=== PATIENT | female | born 1940 | race Caucasian/White ===

== ENCOUNTER 2019-11-23 14:09 | Inpatient (IN) | payer MEDICARE, OTHER ==
[2019-11-30 02:28] VITALS: RESP 18
[2019-11-30 07:58] VITALS: PULSE 108
[2019-11-30 08:27] VITALS: BP 125/82; TEMP 98
[2019-11-30 11:21] VITALS: BMI 33.4
== END 2019-11-30 16:35 | disposition home health service (06) | DRG 175 ==
LOC: EC 14:09 → 4SSUR 17:01
PROVIDERS: ADMIT Family Medicine; ATTEND Family Medicine
DX: I26.99 Other pulmonary embolism without acute cor pulmonale (principal); J18.9 Pneumonia, unspecified organism; J98.11 Atelectasis; S92.341A Displaced fracture of fourth metatarsal bone, right foot, initial encounter for closed fracture; E03.9 Hypothyroidism, unspecified; E78.5 Hyperlipidemia, unspecified; G89.29 Other chronic pain; I10 Essential (primary) hypertension; M19.90 Unspecified osteoarthritis, unspecified site; R29.6 Repeated falls; R62.7 Adult failure to thrive; W19.XXXA Unspecified fall, initial encounter; Z96.653 Presence of artificial knee joint, bilateral; Z96.611 Presence of right artificial shoulder joint; J98.01 Acute bronchospasm; Z79.01 Long term (current) use of anticoagulants; Z79.1 Long term (current) use of non-steroidal anti-inflammatories (NSAID); Z79.890 Hormone replacement therapy; Z79.82 Long term (current) use of aspirin; Z79.899 Other long term (current) drug therapy; Z90.710 Acquired absence of both cervix and uterus; Z98.1 Arthrodesis status; Z85.820 Personal history of malignant melanoma of skin
CPT/HCPCS: 29515; 36415; 70450; 71045; 71046; 71260; 72125; 80053; 81001; 82550; 83735; 85025; 85027; 85610; 85730; 87040; 93005; 93970; 94640; 94760; 99285

== ENCOUNTER 2019-12-03 00:40 | Emergency (ER) | payer MEDICARE, OTHER ==
[2019-12-03 00:50] VITALS: RESP 18; TEMP 99.2
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
[2019-12-03 01:05] LABS: Basophils % (A) 0 %; Eosinophils # (A) 0.2 k/uL (0-0.7); Eosinophils % (A) 2 %; HCT 36.5 % (34.0-46.0); HGB 12.4 gm/dL (11.4-16.0); Lymphocytes # (A) 1.5 k/uL (1.0-4.8); Lymphocytes % (A) 14 %; MCH 30.1 pg (25.0-35.0); MCHC 33.9 g/dL (31.0-37.0); Mean Platelet Volume 7.6; Monocytes # (A) 0.6 k/uL (0-1.0); Monocytes % (A) 5 %; Neutrophils # (A) 8.5 k/uL (1.3-7.7); Neutrophils % (A) 78 %; Platelet Count 326 k/uL (150-450); WBC 10.9 k/uL (3.8-10.6)
[2019-12-03 01:14] LABS: African American GFR (CKD) >90 (>60 ml/min/1.73 sqM); Anion Gap 7 mmol/L; Blood Urea Nitrogen 9 mg/dL (7-17); Calcium 9.3 mg/dL (8.4-10.2); Carbon Dioxide 29 mmol/L (22-30); Chloride 97 mmol/L (98-107); Glucose 114 mg/dL (74-99); INR 2.1 (<1.2); Non-African American GFR(CKD) >90 (>60 ml/min/1.73 sqM); Potassium 3.3 mmol/L (3.5-5.1); Prothrombin Time 20.4 sec (9.0-12.0); Sodium 133 mmol/L (137-145)
--- NOTE | 2019-12-03 01:30 | CT ---
EXAMINATION TYPE: CT brain wo con DATE OF EXAM: 12/03/2019 COMPARISON: 11/23/2019 HISTORY: Patient presents with head pain after fall. CT DLP: 1121.4 mGycm Automated exposure control for dose reduction was used. There is cerebral cortical atrophy. There is patchy hypodensity in the periventricular white matter. There is frontal scalp hematoma. There is no evidence of intracranial hemorrhage. There is no mass ef fect. The calvarium is intact. IMPRESSION: Cerebral atrophy and chronic small vessel ischemia. No acute intracranial abnormality. No significant change. Frontal scalp acute hematoma.
[2019-12-03] MEDS ORDERED: HYDROcodone/APAP 5-325MG 1 EACH TAB PO STA (01:32)
[2019-12-03] MEDS ORDERED: ONDANSETRON 4 MG/2 ML VIAL IVP STA (01:32)
[2019-12-03] MEDS ORDERED: POTASSIUM CHLORIDE ER 20 MEQ TAB.ER PO STA (01:51)
[2019-12-03 02:02] VITALS: BP 118/78; PULSE 86
== END 2019-12-03 02:43 | disposition home or self-care (01) ==
LOC: EC 00:40
DX: S00.03XA Contusion of scalp, initial encounter (principal); E78.5 Hyperlipidemia, unspecified; I10 Essential (primary) hypertension; E07.9 Disorder of thyroid, unspecified; G89.29 Other chronic pain; G62.9 Polyneuropathy, unspecified; Z88.8 Allergy status to other drugs, medicaments and biological substances; Z91.048 Other nonmedicinal substance allergy status; Z79.01 Long term (current) use of anticoagulants; Z79.52 Long term (current) use of systemic steroids; Z79.82 Long term (current) use of aspirin; Z79.890 Hormone replacement therapy; Z79.891 Long term (current) use of opiate analgesic; Z79.899 Other long term (current) drug therapy; Z96.653 Presence of artificial knee joint, bilateral; Z96.611 Presence of right artificial shoulder joint; Z96.612 Presence of left artificial shoulder joint; V27.0XXA Motorcycle driver injured in collision with fixed or stationary object in nontraffic accident, initial encounter; V00.141A Fall from scooter (nonmotorized), initial encounter; W22.03XA Walked into furniture, initial encounter; Y93.89 Activity, other specified; Y92.009 Unspecified place in unspecified non-institutional (private) residence as the place of occurrence of the external cause
CPT/HCPCS: 36415; 80048; 85025; 85610; 85730; 70450; 99284; 96374; J2405

== ENCOUNTER 2022-05-15 12:27 | Observation (INO) | payer MEDICARE, OTHER ==
[2022-05-15 16:10] LABS: Appearance,Urine Turbid (Clear); Bacteria,Urine Many /hpf; Bilirubin,Urine Negative (Negative); Blood,Urine Small (Negative); Color,Urine Yellow; Glucose,Urine (UA) Negative (Negative); Ketones,Urine Negative (Negative); Leukocyte Esterase,Urine Large (Negative); Mucus,Urine Few /hpf; Nitrite,Urine Positive (Negative); PH, Urine 5.5 (5.0-8.0); Protein,Urine 1+ (Negative); RBC,Urine 27 /hpf (0-5); Specific Gravity,Urine 1.018 (1.001-1.035); Squamous Epithelial Cell,Urine 1 /hpf (0-4); Urobilinogen,Urine <2.0 mg/dL (<2.0); WBC,Urine >182 /hpf (0-5)
[2022-05-15 17:29] LABS: Basophils # (A) 0.1 k/uL (0-0.2); Basophils % (A) 1 %; Eosinophils # (A) 0.4 k/uL (0-0.7); Eosinophils % (A) 6 %; HCT 42.1 % (34.0-46.0); HGB 13.8 gm/dL (11.4-16.0); Lymphocytes # (A) 2.5 k/uL (1.0-4.8); Lymphocytes % (A) 31 %; MCH 29.9 pg (25.0-35.0); MCHC 32.8 g/dL (31.0-37.0); MCV 91.2 fL (80.0-100.0); Mean Platelet Volume 8.1; Monocytes # (A) 0.5 k/uL (0-1.0); Monocytes % (A) 6 %; Neutrophils # (A) 4.4 k/uL (1.3-7.7); Neutrophils % (A) 55 %; Platelet Count 272 k/uL (150-450); RBC 4.61 m/uL (3.80-5.40); RDW 13.5 % (11.5-15.5)
[2022-05-15 17:42] LABS: Calcium 9.4 mg/dL (8.4-10.2); Potassium 4.1 mmol/L (3.5-5.1)
[2022-05-15] MEDS ORDERED: NALOXONE 0.4 MG/ML 1 ML VIAL IV PRN (17:56)
[2022-05-15] MEDS ORDERED: ACETAMINOPHEN TAB 325 MG TAB PO PRN (17:56)
--- NOTE | 2022-05-15 17:56 | ED ---
General Adult HPI - General Chief complaint: Recheck/Abnormal Lab/Rx Stated complaint: UTI Time Seen by Provider: 05/15/22 17:00 Source: patient, RN notes reviewed, old records reviewed Mode of arrival: wheelchair Limitations: no limitations - History of Present Illness Initial comments: Patient is a 81-year-old female with past medical history remarkable for hypertension, thyroid disorder, hyperlipidemia, chronic back pain, chronic UTIs who presents emergency department after being sent by her PCP over concern for UTI for the last 7 months. Patient has been having dysuria, burning sensation in her urine for the last 7 months. Has tried multiple oral antibiotics without any improvement. She is also endorsing mild suprapubic abdominal pain. No change from prior episodes of UTIs. Was sent here by her PCP for admission for evaluation by infectious disease and initiation of IV antibiotics. His no other acute complaints at this time. Denies nausea, vomiting, chest pain or shortness breath, fevers. Denies any tinge in bowel habits. Denies any blood in urine. Presents for further evaluation at this time. - Related Data Home Medications Medication Instructions Recorded Confirmed Aspirin EC [Ecotrin Low Dose] 81 mg PO DAILY 11/23/19 11/23/19 Atorvastatin [Lipitor] 20 mg PO DAILY 11/23/19 11/23/19 Ergocalciferol [Vitamin D2 50,000 unit PO MO 11/23/19 11/23/19 (DRISDOL)] Escitalopram [Lexapro] 10 mg PO DAILY 11/23/19 11/23/19 Ferrous Sulfate [Iron (65 MG 325 mg PO DAILY 11/23/19 11/23/19 Elemental)] Gabapentin 600 mg PO TID 11/23/19 11/23/19 HYDROcodone/APAP 10-325MG [[place] 1 tab PO TID PRN 11/23/19 11/23/19 10-325] Levothyroxine Sodium 200 mcg PO DAILY 11/23/19 11/23/19 Lubiprostone [Amitiza] 8 mcg PO DAILY 11/23/19 11/23/19 Meclizine HCl 12.5 mg PO TID 11/23/19 11/23/19 Montelukast [Singulair] 10 mg PO HS 11/23/19 11/23/19 Solifenacin Succinate [Vesicare] 10 mg PO DAILY 11/23/19 11/23/19 amLODIPine [Norvasc] 5 mg PO DAILY 11/23/19 11/23/19 atenoloL [Tenormin] 25 mg PO DAILY 11/23/19 11/23/19 oxyCODONE HCL [OxyCONTIN] 60 mg PO TID 11/23/19 11/23/19 predniSONE 5 mg PO DAILY 11/23/19 11/23/19 raNITIdine HCL [Zantac] 150 mg PO BID 11/23/19 11/23/19 Previous Rx's Medication Instructions Recorded cefUROXime axetiL [Ceftin] 500 mg PO BID 3 Days #6 tab 11/26/19 Warfarin [Coumadin] 2.5 mg PO DAILY@1800 tab 11/29/19 Allergies Allergy/AdvReac Type Severity Reaction Status Date / Time cat dander Allergy Rash/Hives Verified 05/15/22 13:07 nortriptyline [From Pamelor] AdvReac Unknown Verified 05/15/22 13:07 Review of Systems ROS Statement: Those systems with pertinent positive or pertinent negative responses have been documented in the HPI. Review of Systems: CONST: Denies fever EYES: Denies blurry vision ENT: Denies nasal congestion C/V: Denies Chest pain RESP: Denies shortness of breath GI: Endorses suprapubic abdominal pain, somewhat chronic. : Denies dysuria SKIN: Denies rash. MSK: Denies joint pain. NEURO: Denies headache ROS Other: All systems not noted in ROS Statement are negative. Past Medical History Past Medical History: Hyperlipidemia, Hypertension, Thyroid Disorder Additional Past Medical History / Comment(s): chronic back pain, neuropathy, vertigo, History of Any Multi-Drug Resistant Organisms: None Reported Past Surgical History: Back Surgery, Section, Cholecystectomy, Hysterectomy, Joint Replacement, Orthopedic Surgery Additional Past Surgical History / Comment(s): 5 back surgeries, bilat knees, shoulder replacement, Past Psychological History: No Psychological Hx Reported Past Alcohol Use History: None Reported Past Drug Use History: None Reported - Past Family History Father Family Medical History: Diabetes Mellitus Mother Family Medical History: Hypertension General Exam - General Exam Comments Initial Comments: General: Appears in no acute distress. HEAD: Normal with no signs of head trauma. EYES: PERRLA, EOMI, conjunctiva normal, no discharge. ENT: Hearing grossly intact, normal oropharynx. RESPIRATORY: Clear breath sounds bilaterally. No wheezes, rales, or rhonchi. C/V: Regular rate and rhythm. S1 and S2 auscultated. Peripheral pulses 2+ and intact throughout. ABD: Abdomen soft, nondistended. Mild tenderness to palpation suprapubic region. No other findings. No rebound tenderness. No guarding. No CVA tenderness to percussion. EXT: Normal range of motion, no obvious deformity SKIN: No rashes or lesions observed on exposed skin. NEURO: Alert and oriented 4. Limitations: no limitations Course Vital Signs 05/15/22 05/15/22 05/15/22 13:07 16:36 17:23 Temperature 98.2 F Pulse Rate 102 H 68 68 Respiratory 18 16 16 Rate Blood Pressure 122/75 140/67 140/68 O2 Sat by Pulse 96 98 98 Oximetry Medical Decision Making - Medical Decision Making Based on the patient's presentation and physical exam, I'm concerned for chronic UTI. She has having chronic symptoms. Was sent for admission which I believe is reasonable. We will obtain basic laboratory studies. Urinalysis was already obtained, and revealed small amount of blood, positive nitrite and large amount of leukocyte esterase, 27 RBCs, as well as greater than 182 WBCs. Many bacteria present. Basic labs are within normal limits. Vital signs are within normal limits. I did speak with the patient's PCP and admitting physician, Dr. Degroot who requested infectious disease consult. Urine culture was sent and is pending. I did discuss with him starting IV antibiotics, and as this has been a chronic issue for 7 months with no new changes in the patient's status, as well as normal vital signs, we both agreed that waiting for the culture results and infectious disease consult was reasonable prior to starting antibiotics and I did discuss this with the patient who was in agreement this plan. Patient was therefore admitted to observation in stable condition. Infectious disease consult was placed. - Lab Data Result diagrams: 05/15/22 17:22 05/15/22 17: Lab Results 05/15/22 05/15/22 05/15/22 Range/Units 15:00 17:22 17:22 WBC 8.0 (3.8-10.6) k/uL RBC 4.61 (3.80-5.40) m/uL Hgb 13.8 (11.4-16.0) gm/dL Hct 42.1 (34.0-46.0) % MCV 91.2 (80.0-100.0) fL MCH 29.9 (25.0-35.0) pg MCHC 32.8 (31.0-37.0) g/dL RDW 13.5 (11.5-15.5) % Plt Count 272 (150-450) k/uL MPV 8.1 Neutrophils % 55 % Lymphocytes % 31 % Monocytes % 6 % Eosinophils % 6 % Basophils % 1 % Neutrophils # 4.4 (1.3-7.7) k/uL Lymphocytes # 2.5 (1.0-4.8) k/uL Monocytes # 0.5 (0-1.0) k/uL Eosinophils # 0.4 (0-0.7) k/uL Basophils # 0.1 (0-0.2) k/uL Sodium 138 (137-145) mmol/L Potassium 4.1 (3.5-5.1) mmol/L Chloride 105 (98-107) mmol/L Carbon Dioxide 22 (22-30) mmol/L Anion Gap 11 mmol/L BUN 13 (7-17) mg/dL Creatinine 0.81 (0.52-1.04) mg/dL Est GFR (CKD-EPI)AfAm 80 (>60 ml/min/1.73 sqM) Est GFR (CKD-EPI)NonAf 70 (>60 ml/min/1.73 sqM) Glucose 96 (74-99) mg/dL Calcium 9.4 (8.4-10.2) mg/dL Urine Color Yellow Urine Appearance Turbid H (Clear) Urine pH 5.5 (5.0-8.0) Ur Specific [place] 1.018 (1.001-1.035) Urine Protein 1+ H (Negative) Urine Glucose (UA) Negative (Negative) Urine Ketones Negative (Negative) Urine Blood Small H (Negative) Urine Nitrite Positive H (Negative) Urine Bilirubin Negative (Negative) Urine Urobilinogen <2.0 (<2.0) mg/dL Ur Leukocyte Esterase Large H (Negative) Urine RBC 27 H (0-5) /hpf Urine WBC >182 H (0-5) /hpf Urine WBC Clumps Many H (None) /hpf Ur Squamous Epith Cells 1 (0-4) /hpf Urine Bacteria Many H (None) /hpf Urine Mucus Few H (None) /hpf Disposition Clinical Impression: Chronic UTI Disposition: ADMITTED IP TO THIS HOSP Condition: Stable Referrals: Juan Jose Degroot MD [Primary Care Provider] - 1-2 days Time of Disposition: 17:30
[2022-05-15] MEDS ORDERED: HYDROcodone/APAP 10-325MG 1 EACH TAB PO PRN (17:57)
[2022-05-15] MEDS ORDERED: WARFARIN 2.5 MG TAB PO SCH (18:00)
[2022-05-15] MEDS: SODIUM CHLORIDE 0.9% 1,000 ML IV SCH (18:40)
[2022-05-15] MEDS ORDERED: NON FORMULARY DRUG (Naloxone Hcl [Narcan] 4 MG Each) NASAL PRN (18:58)
[2022-05-15] MEDS ORDERED: HEPARIN SODIUM,PORCINE/PF 5,000 UNIT/0.5 ML SYRINGE SQ SCH (21:00)
[2022-05-15] MEDS ORDERED: MECLIZINE 12.5 MG TAB PO SCH (22:00)
[2022-05-15] MEDS ORDERED: GABAPENTIN 300 MG CAP PO SCH (22:00)
[2022-05-15] MEDS: oxyCODONE-APAP 10-325MG 1 EACH TAB PO SCH (22:06)
[2022-05-15] MEDS: HEPARIN SODIUM,PORCINE/PF 5,000 UNIT/0.5 ML SYRINGE SQ SCH (22:07)
[2022-05-15] MEDS: QUEtiapine 25 MG TAB PO SCH (22:07)
[2022-05-16] MEDS: LEVOTHYROXINE 125 MCG TAB PO SCH (06:07)
[2022-05-16] MEDS ORDERED: LEVOTHYROXINE 100 MCG TAB PO SCH (06:30)
[2022-05-16] MEDS: TROSPIUM CHLORIDE 20 MG TABLET PO SCH ×2 (08:44→20:14)
[2022-05-16] MEDS: oxyCODONE-APAP 10-325MG 1 EACH TAB PO SCH ×4 (08:44→21:10)
[2022-05-16] MEDS: METOPROLOL SUCCINATE (ER) 100 MG TAB.ER.24H PO SCH (08:45)
[2022-05-16] MEDS: HEPARIN SODIUM,PORCINE/PF 5,000 UNIT/0.5 ML SYRINGE SQ SCH ×2 (08:45→20:14)
[2022-05-16] MEDS: LACTOBACILLUS ACIDOPH & BULGAR 1 EACH PACKET PO SCH (08:45)
[2022-05-16] MEDS: SODIUM CHLORIDE 0.9% 1,000 ML IV SCH ×2 (08:46→20:14)
[2022-05-16] MEDS ORDERED: atenoloL 25 MG TAB PO SCH (09:00)
[2022-05-16] MEDS ORDERED: Lubiprostone [Amitiza] PO SCH (09:00)
[2022-05-16] MEDS ORDERED: ATORVASTATIN 20 MG TAB PO SCH (09:00)
[2022-05-16] MEDS ORDERED: amLODIPine 5 MG TAB PO SCH (09:00)
[2022-05-16] MEDS ORDERED: ESCITALOPRAM 10 MG TAB PO SCH (09:00)
[2022-05-16] MEDS ORDERED: ASPIRIN 81 MG PO SCH (09:00)
[2022-05-16 09:18] LABS: Basophils # (A) 0.07 X 10*3/uL (0.00-0.10); Basophils % (A) 1.1 %; Eosinophils # (A) 0.49 X 10*3/uL (0.04-0.35); Eosinophils % (A) 7.4 %; HCT 36.8 % (37.2-46.3); HGB 11.8 g/dL (12.0-15.0); Immature Grans, Automated 0.3 %; Lymphocytes # (A) 2.39 X 10*3/uL (0.90-5.00); MCH 29.5 pg (27.0-32.0); MCHC 32.1 g/dL (32.0-37.0); Mean Platelet Volume 10.8 fL (9.5-12.2); Monocytes # (A) 0.64 X 10*3/uL (0.20-1.00); Monocytes % (A) 9.7 %; NRBC Per 100 WBC 0 /100 WBCS (0.0-0.0); Neutrophils # (A) 3.02 X 10*3/uL (1.80-7.70); Neutrophils % (A) 45.5 %; Platelet Count 238 X 10*3/uL (140-440); RDW 13.7 % (11.5-14.5); WBC 6.63 X 10*3/uL (4.50-10.00)
[2022-05-16 09:33] LABS: African American GFR (CKD) 81.3 (60.0-200.0); Anion Gap 9.6 mmol/L (10.00-18.00); Blood Urea Nitrogen 12.8 mg/dL (9.0-27.0); Calcium 8.7 mg/dL (8.7-10.3); Carbon Dioxide 24.4 mmol/L (20.0-27.5); Non-African American GFR(CKD) 70.1 (60.0-200.0); Potassium 3.9 mmol/L (3.5-5.5)
[2022-05-16] MEDS: QUEtiapine 25 MG TAB PO SCH (20:14)
--- NOTE | 2022-05-16 22:25 | P.CONS ---
History of Present Illness - Reason for Consult Consult date: 05/16/22 Recurrent urinary tract infection Requesting physician: Juan Jose Degroot - Chief Complaint Urinary burning and frequency x days - History of Present Illness Patient is a 81-year-old female with a past medical history significant for recurrent UTI patient mention she has been dealing with it for the last 7 months and has been treated with multiple courses of antibiotic patient also have a history of hypertension hyperlipidemia and chronic back pain, patient described her symptoms to be morning of urine frequency urgency and some suprapubic discomfort patient denies having hematuria or flank pain and denies having any fever or chills patient was sent to the ER by the PCP for admission and IV antibiotic therapy on presentation to the hospital the patient was afebrile the patient did have a normal white count kidney function has been normal the patient did have a positive UA with large leukocyte esterase more than 1-2 WBC cultures are currently pending patient started on Rocephin infectious disease was consulted for further management of antibiotic therapy Review of Systems Positive point has been mentioned in the HPI rest of the systems are negative Past Medical History Past Medical History: Hyperlipidemia, Hypertension, Thyroid Disorder Additional Past Medical History / Comment(s): chronic back pain, neuropathy, vertigo, History of Any Multi-Drug Resistant Organisms: None Reported Past Surgical History: Back Surgery, Section, Cholecystectomy, Hysterectomy, Joint Replacement, Orthopedic Surgery Additional Past Surgical History / Comment(s): 5 back surgeries, total bilat knees, total shoulder replacement, c secx3 Past Anesthesia/Blood Transfusion Reactions: No Reported Reaction Past Psychological History: No Psychological Hx Reported Smoking Status: Never smoker Past Alcohol Use History: None Reported Past Drug Use History: None Reported - Past Family History Father Family Medical History: Diabetes Mellitus Mother Family Medical History: Hypertension Medications and Allergies Home Medications Medication Instructions Recorded Confirmed Type Aspirin EC [Ecotrin Low Dose] 81 mg PO DAILY 11/23/19 05/15/22 History Atorvastatin [Lipitor] 20 mg PO DAILY 11/23/19 05/15/22 History Solifenacin Succinate [Vesicare] 10 mg PO DAILY 11/23/19 05/15/22 History L.acidoph,Paracasei, B.lactis 1 cap PO DAILY 05/15/22 05/15/22 History [Probiotic] Levothyroxine Sodium [Synthroid] 125 mcg PO DAILY 05/15/22 05/15/22 History Metoprolol Succinate (ER) [Toprol 100 mg PO DAILY 05/15/22 05/15/22 History XL] Naloxone HCl [Narcan] 4 mg NASAL ONCE PRN 05/15/22 05/15/22 History QUEtiapine [SEROquel] 25 mg PO HS 05/15/22 05/15/22 History fentaNYL 75MCG/HR PATCH [Duragesic 1 patch TRANSDERM Q72H 05/15/22 05/15/22 History 75MCG/HR] oxyCODONE-APAP 10-325MG [Percocet 1 tab PO QID 05/15/22 05/15/22 History 10-325 mg] tiZANidine [Zanaflex] 4 mg PO HS 05/15/22 05/15/22 History Nitrofurantoin Monohyd/M-Cryst 100 mg PO BID 7 Days #14 cap 05/18/22 Rx [Macrobid] Allergies Allergy/AdvReac Type Severity Reaction Status Date / Time cat dander Allergy Rash/Hives Verified 05/15/22 18:15 nortriptyline [From Pamelor] AdvReac Unknown Verified 05/15/22 18:15 Physical Exam Vitals: Vital Signs Temp Pulse Pulse Resp BP BP Pulse Ox 05/16/22 07:00 98 F 68 18 132/72 97 05/16/22 03:22 97.7 F 67 16 99/62 96 05/15/22 20:23 98.3 F 64 16 169/81 97 05/15/22 19:38 95 20 123/77 98 05/15/22 17:23 68 16 140/68 98 05/15/22 16:36 68 16 140/67 98 05/15/22 13:07 98.2 F 102 H 18 122/75 96 Intake and Output 05/15/22 05/16/22 05/16/22 22:59 06:59 14:59 Other: # Voids 1 1 1 Weight 88.451 kg GENERAL DESCRIPTION: Elderly female lying in bed, no distress. No tachypnea or accessory muscle of respiration use. HEENT: Shows Pallor , no scleral icterus. Oral mucous membrane is dry. No pharyngeal erythema or thrush NECK: Trachea central, no thyromegaly. LUNGS: Unlabored breathing. Clear to auscultation anteriorly. No wheeze or crackle. HEART: S1, S2, regular rate and rhythm. No loud murmur ABDOMEN: Soft, no tenderness , guarding or rigidity, no organomegaly EXTREMITIES: No edema of feet. SKIN: No rash, no masses palpable. NEUROLOGICAL: The patient is awake, alert, oriented x3, mood and affect normal. Results CBC & Chem 7: 05/16/22 04:08 05/16/22 04:08 Labs: Abnormal Lab Results - Last 24 Hours (Table) 05/15/22 05/16/22 05/16/22 Range/Units 15:00 04:08 04:08 RBC 4.00 L (4.10-5.20) X 10*6/uL Hgb 11.8 L (12.0-15.0) g/dL Hct 36.8 L (37.2-46.3) % Eosinophils # 0.49 H (0.04-0.35) X 10*3/uL Anion Gap 9.60 L (10.00-18.00) mmol/L Urine Appearance Turbid H (Clear) Urine Protein 1+ H (Negative) Urine Blood Small H (Negative) Urine Nitrite Positive H (Negative) Ur Leukocyte Esterase Large H (Negative) Urine RBC 27 H (0-5) /hpf Urine WBC >182 H (0-5) /hpf Urine WBC Clumps Many H (None) /hpf Urine Bacteria Many H (None) /hpf Urine Mucus Few H (None) /hpf Microbiology - Last 24 Hours (Table) 05/15/22 15:00 Urine Culture - Preliminary Urine,Voided Assessment and Plan (1) Chronic UTI Current Visit: Yes Status: Acute Code(s): N39.0 - URINARY TRACT INFECTION, SITE NOT SPECIFIED SNOMED Code(s): 830428129 Plan: 1patient with a history of recurrent urine tract infection admitted to hospital with number episode of UTI patient however is not running fever or elevated white count more likely cystitis and not behaving as a deep infection likely from enteric gram-negative pathogen. 2we will obtain ultrasound of the kidney bladder area to make sure no evidence of any structural abnormality responsible for these recurrent UTIs. 3continue with Rocephin 1 g daily while waiting for the culture to be finalized. We will follow on clinical condition and cultures to further adjust medication if needed Thank you for this consultation will follow this patient along with you Time with Patient: Greater than 30
--- NOTE | 2022-05-17 03:54 | HP ---
HISTORY AND PHYSICAL A 81-year-old white female admitted with UTI with urosepsis, waiting for urine cultures to come back. Started on Rocephin, rehydrated with fluids. She has hypertension, hypothyroidism, dyslipidemia, chronic back pain, chronic UTI, cervical lumbar radiculopathy, osteoarthritis, and shoulder disintegration failing outpatient treatment with drug-resistant UTIs with oral antibiotics multiple, not have any improvement. She is cleared for discharge. has the suprapubic pain, failed outpatient treatment. Some mild fevers. No chills. Admitted with IV antibiotics. Home medicines, please see list. ALLERGIES: CAT dander and Pamelor. HOME MEDICATIONS: [place] 10/325 every q.8 hours. Duragesic patch 25 mcg every 72 hours. Amitiza 8 mcg daily. Levothyroxine 20 mcg daily. Singulair 10 mg daily, VESIcare 10 mg daily, Norvasc 5 mg daily, Tenormin 25 mg daily, OxyContin 60 mg t.i.d., which has been discontinued, prednisone 5 mg daily, and Zantac 150 b.i.d. PAST MEDICAL HISTORY: Dyslipidemia, hypertension, hypothyroidism, chronic back pain, neuropathy, vertigo. PAST SURGICAL HISTORY: Back surgery, , cholecystectomy, hysterectomy, joint replacement, orthopedic surgery. FAMILY HISTORY: Father, diabetes mellitus. Mother, hypertension. PHYSICAL EXAMINATION: VITAL SIGNS: Stable. Temperature 98.2, pulse 102, respiratory rate 16-18, blood pressure 120 to 140s over 60s to 70s, O2 saturation is 96%. CARDIOVASCULAR: S1, S2. LUNGS: Clear. GI: Soft. MUSCULOSKELETAL: Tenderness to palpation of cervical lumbar spine. The shoulder range of motion is 45 degrees. HEMATOLOGY: Negative Homans. PSYCHIATRIC: Fair mood and affect. LABORATORY DATA: Urine culture pending showed over 182 white blood cells, 27 red blood cells, white count is 8, hemoglobin 13.8, BUN is 13, creatinine is 0.81. ASSESSMENT: Urinary tract infection, systemic inflammatory response system, failed outpatient therapy, hypothyroidism, hypertension, chronic disk disease. Prognosis guarded. Started on Rocephin. Urine cultures. Infectious Disease consult. . MMODL / IJN: [id number] /
[2022-05-17] MEDS: LEVOTHYROXINE 125 MCG TAB PO SCH (05:34)
--- NOTE | 2022-05-17 07:51 | US ---
EXAMINATION TYPE: US kidneys/renal and bladder DATE OF EXAM: 05/17/2022 COMPARISON: NONE CLINICAL HISTORY: 81-year-old female UTI and bacteremia. Chronic UTI for 7 months TECHNIQUE: Multiple sonographic images of the kidneys and bladder are obtained. FINDINGS: EXAM MEASUREMENTS: Right Kidney: 10.7 x 4.0 x 4.4 cm Left Kidney: 11.3 x 4.3 x 3.6 cm Right Kidney: No hydronephrosis or masses seen Left Kidney: No hydronephrosis or masses seen Bladder: wnl Bilateral Jets seen: Yes IMPRESSION: No hydronephrosis.
[2022-05-17] MEDS: HEPARIN SODIUM,PORCINE/PF 5,000 UNIT/0.5 ML SYRINGE SQ SCH ×2 (10:13→21:13)
[2022-05-17] MEDS: LACTOBACILLUS ACIDOPH & BULGAR 1 EACH PACKET PO SCH (10:14)
[2022-05-17] MEDS: oxyCODONE-APAP 10-325MG 1 EACH TAB PO SCH ×4 (10:14→21:14)
[2022-05-17] MEDS: SODIUM CHLORIDE 0.9% 1,000 ML IV SCH ×2 (10:16→22:41)
[2022-05-17] MEDS: METOPROLOL SUCCINATE (ER) 100 MG TAB.ER.24H PO SCH (10:16)
[2022-05-17] MEDS: TROSPIUM CHLORIDE 20 MG TABLET PO SCH ×2 (10:17→21:15)
[2022-05-17] MEDS: QUEtiapine 25 MG TAB PO SCH (21:13)
[2022-05-18] MEDS: LEVOTHYROXINE 125 MCG TAB PO SCH (06:20)
--- NOTE | 2022-05-18 07:33 | P.PN ---
Subjective Progress Note Date: 05/17/22 Principal diagnosis: Recurrent urinary tract infection Patient is a 81-year-old female with a past medical history significant for recurrent UTI and admitted to the hospital with an episode of UTI On today's evaluation that is 05/17/2022, the patient denies having any fever or chills, patient still complaining of not feeling well, patient denies having any chest pain or shortness of breath or cough no abdominal pain or diarrhea Objective - Vital Signs Vital signs: Vital Signs Temp 98.3 F 05/17/22 13:12 Pulse 96 05/17/22 13:12 Resp 16 05/17/22 13:12 BP 149/84 05/17/22 13:12 Pulse Ox 96 05/17/22 13:12 FiO2 Intake & Output 05/16/22 05/17/22 05/17/22 18:59 06:59 18:59 Intake Total 480 360 Balance 480 360 Intake: Oral 480 360 Other: Voiding Method Toilet # Voids 1 1 - Exam GENERAL DESCRIPTION: An elderly female lying in bed in no distress RESPIRATORY SYSTEM: Unlabored breathing , decreased breath sounds at bases HEART: S1 S2 regular rate and rhythm , ABDOMEN: Soft , no tenderness EXTREMITIES: No edema feet - Labs CBC & Chem 7: 05/16/22 04:08 05/16/22 04:08 Labs: Microbiology - Last 24 Hours (Table) 05/15/22 15:00 Urine Culture - Preliminary Urine,Voided Gram Neg Bacilli Assessment and Plan (1) Chronic UTI Current Visit: Yes Status: Acute Code(s): N39.0 - URINARY TRACT INFECTION, SITE NOT SPECIFIED SNOMED Code(s): 041124922 Plan: 1patient with a history of recurrent urine tract infection admitted to hospital with number episode of UTI patient however is not running fever or elevated white count more likely cystitis and not behaving as a deep infection likely from enteric gram-negative pathogen. 2ultrasound of the kidney bladder area with no evidence of any structural abnormality responsible for these recurrent UTIs. 3patient to continue with Rocephin 1 g daily while waiting for the culture to be finalized to determine discharge antibiotics. Time with Patient: Less than 30
[2022-05-18 08:12] VITALS: BP 158/91; PULSE 101; RESP 16; TEMP 97.4
[2022-05-18] MEDS: HEPARIN SODIUM,PORCINE/PF 5,000 UNIT/0.5 ML SYRINGE SQ SCH (08:34)
[2022-05-18] MEDS: LACTOBACILLUS ACIDOPH & BULGAR 1 EACH PACKET PO SCH (08:34)
[2022-05-18] MEDS: TROSPIUM CHLORIDE 20 MG TABLET PO SCH (08:35)
[2022-05-18] MEDS: METOPROLOL SUCCINATE (ER) 100 MG TAB.ER.24H PO SCH (08:35)
[2022-05-18] MEDS: oxyCODONE-APAP 10-325MG 1 EACH TAB PO SCH ×2 (08:42→13:41)
[2022-05-18] MEDS: NITROFURANTOIN MONOHYD/M-CRYST 100 MG CAP PO SCH ×2 (13:42→13:47)
[2022-05-18] MEDS ORDERED: LEVOFLOXACIN 250 MG TAB PO SCH (15:15)
--- NOTE | 2022-05-18 16:03 | P.PN ---
Subjective Progress Note Date: 05/18/22 Principal diagnosis: Recurrent urinary tract infection Patient is a 81-year-old female with a past medical history significant for recurrent UTI and admitted to the hospital with an episode of UTI On today's evaluation that is 05/18/2022, the patient remains to be afebrile, patient mentioned on feeling that good, patient denies having any chest pain or shortness of breath or cough no abdominal pain or diarrhea Objective - Vital Signs Vital signs: Vital Signs Temp 97.4 F L 05/18/22 07:00 Pulse 101 H 05/18/22 08:00 Resp 16 05/18/22 08:00 BP 158/91 05/18/22 07:00 Pulse Ox 97 05/18/22 07:00 FiO2 Intake & Output 05/17/22 05/18/22 05/18/22 18:59 06:59 18:59 Intake Total 840 Balance 840 Intake: Oral 840 Other: Voiding Method Toilet Toilet Toilet # Voids 7 1 - Exam GENERAL DESCRIPTION: An elderly female lying in bed in no distress RESPIRATORY SYSTEM: Unlabored breathing , decreased breath sounds at bases HEART: S1 S2 regular rate and rhythm , ABDOMEN: Soft , no tenderness EXTREMITIES: No edema feet - Labs CBC & Chem 7: 05/16/22 04:08 05/16/22 04:08 Labs: Microbiology - Last 24 Hours (Table) 05/15/22 15:00 Urine Culture - Final Urine,Voided Escherichia coli Assessment and Plan (1) Chronic UTI Current Visit: Yes Status: Acute Code(s): N39.0 - URINARY TRACT INFECTION, SITE NOT SPECIFIED SNOMED Code(s): 428633416 Plan: 1patient with a history of recurrent urine tract infection admitted to hospital with number episode of UTI patient however is not running fever or elevated white count more likely cystitis and not behaving as a deep infection likely from enteric gram-negative pathogen. 2ultrasound of the kidney bladder area with no evidence of any structural abnormality responsible for these recurrent UTIs. 3patient has shown clinical improvement on Rocephin urine has been finalized with an E. coli which is a sensitive pathogen considered a short course of oral Ceftin on discharge Time with Patient: Less than 30
--- NOTE | 2022-05-19 02:04 | PN ---
PROGRESS NOTE A 81-year-old white female who is in the hospital with drug-resistant UTI sepsis. Waiting for urine culture sensitivity to finalize. It does not feel much better on Rocephin. Waiting for Dr. El's recommendations. Home medications have been reviewed. PHYSICAL EXAMINATION: CARDIOVASCULAR: S1 and S2. LUNGS: Clear. GI: Soft. HEMATOLOGY: Negative Homans. ASSESSMENT: Status post urinary tract infection, rule out pyelonephritis. Renal ultrasound showed no obstruction. Continue with antibiotics. Await for final cultures and she will be discharged. She has been drug-resistant, unresponsive to oral antibiotics as an outpatient, that is why she is admitted. Waiting for final cultures prior to discharge. MMODL / IJN: [id number] /
--- NOTE | 2022-05-19 03:19 | DS ---
DISCHARGE SUMMARY DISCHARGE MEDICATIONS: 1. Macrobid 100 b.i.d. for 7 days. 2. VESIcare 10 mg daily. 3. Aspirin 81 mg daily. 4. Lipitor 20 mg daily. 5. Zanaflex 4 mg at night. 6. Percocet 10/325 q.i.d. 7. patch every 72 hours. 8. Narcan 4 mg nasal p.r.n. 9. Toprol-XL 100 mg daily. 10.Seroquel XL 25 mg at night. 11.Synthroid 125 mcg daily. 12.Lactobacillus 1 daily. CONDITION: Stable. PROGNOSIS: Guarded. Ambulate as tolerated. Follow up in office in a week and should also go home on Lipitor 20 mg daily, aspirin 81 mg daily, VESIcare 10 mg daily, metoprolol, Toprol-XL 100 mg daily. She came in with UTI, abdominal pain. IV Rocephin was given 2 to [address] El on consult for Infectious Disease. She came back positive for E coli, sensitive to oral antibiotics, was discharged home. She will follow up as an outpatient in a week to my office. Condition stable. Prognosis guarded. Ambulate as tolerated. We will start the medication to prevent fecal urethral transmission for UTI. MMODL / IJN: [id number] /
== END 2022-05-18 16:35 | disposition home or self-care (01) ==
LOC: EC 12:27 → 6NMEDSUR 17:57
PROVIDERS: ADMIT Family Medicine; ATTEND Family Medicine
DX: N39.0 Urinary tract infection, site not specified (principal); I10 Essential (primary) hypertension; E78.5 Hyperlipidemia, unspecified; E03.9 Hypothyroidism, unspecified; B96.20 Unspecified Escherichia coli [E. coli] as the cause of diseases classified elsewhere; M54.16 Radiculopathy, lumbar region; G62.9 Polyneuropathy, unspecified; Z79.82 Long term (current) use of aspirin; Z79.899 Other long term (current) drug therapy; Z79.890 Hormone replacement therapy; Z90.49 Acquired absence of other specified parts of digestive tract; Z90.710 Acquired absence of both cervix and uterus; Z96.619 Presence of unspecified artificial shoulder joint; Z83.3 Family history of diabetes mellitus; Z82.49 Family history of ischemic heart disease and other diseases of the circulatory system
CPT/HCPCS: 96361; 96372 ×4; 99284; 36415; 80048 ×2; 85025 ×2; 81001; 87086; 87077; 87186; 76770; G0378 ×4; J0696 ×4; J1644 ×4; 96360

== ENCOUNTER → 2022-06-25 | Outpatient (CLI) | payer MEDICARE, OTHER ==
--- NOTE | 2022-06-25 17:32 | CT ---
EXAMINATION TYPE: CT abdomen pelvis w con DATE OF EXAM: 06/25/2022 COMPARISON: None INDICATION: PELVIC PAIN; frequent UTI's DLP: 1463 mGycm, Automated exposure control for dose reduction was used. CONTRAST: 100ml mL of Isovue 300. Study performed with Oral Contrast TECHNIQUE: Axial images were obtained from above the diaphragm to the pubic rami in the axial plane a t 5 mm thick sections. Reconstructed images are reviewed on the computer in the coronal plane. FINDINGS: Limited CT sections are obtained the lung bases. The lung bases are clear. CT ABDOMEN: Liver: Normal Spleen: Normal Pancreas: Atrophic Adrenal glands: The adrenal glands are normal. Gallbladder: Surgically absent Kidneys: There is a 0.8 cm calcification without obstruction at the inferior pole right kidney. Dewayne tional punctate calcification without obstruction is in the mid upper pole right kidney measuring 0.4 cm.. No hydronephrosis is present. No cysts are present. Delayed images were obtained through the kidneys, which remain unremarkable. Aorta: Vascular calcification is within the aorta. Inferior vena cava: Normal. CT PELVIS: Loops of bowel within the abdomen and pelvis are normal. Fecal debris is within the colon. Loops o f bowel lacking oral contrast are incompletely distended limiting their evaluation. Appendix: Not identified. No dilated tubular structure or inflammatory changes are evident. Urinary bladder: Some thickening of the urinary bladder wall along the right lateral aspect may be pr esent. Additional evaluation with ultrasound is recommended. Was not appreciated on the recent 1122 u ltrasound. Bladder. Genitourinary structures: Uterus is not identified. There are 2 rounded densities within the posterio r pelvis measuring 2.0 and 0.2 cm in size could be ovarian cyst. This could be further evaluated with pelvic ultrasound. Osseous structures: No suspicious lytic or sclerotic lesions are evident. Pedicle screws cause some l imitation during a portion of the study IMPRESSIONS: 1. Suspected ovarian cysts. Additional workup with pelvic ultrasound is recommended. 2. Pelvic ultrasound could also evaluate right lateral urinary bladder wall thickening. 3. Nonobstructing right renal stones
== END | disposition home or self-care (01) ==
LOC: RADCTMAIN 13:21
PROVIDERS: ATTEND Family Medicine
DX: R10.2 Pelvic and perineal pain (principal)
CPT/HCPCS: 82565; 84520; 74177; 36415; Q9967

== ENCOUNTER 2022-10-03 09:51 | Day surgery (SDC) | payer MEDICARE, OTHER ==
[~2022-10-03 09:51] MED LIST: LACTATED RINGERS 1,000 ML IV SCH
[2022-10-03 11:00] VITALS: TEMP 97.8
[2022-10-03] MEDS ORDERED: LACTATED RINGERS 1,000 ML IV ONE (11:00)
[2022-10-03] MEDS ORDERED: PROPOFOL 10 MG/ML 20 ML VIAL IV ONE (11:41)
--- NOTE | 2022-10-03 12:07 | P.PCN ---
Date of Procedure: 10/03/22 Procedure(s) Performed: BRIEF HISTORY: Patient is a 82-year-old pleasant white female scheduled for an elective colonoscopy as a part of evaluation of possible colovesical fistula that was diagnosed recently given a cystoscopy done by . Apparently patient was having recurrent urinary tract infections for the last 9 months duration. Hence as a part of workup she did have a cystoscopy performed recently. She also has prior history of colon polyps last coloscopy was 10 years ago. PROCEDURE PERFORMED: Colonoscopy with snare polypectomy. PREOPERATIVE DIAGNOSIS: History of colon polyps and possible colovesical fistula diagnosed recently. IV sedation per Anesthesia. PROCEDURE: After informed consent was obtained, the patient, was brought into the endoscopy unit. IV sedation was administered by Anesthesia under continuous monitoring. Digital rectal examination was normal. Initially the Olympus CF-160 flexible video colonoscope was then inserted in the rectum, gradually advanced into the cecum without any difficulty. Careful examination was performed as the scope was gradually being withdrawn. Ileocecal valve and the appendiceal orifice were visualized and appeared normal. Prep was excellent. Mucosa of the cecum, appeared normal. Ascending colon there was a 5 mm and 1 cm polyp removed by snare polypectomy. In the transverse colon there was a 1 cm polyp removed by snare polypectomy. In the descending colon there were 3 polyps measuring between 5 mm and 1 cm in size removed by snare polypectomy. The sigmoid colon appeared normal. No obvious diverticulosis seen. In the rectosigmoid colon at 20 cm of the anal was there was a 1 cm polyp removed by systolic. The rectum appeared normal. Retroflexion was performed in the rectum and no lesions were seen. The patient tolerated the procedure well. IMPRESSION: 5 mm and 1 cm ascending colon polyp status post polypectomy 1 cm transverse colon polyp status post polypectomy 3 polyps in the descending colon measuring between 5 mm to 1 cm in size removed by snare polypectomy 1 cm rectosigmoid polyp status post polypectomy No obvious sigmoid diverticulosis or colovesical fistula noted. RECOMMENDATIONS: Findings of this examination were discussed with the patient as well as her family. She was advised to follow with the biopsy results. If the biopsies reveal adenoma she can have a repeat colonoscopy in 3 years. In regards to the colovesical fistula she was advised to follow with Dr. Jaffe for further management and possible surgery.
[2022-10-03 12:11] VITALS: RESP 16
[2022-10-03 12:25] VITALS: BP 150/69; PULSE 65
== END 2022-10-03 12:33 | disposition home or self-care (01) ==
LOC: ORWHC2ENDO 09:51
PROVIDERS: ATTEND Internal Medicine Gastroenterology
DX: Z12.11 Encounter for screening for malignant neoplasm of colon (principal); D12.3 Benign neoplasm of transverse colon; D12.4 Benign neoplasm of descending colon; D12.7 Benign neoplasm of rectosigmoid junction; K63.2 Fistula of intestine; I10 Essential (primary) hypertension; E78.5 Hyperlipidemia, unspecified; E03.9 Hypothyroidism, unspecified; F11.20 Opioid dependence, uncomplicated; G62.9 Polyneuropathy, unspecified; Z79.1 Long term (current) use of non-steroidal anti-inflammatories (NSAID); Z79.890 Hormone replacement therapy; Z79.899 Other long term (current) drug therapy; Z79.82 Long term (current) use of aspirin; Z88.5 Allergy status to narcotic agent; Z91.040 Latex allergy status; Z88.8 Allergy status to other drugs, medicaments and biological substances
CPT/HCPCS: 88305; 45385; J2704

== ENCOUNTER 2022-12-26 06:23 | Inpatient (IN) | payer MEDICARE, OTHER ==
[~2022-12-26 06:23] MED LIST changes: +ACETAMINOPHEN TAB 500 MG TAB PO PRN; +DEXAMETHASONE SOD PHOSPHATE 4 MG/ML 1 ML VIAL IV ONE; +HEPARIN SODIUM,PORCINE/PF 5,000 UNIT/0.5 ML SYRINGE SQ PRN; -LACTATED RINGERS 1,000 ML IV SCH; +LIDOCAINE 1% (10MG/ML) FOR IV START INTRADERMA PRN; +ONDANSETRON 4 MG/2 ML VIAL IVP ONE; +metroNIDAZOLE-NS PMX 500 MG in SALINE 1 100ML.BAG IVPB PRN
[2022-12-26] MEDS: LACTATED RINGERS 1,000 ML IV SCH (06:41)
[2022-12-26] MEDS ORDERED: MIDAZOLAM 2 MG/2 ML VIAL IVP ONE (07:18)
[2022-12-26] MEDS ORDERED: NEOSTIGMINE 1 MG/ML 10 ML VIAL ONE (07:40)
[2022-12-26] MEDS ORDERED: SUCCINYLCHOLINE CHLORIDE 200 MG/10 ML VIAL IV ONE (07:40)
[2022-12-26] MEDS ORDERED: PROPOFOL 10 MG/ML 20 ML VIAL IV ONE (07:40)
[2022-12-26] MEDS ORDERED: ROCURONIUM 10 MG/ML (5 ML VIAL) IV ONE (07:40)
[2022-12-26] MEDS ORDERED: CALCIUM GLUCONATE IN NACL 2 GM/100 ML IVPB ONE (07:40)
[2022-12-26] MEDS ORDERED: HYDROmorphone (PF) 1 MG/ML ONE (07:40)
[2022-12-26] MEDS ORDERED: fentaNYL (PF) 50 MCG/ML 2 ML AMP ONE (07:40)
[2022-12-26] MEDS ORDERED: GLYCOPYRROLATE 0.2 MG/ML 2 ML VIAL ONE (07:40)
[2022-12-26] MEDS ORDERED: NALOXONE 0.4 MG/ML 1 ML VIAL IV PRN (07:46)
--- NOTE | 2022-12-26 07:46 | P.ANPRN ---
Procedure Note - Anesthesia - Epidural/Spinal Epidural Continuous Date of Procedure: 12/26/22 Procedure Start Time: 07:17 Procedure Stop Time: 07:29 Location of Patient: PreOp Indication: Acute Post-Operative Pain, Requested by Surgeon Sedation Type: Sedate with meaningful contact maintained Preparation: Sterile Dressing Position: Sitting Catheter: Indwelling Needle Guage: 18 Injectate: Lidocaine 1.5% with epinephrine Blood Aspirated: No Pain Paresthesia on Injection Noted: No Events: Uneventful and Well Tolerated
[2022-12-26] MEDS ORDERED: ROPIVACAINE 250 MG, HYDROMORPHONE (PF) 5 MG in SODIUM CHLORIDE 0.9% 200 ML EPIDURAL PRN (08:00)
[2022-12-26] MEDS ORDERED: LACTATED RINGERS 1,000 ML IV ONE (09:09)
[2022-12-26] MEDS ORDERED: METOCLOPRAMIDE 5 MG/ML 2 ML VIAL IVP PRN (09:26)
--- NOTE | 2022-12-26 09:26 | P.OP ---
Date of Procedure: 12/26/22 Preoperative Diagnosis: Diverticulitis Colovesical fistula Postoperative Diagnosis: Diverticulitis no apparent colovesical fistula Bilateral enlarged ovarian cysts Procedure(s) Performed: Sigmoid resection with low anterior resection Bilateral ovarian cystectomy Anesthesia: KRUPA Surgeon: Mino Aparicio Pathology: other (Sigmoid colon) Condition: stable Disposition: PACU Description of Procedure: DESCRIPTION OF PROCEDURE: The patient was placed on the operating table in the supine position. Patient received a general anesthesia. Patient was then placed in the dorsal lithotomy position. The patients abdomen was prepped and draped in the usual sterile fashion. Through a low midline incision, the abdomen was entered. The Maryan retractor was placed in the wound. The stomach appeared normal. The small bowel appeared normal. The liver appeared normal. The right colon and transverse colon appeared normal. On the left colon, there was an extensive diverticulosis noted. The sigmoid colon was then mobilized by dividing the white line of Toldt with electrocautery. At this point, the proximal sigmoid colon was transected with a GI stapler after a window had been made in the mesentery. The distal sigmoid colon was then dissected. Mesentery was taken down between Fabiana clamps and ligated with #0 silk ties. At a point beyond the lesion, the bowel was then transected with a Proximate stapler. This was then removed. The splenic flexure was then ta gonzalo down in order to provide adequate lengthening of the sigmoid colon. At this point, the auto purse-string suture device was placed across the proximal colon and fired. The colon was then opened. The 29 mm EEA anvil was then placed into the colon and then the purse-string was secured. The EEA stapler device was then placed in the patients anus and passed into the rectum. The nail for the EEA was then brought out through the distal rectum and then attached to the anvil. The EEA stapler device was then fired. The anastomosis was inspected. There were 2 good donuts of tissue removed from the EEA stapler. The anastomosis was then tested under water and there was no air leak seen. At this point the abdomen was then irrigated. There was no bleeding seen. The patient had enlarged ovarian cysts bilaterally. The cyst measured prostate 5 cm diameter. Cystectomy performed using left cautery. The cyst was drained. The fascia was then closed with double stranded #1 PDS. The skin was closed with dale. The patient tolerated the procedure well.
[2022-12-26] MEDS: HYDROmorphone 0.5 MG/0.5 ML SYRINGE IVP PRN ×2 (09:55→10:22)
[2022-12-26] MEDS: HYDROmorphone 1 MG/ML 1 ML SYRINGE IVP PRN ×2 (14:27→22:58)
[2022-12-26] MEDS: D5-0.45% NACL WITH KCL 20MEQ/L 1,000 ML IV SCH ×2 (14:55→21:23)
[2022-12-26] MEDS ORDERED: tiZANidine 4 MG TAB PO SCH (21:00)
[2022-12-26] MEDS: QUEtiapine 25 MG TAB PO SCH (21:19)
[2022-12-26] MEDS: FAMOTIDINE 20 MG/2 ML VIAL IV SCH (21:19)
--- NOTE | 2022-12-27 00:33 | CONS ---
CONSULTATION HISTORY OF PRESENT ILLNESS: White female. Diverticulitis, colovesicular fistula, status post colectomy. She is on a pain pump. She is having no chest pain or shortness of breath. MEDICATIONS: Reviewed. REVIEW OF SYSTEMS: Fourteen-point review of systems is otherwise negative. PHYSICAL EXAMINATION: VITAL SIGNS: Stable. Afebrile. CARDIOVASCULAR: S1 and S2. LUNGS: Clear. GI: Soft. Abdomen has gotten a bandage. HEMATOLOGY: Negative Homans. ASSESSMENT: Status post colovesicular fistula bowel repair. Continue with current treatments. Surgical repair. Pain control. Home medications restarted. Prognosis guarded. MMODL / IJN: [id number] /
[2022-12-27] MEDS ORDERED: SODIUM CHLORIDE 0.9% 500 ML 500 ML IV ONE (01:20)
[2022-12-27] MEDS: oxyCODONE-APAP 10-325MG 1 EACH TAB PO PRN (03:51)
[2022-12-27] MEDS: D5-0.45% NACL WITH KCL 20MEQ/L 1,000 ML IV SCH ×3 (05:17→20:42)
[2022-12-27] MEDS: LACTATED RINGERS 1,000 ML IV SCH (05:43)
[2022-12-27] MEDS: LEVOTHYROXINE 125 MCG TAB PO SCH (05:46)
[2022-12-27 06:56] LABS: Basophils % (A) 0 %; Eosinophils % (A) 0 %; HCT 27.6 % (34.0-46.0); HGB 9.3 gm/dL (11.4-16.0); Lymphocytes # (A) 2.5 k/uL (1.0-4.8); Lymphocytes % (A) 25 %; MCH 30.6 pg (25.0-35.0); MCHC 33.7 g/dL (31.0-37.0); MCV 90.9 fL (80.0-100.0); Mean Platelet Volume 8.3; Monocytes # (A) 0.6 k/uL (0-1.0); Monocytes % (A) 6 %; Neutrophils # (A) 6.6 k/uL (1.3-7.7); Neutrophils % (A) 67 %; Platelet Count 252 k/uL (150-450); RBC 3.03 m/uL (3.80-5.40); RDW 12.8 % (11.5-15.5)
[2022-12-27] MEDS ORDERED: SODIUM CHLORIDE 0.9% 1,000 ML IV ONE (07:43)
--- NOTE | 2022-12-27 07:43 | P.PN ---
Progress Note - Text Progress Note Date: 12/27/22 Epidural has been off during the night. The pump was alarming with high pressure during the evening. Trouble shooting did not reveal any issues, so filter was removed and the pump switched. The new pump was alarming as well, so tubing was exchanged. The catheter was flushed and appears patent. Currently the patient is hypotensive w/ BRB per rectum. Will not bolus and restart epidural at this time. If resuscitation improves BP today, may restart epidural, otherwise remove epidural and use multimodal analgesia Back - epidural site c/d A/P POD#1 s/p LAR - hold epidural until BP improves - d/c epidural if no improvement today
[2022-12-27 08:52] LABS: African American GFR (CKD) 49.4 (60.0-200.0); Albumin 2.5 g/dL (3.8-4.9); Albumin/Globulin Ratio 1.67 (1.60-3.17); Anion Gap 7.9 mmol/L (10.00-18.00); BUN/Creat Ratio 10.5 Ratio (12.00-20.00); Blood Urea Nitrogen 12.6 mg/dL (9.0-27.0); Calcium 7.8 mg/dL (8.7-10.3); Carbon Dioxide 24.1 mmol/L (20.0-27.5); Globulin 1.5 g/dL (1.6-3.3); Non-African American GFR(CKD) 42.6 (60.0-200.0); Potassium 4.1 mmol/L (3.5-5.5); Total Bilirubin 0.8 mg/dL (0.30-1.20)
[2022-12-27] MEDS ORDERED: ASPIRIN 81 MG PO SCH (09:00)
[2022-12-27] MEDS ORDERED: METOPROLOL SUCCINATE (ER) 100 MG TAB.ER.24H PO SCH (09:00)
[2022-12-27 09:09] LABS: Glucose,Whole Blood 126 mg/dL (70-110)
[2022-12-27] MEDS: HYDROmorphone 1 MG/ML 1 ML SYRINGE IVP PRN ×5 (09:43→22:09)
[2022-12-27] MEDS: ONDANSETRON 4 MG/2 ML VIAL IVP PRN (09:44)
[2022-12-27 11:15] LABS: Basophils % (A) 1 %; Eosinophils % (A) 0 %; HCT 27.5 % (34.0-46.0); HGB 9.1 gm/dL (11.4-16.0); Lymphocytes # (A) 2.5 k/uL (1.0-4.8); Lymphocytes % (A) 26 %; MCH 30.1 pg (25.0-35.0); MCHC 32.9 g/dL (31.0-37.0); MCV 91.5 fL (80.0-100.0); Mean Platelet Volume 8.4; Monocytes # (A) 0.6 k/uL (0-1.0); Monocytes % (A) 6 %; Neutrophils # (A) 6.5 k/uL (1.3-7.7); Neutrophils % (A) 66 %; Platelet Count 215 k/uL (150-450); RBC 3.01 m/uL (3.80-5.40); RDW 12.9 % (11.5-15.5); WBC 9.8 k/uL (3.8-10.6)
[2022-12-27] MEDS: FAMOTIDINE 20 MG/2 ML VIAL IV SCH (11:16)
[2022-12-27] MEDS: HYDROmorphone 0.5 MG/0.5 ML SYRINGE IVP PRN ×3 (11:25→19:49)
[2022-12-27] MEDS: ATORVASTATIN 20 MG TAB PO SCH (11:25)
[2022-12-27] MEDS: PANTOPRAZOLE 40 MG/10 ML VIAL IVP SCH ×2 (11:25→20:25)
[2022-12-27] MEDS: ALVIMOPAN 12 MG CAPSULE PO SCH ×2 (12:04→20:25)
--- NOTE | 2022-12-27 12:47 | P.CNPUL ---
History of Present Illness Consult date: 12/27/22 Requesting physician: Mino Aparicio Reason for consult: other (Critical care management) Chief complaint: Colovesical fistula History of present illness: This is a 82-year-old female patient with known history of hypertension, hyperlipidemia, hypothyroidism, chronic UTIs, diverticulitis and was found to have a colovesical fistula. He was brought in electively yesterday 12/26/2022 for a sigmoid resection with low anterior resection. Last evening she developed issues with hypotension. Early this morning she again is having issues with hypotension and low urine output. She has also had found to have bright red blood per rectum. She had received 2.5 L of fluid resuscitation without much improvement. She was given an additional 1 L of fluid this morning. She was transferred to the intensive care unit for further monitoring and possible norepinephrine infusions. She currently has D5.45 with 20 of KCl at 125 ML's per hour. She is maintaining good O2 saturations in the 90s on room air. Awake and alert in no acute distress. Current blood pressure 126/65. She's afebrile. No pressors support required thus far. She did have a epidural catheter placed for pain management which was adjusted per anesthesia. Beta blockers were held. White count 9.8. Hemoglobin 9.1. Sodium 136. Potassium 4.1. Bicarb 24. BUN 13. Creatinine 1.2. Glucose 125. Review of Systems REVIEW OF SYSTEMS: CONSTITUTIONAL: Denies any recent significant weight loss or weight gain. EYES: Denies change in vision. EARS, NOSE, MOUTH, THROAT: Denies headaches, denies sore throat. CARDIOVASCULAR: Denies chest pain, palpitations or syncopal episodes. RESPIRATORY: Denies shortness of breath, cough, congestion or hemoptysis. GASTROINTESTINAL: Positive for surgical site abdominal pain GENITOURINARY: Denies hematuria, denies infections. MUSKULOSKELETAL: Denies pain, denies swelling. INTEGUMENTARY: Denies rash, denies eczema. NEUROLOGICAL: Denies recent memory loss, no recent seizure activity. PSYCHIATRIC: Denies anxiety, denies depression. HEMATOLOGIC/LYMPHATIC: Denies anemia, denies enlarged lymph nodes. Past Medical History Past Medical History: Hyperlipidemia, Osteoarthritis (OA), Pulmonary Embolus (PE), Thyroid Disorder Additional Past Medical History / Comment(s): hx 5 back surgeries with chronic back pain, low bp with orthostatic issues at times, left shoulder pain and stiffness- receives cortisone. , possible PE (2020)., states uti for the last year., rectal fistula, uses cane & walker. History of Any Multi-Drug Resistant Organisms: None Reported Past Surgical History: Back Surgery, Cholecystectomy, Heart Catheterization, Hysterectomy, Joint Replacement, Orthopedic Surgery Additional Past Surgical History / Comment(s): 5 back surgeries, right & left total knees, total right shoulder replacement and 2 previous surgeries on right shoulder, , lumpectomy right breast. Past Anesthesia/Blood Transfusion Reactions: No Reported Reaction, Family History of Problems w/ Anesthesia Additional Past Anesthesia/Blood Transfusion Reaction / Comment(s): blood trans fusions with child no issues. daughter has ponv Smoking Status: Never smoker - Past Family History Father Family Medical History: Diabetes Mellitus Mother Family Medical History: Hypertension Daughter(s) Family Medical History: Diabetes Mellitus Medications and Allergies Home Medications Medication Instructions Recorded Confirmed Type Aspirin EC [Ecotrin Low Dose] 81 mg PO DAILY 11/23/19 12/20/22 History Atorvastatin [Lipitor] 20 mg PO DAILY 11/23/19 12/20/22 History Solifenacin Succinate [Vesicare] 10 mg PO DAILY 11/23/19 12/20/22 History Levothyroxine Sodium [Synthroid] 125 mcg PO DAILY 05/15/22 12/26/22 History Metoprolol Succinate (ER) [Toprol 100 mg PO DAILY 05/15/22 12/26/22 History XL] QUEtiapine [SEROquel] 25 mg PO HS 05/15/22 12/20/22 History fentaNYL 75MCG/HR PATCH [Duragesic 1 patch TRANSDERM Q72H 05/15/22 12/20/22 History 75MCG/HR] oxyCODONE-APAP 10-325MG [Percocet 1 tab PO QID PRN 05/15/22 12/20/22 History 10-325 mg] tiZANidine [Zanaflex] 4 mg PO HS 05/15/22 12/20/22 History Tetracycline HCl 500 mg PO BID 12/20/22 12/20/22 History Allergies Allergy/AdvReac Type Severity Reaction Status Date / Time cat dander Allergy Rash/Hives Verified 12/26/22 06:45 latex Allergy Rash/Hives, Verified 12/26/22 06:45 Swelling Sulfa (Sulfonamide Allergy Nausea, Verified 12/26/22 06:45 Antibiotics) Chills nortriptyline [From Pamelor] AdvReac irritated, Verified 12/26/22 06:45 nervous Physical Exam Vitals: Vital Signs Temp Pulse Pulse Resp BP BP Pulse Ox 12/27/22 12:00 77 19 126/65 96 12/27/22 11:48 97.8 F 12/27/22 11:45 75 13 127/58 98 12/27/22 11:30 75 23 108/48 98 12/27/22 11:15 69 18 103/47 95 12/27/22 11:00 70 17 104/51 96 12/27/22 10:45 74 14 106/62 96 12/27/22 10:30 72 21 109/54 95 12/27/22 10:15 69 17 103/48 97 12/27/22 10:00 71 14 97/46 95 12/27/22 09:45 71 18 100/47 89 L 12/27/22 09:30 78 10 L 104/51 94 L 12/27/22 09:15 73 17 100/49 94 L 12/27/22 09:03 60 H 12/27/22 09:02 97.8 F 12/27/22 08:35 76 16 95/55 93 L 12/27/22 08:00 97.8 F 76 74/38 12/27/22 05:55 78/43 12/27/22 05:13 70/45 12/27/22 03:50 97/57 12/27/22 03:01 77 80/45 12/27/22 02:07 97.7 F 84 61/39 94 L 12/27/22 01:55 72/41 12/26/22 20:00 17 12/26/22 19:22 97.8 F 85 16 113/66 94 L 12/26/22 12:42 68 14 150/69 97 Intake and Output 12/26/22 12/27/22 12/27/22 22:59 06:59 14:59 Intake Total 118 1750 1530 Output Total 400 330 Balance 118 1350 1200 Intake: IV 1530 0.9 NACL bolus 1000 D5-0.45% NaCl with KCl 500 20Meq/l 1,000 ml @ 125 mls/hr IV .Q8H [facility] Rx#: [id number] Invasive Line 1 30 Intake, IV Titration 1750 Amount D5-0.45% NaCl with KCl 1250 20Meq/l 1,000 ml @ 125 mls/hr IV .Q8H [facility] Rx#: [id number] Sodium Chloride 0.9% 500 500 ml 500 ml @ 999 mls/hr IV .Q31M [facility] Rx#:[id number] Oral 118 0 Output: Drainage 0 0 Medial Abdomen 0 0 Urine 400 330 Other: Voiding Method Indwelling Catheter Indwelling Catheter # Bowel Movements 1 GENERAL EXAM: Alert, pleasant 82-year-old female, on room air, fairly comfortable in no apparent distress. HEAD: Normocephalic. EYES: Normal reaction of pupils, equal size. NOSE: Clear with pink turbinates. THROAT: No erythema or exudates. NECK: No masses, no JVD. CHEST: No chest wall deformity. LUNGS: Equal air entry with no crackles, wheeze, rhonchi or dullness. CVS: S1 and S2 normal with no audible murmur, regular rhythm. ABDOMEN: Abdominal dressing dry and intact. No hepatosplenomegaly, normal bowel sounds, no guarding or rigidity. SPINE: No scoliosis or deformity SKIN: No rashes CENTRAL NERVOUS SYSTEM: No focal deficits, tone is normal in all 4 extremities. EXTREMITIES: There is no peripheral edema. No clubbing, no cyanosis. Peripheral pulses are intact. Results - Laboratory Findings CBC and BMP: 12/27/22 10:43 12/27/22 06:02 Abnormal lab findings: Abnormal Labs 12/27/22 12/27/22 12/27/22 06:02 06:02 09:07 RBC 3.03 L Hgb 9.3 L Hct 27.6 L Anion Gap 7.90 L Est GFR (CKD-EPI)AfAm 49.4 L Est GFR (CKD-EPI)NonAf 42.6 L BUN/Creatinine Ratio 10.50 L Glucose 125 H POC Glucose (mg/dL) 126 H Calcium 7.8 L Alkaline Phosphatase 36 L Total Protein 4.0 L Albumin 2.5 L Globulin 1.5 L 12/27/22 10:43 RBC 3.01 L Hgb 9.1 L Hct 27.5 L Anion Gap Est GFR (CKD-EPI)AfAm Est GFR (CKD-EPI)NonAf BUN/Creatinine Ratio Glucose POC Glucose (mg/dL) Calcium Alkaline Phosphatase Total Protein Albumin Globulin Assessment and Plan Assessment: 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 Status post sigmoid resection with low anterior resection. Postoperative day #1 Hypotension with low urine output suspect secondary to bright red rectal bleeding, epidural catheter with pain medication infusions, dehydration. Received 3.5 L of fluid resuscitation. Not requiring pressor support at this time. He was transferred to the ICU today 12/27/2022 Anemia with current hemoglobin 9.0 History of hypertension Hyperlipidemia Hypothyroidism Chronic back pain with multiple back surgeries Plan: The patient was seen and evaluated Medications and labs reviewed A need to monitor hemoglobin Continue with fluid resuscitation Currently stable and on room air No pressors required thus far We'll continue to monitor her here in the ICU We'll continue to follow make further recommendations based on her clinical status I have personally seen and examined the patient, performed the documentation and the assessment and plan as written. Number of minutes spent on the visit: 20.
--- NOTE | 2022-12-27 13:26 | P.PN ---
Subjective Progress Note Date: 12/27/22 CHIEF COMPLAINT: Diverticulitis HISTORY OF PRESENT ILLNESS: Patient is postop day #1 status post sigmoid resection with lower anterior resection and bilateral ovarian cystectomy for diverticulitis. There is no apparent colovesical fistula. Patient required a transfer to the ICU this morning due to hypotension and low urine output. Patient had received 3.5 L of fluid without improvement in her blood pressures. She also had bright red blood per rectum with clots. Likely bleeding from her anastomosis site. Her epidural was held due to not functioning properly and then because of hypotension. Patient's BP has improved. She did not require to be placed on Levophed. Is currently off. She's receiving IV Dilaudid for pain control. She does complain of incisional abdominal pain. Afebrile. H ypotension improving. WBC 9.8 Hgb stable at 9.1 platelets 215. Hemoglobin prior to admission on 12/18/2022 was 13.6 PHYSICAL EXAM: VITAL SIGNS: Reviewed. GENERAL: Well-developed in no acute distress. HEENT: No sclera icterus. Extraocular movements grossly intact. Moist buccal mucosa. Head is atraumatic, normocephalic. ABDOMEN: Soft. Nondistended. Prevana wound vac in place. Tenderwith palpation at incision site. NEUROLOGIC: Alert and oriented. Cranial nerves II through XII grossly intact. ASSESSMENT: 1. Diverticulitis with no evidence of colovesical fistula. Status post sigmoid resection and lower anterior resection 2. Bilateral ovarian cysts status post bilateral ovarian cystectomy 3. Likely Bleeding at site of anastomosis 4. Postoperative hypotension PLAN: -Continue ICU management -Continue IV fluids -Continue pain management -Continue to monitor hemoglobin -Keep patient nothing by mouth -GI prophylaxis Protonix Physician French Instructor note has been reviewed by physician. Signing provider agrees with the documented findings, assessment, and plan of care. Objective - Vital Signs Vital signs: Vital Signs Temp 97.8 F 12/27/22 09:02 Pulse 69 12/27/22 10:15 Resp 17 12/27/22 10:15 BP 103/48 12/27/22 10:15 Pulse Ox 97 12/27/22 10:15 FiO2 Intake & Output 12/26/22 12/27/22 12/27/22 18:59 06:59 18:59 Intake Total 1268 1750 1250 Output Total 1450 400 130 Balance -182 1350 1120 Weight 75.6 kg Intake: IV 1150 1250 0.9 NACL bolus 1000 D5-0.45% NaCl with KCl 250 20Meq/l 1,000 ml @ 125 mls/hr IV .Q8H [facility] Rx#: [id number] Intake, IV Titration 1750 Amount D5-0.45% NaCl with KCl 1250 20Meq/l 1,000 ml @ 125 mls/hr IV .Q8H [facility] Rx#: [id number] Sodium Chloride 0.9% 500 500 ml 500 ml @ 999 mls/hr IV .Q31M [facility] Rx#:[id number] Oral 118 0 Output: Drainage 0 0 Medial Abdomen 0 0 Urine 1375 400 130 Estimated Blood Loss 75 Other: Voiding Method Indwelling Catheter Indwelling Catheter # Bowel Movements 1 - Labs CBC & Chem 7: 12/27/22 10:43 12/27/22 06:02 Labs: Abnormal Lab Results - Last 24 Hours (Table) 12/27/22 12/27/22 12/27/22 Range/Units 06:02 06:02 09:07 RBC 3.03 L (3.80-5.40) m/uL Hgb 9.3 L (11.4-16.0) gm/dL Hct 27.6 L (34.0-46.0) % Anion Gap 7.90 L (10.00-18.00) mmol/L Est GFR (CKD-EPI)AfAm 49.4 L (60.0-200.0) Est GFR (CKD-EPI)NonAf 42.6 L (60.0-200.0) BUN/Creatinine Ratio 10.50 L (12.00-20.00) Ratio Glucose 125 H (70-110) mg/dL POC Glucose (mg/dL) 126 H (70-110) mg/dL Calcium 7.8 L (8.7-10.3) mg/dL Alkaline Phosphatase 36 L (41-126) U/L Total Protein 4.0 L (6.2-8.2) g/dL Albumin 2.5 L (3.8-4.9) g/dL Globulin 1.5 L (1.6-3.3) g/dL
[2022-12-27 16:14] LABS: Basophils # (A) 0.1 k/uL (0-0.2); Basophils % (A) 1 %; Eosinophils # (A) 0.1 k/uL (0-0.7); Eosinophils % (A) 1 %; HCT 30.3 % (34.0-46.0); HGB 9.9 gm/dL (11.4-16.0); Lymphocytes # (A) 2.5 k/uL (1.0-4.8); Lymphocytes % (A) 20 %; MCHC 32.8 g/dL (31.0-37.0); MCV 91.6 fL (80.0-100.0); Mean Platelet Volume 8.3; Monocytes # (A) 0.7 k/uL (0-1.0); Monocytes % (A) 5 %; Neutrophils # (A) 9.2 k/uL (1.3-7.7); Neutrophils % (A) 72 %; Platelet Count 244 k/uL (150-450); RBC 3.31 m/uL (3.80-5.40); RDW 12.9 % (11.5-15.5); WBC 12.6 k/uL (3.8-10.6)
[2022-12-27] MEDS: NOREPINEPHRINE 4 MG in SODIUM CHLORIDE 0.9% 250 ML IV SCH (20:10)
[2022-12-27] MEDS: QUEtiapine 25 MG TAB PO SCH (20:25)
[2022-12-27 22:02] LABS: Basophils # (A) 0.1 k/uL (0-0.2); Basophils % (A) 1 %; Eosinophils # (A) 0.1 k/uL (0-0.7); Eosinophils % (A) 1 %; HCT 28.8 % (34.0-46.0); HGB 9.6 gm/dL (11.4-16.0); Lymphocytes % (A) 16 %; MCH 30.3 pg (25.0-35.0); MCHC 33.2 g/dL (31.0-37.0); MCV 91.4 fL (80.0-100.0); Mean Platelet Volume 8.3; Monocytes # (A) 0.6 k/uL (0-1.0); Monocytes % (A) 5 %; Neutrophils # (A) 9.3 k/uL (1.3-7.7); Neutrophils % (A) 76 %; Platelet Count 224 k/uL (150-450); RBC 3.15 m/uL (3.80-5.40); WBC 12.2 k/uL (3.8-10.6)
[2022-12-28] MEDS: HYDROmorphone 1 MG/ML 1 ML SYRINGE IVP PRN ×7 (02:34→21:47)
[2022-12-28 04:17] LABS: Basophils % (A) 0 %; Eosinophils # (A) 0.2 k/uL (0-0.7); Eosinophils % (A) 1 %; HCT 26.9 % (34.0-46.0); HGB 9.2 gm/dL (11.4-16.0); Lymphocytes # (A) 2.2 k/uL (1.0-4.8); Lymphocytes % (A) 19 %; MCH 30.8 pg (25.0-35.0); MCHC 34.1 g/dL (31.0-37.0); MCV 90.4 fL (80.0-100.0); Mean Platelet Volume 8.2; Monocytes # (A) 0.6 k/uL (0-1.0); Monocytes % (A) 5 %; Neutrophils # (A) 8.4 k/uL (1.3-7.7); Neutrophils % (A) 72 %; Platelet Count 212 k/uL (150-450); RBC 2.98 m/uL (3.80-5.40); RDW 12.9 % (11.5-15.5); WBC 11.5 k/uL (3.8-10.6)
[2022-12-28] MEDS: D5-0.45% NACL WITH KCL 20MEQ/L 1,000 ML IV SCH ×3 (05:01→19:57)
[2022-12-28] MEDS: LEVOTHYROXINE 125 MCG TAB PO SCH (05:44)
[2022-12-28 06:34] LABS: Basophils # (A) 0.1 k/uL (0-0.2); Basophils % (A) 1 %; Eosinophils # (A) 0.2 k/uL (0-0.7); Eosinophils % (A) 2 %; HCT 27.3 % (34.0-46.0); HGB 9.3 gm/dL (11.4-16.0); Lymphocytes # (A) 2.2 k/uL (1.0-4.8); Lymphocytes % (A) 20 %; MCH 30.7 pg (25.0-35.0); MCHC 33.9 g/dL (31.0-37.0); MCV 90.6 fL (80.0-100.0); Mean Platelet Volume 8.7; Monocytes # (A) 0.5 k/uL (0-1.0); Monocytes % (A) 5 %; Neutrophils # (A) 7.7 k/uL (1.3-7.7); Neutrophils % (A) 71 %; Platelet Count 224 k/uL (150-450); RBC 3.01 m/uL (3.80-5.40); RDW 13.3 % (11.5-15.5); WBC 10.8 k/uL (3.8-10.6)
[2022-12-28] MEDS: NOREPINEPHRINE 4 MG in SODIUM CHLORIDE 0.9% 250 ML IV SCH (07:49)
[2022-12-28] MEDS: ALVIMOPAN 12 MG CAPSULE PO SCH ×2 (09:24→19:58)
[2022-12-28] MEDS: ATORVASTATIN 20 MG TAB PO SCH (09:24)
[2022-12-28] MEDS: PANTOPRAZOLE 40 MG/10 ML VIAL IVP SCH ×2 (09:24→19:58)
--- NOTE | 2022-12-28 10:48 | P.PN ---
Subjective Progress Note Date: 12/28/22 This is a 82-year-old female patient with known history of hypertension, hyperlipidemia, hypothyroidism, chronic UTIs, diverticulitis and was found to have a colovesical fistula. He was brought in electively yesterday 12/26/2022 for a sigmoid resection with low anterior resection. Last evening she developed issues with hypotension. Early this morning she again is having issues with hypotension and low urine output. She has also had found to have bright red blood per rectum. She had received 2.5 L of fluid resuscitation without much improvement. She was given an additional 1 L of fluid this morning. She was transferred to the intensive care unit for further monitoring and possible norepinephrine infusions. She currently has D5.45 with 20 of KCl at 125 ML's per hour. She is maintaining good O2 saturations in the 90s on room air. Awake and alert in no acute distress. Current blood pressure 126/65. She's afebrile. No pressors support required thus far. She did have a epidural catheter placed for pain management which was adjusted per anesthesia. Beta blockers were held. White count 9.8. Hemoglobin 9.1. Sodium 136. Potassium 4.1. Bicarb 24. BUN 13. Creatinine 1.2. Glucose 125. The patient is seen today 12/28/2022 in follow-up in the intensive care unit. She is currently awake and alert in no acute distress. Maintaining good O2 saturations in the 90s on room air. Receiving D5.45 normal saline at 125 ML's per hour. Blood pressure has remained stable. White count 10.8. Hemoglobin 9.3. Platelets 224. Working with the incentive spirometer. Objective - Vital Signs Vital signs: Vital Signs Temp 98.5 F 12/28/22 08:00 Pulse 96 12/28/22 09:00 Resp 22 12/28/22 09:00 BP 147/64 12/28/22 09:00 Pulse Ox 95 12/28/22 09:00 FiO2 Intake & Output 12/27/22 12/28/22 12/28/22 18:59 06:59 18:59 Intake Total 2445 1530 260 Output Total 590 1095 350 Balance 1855 435 -90 Weight 91 kg Intake: IV 2445 1530 260 0.9 NACL bolus 1000 D5-0.45% NaCl with KCl 1375 1500 250 20Meq/l 1,000 ml @ 125 mls/hr IV .[facility]8H [facility] Rx#: [id number] Invasive Line 1 40 Invasive Line 3 30 30 10 Oral 0 Output: Drainage 0 Medial Abdomen 0 Urine 590 1095 350 Other: Voiding Method Indwelling Catheter Indwelling Catheter Indwelling Catheter # Bowel Movements 1 - Exam GENERAL EXAM: Alert, 82-year-old female, on room air, fairly comfortable in no a pparent distress. HEAD: Normocephalic. EYES: Normal reaction of pupils, equal size. NOSE: Clear with pink turbinates. THROAT: No erythema or exudates. NECK: No masses, no JVD. CHEST: No chest wall deformity. LUNGS: Equal air entry with no crackles, wheeze, rhonchi or dullness. CVS: S1 and S2 normal with no audible murmur, regular rhythm. ABDOMEN: Abdominal dressing dry and intact. No hepatosplenomegaly, normal bowel sounds, no guarding or rigidity. SPINE: No scoliosis or deformity SKIN: No rashes CENTRAL NERVOUS SYSTEM: No focal deficits, tone is normal in all 4 extremities. EXTREMITIES: There is no peripheral edema. No clubbing, no cyanosis. Peripheral pulses are intact. - Labs CBC & Chem 7: 12/28/22 05:53 12/27/22 06:02 Labs: Abnormal Lab Results - Last 24 Hours (Table) 12/27/22 12/27/22 12/27/22 Range/Units 10:43 15:58 21:39 WBC 12.6 H 12.2 H (3.8-10.6) k/uL RBC 3.01 L 3.31 L 3.15 L (3.80-5.40) m/uL Hgb 9.1 L 9.9 L 9.6 L (11.4-16.0) gm/dL Hct 27.5 L 30.3 L 28.8 L (34.0-46.0) % Neutrophils # 9.2 H 9.3 H (1.3-7.7) k/uL 12/28/22 12/28/22 Range/Units 03:48 05:53 WBC 11.5 H 10.8 H (3.8-10.6) k/uL RBC 2.98 L 3.01 L (3.80-5.40) m/uL Hgb 9.2 L 9.3 L (11.4-16.0) gm/dL Hct 26.9 L 27.3 L (34.0-46.0) % Neutrophils # 8.4 H (1.3-7.7) k/uL Assessment and Plan Assessment: 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 Status post sigmoid resection with low anterior resection. Postoperative day #2 Hypotension with low urine output suspect secondary to bright red rectal bleeding, epidural catheter with pain medication infusions, dehydration. Received 3.5 L of fluid resuscitation. Not requiring pressor support at this time. She was transferred to the ICU 12/27/2022. Stable and not requiring any pressors. Anemia with current hemoglobin 9.0 History of hypertension Hyperlipidemia Hypothyroidism Chronic back pain with multiple back surgeries Plan: The patient was seen and evaluated Medications and labs reviewed Currently stable and on room air No pressors required thus far Can transfer out of the ICU today We'll continue to follow I have personally seen and examined the patient, performed the documentation and the assessment and plan as written. Number of minutes spent on the visit: 10.
--- NOTE | 2022-12-28 12:39 | P.PN ---
Subjective Progress Note Date: 12/28/22 CHIEF COMPLAINT: Diverticulitis HISTORY OF PRESENT ILLNESS: Patient is postop day #2 status post sigmoid resection with lower anterior resection and bilateral ovarian cystectomy for diverticulitis. There is no apparent colovesical fistula. Patient required a transfer to the ICU due to hypotension and low urine output. This improved with IV fluids. Patient's blood pressure stable. Urine output improved. She is scheduled be transferred out of the ICU today. She's had no further bleeding. Afebrile. WBC 11.5-10.8 hemoglobin stable at 9.3 platelets 224 Patient seen and examined with Dr. salmon PHYSICAL EXAM: VITAL SIGNS: Reviewed. GENERAL: Well-developed in no acute distress. HEENT: No sclera icterus. Extraocular movements grossly intact. Moist buccal mucosa. Head is atraumatic, normocephalic. ABDOMEN: Soft. Nondistended. Prevana wound vac in place. NEUROLOGIC: Alert and oriented. Cranial nerves II through XII grossly intact. ASSESSMENT: 1. Diverticulitis with no evidence of colovesical fistula. Status post sigmoid resection and lower anterior resection 2. Bilateral ovarian cysts status post bilateral ovarian cystectomy 3. Likely Bleeding at site of anastomosis 4. Postoperative hypotension likely due to epidural PLAN: -Patient can be transferred out of the ICU -Okay to start clear liquid diet -Continue IV fluids -Continue pain management -Continue to monitor hemoglobin -GI prophylaxis Protonix and DVT prophylaxis SCDs Physician Studio Designer note has been reviewed by physician. Signing provider agrees with the documented findings, assessment, and plan of care. Objective - Vital Signs Vital signs: Vital Signs Temp 98.3 F 12/28/22 12:00 Pulse 105 H 12/28/22 12:00 Resp 24 12/28/22 12:00 BP 147/67 12/28/22 12:00 Pulse Ox 92 L 12/28/22 12:00 FiO2 Intake & Output 12/27/22 12/28/22 12/28/22 18:59 06:59 18:59 Intake Total 2445 1530 260 Output Total 590 1095 675 Balance 2315 435 -415 Weight 91 kg Intake: IV 2445 1530 260 0.9 NACL bolus 1000 D5-0.45% NaCl with KCl 1375 1500 250 20Meq/l 1,000 ml @ 125 mls/hr IV .Q8H [facility] Rx#: [id number] Invasive Line 1 40 Invasive Line 3 30 30 10 Oral 0 Output: Drainage 0 0 Medial Abdomen 0 0 Urine 590 1095 675 Other: Voiding Method Indwelling Catheter Indwelling Catheter Indwelling Catheter # Bowel Movements 1 - Labs CBC & Chem 7: 12/28/22 05:53 12/27/22 06:02 Labs: Abnormal Lab Results - Last 24 Hours (Table) 12/27/22 12/27/22 12/28/22 Range/Units 15:58 21:39 03:48 WBC 12.6 H 12.2 H 11.5 H (3.8-10.6) k/uL RBC 3.31 L 3.15 L 2.98 L (3.80-5.40) m/uL Hgb 9.9 L 9.6 L 9.2 L (11.4-16.0) gm/dL Hct 30.3 L 28.8 L 26.9 L (34.0-46.0) % Neutrophils # 9.2 H 9.3 H 8.4 H (1.3-7.7) k/uL 12/28/22 Range/Units 05:53 WBC 10.8 H (3.8-10.6) k/uL RBC 3.01 L (3.80-5.40) m/uL Hgb 9.3 L (11.4-16.0) gm/dL Hct 27.3 L (34.0-46.0) % Neutrophils # (1.3-7.7) k/uL
[2022-12-28] MEDS: ONDANSETRON 4 MG/2 ML VIAL IVP PRN ×2 (14:21→21:21)
[2022-12-28 15:32] LABS: Basophils % (A) 0 %; Eosinophils # (A) 0.3 k/uL (0-0.7); Eosinophils % (A) 3 %; HCT 28.2 % (34.0-46.0); HGB 9.5 gm/dL (11.4-16.0); Lymphocytes # (A) 1.8 k/uL (1.0-4.8); Lymphocytes % (A) 18 %; MCH 30.6 pg (25.0-35.0); MCHC 33.8 g/dL (31.0-37.0); MCV 90.5 fL (80.0-100.0); Mean Platelet Volume 8.2; Monocytes # (A) 0.5 k/uL (0-1.0); Monocytes % (A) 5 %; Neutrophils # (A) 7.1 k/uL (1.3-7.7); Neutrophils % (A) 73 %; Platelet Count 223 k/uL (150-450); RBC 3.12 m/uL (3.80-5.40); WBC 9.7 k/uL (3.8-10.6)
[2022-12-28] MEDS: QUEtiapine 25 MG TAB PO SCH (19:58)
[2022-12-28] MEDS ORDERED: METOPROLOL TARTRATE 25 MG TAB PO SCH (21:00)
[2022-12-28] MEDS ORDERED: METOPROLOL TARTRATE 25 MG TAB PO ONE (21:00)
[2022-12-28 22:03] LABS: Basophils % (A) 0 %; Eosinophils # (A) 0.1 k/uL (0-0.7); Eosinophils % (A) 1 %; HCT 29.3 % (34.0-46.0); HGB 9.9 gm/dL (11.4-16.0); Lymphocytes # (A) 1.5 k/uL (1.0-4.8); Lymphocytes % (A) 14 %; MCH 30.9 pg (25.0-35.0); MCHC 33.9 g/dL (31.0-37.0); MCV 91.2 fL (80.0-100.0); Monocytes # (A) 0.6 k/uL (0-1.0); Monocytes % (A) 6 %; Neutrophils % (A) 78 %; Platelet Count 260 k/uL (150-450); RBC 3.21 m/uL (3.80-5.40); RDW 12.9 % (11.5-15.5); WBC 10.4 k/uL (3.8-10.6)
[2022-12-28] MEDS ORDERED: TRIMETHOBENZAMIDE 100 MG/ML 2 ML VIAL IM PRN (22:09)
[2022-12-29] MEDS: HYDROmorphone 1 MG/ML 1 ML SYRINGE IVP PRN ×6 (00:50→21:59)
--- NOTE | 2022-12-29 03:23 | PN ---
PROGRESS NOTE DATE OF SERVICE: 12/27/2022 SUBJECTIVE: She became severely hypotensive 12/27/2022, hypotensive. She was given multiple fluid boluses, sent to the ICU, now her blood pressure is 120s to 140s. She is sitting up in the chair. She is on a norepinephrine drip. OBJECTIVE: VITAL SIGNS: Otherwise were reviewed, ICU notes reviewed. CARDIOVASCULAR: S1, S2. LUNGS: Transmitted upper sounds. HEMATOLOGY: Negative for Homans. PSYCH: Fair mood and affect. HEENT: Pupils equal, round, and reactive. ASSESSMENT: Status post colovesicular fistula repair with hypotension postop, remains in ICU. Please see further orders in ICU, all notes were reviewed. MMODL / IJN: [id number] /
[2022-12-29] MEDS: D5-0.45% NACL WITH KCL 20MEQ/L 1,000 ML IV SCH ×3 (04:46→22:00)
[2022-12-29 05:15] LABS: Basophils % (A) 0 %; Eosinophils % (A) 0 %; HCT 31.3 % (34.0-46.0); HGB 10.4 gm/dL (11.4-16.0); Lymphocytes # (A) 0.6 k/uL (1.0-4.8); Lymphocytes % (A) 5 %; MCH 30.3 pg (25.0-35.0); MCHC 33.1 g/dL (31.0-37.0); MCV 91.5 fL (80.0-100.0); Mean Platelet Volume 8.4; Monocytes # (A) 0.7 k/uL (0-1.0); Monocytes % (A) 5 %; Neutrophils # (A) 11.4 k/uL (1.3-7.7); Neutrophils % (A) 89 %; Platelet Count 278 k/uL (150-450); RBC 3.42 m/uL (3.80-5.40); RDW 12.7 % (11.5-15.5); WBC 12.8 k/uL (3.8-10.6)
--- NOTE | 2022-12-29 05:38 | CT ---
EXAMINATION TYPE: CT abdomen pelvis wo con DATE OF EXAM: 12/29/2022 COMPARISON: 12/05/2022 HISTORY: SIGMOIDECTOMY & OVARIAN CYSTS DRAINED 4 DAYS AGO. DISTENDED & ABD PAIN W/ NAUSEA X [address] DLP: 1015.4 mGycm Automated exposure control for dose reduction was used. Images obtained without contrast from the diaphragm to the floor the pelvis. There is pleural thickening and atelectasis and infiltrate at the posterior lung bases. Heart size is normal. Stomach is intact. There is distended fluid filled stomach. There are clips from cholecystec missy. Liver and spleen are intact. There are multiple mildly dilated fluid-filled small bowel loops t hroughout the abdomen. Small bowel measures up to 4 cm. There is skin dale over the anterior abdom en. There is small amount of air in the anterior abdominal wall consistent with the recent surgery. T here is surgical clips from apparent sigmoid colon surgery. There is Zeng catheter in the urinary bl adder. Bladder is empty. There is small amount of air in the anterior urinary bladder. No inguinal he rnia. Mild perirectal edema. There is posterior fusion surgery in the lower lumbar spine with laminec missy defects. Lumbar spine shows no compression fracture. There is multilevel spondylotic changes. Th e bony pelvis is intact. The hip joints are intact. There is no adrenal mass. Kidneys have normal size. There is 7 mm calculus lower pole right kidney. N o hydronephrosis. IMPRESSION: Multiple dilated small bowel loops consistent with moderate small bowel ileus or distal mechanical ob struction. Dilated small bowel appears new compared to old exam. No transition point seen. Surgical c hanges in the pelvis. There is clearing of the ovarian cysts compared to old exam. There is infiltrate and atelectasis at the posterior lung bases which appears new compared to old exa m.
[2022-12-29] MEDS: LEVOTHYROXINE 125 MCG TAB PO SCH (06:08)
--- NOTE | 2022-12-29 08:03 | XR ---
EXAMINATION TYPE: XR chest 1V DATE OF EXAM: 12/29/2022 COMPARISON: 11/29/2019 INDICATION: Nasogastric tube placement TECHNIQUE: Single frontal view of the chest is obtained. FINDINGS: The heart size is normal. The pulmonary vasculature is normal. No suspicious infiltrates evident. Some mild atelectasis may be along the left diaphragm. Nasogastric tube is been placed with the tip in the right upper quadrant of the abdomen. IMPRESSION: 1. No acute pulmonary process. 2. Nasogastric tube tip within the abdomen.
[2022-12-29 08:15] LABS: African American GFR (CKD) >90 (>60 ml/min/1.73 sqM); Anion Gap 8 mmol/L; Blood Urea Nitrogen 3 mg/dL (7-17); Calcium 8.1 mg/dL (8.4-10.2); Carbon Dioxide 24 mmol/L (22-30); Chloride 100 mmol/L (98-107); Glucose 167 mg/dL (74-99); Non-African American GFR(CKD) 89 (>60 ml/min/1.73 sqM); Potassium 4.7 mmol/L (3.5-5.1); Sodium 132 mmol/L (137-145)
[2022-12-29] MEDS ORDERED: METOPROLOL TARTRATE 50 MG TAB PO SCH (09:00)
[2022-12-29] MEDS: NOREPINEPHRINE 4 MG in SODIUM CHLORIDE 0.9% 250 ML IV SCH (10:17)
[2022-12-29] MEDS: ATORVASTATIN 20 MG TAB PO SCH (10:19)
[2022-12-29] MEDS: METOPROLOL TARTRATE 50 MG TAB PO SCH ×2 (10:43→20:42)
[2022-12-29] MEDS: PANTOPRAZOLE 40 MG/10 ML VIAL IVP SCH ×2 (10:43→20:42)
--- NOTE | 2022-12-29 11:15 | P.PN ---
Subjective Progress Note Date: 12/29/22 Principal diagnosis: Diverticulitis 82-year-old female underwent recent sigmoid colectomy for diverticulitis. Postoperatively the patient had some issues with rectal bleeding. She was transferred to the ICU. Yesterday evening was having bloating and nausea. CAT scan shows ileus versus small bowel obstruction. No obvious leak is seen. Patient's white blood cell count slightly elevated at 12.8. Mild tachycardia. Patient is having discomfort although says it stable. Objective - Vital Signs Vital signs: Vital Signs Temp 98.1 F 12/29/22 08:00 Pulse 106 H 12/29/22 08:00 Resp 17 12/29/22 08:00 BP 165/86 12/29/22 08:00 Pulse Ox 95 12/29/22 04:00 FiO2 Intake & Output 12/28/22 12/29/22 12/29/22 18:59 06:59 18:59 Intake Total 1010 1510 10 Output Total 2200 475 550 Balance -1190 1035 -540 Weight 91.8 kg Intake: IV 1010 1510 10 D5-0.45% NaCl with KCl 1000 1500 20Meq/l 1,000 ml @ 125 mls/hr IV .Q8H [facility] Rx#: [id number] Invasive Line 3 10 10 10 Output: Gastric Drainage 550 Drainage 0 0 Medial Abdomen 0 0 Urine 2200 475 Other: Voiding Method Indwelling Catheter Indwelling Catheter Indwelling Catheter - Exam Abdomen: Soft, nondistended, dressing clean and dry, mild tenderness - Labs CBC & Chem 7: 12/29/22 03:59 12/29/22 03:59 Labs: Abnormal Lab Results - Last 24 Hours (Table) 12/28/22 12/28/22 12/29/22 Range/Units 15:17 21:44 03:59 WBC 12.8 H (3.8-10.6) k/uL RBC 3.12 L 3.21 L 3.42 L (3.80-5.40) m/uL Hgb 9.5 L 9.9 L 10.4 L (11.4-16.0) gm/dL Hct 28.2 L 29.3 L 31.3 L (34.0-46.0) % Neutrophils # 8.0 H 11.4 H (1.3-7.7) k/uL Lymphocytes # 0.6 L (1.0-4.8) k/uL Sodium (137-145) mmol/L BUN (7-17) mg/dL Glucose (74-99) mg/dL Calcium (8.4-10.2) mg/dL 12/29/22 Range/Units 03:59 WBC (3.8-10.6) k/uL RBC (3.80-5.40) m/uL Hgb (11.4-16.0) gm/dL Hct (34.0-46.0) % Neutrophils # (1.3-7.7) k/uL Lymphocytes # (1.0-4.8) k/uL Sodium 132 L (137-145) mmol/L BUN 3 L (7-17) mg/dL Glucose 167 H (74-99) mg/dL Calcium 8.1 L (8.4-10.2) mg/dL Assessment and Plan (1) Diverticulitis Narrative/Plan: 82-year-old female with diverticulitis. Nasogastric tube was placed after CAT scan findings. Keep low intermittent suction. Recheck CBC tomorrow. Will follow. Current Visit: Yes Status: Acute Code(s): K57.92 - DVTRCLI OF INTEST, PART UNSP, W/O PERF OR ABSCESS W/O BLEED SNOMED Code(s): 683290639
--- NOTE | 2022-12-29 11:27 | P.PN ---
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 He was brought in electively yesterday 12/26/2022 for a sigmoid resection with low anterior resection. Last evening she developed issues with hypotension. Early this morning she again is having issues with hypotension and low urine output. She has also had found to have bright red blood per rectum. She had received 2.5 L of fluid resuscitation without much improvement. She was given an additional 1 L of fluid this morning. She was transferred to the intensive care unit for further monitoring and possible norepinephrine infusions. She currently has D5.45 with 20 of KCl at 125 ML's per hour. She is maintaining good O2 saturations in the 90s on room air. Awake and alert in no acute distress. Current blood pressure 126/65. She's afebrile. No pressors support required thus far. She did have a epidural catheter placed for pain management which was adjusted per anesthesia. Beta blockers were held. White count 9.8. Hemoglobin 9.1. Sodium 136. Potassium 4.1. Bicarb 24. BUN 13. Creatinine 1.2. Glucose 125. The patient is seen today 12/28/2022 in follow-up in the intensive care unit. She is currently awake and alert in no acute distress. Maintaining good O2 saturations in the 90s on room air. Receiving D5.45 normal saline at 125 ML's per hour. Blood pressure has remained stable. White count 10.8. Hemoglobin 9.3. Platelets 224. Working with the incentive spirometer. The patient is seen today 12/29/2022 in follow-up in the intensive care unit. Last evening she developed bloating and nausea requiring nasogastric tube placement with approximately 550 mL returned of brown colored fluid. Chest x- ray revealed no acute pulmonary process. Nasogastric tube tip within the abdomen. Computed tomography scan scan shows possible ileus versus small bowel obstruction. No obvious leak noted. She is currently awake and alert. She is maintaining good O2 saturations in the 90s on room air. She has D5.45 normal saline with 20 of KCl at 120 ML's per hour. White count 12.8. Hemoglobin 10.4. Platelets 278. Sodium 132. Potassium 4.7. BUN 3. Creatinine 0.55. Surgical services are following. Objective - Vital Signs Vital signs: Vital Signs Temp 98.1 F 12/29/22 08:00 Pulse 106 H 12/29/22 08:00 Resp 17 12/29/22 08:00 BP 165/86 12/29/22 08:00 Pulse Ox 95 12/29/22 04:00 FiO2 Intake & Output 12/28/22 12/29/22 12/29/22 18:59 06:59 18:59 Intake Total 1010 1510 10 Output Total 2200 475 550 Balance -1190 1035 -540 Weight 91.8 kg Intake: IV 1010 1510 10 D5-0.45% NaCl with KCl 1000 1500 20Meq/l 1,000 ml @ 125 mls/hr IV .Q8H [facility] Rx#: [id number] Invasive Line 3 10 10 10 Output: Gastric Drainage 550 Drainage 0 0 Medial Abdomen 0 0 Urine 2200 475 Other: Voiding Method Indwelling Catheter Indwelling Catheter Indwelling Catheter - Exam GENERAL EXAM: Alert, 82-year-old female, on room air, fairly comfortable in no apparent distress. HEAD: Normocephalic. EYES: Normal reaction of pupils, equal size. NOSE: Nasogastric tube secured in place. Clear with pink turbinates. THROAT: No erythema or exudates. NECK: No masses, no JVD. CHEST: No chest wall deformity. LUNGS: Equal air entry with no crackles, wheeze, rhonchi or dullness. CVS: S1 and S2 normal with no audible murmur, regular rhythm. ABDOMEN: Abdominal dressing dry and intact. No hepatosplenomegaly, normal bowel sounds, no guarding or rigidity. SPINE: No scoliosis or deformity SKIN: No rashes CENTRAL NERVOUS SYSTEM: No focal deficits, tone is normal in all 4 extremities. EXTREMITIES: There is no peripheral edema. No clubbing, no cyanosis. Peripheral pulses are intact. - Labs CBC & Chem 7: 12/29/22 03:59 12/29/22 03:59 Labs: Abnormal Lab Results - Last 24 Hours (Table) 12/28/22 12/28/22 12/29/22 Range/Units 15:17 21:44 03:59 WBC 12.8 H (3.8-10.6) k/uL RBC 3.12 L 3.21 L 3.42 L (3.80-5.40) m/uL Hgb 9.5 L 9.9 L 10.4 L (11.4-16.0) gm/dL Hct 28.2 L 29.3 L 31.3 L (34.0-46.0) % Neutrophils # 8.0 H 11.4 H (1.3-7.7) k/uL Lymphocytes # 0.6 L (1.0-4.8) k/uL Sodium (137-145) mmol/L BUN (7-17) mg/dL Glucose (74-99) mg/dL Calcium (8.4-10.2) mg/dL 12/29/22 Range/Units 03:59 WBC (3.8-10.6) k/uL RBC (3.80-5.40) m/uL Hgb (11.4-16.0) gm/dL Hct (34.0-46.0) % Neutrophils # (1.3-7.7) k/uL Lymphocytes # (1.0-4.8) k/uL Sodium 132 L (137-145) mmol/L BUN 3 L (7-17) mg/dL Glucose 167 H (74-99) mg/dL Calcium 8.1 L (8.4-10.2) mg/dL Assessment and Plan Assessment: 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 Status post sigmoid resection with low anterior resection. Postoperative day #3. Developed nausea and bloating on 12/28/2022 requiring nasogastric tube placement with 550 mL of brown fluid returned. Computed tomography scan of the abdomen revealed ileus versus small bowel obstruction. No obvious leak seen. Hypotension with low urine output suspect secondary to bright red rectal bleeding, epidural catheter with pain medication infusions, dehydration. Received 3.5 L of fluid resuscitation. Not requiring pressor support at this time. She was transferred to the ICU 12/27/2022. Stable and not requiring any pressors. Anemia with current hemoglobin 10.4 History of hypertension Hyperlipidemia Hypothyroidism Chronic back pain with multiple back surgeries Plan: The patient was seen and evaluated Chest x-ray, medications and labs reviewed Currently stable and on room air No pressors required thus far Did require NG tube placement yesterday Computed tomography scan with ileus versus small bowel obstruction, no leak Surgical services following We'll continue to follow I have personally seen and examined the patient, performed the documentation and the assessment and plan as written. Number of minutes spent on the visit: 10.
[2022-12-29] MEDS: ALVIMOPAN 12 MG CAPSULE PO SCH (17:30)
[2022-12-29] MEDS: QUEtiapine 25 MG TAB PO SCH (20:43)
--- NOTE | 2022-12-29 21:17 | PN ---
PROGRESS NOTE SUBJECTIVE: An 82-year-old white female, who remains in ICU. She had severe vomiting, nonresponsive to Reglan, Zofran, or Tigan all night long from yesterday, so I ordered abdominal and pelvis CT to see what is going on. She is status post her surgery. Shows multiple dilated small bowel loops consistent with moderate small bowel ileus with just mechanical obstruction. Dilated small bowel appears new compared to old exam. No transition point is seen. Clearing of an ovarian cyst that was there before. Infiltrate and atelectasis in posterior lung base appear new. seen her today. He says there is no obvious leak. White count is high at 12.8. Mild tachycardia. She is having discomfort and vomiting. OBJECTIVE: VITAL SIGNS: Blood pressure is a little high at temperature 98.4 CARDIOVASCULAR: S1 and S2. GI: Soft. She has increased bowel sounds. IMAGING STUDIES: CAT scan was reviewed. ASSESSMENT AND PLAN: Diverticulitis. NG tubing was placed for CAT scan findings due to ileus versus small bowel obstruction. Repeat CBC tomorrow. Pulmonary saw the patient. Also, she was placed on some norepinephrine due to severe hypotension when she first got to the ICU. She got more fluids today due to the vomiting. Beta-blockers have been increased due to blood pressure going up and her pulse is up. She is currently on metoprolol 100 b.i.d., for her normal home dose. She is saturating in the mid 90s on room air. NG tube was placed. 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 Nausea and vomiting, unresponsive to medications, small bowel obstruction versus ileus, NG tube was placed. No obvious leak. Hypotension, low urine output with severe dehydration, and bright red rectal bleeding. Epidural catheter with pain medications infused. Dehydrated, she had 3.5 L of fluid. Not requiring any pressor support at this time. She has anemia, hemoglobin is 10.4, hypertension, chronic obstructive pulmonary disease, dyslipidemia, nicotine addiction, Meniere's, hypothyroidism, multiple urinary tract infections in the past. Continue current treatments. Prognosis is guarded. ICU time 30 minutes. MMODL / IJN: [id number] /
[2022-12-30] MEDS: HYDROmorphone 1 MG/ML 1 ML SYRINGE IVP PRN ×6 (03:48→23:00)
[2022-12-30] MEDS: D5-0.45% NACL WITH KCL 20MEQ/L 1,000 ML IV SCH ×3 (05:39→21:24)
[2022-12-30] MEDS: LEVOTHYROXINE 125 MCG TAB PO SCH (06:49)
[2022-12-30] MEDS: ATORVASTATIN 20 MG TAB PO SCH (07:38)
[2022-12-30] MEDS: METOPROLOL TARTRATE 50 MG TAB PO SCH ×2 (07:39→20:39)
[2022-12-30] MEDS: PANTOPRAZOLE 40 MG/10 ML VIAL IVP SCH ×2 (07:39→20:39)
--- NOTE | 2022-12-30 09:03 | P.PN ---
Subjective Progress Note Date: 12/30/22 Principal diagnosis: Diverticulitis Patient was transferred out of the ICU yesterday. She says she feels better today. No flatus or bowel movement. Nasogastric tube bilious. Morning labs are pending. She is afebrile. Objective - Vital Signs Vital signs: Vital Signs Temp 98 F 12/30/22 06:45 Pulse 80 12/30/22 06:45 Resp 18 12/30/22 06:45 BP 120/70 12/30/22 06:45 Pulse Ox 97 12/30/22 06:45 FiO2 Intake & Output 12/29/22 12/30/22 12/30/22 18:59 06:59 18:59 Intake Total 1260 Output Total 1400 1400 Balance -140 -1400 Intake: IV 1260 D5-0.45% NaCl with KCl 1250 20Meq/l 1,000 ml @ 125 mls/hr IV .Q8H [facility] Rx#: [id number] Invasive Line 3 10 Output: Gastric Drainage 650 Drainage 0 0 Medial Abdomen 0 0 Urine 750 1400 Other: Voiding Method Indwelling Catheter Indwelling Catheter Indwelling Catheter - Exam Abdomen soft, nondistended, dressing clean and dry, mild lower abdominal tenderness - Labs CBC & Chem 7: 12/29/22 03:59 12/29/22 03:59 Assessment and Plan (1) Diverticulitis Narrative/Plan: Patient doing better today. Keep nasogastric tube to suction. Check morning labs. Increase activity. Current Visit: Yes Status: Acute Code(s): K57.92 - DVTRCLI OF INTEST, PART UNSP, W/O PERF OR ABSCESS W/O BLEED SNOMED Code(s): 576747538
[2022-12-30 11:44] LABS: Basophils # (A) 0.06 X 10*3/uL (0.00-0.10); Basophils % (A) 0.6 %; Eosinophils # (A) 0.89 X 10*3/uL (0.04-0.35); HCT 25.7 % (37.2-46.3); HGB 8.5 g/dL (12.0-15.0); Immature Grans, Automated 0.3 %; Lymphocytes # (A) 2.31 X 10*3/uL (0.90-5.00); Lymphocytes % (A) 23.3 %; MCH 30.2 pg (27.0-32.0); MCHC 33.1 g/dL (32.0-37.0); MCV 91.5 fL (80.0-97.0); Mean Platelet Volume 11.1 fL (9.5-12.2); Monocytes # (A) 0.92 X 10*3/uL (0.20-1.00); Monocytes % (A) 9.3 %; NRBC Per 100 WBC 0 /100 WBCS (0.0-0.0); Neutrophils % (A) 57.5 %; Platelet Count 221 X 10*3/uL (140-440); RBC 2.81 X 10*6/uL (4.10-5.20); RDW 13.1 % (11.5-14.5); WBC 9.91 X 10*3/uL (4.50-10.00)
[2022-12-30 11:55] LABS: African American GFR (CKD) 97.2 (60.0-200.0); Albumin 2.5 g/dL (3.8-4.9); Albumin/Globulin Ratio 1.46 (1.60-3.17); Anion Gap 5.8 mmol/L (10.00-18.00); BUN/Creat Ratio 6.32 Ratio (12.00-20.00); Blood Urea Nitrogen 4.1 mg/dL (9.0-27.0); Calcium 8.1 mg/dL (8.7-10.3); Carbon Dioxide 26.6 mmol/L (20.0-27.5); Globulin 1.7 g/dL (1.6-3.3); Non-African American GFR(CKD) 83.9 (60.0-200.0); Potassium 4.4 mmol/L (3.5-5.5); Total Bilirubin 0.6 mg/dL (0.30-1.20); Total Protein 4.3 g/dL (6.2-8.2)
[2022-12-30] MEDS: QUEtiapine 25 MG TAB PO SCH (20:39)
--- NOTE | 2022-12-31 01:06 | PN ---
PROGRESS NOTE SUBJECTIVE: This is a white female, who was admitted with colovesicular fistula repair. Has NG tube in place. OBJECTIVE: CARDIOVASCULAR: S1, S2. LUNGS: Clear. GI: Soft. HEMATOLOGY: Negative for Homans. PSYCH: Fair mood and affect. PLAN: Continue current treatments. Remove NG tube soon. Advance diet. Prognosis guarded. Follow up in the next 24 to 48 hours. MMODL / IJN: [id number] /
[2022-12-31] MEDS: HYDROmorphone 1 MG/ML 1 ML SYRINGE IVP PRN ×3 (03:04→20:15)
[2022-12-31] MEDS: LEVOTHYROXINE 125 MCG TAB PO SCH (05:51)
[2022-12-31] MEDS: D5-0.45% NACL WITH KCL 20MEQ/L 1,000 ML IV SCH ×3 (05:51→21:42)
[2022-12-31] MEDS: METOPROLOL TARTRATE 50 MG TAB PO SCH ×2 (08:21→20:15)
[2022-12-31] MEDS: PANTOPRAZOLE 40 MG/10 ML VIAL IVP SCH ×2 (08:21→20:15)
[2022-12-31] MEDS: ATORVASTATIN 20 MG TAB PO SCH (08:21)
[2022-12-31 09:24] LABS: Basophils # (A) 0.06 X 10*3/uL (0.00-0.10); Basophils % (A) 0.5 %; Eosinophils # (A) 0.89 X 10*3/uL (0.04-0.35); Eosinophils % (A) 6.8 %; HCT 28.3 % (37.2-46.3); HGB 9.2 g/dL (12.0-15.0); Immature Grans, Automated 0.5 %; Lymphocytes # (A) 2.97 X 10*3/uL (0.90-5.00); Lymphocytes % (A) 22.7 %; MCH 29.6 pg (27.0-32.0); MCHC 32.5 g/dL (32.0-37.0); Mean Platelet Volume 10.6 fL (9.5-12.2); Monocytes # (A) 1.32 X 10*3/uL (0.20-1.00); Monocytes % (A) 10.1 %; NRBC Per 100 WBC 0 /100 WBCS (0.0-0.0); Neutrophils # (A) 7.79 X 10*3/uL (1.80-7.70); Neutrophils % (A) 59.4 %; Platelet Count 249 X 10*3/uL (140-440); RBC 3.11 X 10*6/uL (4.10-5.20); RDW 13.3 % (11.5-14.5); WBC 13.09 X 10*3/uL (4.50-10.00)
[2022-12-31 09:27] LABS: African American GFR (CKD) 99.8 (60.0-200.0); Anion Gap 9.8 mmol/L (10.00-18.00); Blood Urea Nitrogen 5.4 mg/dL (9.0-27.0); Calcium 8.3 mg/dL (8.7-10.3); Carbon Dioxide 24.2 mmol/L (20.0-27.5); Non-African American GFR(CKD) 86.1 (60.0-200.0); Potassium 4.5 mmol/L (3.5-5.5)
[2022-12-31] MEDS: HYDROmorphone 0.5 MG/0.5 ML SYRINGE IVP PRN (11:42)
--- NOTE | 2022-12-31 12:12 | CDI ---
Documentation Clarification Form Date: 12/31/2022 11:50:30 AM From: Kaylin Martins RN CCDS Phone: [phone] Admit Date: 12/26/2022 6:23:00 AM Patient Name: Kiana Styles Visit Number: [id number] Discharge Date: ATTENTION: The Clinical Documentation Specialists (CDI) and [facility] Coding Staff appreciate your assistance in clarifying documentation. Please respond to the clarification below the line at the bottom and electronically sign. The CDI & [facility] Coding staff will review the response and follow-up if needed. Please note: Queries are made part of the Legal Health Record. If you have any questions, please contact the author of this message via ITS. Dr. Mino Aparicio Ileus vs small bowel obstruction is documented 12/29, surgical note and patient had Sigmoid resection with low anterior resection, Bilateral ovarian cystectomy, 12/26. Additional clarification is requested regarding the relationship, if any, that exists between the diagnosis and the procedure. Patients Admitting Diagnosis: Diverticulitis, Colovesical fistula Post-Operative Diagnosis: Diverticulitis no apparent colovesical fistula, Bilateral enlarged ovarian cysts. Procedure performed: Sigmoid resection with low anterior resection. Bilateral ovarian cystectomy. History/Risk Factors: 82-year-old female presents for elective low anterior resection surgery history of chronic UTIs and was found to have a colovesical fistula. Medical History: HLD, OA, Pulmonary Embolus; UTIs and Diverticulitis. 12/27, Pulmonary consult. Clinical Indicators: Pulmonary 12/29: Did require NG tube placement yesterday. Computed tomography scan with ileus versus small bowel obstruction no leak. CT ABDPELVIS: Multiple dilated small bowel loops consistent with moderate small bowel ileus or distal mechanical obstruction. Dilated small bowel appears new compared to old exam. There is clearing of the ovarian cysts compared to old exam. CXR, 12/29: No acute pulmonary process. Nasogastric tube tip within the abdomen. Treatment: 12/28 12/31 NG Tube. 12/29 Consults: What relationship, if any, exists between the diagnosis of Ileus vs small bowel obstruction and the procedure: [ xx ] Ileus vs small bowel obstruction is a complication of surgical procedure [ ] Ileus vs small bowel obstruction is related to patients co-morbid condition(s) of [insert co-morbid dxs] & not a complication of the procedure [ ] Other please specify ____ [ ] Unable to determine (Template Last Revised: December 2020) MTDD
--- NOTE | 2022-12-31 12:21 | P.PN ---
Subjective Progress Note Date: 12/31/22 CHIEF COMPLAINT: Diverticulitis HISTORY OF PRESENT ILLNESS: Patient is postop day #5 status post sigmoid resection with lower anterior resection and bilateral ovarian cystectomy for diverticulitis. There is no apparent colovesical fistula. Patient had 2 liquidy stools. Denies any nausea. NG tube output 200 mL. Patient apparently had some increased abdominal pain this afternoon. NG tube in his almost been pulled out. Afebrile. White count did go up to 13 from 9.91 Hgb stable at 9.2 platelets are 249 sodium is 133 potassium 4.5 creatinine 0.6 PHYSICAL EXAM: VITAL SIGNS: Reviewed. GENERAL: Well-developed in no acute distress. HEENT: No sclera icterus. Extraocular movements grossly intact. Moist buccal mucosa. Head is atraumatic, normocephalic. ABDOMEN: Soft. Nondistended. Prevana wound vac in place. NEUROLOGIC: Alert and oriented. Cranial nerves II through XII grossly intact. ASSESSMENT: 1. Diverticulitis with no evidence of colovesical fistula. Status post sigmoid resection and lower anterior resection 2. Bilateral ovarian cysts status post bilateral ovarian cystectomy 3. Likely Bleeding at site of anastomosis resolved 4. Postoperative hypotension likely due to epidural 5. Postoperative ileus PLAN: -Discontinue NG tube -Keep patient nothing by mouth except for ice chips -Repeat CBC in a.m. -Continue IV fluids -Discontinue Zeng catheter -Encouraged patient to increase activity level -Continue pain management -GI prophylaxis Protonix and DVT prophylaxis SCDs Physician Deck Supervisor note has been reviewed by physician. Signing provider agrees with the documented findings, assessment, and plan of care. I have personally seen and examined the patient, reviewed the PLANT OPERATIONS MANAGER /PAs history, exam and MDM and agree with the assessment and plan as written. Based on total visit time, I have performed more than 50% of the visit. As above: Patient having some increased discomfort after moving about the room today. She did move her bowels twice good volume. Nasogastric tube was almost already out on its own. We'll remove NG tube the rest of the way. Keep nothing by mouth for now. Will follow. Objective - Vital Signs Vital signs: Vital Signs Temp 98.1 F 12/31/22 11:36 Pulse 94 12/31/22 11:43 Resp 16 12/31/22 11:36 BP 119/72 12/31/22 11:43 Pulse Ox 96 12/31/22 11:36 FiO2 Intake & Output 12/30/22 12/31/22 12/31/22 18:59 06:59 18:59 Intake Total 1500 Output Total 2450 2600 900 Balance -2450 -1100 -900 Intake: Intake, IV Titration 1500 Amount D5-0.45% NaCl with KCl 1500 20Meq/l 1,000 ml @ 125 mls/hr IV .[facility]H [facility] Rx#: [id number] Output: Gastric Drainage 350 200 Drainage 0 0 Medial Abdomen 0 0 Urine 2100 2400 900 Uretheral (Zeng) 900 Other: Voiding Method Indwelling Catheter Indwelling Catheter Toilet Bedside Commode # Bowel Movements 1 - Labs CBC & Chem 7: 12/31/22 05:19 12/31/22 05:19 Labs: Abnormal Lab Results - Last 24 Hours (Table) 12/31/22 12/31/22 Range/Units 05:19 05:19 WBC 13.09 H (4.50-10.00) X 10*3/uL RBC 3.11 L (4.10-5.20) X 10*6/uL Hgb 9.2 L (12.0-15.0) g/dL Hct 28.3 L (37.2-46.3) % Immature Gran # 0.06 H (0.00-0.04) X 10*3/uL Neutrophils # 7.79 H (1.80-7.70) X 10*3/uL Monocytes # 1.32 H (0.20-1.00) X 10*3/uL Eosinophils # 0.89 H (0.04-0.35) X 10*3/uL Sodium 133 L (135-145) mmol/L Anion Gap 9.80 L (10.00-18.00) mmol/L BUN 5.4 L (9.0-27.0) mg/dL BUN/Creatinine Ratio 9.00 L (12.00-20.00) Ratio Calcium 8.3 L (8.7-10.3) mg/dL
[2022-12-31 13:56] VITALS: BMI 31.6
--- NOTE | 2022-12-31 14:25 | P.PN ---
Subjective Progress Note Date: 12/31/22 This is a 82-year-old female patient with known history of hypertension, hyperlipidemia, hypothyroidism, chronic UTIs, diverticulitis and was found to have a colovesical fistula. He was brought in electively yesterday 12/26/2022 for a sigmoid resection with low anterior resection. Last evening she developed issues with hypotension. Early this morning she again is having issues with hypotension and low urine output. She has also had found to have bright red blood per rectum. She had received 2.5 L of fluid resuscitation without much improvement. She was given an additional 1 L of fluid this morning. She was transferred to the intensive care unit for further monitoring and possible norepinephrine infusions. She currently has D5.45 with 20 of KCl at 125 ML's per hour. She is maintaining good O2 saturations in the 90s on room air. Awake and alert in no acute distress. Current blood pressure 126/65. She's afebrile. No pressors support required thus far. She did have a epidural catheter placed for pain management which was adjusted per anesthesia. Beta blockers were held. White count 9.8. Hemoglobin 9.1. Sodium 136. Potassium 4.1. Bicarb 24. BUN 13. Creatinine 1.2. Glucose 125. The patient is seen today 12/28/2022 in follow-up in the intensive care unit. She is currently awake and alert in no acute distress. Maintaining good O2 saturations in the 90s on room air. Receiving D5.45 normal saline at 125 ML's per hour. Blood pressure has remained stable. White count 10.8. Hemoglobin 9.3. Platelets 224. Working with the incentive spirometer. The patient is seen today 12/29/2022 in follow-up in the intensive care unit. Last evening she developed bloating and nausea requiring nasogastric tube placement with approximately 550 mL returned of brown colored fluid. Chest x- ray revealed no acute pulmonary process. Nasogastric tube tip within the abdomen. Computed tomography scan scan shows possible ileus versus small bowel obstruction. No obvious leak noted. She is currently awake and alert. She is maintaining good O2 saturations in the 90s on room air. She has D5.45 normal saline with 20 of KCl at 120 ML's per hour. White count 12.8. Hemoglobin 10.4. Platelets 278. Sodium 132. Potassium 4.7. BUN 3. Creatinine 0.55. Surgical services are following. On today's evaluation of 12/31/2022, the patient has an NG tube in place. The output from the NG tube is been minimal. The patient is postop day #5 following a sigmoid resection with low anterior resection. The patient is stating that she is having liquidy stool. No nausea. No vomiting. No emesis. Surgical once is striking and intact. Blood work shows a WBC count 13 with a hemoglobin of 9.9 and a platelet count of 249. The rest of the electrolytes are all stable with a creatinine of 0.6. Noted the patient had a complicated diverticulitis with evidence of colovesicular fistula and the patient underwent sigmoid resection/low anterior resection and the patient also underwent a bilateral ovarian cystectomy. Objective - Vital Signs Vital signs: Vital Signs Temp 98.1 F 12/31/22 11:36 Pulse 94 12/31/22 11:43 Resp 16 12/31/22 11:36 BP 119/72 12/31/22 11:43 Pulse Ox 96 12/31/22 11:36 FiO2 Intake & Output 12/30/22 12/31/22 12/31/22 18:59 06:59 18:59 Intake Total 1500 Output Total 2450 2600 900 Balance -2450 -1100 -900 Intake: Intake, IV Titration 1500 Amount D5-0.45% NaCl with KCl 1500 20Meq/l 1,000 ml @ 125 mls/hr IV .Q8H [facility] Rx#: [id number] Output: Gastric Drainage 350 200 Drainage 0 0 Medial Abdomen 0 0 Urine 2100 2400 900 Uretheral (Zeng) 900 Other: Voiding Method Indwelling Catheter Indwelling Catheter Toilet Bedside Commode # Bowel Movements 1 - Exam GENERAL EXAM: Alert, 82-year-old female, on room air, fairly comfortable in no apparent distress. HEAD: Normocephalic. EYES: Normal reaction of pupils, equal size. NOSE: Nasogastric tube secured in place. Clear with pink turbinates. THROAT: No erythema or exudates. NECK: No masses, no JVD. CHEST: No chest wall deformity. LUNGS: Equal air entry with no crackles, wheeze, rhonchi or dullness. CVS: S1 and S2 normal with no audible murmur, regular rhythm. ABDOMEN: Abdominal dressing dry and intact. No hepatosplenomegaly, normal bowel sounds, no guarding or rigidity. SPINE: No scoliosis or deformity SKIN: No rashes CENTRAL NERVOUS SYSTEM: No focal deficits, tone is normal in all 4 extremities. EXTREMITIES: There is no peripheral edema. No clubbing, no cyanosis. Peripheral pulses are intact. - Labs CBC & Chem 7: 12/31/22 05:19 12/31/22 05:19 Labs: Abnormal Lab Results - Last 24 Hours (Table) 12/30/22 12/31/22 12/31/22 Range/Units 07:31 05:19 05:19 WBC 13.09 H (4.50-10.00) X 10*3/uL RBC 3.11 L (4.10-5.20) X 10*6/uL Hgb 9.2 L (12.0-15.0) g/dL Hct 28.3 L (37.2-46.3) % Immature Gran # 0.06 H (0.00-0.04) X 10*3/uL Neutrophils # 7.79 H (1.80-7.70) X 10*3/uL Monocytes # 1.32 H (0.20-1.00) X 10*3/uL Eosinophils # 0.89 H (0.04-0.35) X 10*3/uL Sodium 133 L (135-145) mmol/L Anion Gap 5.80 L 9.80 L (10.00-18.00) mmol/L BUN 4.1 L 5.4 L (9.0-27.0) mg/dL BUN/Creatinine Ratio 6.32 L 9.00 L (12.00-20.00) Ratio Calcium 8.1 L 8.3 L (8.7-10.3) mg/dL Alkaline Phosphatase 33 L (41-126) U/L Total Protein 4.3 L (6.2-8.2) g/dL Albumin 2.5 L (3.8-4.9) g/dL Albumin/Globulin Ratio 1.46 L (1.60-3.17) g/dL Assessment and Plan Plan: 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 Status post sigmoid resection with low anterior resection. Postoperative day #5. Patient also underwent bilateral ovarian cystectomy Postoperative ileus, improving and the patient still has an NG tube in place Hypotension with low urine output suspect secondary to bright red rectal bleeding, epidural catheter with pain medication infusions, dehydration. Stable and not requiring any pressors. The patient got transferred out of the intensive care unit Anemia with current hemoglobin 9.2 History of hypertension Hyperlipidemia Hypothyroidism Chronic back pain with multiple back surgeries Plan: May possibly removed NG tube today and this will be coordinated along with the general surgical team The patient is passing liquidy stool Continue IV fluids May discontinue the Zeng catheter Family medicine is adequate Currently stable and on room air No pressors required thus far Surgical services following We'll continue to follow
[2022-12-31] MEDS: QUEtiapine 25 MG TAB PO SCH (20:15)
--- NOTE | 2023-01-01 01:50 | PN ---
PROGRESS NOTE SUBJECTIVE: Colovesicular fistula. NG tube is removed. OBJECTIVE: VITAL SIGNS: Stable. Temp 98.4, pulse is 128, blood pressure 119/76, O2 95% on room air. CARDIOVASCULAR: S1, S2. LUNGS: Transmitted upper sounds. Clear. GI: Soft. HEMATOLOGY: Negative for Homans. PSYCH: Fair mood and affect. PLAN: Continue current treatments. Follow up in next 24 to 48 hours and advance diet as tolerated. Prognosis guarded. MMODL / IJN: [id number] /
[2023-01-01] MEDS: HYDROmorphone 1 MG/ML 1 ML SYRINGE IVP PRN (05:36)
[2023-01-01] MEDS: D5-0.45% NACL WITH KCL 20MEQ/L 1,000 ML IV SCH ×3 (05:37→13:44)
[2023-01-01] MEDS: LEVOTHYROXINE 125 MCG TAB PO SCH (05:53)
[2023-01-01] MEDS: METOPROLOL TARTRATE 50 MG TAB PO SCH ×2 (08:54→21:14)
[2023-01-01] MEDS: PANTOPRAZOLE 40 MG/10 ML VIAL IVP SCH ×2 (09:06→21:14)
[2023-01-01] MEDS: ATORVASTATIN 20 MG TAB PO SCH (09:06)
[2023-01-01] MEDS: HYDROmorphone 0.5 MG/0.5 ML SYRINGE IVP PRN ×3 (09:06→21:13)
[2023-01-01 09:28] LABS: Basophils # (A) 0.03 X 10*3/uL (0.00-0.10); Basophils % (A) 0.3 %; Eosinophils # (A) 0.25 X 10*3/uL (0.04-0.35); Eosinophils % (A) 2.1 %; Immature Grans, Automated 0.8 %; Lymphocytes # (A) 2.19 X 10*3/uL (0.90-5.00); Lymphocytes % (A) 18.8 %; MCH 29.9 pg (27.0-32.0); MCHC 33.3 g/dL (32.0-37.0); MCV 89.7 fL (80.0-97.0); Mean Platelet Volume 10.3 fL (9.5-12.2); Monocytes # (A) 1.23 X 10*3/uL (0.20-1.00); Monocytes % (A) 10.5 %; NRBC Per 100 WBC 0.2 /100 WBCS (0.0-0.0); Neutrophils # (A) 7.87 X 10*3/uL (1.80-7.70); Neutrophils % (A) 67.5 %; Platelet Count 192 X 10*3/uL (140-440); RBC 3.01 X 10*6/uL (4.10-5.20); RDW 13.3 % (11.5-14.5); WBC 11.66 X 10*3/uL (4.50-10.00)
[2023-01-01 10:15] LABS: African American GFR (CKD) 94.8 (60.0-200.0); Anion Gap 8.1 mmol/L (10.00-18.00); Blood Urea Nitrogen 7.7 mg/dL (9.0-27.0); Calcium 7.8 mg/dL (8.7-10.3); Carbon Dioxide 23.9 mmol/L (20.0-27.5); Non-African American GFR(CKD) 81.8 (60.0-200.0)
--- NOTE | 2023-01-01 11:23 | P.PN ---
Subjective Progress Note Date: 01/01/23 CHIEF COMPLAINT: Diverticulitis HISTORY OF PRESENT ILLNESS: Patient is postop day #6 status post sigmoid resection with lower anterior resection and bilateral ovarian cystectomy for diverticulitis. There is no apparent colovesical fistula. Patient is having liquidy bowel movements. She does report abdominal pain but it is controlled with pain medication. She denies any nausea or vomiting. Afebrile. She was tachycardic during the night. Heart rate has improved. WBC 13 down to 11.66 hgb 9.0 platelets 192 sodium is 1:30 potassium is 4.0 creatinine 0.7 stool for C. diff negative PHYSICAL EXAM: VITAL SIGNS: Reviewed. GENERAL: Well-developed in no acute distress. HEENT: No sclera icterus. Extraocular movements grossly intact. Moist buccal mucosa. Head is atraumatic, normocephalic. ABDOMEN: Soft. Nondistended. Prevana wound vac in place. NEUROLOGIC: Alert and oriented. Cranial nerves II through XII grossly intact. ASSESSMENT: 1. Diverticulitis with no evidence of colovesical fistula. Status post sigmoid resection and lower anterior resection 2. Bilateral ovarian cysts status post bilateral ovarian cystectomy 3. Likely Bleeding at site of anastomosis resolved 4. Postoperative hypotension resolved 5. Postoperative ileus PLAN: -Keep patient nothing by mouth except for ice chips -Repeat CBC in a.m. -Continue IV fluids -Encouraged patient to increase activity level -Encouraged patient to use incentive spirometer -Continue pain management -GI prophylaxis Protonix and DVT prophylaxis SCDs Physician Manager Cash note has been reviewed by physician. Signing provider agrees with the documented findings, assessment, and plan of care. I have personally seen and examined the patient, reviewed the DERMATOLOGIST MANAGING PARTNER /PAs history, exam and MDM and agree with the assessment and plan as written. Based on total visit time, I have performed more than 50% of the visit. As above: Patient feels better today. Pain is less. Denies nausea or vomiting. She is having some fecal incontinence. White blood cell count improved today. Begin clear liquids. Objective - Vital Signs Vital signs: Vital Signs Temp 97.8 F 01/01/23 07:45 Pulse 89 01/01/23 09:00 Resp 17 01/01/23 07:45 BP 101/63 01/01/23 07:45 Pulse Ox 95 01/01/23 07:45 FiO2 Intake & Output 12/31/22 01/01/23 01/01/23 18:59 06:59 18:59 Intake Total 1500 Output Total 900 Balance -900 1500 Weight 91.8 kg Intake: Intake, IV Titration 1500 Amount D5-0.45% NaCl with KCl 1500 20Meq/l 1,000 ml @ 125 mls/hr IV .Q8H [facility] Rx#: [id number] Output: Urine 900 Uretheral (Zeng) 900 Other: Voiding Method Toilet Toilet Bedside Commode Bedside Commode Bedside Commode # Voids 3 # Bowel Movements 2 1 1 - Labs CBC & Chem 7: 01/01/23 05:18 01/01/23 05:18 Labs: Abnormal Lab Results - Last 24 Hours (Table) 01/01/23 01/01/23 Range/Units 05:18 05:18 WBC 11.66 H (4.50-10.00) X 10*3/uL RBC 3.01 L (4.10-5.20) X 10*6/uL Hgb 9.0 L (12.0-15.0) g/dL Hct 27.0 L (37.2-46.3) % Absolute Nucleated RBC 0.02 H (0.00-0.00) X 10*3/uL Immature Gran # 0.09 H (0.00-0.04) X 10*3/uL Neutrophils # 7.87 H (1.80-7.70) X 10*3/uL Monocytes # 1.23 H (0.20-1.00) X 10*3/uL NRBC/100 WBC Diff 0.2 H (0.0-0.0) /100 WBCS Sodium 130 L (135-145) mmol/L Anion Gap 8.10 L (10.00-18.00) mmol/L BUN 7.7 L (9.0-27.0) mg/dL BUN/Creatinine Ratio 11.00 L (12.00-20.00) Ratio Calcium 7.8 L (8.7-10.3) mg/dL
--- NOTE | 2023-01-01 11:33 | P.PN ---
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 He was brought in electively yesterday 12/26/2022 for a sigmoid resection with low anterior resection. Last evening she developed issues with hypotension. Early this morning she again is having issues with hypotension and low urine output. She has also had found to have bright red blood per rectum. She had received 2.5 L of fluid resuscitation without much improvement. She was given an additional 1 L of fluid this morning. She was transferred to the intensive care unit for further monitoring and possible norepinephrine infusions. She currently has D5.45 with 20 of KCl at 125 ML's per hour. She is maintaining good O2 saturations in the 90s on room air. Awake and alert in no acute distress. Current blood pressure 126/65. She's afebrile. No pressors support required thus far. She did have a epidural catheter placed for pain management which was adjusted per anesthesia. Beta blockers were held. White count 9.8. Hemoglobin 9.1. Sodium 136. Potassium 4.1. Bicarb 24. BUN 13. Creatinine 1.2. Glucose 125. The patient is seen today 12/28/2022 in follow-up in the intensive care unit. She is currently awake and alert in no acute distress. Maintaining good O2 saturations in the 90s on room air. Receiving D5.45 normal saline at 125 ML's per hour. Blood pressure has remained stable. White count 10.8. Hemoglobin 9.3. Platelets 224. Working with the incentive spirometer. The patient is seen today 12/29/2022 in follow-up in the intensive care unit. Last evening she developed bloating and nausea requiring nasogastric tube placement with approximately 550 mL returned of brown colored fluid. Chest x- ray revealed no acute pulmonary process. Nasogastric tube tip within the abdomen. Computed tomography scan scan shows possible ileus versus small bowel obstruction. No obvious leak noted. She is currently awake and alert. She is maintaining good O2 saturations in the 90s on room air. She has D5.45 normal saline with 20 of KCl at 120 ML's per hour. White count 12.8. Hemoglobin 10.4. Platelets 278. Sodium 132. Potassium 4.7. BUN 3. Creatinine 0.55. Surgical services are following. On today's evaluation of 12/31/2022, the patient has an NG tube in place. The output from the NG tube is been minimal. The patient is postop day #5 following a sigmoid resection with low anterior resection. The patient is stating that she is having liquidy stool. No nausea. No vomiting. No emesis. Surgical once is striking and intact. Blood work shows a WBC count 13 with a hemoglobin of 9.9 and a platelet count of 249. The rest of the electrolytes are all stable with a creatinine of 0.6. Noted the patient had a complicated diverticulitis with evidence of colovesicular fistula and the patient underwent sigmoid resection/low anterior resection and the patient also underwent a bilateral ovarian cystectomy. A 2022, the patient is postop day #6. She has had several bowel movements. No nausea. No vomiting. No abdominal pain. No altered mentation. She is using the incentive spirometer and she is currently on room air oxygen.The white cell count is at 11.6 with a hemoglobin of 9 and a platelet count of 192, sodium is at 130, BUN is at 7.7 with a creatinine of 0.7. IV fluids are currently running at normal saline at 1 25 mL an hour. Objective - Vital Signs Vital signs: Vital Signs Temp 97.8 F 01/01/23 07:45 Pulse 89 01/01/23 09:00 Resp 17 01/01/23 07:45 BP 101/63 01/01/23 07:45 Pulse Ox 95 01/01/23 07:45 FiO2 Intake & Output 12/31/22 01/01/23 01/01/23 18:59 06:59 18:59 Intake Total 1500 Output Total 900 Balance -900 1500 Weight 91.8 kg Intake: Intake, IV Titration 1500 Amount D5-0.45% NaCl with KCl 1500 20Meq/l 1,000 ml @ 125 mls/hr IV .Q8H [facility] Rx#: [id number] Output: Urine 900 Uretheral (Zeng) 900 Other: Voiding Method Toilet Toilet Bedside Commode Bedside Commode Bedside Commode # Voids 3 # Bowel Movements 2 1 1 - Exam GENERAL EXAM: Alert, 82-year-old female, on room air, fairly comfortable in no apparent distress. HEAD: Normocephalic. EYES: Normal reaction of pupils, equal size. NOSE: Nasogastric tube secured in place. Clear with pink turbinates. THROAT: No erythema or exudates. NECK: No masses, no JVD. CHEST: No chest wall deformity. LUNGS: Equal air entry with no crackles, wheeze, rhonchi or dullness. CVS: S1 and S2 normal with no audible murmur, regular rhythm. ABDOMEN: Abdominal dressing dry and intact. No hepatosplenomegaly, normal bowel sounds, no guarding or rigidity. SPINE: No scoliosis or deformity SKIN: No rashes CENTRAL NERVOUS SYSTEM: No focal deficits, tone is normal in all 4 extremities. EXTREMITIES: There is no peripheral edema. No clubbing, no cyanosis. Periph eral pulses are intact. - Labs CBC & Chem 7: 01/01/23 05:18 01/01/23 05:18 Labs: Abnormal Lab Results - Last 24 Hours (Table) 01/01/23 01/01/23 Range/Units 05:18 05:18 WBC 11.66 H (4.50-10.00) X 10*3/uL RBC 3.01 L (4.10-5.20) X 10*6/uL Hgb 9.0 L (12.0-15.0) g/dL Hct 27.0 L (37.2-46.3) % Absolute Nucleated RBC 0.02 H (0.00-0.00) X 10*3/uL Immature Gran # 0.09 H (0.00-0.04) X 10*3/uL Neutrophils # 7.87 H (1.80-7.70) X 10*3/uL Monocytes # 1.23 H (0.20-1.00) X 10*3/uL NRBC/100 WBC Diff 0.2 H (0.0-0.0) /100 WBCS Sodium 130 L (135-145) mmol/L Anion Gap 8.10 L (10.00-18.00) mmol/L BUN 7.7 L (9.0-27.0) mg/dL BUN/Creatinine Ratio 11.00 L (12.00-20.00) Ratio Calcium 7.8 L (8.7-10.3) mg/dL Assessment and Plan Plan: 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 Status post sigmoid resection with low anterior resection. Postoperative day #6. Patient also underwent bilateral ovarian cystectomy Postoperative ileus, improving and the patient still has an NG tube in place Hypotension with low urine output suspect secondary to bright red rectal bleeding, epidural catheter with pain medication infusions, dehydration. Stable and not requiring any pressors. The patient got transferred out of the intensive care unit Anemia with current hemoglobin 9.0 History of hypertension Hyperlipidemia Hypothyroidism Chronic back pain with multiple back surgeries Plan: The NG tube has been removed The patient is having bowel movements Nothing by mouth with some ice chips The patient is passing liquidy stool Continue IV fluids May discontinue the Zeng catheter Family medicine is adequate Currently stable and on room air No pressors required thus far Surgical services following We'll continue to follow
[2023-01-01] MEDS: QUEtiapine 25 MG TAB PO SCH (21:14)
--- NOTE | 2023-01-02 03:23 | PN ---
PROGRESS NOTE SUBJECTIVE: An 82-year-old white female, status post bowel resection for vesicular colonic fistula. The patient's NG tube has been removed. Her diet has not been advanced yet. OBJECTIVE: CARDIOVASCULAR: S1, S2. LUNGS: Clear. GI: Soft. HEMATOLOGY: Negative Homans. ASSESSMENT: Status post vesicular colonic fistula repair, hypothyroidism, degenerative disk disease, chronic obstructive pulmonary disease. Continue current home medicines. Follow up in the next 24 to 48 hours for discharge. Prognosis guarded. Ambulate as tolerated. MMODL / IJN: [id number] /
[2023-01-02] MEDS: D5-0.45% NACL WITH KCL 20MEQ/L 1,000 ML IV SCH ×2 (05:50→13:30)
[2023-01-02] MEDS: LEVOTHYROXINE 125 MCG TAB PO SCH (05:50)
[2023-01-02 08:58] LABS: Basophils # (A) 0.06 X 10*3/uL (0.00-0.10); Basophils % (A) 0.5 %; Eosinophils # (A) 0.76 X 10*3/uL (0.04-0.35); Eosinophils % (A) 6.4 %; HCT 24.7 % (37.2-46.3); HGB 8.1 g/dL (12.0-15.0); Immature Grans, Automated 0.9 %; Lymphocytes # (A) 2.09 X 10*3/uL (0.90-5.00); Lymphocytes % (A) 17.5 %; MCH 29.9 pg (27.0-32.0); MCHC 32.8 g/dL (32.0-37.0); MCV 91.1 fL (80.0-97.0); Mean Platelet Volume 10.3 fL (9.5-12.2); Monocytes # (A) 1.11 X 10*3/uL (0.20-1.00); Monocytes % (A) 9.3 %; NRBC Per 100 WBC 0 /100 WBCS (0.0-0.0); Neutrophils # (A) 7.82 X 10*3/uL (1.80-7.70); Neutrophils % (A) 65.4 %; Platelet Count 185 X 10*3/uL (140-440); RBC 2.71 X 10*6/uL (4.10-5.20); RDW 13.5 % (11.5-14.5); WBC 11.95 X 10*3/uL (4.50-10.00)
[2023-01-02] MEDS: HYDROmorphone 1 MG/ML 1 ML SYRINGE IVP PRN (09:28)
[2023-01-02 11:07] LABS: African American GFR (CKD) 94.8 (60.0-200.0); Albumin 2.4 g/dL (3.8-4.9); Albumin/Globulin Ratio 1.33 (1.60-3.17); BUN/Creat Ratio 11.57 Ratio (12.00-20.00); Blood Urea Nitrogen 8.1 mg/dL (9.0-27.0); Calcium 7.6 mg/dL (8.7-10.3); Globulin 1.8 g/dL (1.6-3.3); Non-African American GFR(CKD) 81.8 (60.0-200.0); Total Bilirubin 1.9 mg/dL (0.30-1.20); Total Protein 4.2 g/dL (6.2-8.2)
--- NOTE | 2023-01-02 11:50 | P.PN ---
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 He was brought in electively yesterday 12/26/2022 for a sigmoid resection with low anterior resection. Last evening she developed issues with hypotension. Early this morning she again is having issues with hypotension and low urine output. She has also had found to have bright red blood per rectum. She had received 2.5 L of fluid resuscitation without much improvement. She was given an additional 1 L of fluid this morning. She was transferred to the intensive care unit for further monitoring and possible norepinephrine infusions. She currently has D5.45 with 20 of KCl at 125 ML's per hour. She is maintaining good O2 saturations in the 90s on room air. Awake and alert in no acute distress. Current blood pressure 126/65. She's afebrile. No pressors support required thus far. She did have a epidural catheter placed for pain management which was adjusted per anesthesia. Beta blockers were held. White count 9.8. Hemoglobin 9.1. Sodium 136. Potassium 4.1. Bicarb 24. BUN 13. Creatinine 1.2. Glucose 125. The patient is seen today 12/28/2022 in follow-up in the intensive care unit. She is currently awake and alert in no acute distress. Maintaining good O2 saturations in the 90s on room air. Receiving D5.45 normal saline at 125 ML's per hour. Blood pressure has remained stable. White count 10.8. Hemoglobin 9.3. Platelets 224. Working with the incentive spirometer. The patient is seen today 12/29/2022 in follow-up in the intensive care unit. Last evening she developed bloating and nausea requiring nasogastric tube placement with approximately 550 mL returned of brown colored fluid. Chest x- ray revealed no acute pulmonary process. Nasogastric tube tip within the abdomen. Computed tomography scan scan shows possible ileus versus small bowel obstruction. No obvious leak noted. She is currently awake and alert. She is maintaining good O2 saturations in the 90s on room air. She has D5.45 normal saline with 20 of KCl at 120 ML's per hour. White count 12.8. Hemoglobin 10.4. Platelets 278. Sodium 132. Potassium 4.7. BUN 3. Creatinine 0.55. Surgical services are following. On today's evaluation of 12/31/2022, the patient has an NG tube in place. The output from the NG tube is been minimal. The patient is postop day #5 following a sigmoid resection with low anterior resection. The patient is stating that she is having liquidy stool. No nausea. No vomiting. No emesis. Surgical once is striking and intact. Blood work shows a WBC count 13 with a hemoglobin of 9.9 and a platelet count of 249. The rest of the electrolytes are all stable with a creatinine of 0.6. Noted the patient had a complicated diverticulitis with evidence of colovesicular fistula and the patient underwent sigmoid resection/low anterior resection and the patient also underwent a bilateral ovarian cystectomy. A 2022, the patient is postop day #6. She has had several bowel movements. No nausea. No vomiting. No abdominal pain. No altered mentation. She is using the incentive spirometer and she is currently on room air oxygen.The white cell count is at 11.6 with a hemoglobin of 9 and a platelet count of 192, sodium is at 130, BUN is at 7.7 with a creatinine of 0.7. IV fluids are currently running at normal saline at 1 25 mL an hour. On today's evaluation of 01/02/2023, the patient is looking very well. He is awake and alert and she is communicating and she is on room air oxygen. Furthermore, she was able to consume some chicken broth and she is not having any major difficulties with abdominal distention or pain or nausea or emesis. She is having regular bowel moments for now. She is still on IV fluids with normal saline at 125 Faith hour. She is postop day #7.Shows a WBC count of 11.9 with a hemoglobin of 8.1 and a platelet count of 185. There is some mild drop in hemoglobin. Sodium is at 129, BUN is at 8.1 with a creatinine of 0.9. Has a AST is 124, ALt is 85 and the alkaline phosphatase at 35. Had albumin level is down to 2.4. Stool for C. diff has been negative. Objective - Vital Signs Vital signs: Vital Signs Temp 98.5 F 01/02/23 07:51 Pulse 93 01/02/23 07:51 Resp 16 01/02/23 07:51 BP 111/63 01/02/23 07:51 Pulse Ox 92 L 01/02/23 07:51 FiO2 Intake & Output 01/01/23 01/02/23 01/02/23 18:59 06:59 18:59 Intake Total 2125 0 Balance 2125 0 Intake: IV 2124 D5-0.45% NaCl with KCl 2125 20Meq/l 1,000 ml @ 125 mls/hr IV .Q8H [facility] Rx#: [id number] Oral 0 Other: Voiding Method Bedside Commode Bedside Commode Toilet # Voids 1 1 1 # Bowel Movements 1 1 1 - Exam GENERAL EXAM: Alert, 82-year-old female, on room air, fairly comfortable in no apparent distress. HEAD: Normocephalic. EYES: Normal reaction of pupils, equal size. NOSE: Nasogastric tube secured in place. Clear with pink turbinates. THROAT: No erythema or exudates. NECK: No masses, no JVD. CHEST: No chest wall deformity. LUNGS: Equal air entry with no crackles, wheeze, rhonchi or dullness. CVS: S1 and S2 normal with no audible murmur, regular rhythm. ABDOMEN: Abdominal dressing dry and intact. No hepatosplenomegaly, normal bowel sounds, no guarding or rigidity. SPINE: No scoliosis or deformity SKIN: No rashes CENTRAL NERVOUS SYSTEM: No focal deficits, tone is normal in all 4 extremities. EXTREMITIES: There is no peripheral edema. No clubbing, no cyanosis. Peripheral pulses are intact. - Labs CBC & Chem 7: 01/02/23 06:37 01/02/23 06:37 Labs: Abnormal Lab Results - Last 24 Hours (Table) 01/02/23 01/02/23 Range/Units 06:37 06:37 WBC 11.95 H (4.50-10.00) X 10*3/uL RBC 2.71 L (4.10-5.20) X 10*6/uL Hgb 8.1 L (12.0-15.0) g/dL Hct 24.7 L (37.2-46.3) % Immature Gran # 0.11 H (0.00-0.04) X 10*3/uL Neutrophils # 7.82 H (1.80-7.70) X 10*3/uL Monocytes # 1.11 H (0.20-1.00) X 10*3/uL Eosinophils # 0.76 H (0.04-0.35) X 10*3/uL Sodium 129 L (135-145) mmol/L Carbon Dioxide 19.0 L (20.0-27.5) mmol/L BUN 8.1 L (9.0-27.0) mg/dL BUN/Creatinine Ratio 11.57 L (12.00-20.00) Ratio Calcium 7.6 L (8.7-10.3) mg/dL Total Bilirubin 1.90 H (0.30-1.20) mg/dL AST 124 H (13-35) U/L ALT 85 H (8-44) U/L Alkaline Phosphatase 35 L (41-126) U/L Total Protein 4.2 L (6.2-8.2) g/dL Albumin 2.4 L (3.8-4.9) g/dL Albumin/Globulin Ratio 1.33 L (1.60-3.17) g/dL Assessment and Plan Plan: 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 Status post sigmoid resection with low anterior resection. Postoperative day #7. Patient also underwent bilateral ovarian cystectomy Postoperative ileus, improving and the patient still has an NG tube in place Hypotension with low urine output suspect secondary to bright red rectal bleed ing, epidural catheter with pain medication infusions, dehydration. Stable and not requiring any pressors. The patient got transferred out of the intensive care unit Anemia with current hemoglobin with a slight drop in hemoglobin down to 8.1 History of hypertension Hyperlipidemia Hypothyroidism Chronic back pain with multiple back surgeries Mild transaminitis Plan: Advance diet as tolerated The patient is passing liquidy stool Continue IV fluids Increase mobility Incentive spirometer Currently stable and on room air Surgical services following Pulmonary and critical care services will sign off.
[2023-01-02] MEDS: ATORVASTATIN 20 MG TAB PO SCH (12:10)
[2023-01-02] MEDS: METOPROLOL TARTRATE 50 MG TAB PO SCH ×2 (12:10→20:07)
[2023-01-02] MEDS: PANTOPRAZOLE 40 MG/10 ML VIAL IVP SCH ×2 (12:16→20:08)
--- NOTE | 2023-01-02 13:13 | P.PN ---
Subjective Progress Note Date: 01/02/23 CHIEF COMPLAINT: Diverticulitis HISTORY OF PRESENT ILLNESS: Patient is postop day #7 status post sigmoid resection with lower anterior resection and bilateral ovarian cystectomy for diverticulitis. There is no apparent colovesical fistula. Patient reports that her abdominal pain is remaining about the same but not getting worse. She also points back pain which is chronic. She denies any nausea or vomiting. She has been incontinent of stool. Afebrile. WBC is 11.95 Hgb 8.1 sodium 129 potassium 4.0 creatinine 0.7 total bilirubin 1.9 AST 124 ALT 85 alk phos 35 PHYSICAL EXAM: VITAL SIGNS: Reviewed. GENERAL: Well-developed in no acute distress. HEENT: No sclera icterus. Extraocular movements grossly intact. Moist buccal mucosa. Head is atraumatic, normocephalic. ABDOMEN: Soft. Nondistended. Nontender with palpation. Prevana wound vac in place. NEUROLOGIC: Alert and oriented. Cranial nerves II through XII grossly intact. ASSESSMENT: 1. Diverticulitis with no evidence of colovesical fistula. Status post sigmoid resection and lower anterior resection 2. Bilateral ovarian cysts status post bilateral ovarian cystectomy 3. Likely Bleeding at site of anastomosis resolved 4. Postoperative hypotension resolved 5. Postoperative ileus 6. Mildly elevated LFTs PLAN: -Advance diet to full liquids -Change IV fluids to 0.9 normal saline at 50ml/hr because of low Na -Repeat labs in a.m. Follow-up on LFTs -Encouraged patient to increase activity level -Encouraged patient to use incentive spirometer -Continue pain management -GI prophylaxis Protonix and DVT prophylaxis SCDs -Patient will go to ECF at discharge Physician Hydraulic Dredge Operator note has been reviewed by physician. Signing provider agrees with the documented findings, assessment, and plan of care. Objective - Vital Signs Vital signs: Vital Signs Temp 98.5 F 01/02/23 07:51 Pulse 93 01/02/23 07:51 Resp 16 01/02/23 07:51 BP 111/63 01/02/23 07:51 Pulse Ox 92 L 01/02/23 07:51 FiO2 Intake & Output 01/01/23 01/02/23 01/02/23 18:59 06:59 18:59 Intake Total 2125 0 Balance 2125 0 Intake: IV 2125 D5-0.45% NaCl with KCl 2125 20Meq/l 1,000 ml @ 125 mls/hr IV .Q8H [facility] Rx#: [id number] Oral 0 Other: Voiding Method Bedside Commode Bedside Commode Toilet # Voids 1 1 1 # Bowel Movements 1 1 1 - Labs CBC & Chem 7: 01/02/23 06:37 01/02/23 06:37 Labs: Abnormal Lab Results - Last 24 Hours (Table) 01/02/23 01/02/23 Range/Units 06:37 06:37 WBC 11.95 H (4.50-10.00) X 10*3/uL RBC 2.71 L (4.10-5.20) X 10*6/uL Hgb 8.1 L (12.0-15.0) g/dL Hct 24.7 L (37.2-46.3) % Immature Gran # 0.11 H (0.00-0.04) X 10*3/uL Neutrophils # 7.82 H (1.80-7.70) X 10*3/uL Monocytes # 1.11 H (0.20-1.00) X 10*3/uL Eosinophils # 0.76 H (0.04-0.35) X 10*3/uL Sodium 129 L (135-145) mmol/L Carbon Dioxide 19.0 L (20.0-27.5) mmol/L BUN 8.1 L (9.0-27.0) mg/dL BUN/Creatinine Ratio 11.57 L (12.00-20.00) Ratio Calcium 7.6 L (8.7-10.3) mg/dL Total Bilirubin 1.90 H (0.30-1.20) mg/dL AST 124 H (13-35) U/L ALT 85 H (8-44) U/L Alkaline Phosphatase 35 L (41-126) U/L Total Protein 4.2 L (6.2-8.2) g/dL Albumin 2.4 L (3.8-4.9) g/dL Albumin/Globulin Ratio 1.33 L (1.60-3.17) g/dL
[2023-01-02] MEDS: SODIUM CHLORIDE 0.9% 1,000 ML IV SCH (13:25)
[2023-01-02] MEDS: HYDROmorphone 0.5 MG/0.5 ML SYRINGE IVP PRN (20:08)
[2023-01-02] MEDS: QUEtiapine 25 MG TAB PO SCH (20:08)
[2023-01-03] MEDS: HYDROmorphone 1 MG/ML 1 ML SYRINGE IVP PRN ×2 (00:34→05:24)
[2023-01-03] MEDS: LEVOTHYROXINE 125 MCG TAB PO SCH (05:54)
[2023-01-03 07:51] VITALS: RESP 18
[2023-01-03] MEDS: ONDANSETRON 4 MG/2 ML VIAL IVP PRN (09:03)
[2023-01-03] MEDS: SODIUM CHLORIDE 0.9% 1,000 ML IV SCH (09:03)
[2023-01-03] MEDS: oxyCODONE-APAP 10-325MG 1 EACH TAB PO PRN (09:06)
[2023-01-03] MEDS: PANTOPRAZOLE 40 MG/10 ML VIAL IVP SCH (09:08)
[2023-01-03 09:51] LABS: HCT 24.6 % (37.2-46.3); HGB 7.9 g/dL (12.0-15.0); MCH 29.4 pg (27.0-32.0); MCHC 32.1 g/dL (32.0-37.0); MCV 91.4 fL (80.0-97.0); Mean Platelet Volume 9.9 fL (9.5-12.2); NRBC Per 100 WBC 0 /100 WBCS (0.0-0.0); Platelet Count 229 X 10*3/uL (140-440); RBC 2.69 X 10*6/uL (4.10-5.20); RDW 13.6 % (11.5-14.5); WBC 9.69 X 10*3/uL (4.50-10.00)
[2023-01-03] MEDS: METOPROLOL TARTRATE 50 MG TAB PO SCH (10:04)
[2023-01-03] MEDS: ATORVASTATIN 20 MG TAB PO SCH (10:04)
[2023-01-03 10:14] LABS: African American GFR (CKD) 94.8 (60.0-200.0); Albumin 2.5 g/dL (3.8-4.9); Albumin/Globulin Ratio 1.39 (1.60-3.17); Anion Gap 7.7 mmol/L (10.00-18.00); BUN/Creat Ratio 10.14 Ratio (12.00-20.00); Blood Urea Nitrogen 7.1 mg/dL (9.0-27.0); Calcium 7.9 mg/dL (8.7-10.3); Carbon Dioxide 24.3 mmol/L (20.0-27.5); Globulin 1.8 g/dL (1.6-3.3); Non-African American GFR(CKD) 81.8 (60.0-200.0); Potassium 3.8 mmol/L (3.5-5.5); Total Bilirubin 3.1 mg/dL (0.30-1.20); Total Protein 4.3 g/dL (6.2-8.2)
[2023-01-03 12:55] VITALS: BP 122/61; PULSE 96; TEMP 97.5
--- NOTE | 2023-01-03 13:46 | P.DS ---
Providers Date of admission: 12/26/22 06:23 Expected date of discharge: 01/03/23 Attending physician: Mino Aparicio Consults: 12/26/22 09:26 Consult Physician Routine Consulting Provider: Juan Jose Degroot Consult Reason/Comments: Medical management Do you want consulting provider notified?: Yes 12/27/22 07:42 Consult Physician Stat Consulting Provider: Maynor Martínez Consult Reason/Comments: icu managment Do you want consulting provider notified?: Yes Primary care physician: Juan Jose Degroot Hospital Course: Discharge diagnosis 1. Diverticulitis with no evidence of colovesical fistula. Status post sigmoid resection and lower anterior resection 2. Bilateral ovarian cysts status post bilateral ovarian cystectomy 3. Likely Bleeding at site of anastomosis resolved 4. Postoperative hypotension resolved 5. Postoperative ileus 6. Elevated LFTs and total bilirubin possibly medication induced. Lipitor discontinued. Hospital course This is an 82-year-old female with a known history of diverticulitis. She status post sigmoid resection, lower anterior resection and bilateral ovarian cystectomy. Patient's pain is controlled. She is tolerating diet. She is havin g bowel movements. She's afebrile. Incisional dressing is clean dry and intact. Patient's liver enzymes are elevated. At this time Lipitor will be held. Recommend repeating LFTs in 1 week and follow-up in the office. Blood pressure lower side. Metoprolol will be held for 2 days. Patient is stable for discharge. Please refer to chart for any further details. Physician Servicenow Administrator Developer note has been reviewed by physician. Signing provider agrees with the documented findings, assessment, and plan of care. Patient Condition at Discharge: Stable Plan - Discharge Summary Discharge Rx Participant: Yes New Discharge Prescriptions: New QUEtiapine [SEROquel] 25 mg PO HS #3 tab Continue Solifenacin Succinate [Vesicare] 10 mg PO DAILY tiZANidine [Zanaflex] 4 mg PO HS Levothyroxine Sodium [Synthroid] 125 mcg PO DAILY fentaNYL 75MCG/HR PATCH [Duragesic 75MCG/HR] 1 patch TRANSDERM Q72H #1 patch oxyCODONE-APAP 10-325MG [Percocet 10-325 mg] 1 tab PO QID PRN #12 tab PRN Reason: Pain Discontinued Aspirin EC [Ecotrin Low Dose] 81 mg PO DAILY Atorvastatin [Lipitor] 20 mg PO DAILY Tetracycline HCl 500 mg PO BID QUEtiapine [SEROquel] 25 mg PO HS No Action Metoprolol Succinate (ER) [Toprol XL] 100 mg PO DAILY Discharge Medication List Solifenacin Succinate [Vesicare] 10 mg PO DAILY 11/23/19 [History] Levothyroxine Sodium [Synthroid] 125 mcg PO DAILY 05/15/22 [History] Metoprolol Succinate (ER) [Toprol XL] 100 mg PO DAILY 05/15/22 [History] tiZANidine [Zanaflex] 4 mg PO HS 05/15/22 [History] QUEtiapine [SEROquel] 25 mg PO HS #3 tab 01/03/23 [Rx] fentaNYL 75MCG/HR PATCH [Duragesic 75MCG/HR] 1 patch TRANSDERM Q72H #1 patch 01/03/23 [Rx] oxyCODONE-APAP 10-325MG [Percocet 10-325 mg] 1 tab PO QID PRN #12 tab 01/03/23 [Rx] Follow up Appointment(s)/Referral(s): Mino Aparicio MD [STAFF PHYSICIAN] - 1 Week Ambulatory/Diagnostic Orders: Comprehensive Metabolic Panel [LAB.AMB] Time Frame: 1 Week, Location: None Selected Activity/Diet/Wound Care/Special Instructions: Unopened box of Fentanyl 75mcg patches from home found in patient's room and taken down to pharmacy-please send with her when she is discharged No driving while taking pain meds No lifting over 10 pounds Shower daily. No soaking or tub baths for 2 weeks Very light activity until you are reevaluated at your follow up appointment with your surgeon Hold Metoprolol for 2 days and then restart Hold Lipitor due to elevated LFTs. Repeat CMP in 1 week Discharge Disposition: TRANSFER TO SNF/ECF
[2023-01-03] MEDS ORDERED: SODIUM FERRIC GLUCONAT-SUCROSE 125 MG in SODIUM CHLORIDE 0.9% 100 ML IVPB SCH (18:00)
--- NOTE | 2023-01-05 21:38 | CDI ---
Documentation Clarification Form Date: 01/05/2023 9:11:40 PM From: Petra Singer Phone: Admit Date: 12/26/2022 6:23:00 AM Patient Name: Kiana Styles Visit Number: [id number] Discharge Date: 01/03/2023 4:00:00 PM ATTENTION: The Clinical Documentation Specialists (CDI) and [facility] Coding Staff appreciate your assistance in clarifying documentation. Please respond to the clarification below the line at the bottom and electronically sign. The CDI & [facility] Coding staff will review the response and follow-up if needed. Please note: Queries are made part of the Legal Health Record. If you have any questions, please contact the author of this message via ITS. Dr. Mino Aparicio Unspecified anemia is documented per Consult Note 12/27/22. Additional specificity regarding the type acuity of anemia is requested. History/Risk Factors: 82yo F, colovesicalfistulad/tdiverticulitis sp sigmoid resection, HTN, HLD, hypotension, BRBPR, dehydration, CBP, bleedingofanastomosis, postoperative ileus & hypotension Clinical indicators: Hemoglobin: 12/18 13.6 12/27 9.1 12/28 9.0 01/02 8.1 Hematocrit: 12/27 27.6 12/28 30.3 12/29 28.2 01/02 24.7 Treatment: The patient is passing liquid stool. Continue IV fluids. Increase mobility. Incentive spirometer. Currently stable and on room air. Surgical services following Please clarify the type and acuity of anemia: [ xx ] Acute blood loss anemia [ ] Acute on chronic blood loss anemia [ ] Unable to determine [ ] Other, please specify (Template Last Revised: November 2020) MTDD
== END 2023-01-03 16:00 | DRG 330 ==
LOC: 2ORMAIN 06:23 → 4SSUR 12:19 → 2SICU 12-27 08:29 → 5NMEDONC 12-29 17:04
PROVIDERS: ADMIT Surgery; ATTEND Surgery
PROC: 0UB20ZZ Excision of Bilateral Ovaries, Open Approach (ICD-10-PCS; 2022-12-26)
PROC: 3E0R3BZ Introduction of Anesthetic Agent into Spinal Canal, Percutaneous Approach (ICD-10-PCS; 2022-12-26)
PROC: 00HU33Z Insertion of Infusion Device into Spinal Canal, Percutaneous Approach (ICD-10-PCS; 2022-12-26)
PROC: 0DTN0ZZ Resection of Sigmoid Colon, Open Approach (ICD-10-PCS; principal; 2022-12-26 07:40)
PROC: 3E053XZ Introduction of Vasopressor into Peripheral Artery, Percutaneous Approach (ICD-10-PCS; 2022-12-28)
DX: K57.32 Diverticulitis of large intestine without perforation or abscess without bleeding (principal); D62 Acute posthemorrhagic anemia; K91.89 Other postprocedural complications and disorders of digestive system; K91.840 Postprocedural hemorrhage of a digestive system organ or structure following a digestive system procedure; K56.7 Ileus, unspecified; K62.5 Hemorrhage of anus and rectum; I95.2 Hypotension due to drugs; I10 Essential (primary) hypertension; E03.9 Hypothyroidism, unspecified; J44.9 Chronic obstructive pulmonary disease, unspecified; R74.01 Elevation of levels of liver transaminase levels; N83.202 Unspecified ovarian cyst, left side; N83.201 Unspecified ovarian cyst, right side; E78.5 Hyperlipidemia, unspecified; Z96.611 Presence of right artificial shoulder joint; Z96.653 Presence of artificial knee joint, bilateral; M54.9 Dorsalgia, unspecified; G89.29 Other chronic pain; E86.0 Dehydration; R15.9 Full incontinence of feces; R00.0 Tachycardia, unspecified; T41.3X5A Adverse effect of local anesthetics, initial encounter; Y83.2 Surgical operation with anastomosis, bypass or graft as the cause of abnormal reaction of the patient, or of later complication, without mention of misadventure at the time of the procedure; Z79.82 Long term (current) use of aspirin; Z79.890 Hormone replacement therapy; Z86.711 Personal history of pulmonary embolism; Z87.440 Personal history of urinary (tract) infections; Z79.899 Other long term (current) drug therapy
CPT/HCPCS: 71045; 74176; 80048; 80053; 85025; 85027; 86850; 86900; 86901; 87324; 88307

== ENCOUNTER 2023-01-09 01:22 | Inpatient (IN) | payer MEDICARE, OTHER ==
--- NOTE | 2023-01-09 02:12 | ED ---
GI Bleed HPI - General Chief complaint: GI Bleed Stated complaint: GI Bleed Time Seen by Provider: 01/09/23 01:35 Source: patient, EMS Mode of arrival: EMS Limitations: no limitations - History of Present Illness Initial comments: Patient is an 82-year-old female presenting as a transfer from [facility]. On 12/26 patient had a sigmoid resection as well as a bilateral ovarian cystectomy performed by Dr. Aparicio at our facility. Patient states that yesterday she noted rectal bleeding, she also had an episode of nausea and vomiting. CT abdomen [facility] showed bilobed fluid collection in the pelvis, may be abscess or hematoma. There was also free fluid within the abdominal and pelvic cavity. Patient's hemoglobin was 9.4 and WBC was 15.73. Patient received a dose of Zosyn and pain medication prior to her arrival. She was transferred back to our facility for access to her surgeon. She admits to pain which she has had since her surgery, no acute change. She states that her stools have been loose. No chest pain or shortness of breath. No fevers or chills. No redness, swelling, discharge from the incision. - Related Data Home Medications Medication Instructions Recorded Confirmed Solifenacin Succinate [Vesicare] 10 mg PO DAILY 11/23/19 12/20/22 Levothyroxine Sodium [Synthroid] 125 mcg PO DAILY 05/15/22 12/26/22 Metoprolol Succinate (ER) [Toprol 100 mg PO DAILY 05/15/22 12/26/22 XL] tiZANidine [Zanaflex] 4 mg PO HS 05/15/22 12/20/22 Previous Rx's Medication Instructions Recorded Aspirin EC [Ecotrin Low Dose] 81 mg PO DAILY #30 tab 01/03/23 QUEtiapine [SEROquel] 25 mg PO HS #3 tab 01/03/23 fentaNYL 75MCG/HR PATCH [Duragesic 1 patch TRANSDERM Q72H #1 patch 01/03/23 75MCG/HR] oxyCODONE-APAP 10-325MG [Percocet 1 tab PO QID PRN #12 tab 01/03/23 10-325 mg] Allergies Allergy/AdvReac Type Severity Reaction Status Date / Time cat dander Allergy Rash/Hives Verified 12/26/22 06:45 latex Allergy Rash/Hives, Verified 12/26/22 06:45 Swelling Sulfa (Sulfonamide Allergy Nausea, Verified 12/26/22 06:45 Antibiotics) Chills nortriptyline [From Pamelor] AdvReac irritated, Verified 12/26/22 06:45 nervous Review of Systems ROS Statement: Those systems with pertinent positive or pertinent negative responses have been documented in the HPI. ROS Other: All systems not noted in ROS Statement are negative. Past Medical History Past Medical History: Hyperlipidemia, Osteoarthritis (OA), Pulmonary Embolus (PE), Thyroid Disorder Additional Past Medical History / Comment(s): hx 5 back surgeries with chronic back pain, low bp with orthostatic issues at times, left shoulder pain and stiffness- receives cortisone. , possible PE (2019)., states uti for the last year., rectal fistula, uses cane & walker. History of Any Multi-Drug Resistant Organisms: None Reported Past Surgical History: Back Surgery, Cholecystectomy, Heart Catheterization, Hysterectomy, Joint Replacement, Orthopedic Surgery Additional Past Surgical History / Comment(s): 5 back surgeries, right & left total knees, total right shoulder replacement and 2 previous surgeries on right shoulder, , lumpectomy right breast. Past Anesthesia/Blood Transfusion Reactions: No Reported Reaction, Family History of Problems w/ Anesthesia Additional Past Anesthesia/Blood Transfusion Reaction / Comment(s): blood transfusions with child no issues. daughter has ponv Past Psychological History: No Psychological Hx Reported Smoking Status: Never smoker - Past Family History Father Family Medical History: Diabetes Mellitus Mother Family Medical History: Hypertension Daughter(s) Family Medical History: Diabetes Mellitus General Exam Limitations: no limitations General appearance: alert, in no apparent distress Head exam: Present: atraumatic, normocephalic, normal inspection Eye exam: Present: normal appearance Neck exam: Present: normal inspection Respiratory exam: Present: normal lung sounds bilaterally. Absent: respiratory distress, wheezes, rales, rhonchi, stridor Cardiovascular Exam: Present: regular rate, normal rhythm, normal heart sounds. Absent: systolic murmur, diastolic murmur, rubs, gallop, clicks GI/Abdominal exam: Present: soft, tenderness. Absent: distended, guarding, rebound, rigid Neurological exam: Present: alert, oriented X3, CN II-XII intact Psychiatric exam: Present: normal affect, normal mood Skin exam: Present: warm, dry, intact, normal color. Absent: rash Course Vital Signs 01/09/23 01:28 Temperature 98.3 F Pulse Rate 81 Respiratory 16 Rate Blood Pressure 138/62 O2 Sat by Pulse 97 Oximetry Medical Decision Making - Medical Decision Making Was pt. sent in by a medical professional or institution (SANDEEP Oliva, [employer], urgent care, hospital, or longterm...) When possible be specific @ -Patient transferred from [facility] Did you speak to anyone other than the patient for history (EMS, parent, family, police, friend...)? What history was obtained from this source @ -No Did you review nursing and triage notes (agree or disagree)? Why? @ -I reviewed and agree with nursing and triage notes Were old charts reviewed (outside hosp., previous admission, EMS record, old EKG, old radiological studies, urgent care reports/EKG's, longterm records)? Report findings @ -No old charts were reviewed Differential Diagnosis (chest pain, altered mental status, abdominal pain women, abdominal pain men, vaginal bleeding, weakness, fever, dyspnea, syncope, headache, dizziness, GI bleed, back pain, seizure, CVA, palpatations, mental health, musculoskeletal)? @ -not applicable EKG interpreted by me (3pts min.). @ -As above X-rays interpreted by me (1pt min.). @ -None done CT interpreted by me (1pt min.). @ -None done U/S interpreted by me (1pt. min.). @ -None done What testing was considered but not performed or refused? (CT, X-rays, U/S, labs)? Why? @ -None What meds were considered but not given or refused? Why? @ -None Did you discuss the management of the patient with other professionals (professionals i.e. SANDEEP Oliva, [employer], lab, RT, psych nurse, long term care social worker, planisher, teacher, special assets officer, child support case officer)? Give summary @ -Discussed with general surgeon Dr. Aparicio Was smoking cessation discussed for >3mins.? @ -No Was critical care preformed (if so, how long)? @ -No Were there social determinants of health that impacted care today? How? (Homelessness, low income, unemployed, alcoholism, drug addiction, transportation, low edu. Level, literacy, decrease access to med. care, prison, rehab)? @ -No Was there de-escalation of care discussed even if they declined (Discuss DNR or withdrawal of care, Hospice)? DNR status @ -No What co-morbidities impacted this encounter? (DM, HTN, Smoking, COPD, CAD, Cancer, CVA, ARF, Chemo, Hep., AIDS, mental health diagnosis, sleep apnea, morbid obesity)? @ -None Was patient admitted / discharged? Hospital course, mention meds given and route, prescriptions, significant lab abnormalities, going to OR and other [facility] info. @ -Patient is an 82-year-old female transferred from [facility]. Patient had a sigmoid resection and bilateral ovarian cystectomy performed on 12/[address] Aparicio. Yesterday she was experiencing rectal bleeding as well as episode of nausea and vomiting. CT abdomen [facility] showed bilobed fluid collection in the pelvis, may be abscess or hematoma, as well as free fluid within the abdomen and pelvic cavity. Patient received a dose of Zosyn prior to arrival. On physical examination she is in no acute distress, there is some mild discomfort on palpation of the abdomen. Incision dressing appears clean. I spoke with Dr. Aparicio who accepted admission. Patient is agreeable with this plan. I discussed this case with my attending Dr. Porter. Undiagnosed new problem with uncertain prognosis? @ -No Drug Therapy requiring intensive monitoring for toxicity (Heparin, Nitro, Insulin, Cardizem)? @ -No Were any procedures done? @ -No Diagnosis/symptom? @ -Postop complication Acute, or Chronic, or Acute on Chronic? @ -Acute Uncomplicated (without systemic symptoms) or Complicated (systemic symptoms)? @ -Complicated Side effects of treatment? @ -No Exacerbation, Progression, or Severe Exacerbation? @ -No Poses a threat to life or bodily function? How? (Chest pain, [place], [place], pneumonia, PE, COPD, DKA, ARF, appy, cholecystitis, CVA, Diverticulitis, Homicidal, Suicidal, threat to staff... and all critical care pts) @ -yes Disposition Clinical Impression: Post-operative complication Disposition: ADMITTED IP TO THIS HOSP Condition: Fair Referrals: Juan Jose Degroot MD [Primary Care Provider] - 1-2 days Time of Disposition: 02:44
[2023-01-09] MEDS ORDERED: NALOXONE 0.4 MG/ML 1 ML VIAL IV PRN (02:23)
[2023-01-09] MEDS ORDERED: SODIUM CHLORIDE 0.9% 500 ML 500 ML IV ONE (02:25)
[2023-01-09] MEDS: MORPHINE SULFATE 4 MG/ML SYRINGE IV PRN ×3 (03:00→19:21)
[2023-01-09] MEDS: SODIUM CHLORIDE 0.9% 1,000 ML IV SCH ×2 (03:01→15:00)
[2023-01-09 03:14] LABS: ALT 51 U/L (4-34); AST 45 U/L (14-36); African American GFR (CKD) >90 (>60 ml/min/1.73 sqM); Albumin 2.3 g/dL (3.5-5.0); Alkaline Phosphatase 35 U/L (38-126); Anion Gap 4 mmol/L; Blood Urea Nitrogen 12 mg/dL (7-17); Calcium 7.3 mg/dL (8.4-10.2); Carbon Dioxide 29 mmol/L (22-30); Chloride 98 mmol/L (98-107); Glucose 101 mg/dL (74-99); Non-African American GFR(CKD) 86 (>60 ml/min/1.73 sqM); Potassium 3.5 mmol/L (3.5-5.1); Sodium 131 mmol/L (137-145); Total Bilirubin 1.8 mg/dL (0.2-1.3); Total Protein 4.8 g/dL (6.3-8.2)
[2023-01-09 03:31] LABS: Basophils % (A) 0 %; Eosinophils # (A) 0.1 k/uL (0-0.7); Eosinophils % (A) 1 %; HCT 26.5 % (34.0-46.0); Lymphocytes # (A) 1.5 k/uL (1.0-4.8); Lymphocytes % (A) 15 %; MCH 29.1 pg (25.0-35.0); MCHC 33.5 g/dL (31.0-37.0); MCV 86.9 fL (80.0-100.0); Mean Platelet Volume 8.9; Monocytes # (A) 0.4 k/uL (0-1.0); Monocytes % (A) 4 %; Neutrophils # (A) 7.9 k/uL (1.3-7.7); Neutrophils % (A) 79 %; Platelet Count 513 k/uL (150-450); RBC 3.05 m/uL (3.80-5.40)
[2023-01-09 03:33] LABS: HGB 8.9 gm/dL (11.4-16.0)
[2023-01-09] MEDS ORDERED: SODIUM CHLORIDE 0.9% 1,000 ML IV ONE (03:50)
[2023-01-09] MEDS ORDERED: KETOROLAC 15 MG/ML 1 ML VIAL IVP PRN (03:52)
--- NOTE | 2023-01-09 13:53 | P.GSHP ---
History of Present Illness H&P Date: 01/09/23 CHIEF COMPLAINT: GI bleed HISTORY OF PRESENT ILLNESS: This is a 82-year-old female who was a transfer from [facility]. Patient had sigmoid resection with lower anterior resection and bilateral ovarian cystectomy with Dr. salmon on 12/26/2022 for diverticulitis and bilateral enlarged ovarian cysts. Patient did have postoperative bleeding and hypotension likely at the anastomotic site during her admission. Patient patient did have bright red blood per rectum starting Saturday morning. She's had 4 episodes of bleeding. She denies any blood clots. She does pass blood without stool. Her hemoglobin on discharge was 7.9. Patient did have a computed tomography scan done at [facility] that showed biliary O bed fluid collection in the pelvis may be abscess or hematoma. There was also free fluid within the abdominal and pelvic cavity. Patient did have elevated white count of 15 and a hemoglobin of 9.4 per chart from [facility]. Her white count today is normal. She remains afebrile. And has no abdominal pain. Patient complains mostly of back pain which is chronic for her. Patient is not on any blood thinners. She has been taking a baby aspirin. Patient did have some hypotension which is not showing improvement. Patient seen and examined with Dr. salmon PAST MEDICAL HISTORY: Hyperlipidemia, Osteoarthritis (OA), Pulmonary Embolus (PE), Thyroid Disorder.hx 5 back surgeries with chronic back pain, low bp with orthostatic issues at times, left shoulder pain and stiffness- receives cortisone. , possible PE (2019)., states uti for the last year., rectal fistula, uses cane & walker. PAST SURGICAL HISTORY: Back Surgery, Cholecystectomy, Heart Catheterization, Hysterectomy, Joint Replacement, Orthopedic Surgery MEDICATIONS: See below ALLERGIES: See below SOCIAL HISTORY: No illicit drug use. REVIEW OF SYSTEMS: CONSTITUTIONAL: Denies fever or chills. HEENT: Denies blurred vision, vision changes, or eye pain. Denies hemoptysis CARDIOVASCULAR: Denies chest pain or pressure. RESPIRATORY: No shortness of breath. GASTROINTESTINAL: See HPI for pertinent findings HEMATOLOGIC: Denies bleeding disorders. GENITOURINARY: Denies any blood in urine or increased urinary frequency. SKIN: Denies pruitis. Denies rash. PHYSICAL EXAM: VITAL SIGNS: Reviewed GENERAL: Well-developed in no acute distress. HEENT: No sclera icterus. Extraocular movements grossly intact. Moist buccal mucosa. Head is atraumatic, normocephalic. No nasal drainage. ABDOMEN: Soft. Nondistended. Nontender. Incision site clean dry and intact NEUROLOGIC: Alert and oriented. Cranial nerves II through XII grossly intact. LABORATORY DATA: WBC is 10.0 Hgb 8.9 platelets 513 Na 131 potassium 3.5 creatinine 0.62 Glucose 101 total bilirubin 1.8 AST 45 ALT 51 alk phos 35 LFTs trending downwards IMAGING: ASSESSMENT: 1. Acute GI bleed with bright red blood per rectum 2. Fluid collection noted on computed tomography scan likely related to hematoma. Patient did have bleeding at the anastomotic site during her last hospitalization 3. Recent sigmoid resection with lower anterior resection and bilateral ovarian cystectomy on 12/26/2022 for diverticulitis and bilateral enlarged ovarian cysts PLAN: -Continue to monitor patient -Continue to monitor hemoglobin -Continue to monitor for any signs or symptoms of bleeding -Continue IV fluids -Patient empirically placed on antibiotics -Hold aspirin -Start clear liquid Physician [facility] [employer] note has been reviewed by physician. Signing provider agrees with the documented findings, assessment, and plan of care. Past Medical History Past Medical History: Hyperlipidemia, Osteoarthritis (OA), Pulmonary Embolus (PE), Thyroid Disorder Additional Past Medical History / Comment(s): hx 5 back surgeries with chronic back pain, low bp with orthostatic issues at times, left shoulder pain and stiffness- receives cortisone. , possible PE (2019)., states uti for the last year., rectal fistula, uses cane & walker. History of Any Multi-Drug Resistant Organisms: None Reported Past Surgical History: Back Surgery, Cholecystectomy, Heart Catheterization, Hysterectomy, Joint Replacement, Orthopedic Surgery Additional Past Surgical History / Comment(s): 5 back surgeries, right & left total knees, total right shoulder replacement and 2 previous surgeries on right shoulder, , lumpectomy right breast. 12/26 Dr. Salmon fix bowel/ bladder fistula Past Anesthesia/Blood Transfusion Reactions: No Reported Reaction, Family Histor y of Problems w/ Anesthesia Additional Past Anesthesia/Blood Transfusion Reaction / Comment(s): blood transfusions with child no issues. daughter has ponv Past Psychological History: No Psychological Hx Reported Smoking Status: Never smoker Past Alcohol Use History: Rare Past Drug Use History: None Reported - Past Family History Father Family Medical History: Diabetes Mellitus Mother Family Medical History: Hypertension Daughter(s) Family Medical History: Diabetes Mellitus Medications and Allergies Home Medications Medication Instructions Recorded Confirmed Type Solifenacin Succinate [Vesicare] 10 mg PO DAILY 11/23/19 01/09/23 History Levothyroxine Sodium [Synthroid] 125 mcg PO DAILY 05/15/22 01/09/23 History Metoprolol Succinate (ER) [Toprol 100 mg PO DAILY 05/15/22 01/09/23 History XL] tiZANidine [Zanaflex] 4 mg PO HS 05/15/22 01/09/23 History Aspirin EC [Ecotrin Low Dose] 81 mg PO DAILY #30 tab 01/03/23 01/09/23 Rx QUEtiapine [SEROquel] 25 mg PO HS #3 tab 01/03/23 01/09/23 Rx fentaNYL 75MCG/HR PATCH [Duragesic 1 patch TRANSDERM Q72H #1 patch 01/03/23 01/09/23 Rx 75MCG/HR] oxyCODONE-APAP 10-325MG [Percocet 1 tab PO Q6HR@00,06,12,18 01/09/23 01/09/23 History 10-325 mg] Allergies Allergy/AdvReac Type Severity Reaction Status Date / Time cat dander Allergy Rash/Hives Verified 01/09/23 07:22 latex Allergy Rash/Hives, Verified 01/09/23 07:22 Swelling Sulfa (Sulfonamide Allergy Nausea, Verified 01/09/23 07:22 Antibiotics) Chills nortriptyline [From Pamelor] AdvReac irritated, Verified 01/09/23 07:22 nervous Surgical - Exam Vital Signs Temp Pulse Resp BP Pulse Ox 98.3 F 81 16 138/62 97 01/09/23 01:28 01/09/23 01:28 01/09/23 01:28 01/09/23 01:28 01/09/23 01:28 Results - Labs 01/09/23 02:48 01/09/23 02:48 Abnormal Lab Results - Last 24 Hours (Table) 01/09/23 01/09/23 Range/Units 02:48 02:48 RBC 3.05 L (3.80-5.40) m/uL Hgb 8.9 L D (11.4-16.0) gm/dL Hct 26.5 L (34.0-46.0) % Plt Count 513 H (150-450) k/uL Neutrophils # 7.9 H (1.3-7.7) k/uL Sodium 131 L (137-145) mmol/L Glucose 101 H (74-99) mg/dL Calcium 7.3 L (8.4-10.2) mg/dL Total Bilirubin 1.8 H (0.2-1.3) mg/dL AST 45 H (14-36) U/L ALT 51 H (4-34) U/L Alkaline Phosphatase 35 L (38-126) U/L Total Protein 4.8 L (6.3-8.2) g/dL Albumin 2.3 L (3.5-5.0) g/dL Diabetes panel 01/09/23 Range/Units 02:48 Sodium 131 L (137-145) mmol/L Potassium 3.5 (3.5-5.1) mmol/L Chloride 98 (98-107) mmol/L Carbon Dioxide 29 (22-30) mmol/L BUN 12 (7-17) mg/dL Creatinine 0.62 (0.52-1.04) mg/dL Glucose 101 H (74-99) mg/dL Calcium 7.3 L (8.4-10.2) mg/dL AST 45 H (14-36) U/L ALT 51 H (4-34) U/L Alkaline Phosphatase 35 L (38-126) U/L Total Protein 4.8 L (6.3-8.2) g/dL Albumin 2.3 L (3.5-5.0) g/dL Calcium panel 01/09/23 Range/Units 02:48 Calcium 7.3 L (8.4-10.2) mg/dL Albumin 2.3 L (3.5-5.0) g/dL Pituitary panel 01/09/23 Range/Units 02:48 Sodium 131 L (137-145) mmol/L Potassium 3.5 (3.5-5.1) mmol/L Chloride 98 (98-107) mmol/L Carbon Dioxide 29 (22-30) mmol/L BUN 12 (7-17) mg/dL Creatinine 0.62 (0.52-1.04) mg/dL Glucose 101 H (74-99) mg/dL Calcium 7.3 L (8.4-10.2) mg/dL Adrenal panel 01/09/23 Range/Units 02:48 Sodium 131 L (137-145) mmol/L Potassium 3.5 (3.5-5.1) mmol/L Chloride 98 (98-107) mmol/L Carbon Dioxide 29 (22-30) mmol/L BUN 12 (7-17) mg/dL Creatinine 0.62 (0.52-1.04) mg/dL Glucose 101 H (74-99) mg/dL Calcium 7.3 L (8.4-10.2) mg/dL Total Bilirubin 1.8 H (0.2-1.3) mg/dL AST 45 H (14-36) U/L ALT 51 H (4-34) U/L Alkaline Phosphatase 35 L (38-126) U/L Total Protein 4.8 L (6.3-8.2) g/dL Albumin 2.3 L (3.5-5.0) g/dL
[2023-01-09] MEDS: PIPERACILLIN-TAZOBACTAM 3.375 GM in SODIUM CHLORIDE 0.9% 100 ML IVPB SCH (14:59)
[2023-01-09 16:30] LABS: Basophils # (A) 0.07 X 10*3/uL (0.00-0.10); Basophils % (A) 0.6 %; Eosinophils # (A) 0.39 X 10*3/uL (0.04-0.35); Eosinophils % (A) 3.4 %; HGB 8.2 g/dL (12.0-15.0); Lymphocytes # (A) 1.51 X 10*3/uL (0.90-5.00); Lymphocytes % (A) 13.3 %; MCH 28.6 pg (27.0-32.0); MCHC 31.5 g/dL (32.0-37.0); MCV 90.6 fL (80.0-97.0); Mean Platelet Volume 9.3 fL (9.5-12.2); Monocytes # (A) 0.66 X 10*3/uL (0.20-1.00); Monocytes % (A) 5.8 %; NRBC Per 100 WBC 0 /100 WBCS (0.0-0.0); Neutrophils # (A) 8.59 X 10*3/uL (1.80-7.70); Neutrophils % (A) 75.9 %; Platelet Count 633 X 10*3/uL (140-440); RBC 2.87 X 10*6/uL (4.10-5.20); RDW 14.2 % (11.5-14.5); WBC 11.33 X 10*3/uL (4.50-10.00)
[2023-01-09] MEDS: oxyCODONE-APAP 10-325MG 1 EACH TAB PO SCH ×2 (18:06→23:40)
--- NOTE | 2023-01-09 19:12 | US ---
EXAMINATION TYPE: US abdomen limited DATE OF EXAM: 01/09/2023 COMPARISON: NONE CLINICAL HISTORY: hematoma/abscess. Surgery on 12/26/22 for fistula repair. Hardening around incision site and pain since TECHNIQUE: Scanned area of incision site FINDINGS: Anechoic area visualized adjacent to lower part of incision measuring 3.4 x 2.3 x 0.8 cm IMPRESSION: Anechoic area in the area of incision felt to represent a seroma. No peripheral color flow to suggest abscess.
[2023-01-09] MEDS: QUEtiapine 25 MG TAB PO SCH (22:47)
[2023-01-09] MEDS: tiZANidine 4 MG TAB PO SCH (23:40)
[2023-01-10] MEDS: PIPERACILLIN-TAZOBACTAM 3.375 GM in SODIUM CHLORIDE 0.9% 100 ML IVPB SCH ×4 (00:01→23:59)
[2023-01-10 04:04] LABS: Appearance,Urine Turbid (Clear); Bacteria,Urine Occasional /hpf; Bilirubin,Urine Negative (Negative); Blood,Urine Trace (Negative); Color,Urine Yellow; Glucose,Urine (UA) Negative (Negative); Ketones,Urine Negative (Negative); Leukocyte Esterase,Urine Large (Negative); Nitrite,Urine Positive (Negative); PH, Urine 7.5 (5.0-8.0); Protein,Urine Trace (Negative); RBC,Urine 5 /hpf (0-5); Specific Gravity,Urine 1.023 (1.001-1.035); Squamous Epithelial Cell,Urine 2 /hpf (0-4); WBC,Urine 21 /hpf (0-5)
[2023-01-10] MEDS: SODIUM CHLORIDE 0.9% 1,000 ML IV SCH ×3 (06:53→16:38)
[2023-01-10] MEDS: oxyCODONE-APAP 10-325MG 1 EACH TAB PO SCH ×4 (06:55→23:59)
[2023-01-10] MEDS ORDERED: SODIUM CHLORIDE 0.9% 1,000 ML IV ONE (07:12)
[2023-01-10] MEDS: LEVOTHYROXINE 125 MCG TAB PO SCH (08:29)
[2023-01-10] MEDS ORDERED: METOPROLOL SUCCINATE (ER) 100 MG TAB.ER.24H PO SCH (09:00)
[2023-01-10] MEDS: ASPIRIN 81 MG PO SCH (09:00)
[2023-01-10] MEDS: METOPROLOL TARTRATE 25 MG TAB PO SCH ×2 (09:00→20:20)
[2023-01-10 09:20] LABS: Basophils % (A) 0 %; Eosinophils # (A) 0.3 k/uL (0-0.7); Eosinophils % (A) 4 %; HCT 21.6 % (34.0-46.0); Hypochromasia Slight; Lymphocytes # (A) 1.2 k/uL (1.0-4.8); Lymphocytes % (A) 15 %; MCH 29.2 pg (25.0-35.0); MCHC 32.2 g/dL (31.0-37.0); MCV 90.5 fL (80.0-100.0); Mean Platelet Volume 6.8; Monocytes # (A) 0.4 k/uL (0-1.0); Monocytes % (A) 5 %; Neutrophils # (A) 5.9 k/uL (1.3-7.7); Neutrophils % (A) 76 %; Platelet Count 546 k/uL (150-450); RBC 2.39 m/uL (3.80-5.40); WBC 7.8 k/uL (3.8-10.6)
[2023-01-10 09:40] LABS: ALT 30 U/L (4-34); AST 33 U/L (14-36); African American GFR (CKD) >90 (>60 ml/min/1.73 sqM); Albumin 1.5 g/dL (3.5-5.0); Albumin/Globulin Ratio 0.7; Alkaline Phosphatase 24 U/L (38-126); Anion Gap 10 mmol/L; Blood Urea Nitrogen 5 mg/dL (7-17); Carbon Dioxide 18 mmol/L (22-30); Chloride 115 mmol/L (98-107); Globulin 2.2 g/dL; Glucose 81 mg/dL (74-99); Non-African American GFR(CKD) >90 (>60 ml/min/1.73 sqM); Sodium 143 mmol/L (137-145); Total Bilirubin 0.9 mg/dL (0.2-1.3); Total Protein 3.7 g/dL (6.3-8.2)
[2023-01-10 09:55] LABS: Calcium 5.1 mg/dL (8.4-10.2); Potassium 2.5 mmol/L (3.5-5.1)
[2023-01-10] MEDS ORDERED: Potassium Replacement Protocol 1 EACH MISC MISCELLANE PRN (09:59)
[2023-01-10] MEDS: POTASSIUM CHLORIDE ER 20 MEQ TAB.ER PO SCH ×3 (10:08→12:21)
[2023-01-10] MEDS: POTASSIUM CHLORIDE 20 MEQ in WATER FOR INJECTION 1 100ML.BAG IVPB SCH ×4 (10:16→16:37)
--- NOTE | 2023-01-10 10:30 | P.CRDCN ---
History of Present Illness Consult date: 01/10/23 History of present illness: History of present illness: This is an 82 year old female patient of Dr. CHARLOTTE Coyle with past medical history of hypertension, chronic pain, orthostatic hypertension, pulmonary embolism, family history of coronary artery disease at less than 60 years of age. We have been asked to evaluate the patient for hypotension. Patient was recently ho spitalized and discharged on 01/03 for diverticulitis status post sigmoid resection and lower anterior resection, bilateral ovarian cysts status post bilateral ovarian cystectomy, bleeding at the site of anastomosis resolved, postop hypotension resolved, postop ileus, elevated LFTs. Patient presented to [facility] and was transferred to [facility]. She had presented to [facility] due to rectal bleeding, nausea and vomiting. CAT scan done at [facility] showed bilobed fluid collection in the pelvis may be abscess or hematoma. There was also free fluid within the abdominal and pelvic cavity. She presented with leukocytosis at 15.7 and hemoglobin of 9.4. She was started on Zosyn pain medicine and transferred to our facility. In the emergency center, her blood pressure was 138/62 and heart rate 81. This morning around 5 AM blood pressure dropped to 71/40 and heart rate was 104. Patient status post IV fluid bolus followed by 150 mL per hour and blood pressure is currently 102/67. EKG Abdominal ultrasound revealed an echoic area in the area of incision felt to represent a seroma. No peripheral color flow to suggest abscess. Hemoglobin 7, WBC 7.8, platelet count 546. D-dimer 3.9. Potassium 2.5, sodium 143 chloride 115, CO2 18, BUN 5 and creatinine 0.46. Lactic acid 0.6. Calcium 5.1. Alkaline phosphatase 24. Troponin negative 1. Home cardiac medications: Aspirin 81 mg daily, Toprol-XL 100 mg daily, levothyroxine 125 g daily Lexiscan stress test 09/2021 revealed EF of 60% with no ischemia Echocardiogram 09/2021 good LV function with EF of 55-60%, mild to moderate MR, mild to moderate TR Review Of Systems: At the time of my evaluation: Constitutional: No fever, no chills. EENT: No headache. No dizziness. Lungs: No shortness of breath, cough, no sputum production. No wheezing. Cardiovascular: No chest pain, no lower extremity edema. No palpitations. No paroxysmal nocturnal dyspnea. No orthopnea. No lightheadedness or dizziness. No syncopal episodes. Abdominal: Reported bloody or tarry stools. Neurologic: No aphasia. No facial droop. No change in mentation. Physical examination: Gen: This is an 82-year-old female. She is sitting up in bed, no acute distress. VS: reviewed HEENT: Head is atraumatic, normocephalic. Pupils equal, round. Sclerae is anicteric. NECK: Supple. No JVD. No carotid bruit. LUNGS: Clear to auscultation. No wheezes or rhonchi. No intercostal retractions. HEART: Regular rate and rhythm. No murmur. ABDOMEN: Soft No tenderness. EXTREMITIES: No pedal edema. No calf tenderness. NEUROLOGICAL: Patient is awake, alert and oriented x3. Assessment: Hypotension status post IV fluid bolus Hypokalemia Hypertension History of orthostatic hypotension History of pulmonary embolism Plan: Patient is status post IV fluid bolus and currently in the 150 mL per hour, decrease IV fluids to 100 mL per hour Decrease fentanyl patch 75 g down to 25 g Discontinue Toprol-XL as patient is on 2 beta blockers Obtain 2-D echocardiogram and Doppler study to assess cardiac structure and function Further recommendations to follow based upon clinical course Thank you kindly for this consultation. Nurse practitioner note has been reviewed, I agree with documented findings and plan of care. Patient was seen and examined. Past Medical History Past Medical History: Hyperlipidemia, Osteoarthritis (OA), Pulmonary Embolus (PE), Thyroid Disorder Additional Past Medical History / Comment(s): hx 5 back surgeries with chronic back pain, low bp with orthostatic issues at times, left shoulder pain and stiffness- receives cortisone. , possible PE (2019)., states uti for the last year., rectal fistula, uses cane & walker. History of Any Multi-Drug Resistant Organisms: None Reported Past Surgical History: Back Surgery, Cholecystectomy, Heart Catheterization, Hysterectomy, Joint Replacement, Orthopedic Surgery Additional Past Surgical History / Comment(s): 5 back surgeries, right & left total knees, total right shoulder replacement and 2 previous surgeries on right shoulder, , lumpectomy right breast. 12/26 Dr. Aparicio fix bowel/ bladder fistula Past Anesthesia/Blood Transfusion Reactions: No Reported Reaction, Family History of Problems w/ Anesthesia Additional Past Anesthesia/Blood Transfusion Reaction / Comment(s): blood transfusions with child no issues. daughter has ponv Past Psychological History: No Psychological Hx Reported Smoking Status: Never smoker Past Alcohol Use History: Rare Past Drug Use History: None Reported - Past Family History Father Family Medical History: Diabetes Mellitus Mother Family Medical History: Hypertension Daughter(s) Family Medical History: Diabetes Mellitus Medications and Allergies Home Medications Medication Instructions Recorded Confirmed Type Solifenacin Succinate [Vesicare] 10 mg PO DAILY 11/23/19 01/09/23 History Levothyroxine Sodium [Synthroid] 125 mcg PO DAILY 05/15/22 01/09/23 History Metoprolol Succinate (ER) [Toprol 100 mg PO DAILY 05/15/22 01/09/23 History XL] tiZANidine [Zanaflex] 4 mg PO HS 05/15/22 01/09/23 History Aspirin EC [Ecotrin Low Dose] 81 mg PO DAILY #30 tab 01/03/23 01/09/23 Rx QUEtiapine [SEROquel] 25 mg PO HS #3 tab 01/03/23 01/09/23 Rx fentaNYL 75MCG/HR PATCH [Duragesic 1 patch TRANSDERM Q72H #1 patch 01/03/23 01/09/23 Rx 75MCG/HR] oxyCODONE-APAP 10-325MG [Percocet 1 tab PO Q6HR@00,06,12,18 01/09/23 01/09/23 History 10-325 mg] Allergies Allergy/AdvReac Type Severity Reaction Status Date / Time cat dander Allergy Rash/Hives Verified 01/09/23 07:22 latex Allergy Rash/Hives, Verified 01/09/23 07:22 Swelling Sulfa (Sulfonamide Allergy Nausea, Verified 01/09/23 07:22 Antibiotics) Chills nortriptyline [From Pamelor] AdvReac irritated, Verified 01/09/23 07:22 nervous Physical Exam Vitals: Vital Signs Temp Pulse Resp BP BP BP Pulse Ox 01/10/23 08:46 96 100/62 96 01/10/23 08:04 102/67 01/10/23 07:20 98.0 F 97 16 96/62 96 01/10/23 06:45 86/54 01/10/23 05:53 100 71/40 84/53 93/55 95 01/10/23 02:35 99.3 F 102 H 18 90/57 94 L 01/09/23 21:38 99 F 104 H 20 132/67 96 01/09/23 13:20 98.3 F 81 16 112/68 97 Intake and Output 01/09/23 01/10/23 01/10/23 22:59 06:59 14:59 Output Total 400 200 Balance -400 -200 Output: Urine 400 200 Results 01/10/23 08:42 01/10/23 08:42 Cardiac Enzymes 01/10/23 01/10/23 Range/Units 08:42 08:42 AST 33 (14-36) U/L Troponin I <0.012 (0.000-0.034) ng/mL CBC 01/09/23 01/10/23 Range/Units 10:56 08:42 WBC 11.33 H 7.8 (4.50-10.00) X 10*3/uL RBC 2.87 L 2.39 L (4.10-5.20) X 10*6/uL Hgb 8.2 L 7.0 L D (12.0-15.0) g/dL Hct 26.0 L 21.6 L (37.2-46.3) % Plt Count 633 H 546 H (140-440) X 10*3/uL Comprehensive Metabolic Panel 01/10/23 Range/Units 08:42 Sodium 143 (137-145) mmol/L Potassium 2.5 L* (3.5-5.1) mmol/L Chloride 115 H (98-107) mmol/L Carbon Dioxide 18 L (22-30) mmol/L BUN 5 L (7-17) mg/dL Creatinine 0.46 L (0.52-1.04) mg/dL Glucose 81 (74-99) mg/dL Calcium 5.1 L* (8.4-10.2) mg/dL AST 33 (14-36) U/L ALT 30 (4-34) U/L Alkaline Phosphatase 24 L (38-126) U/L Total Protein 3.7 L (6.3-8.2) g/dL Albumin 1.5 L (3.5-5.0) g/dL Current Medications Generic Name Dose Route Start Last Admin Trade Name Ron PRN Reason Stop Dose Admin Aspirin 81 mg 01/10/23 09:00 01/10/23 09:00 Aspirin 81 Mg PO Not Given DAILY NIA Fentanyl 1 patch 01/10/23 09:00 01/10/23 09:12 Fentanyl 25mcg/Hr Patch TRANSDERM 1 patch Q72H NIA Administration Protocol Piperacillin Sod/Tazobactam 100 mls @ 25 mls/hr 01/09/23 16:00 01/10/23 08:29 Sod 3.375 gm/ Sodium Chloride IVPB 25 mls/hr Q8HR NIA Administration Protocol Sodium Chloride 1,000 mls @ 100 mls/hr 01/10/23 07:15 01/10/23 08:30 Saline 0.9% IV 150 mls/hr .Q10H NIA Administration Potassium Chloride 20 meq/ IV 100 mls @ 50 mls/hr 01/10/23 10:00 Solution IVPB 01/10/23 17:59 Q2HR [facility] Protocol Levothyroxine Sodium 125 mcg 01/10/23 06:30 01/10/23 08:29 Levothyroxine 125 Mcg Tab PO 125 mcg DAILY@0630 NIA Administration Metoprolol Tartrate 25 mg 01/10/23 09:00 01/10/23 09:00 Metoprolol Tartrate 25 Mg Tab PO Not Given BID [facility] Miscellaneous Information 1 each 01/10/23 09:59 Potassium Replacement Protocol 1 Each Misc MISCELLANE DAILY PRN Per Protocol Protocol Morphine Sulfate 4 mg 01/09/23 02:23 01/09/23 19:21 Morphine Sulfate 4 Mg/Ml Syringe IV 4 mg Q4HR PRN Administration Severe Pain (Scale 7 to 10) Naloxone HCl 0.2 mg 01/09/23 02:23 Naloxone 0.4 Mg/Ml 1 Ml Vial IV Q2M PRN Opioid Reversal Ondansetron HCl 4 mg 01/09/23 02:23 Ondansetron 4 Mg/2 Ml Vial IVP Q8HR PRN Nausea And Vomiting Oxycodone/Acetaminophen 1 each 01/09/23 18:00 01/10/23 06:55 Oxycodone-Apap 10-325mg 1 Each Tab PO Not Given Q6HR@00,06,12,18 [facility] Potassium Chloride 20 meq 01/10/23 10:00 Potassium Chloride Er 20 Meq Tab.Er PO 01/10/23 14:01 Q2HR NIA Protocol Quetiapine Fumarate 25 mg 01/09/23 21:00 01/09/23 22:47 Quetiapine 25 Mg Tab PO 25 mg HS NIA Administration Tizanidine HCl 4 mg 01/09/23 21:00 01/09/23 23:40 Tizanidine 4 Mg Tab PO 4 mg HS NIA Administration Intake and Output 01/09/23 01/10/23 01/10/23 22:59 06:59 14:59 Output Total 400 200 Balance -400 -200 Output: Urine 400 200 01/10/23 08:42 01/10/23 08:42
--- NOTE | 2023-01-10 12:47 | P.PN ---
Progress Note - Text Progress Note Date: 01/10/23 The patient states she feels better today. She's had no further GI bleed. The patient did have some relative hypotension last night. Her hemoglobin is 7.0 this morning. On exam vital signs are stable. Pulse is 97. Blood pressure is 100/62. She is afebrile. Abdomen soft. There is no significant abdominal tenderness. There is no rebound or guarding. Incision is clean dry intact. Status post low anterior resection for diverticulitis. Patient has had lower GI bleed. This is most likely due to the staple line. Patient will receive 1 unit of packed red cells. She'll be closely observed.
[2023-01-10] MEDS ORDERED: CALCIUM GLUCONATE IN NACL 2 GM in SALINE 1 100ML.BAG IVPB ONE (12:48)
--- NOTE | 2023-01-10 16:26 | P.CNPUL ---
History of Present Illness Consult date: 01/10/23 Requesting physician: Juan Jose Degroot Reason for consult: other (Possible ICU admission) Chief complaint: Rectal bleeding, nausea and vomiting History of present illness: This is a very pleasant 82-year-old female patient with a known history of hyperlipidemia, pulmonary embolism, chronic back pain with multiple surgeries, colovesical fistula and had undergone an elective surgery on 12/26/2022 here for sigmoid resection with low anterior resection along with findings of bilateral ovarian cyst and bilateral ovarian cystectomy. During that hospitalization she had developed hypotension and required intensive care unit monitoring was subsequently discharged. Yesterday 01/09/2023 she had noted some bright red bleeding and developed nausea and vomiting and was taken from her home to [facility] where she was seen and evaluated in the emergency room. She was transferred back here to be near her surgeon. Ultrasound of the abdomen revealed an echo with an area in the area of incision felt to represent a seroma. No peripheral color flow to suggest abscess. We are consulted to take his patient was having issues with hypotension and being considered for transfer to the ICU. She is currently stable. Awake and alert in no acute distress. She denies any dizziness or lightheadedness. She did have a drop in hemoglobin to 7.0. She received 1 unit packed blood cells this morning. She received some fluid resuscitation. She stabilized and her blood pressure this afternoon has b een greater than 100 systolic. With a mean of 79-83. Her beta ivonne dose as been adjusted. She is currently on antibiotics in the form of Zosyn. Urine culture pending. White count 7.8. Sodium 143. Potassium 2.5. Chloride 1:15. Bicarb 18. BUN 5. Creatinine 0.56. Lactic acid 0.6. Review of Systems REVIEW OF SYSTEMS: CONSTITUTIONAL: Denies any recent significant weight loss or weight gain. EYES: Denies change in vision. EARS, NOSE, MOUTH, THROAT: Denies headaches, denies sore throat. CARDIOVASCULAR: Denies chest pain, palpitations or syncopal episodes. RESPIRATORY: Denies shortness of breath, cough, congestion or hemoptysis. GASTROINTESTINAL: Positive for abdominal discomfort, bloody stools. GENITOURINARY: Denies hematuria, denies infections. MUSKULOSKELETAL: Denies pain, denies swelling. INTEGUMENTARY: Denies rash, denies eczema. NEUROLOGICAL: Denies recent memory loss, no recent seizure activity. PSYCHIATRIC: Denies anxiety, denies depression. HEMATOLOGIC/LYMPHATIC: Denies anemia, denies enlarged lymph nodes. Past Medical History Past Medical History: Hyperlipidemia, Osteoarthritis (OA), Pulmonary Embolus (PE), Thyroid Disorder Additional Past Medical History / Comment(s): hx 5 back surgeries with chronic back pain, low bp with orthostatic issues at times, left shoulder pain and stiffness- receives cortisone. , possible PE (2019)., states uti for the last year., rectal fistula, uses cane & walker. History of Any Multi-Drug Resistant Organisms: None Reported Past Surgical History: Back Surgery, Cholecystectomy, Heart Catheterization, Hysterectomy, Joint Replacement, Orthopedic Surgery Additional Past Surgical History / Comment(s): 5 back surgeries, right & left total knees, total right shoulder replacement and 2 previous surgeries on right shoulder, , lumpectomy right breast. 12/26 Dr. Aparicio fix bowel/ bladder fistula Past Anesthesia/Blood Transfusion Reactions: No Reported Reaction, Family History of Problems w/ Anesthesia Additional Past Anesthesia/Blood Transfusion Reaction / Comment(s): blood transfusions with child no issues. daughter has ponv Past Psychological History: No Psychological Hx Reported Smoking Status: Never smoker Past Alcohol Use History: Rare Past Drug Use History: None Reported - Past Family History Father Family Medical History: Diabetes Mellitus Mother Family Medical History: Hypertension Daughter(s) Family Medical History: Diabetes Mellitus Medications and Allergies Home Medications Medication Instructions Recorded Confirmed Type Solifenacin Succinate [Vesicare] 10 mg PO DAILY 11/23/19 01/09/23 History Levothyroxine Sodium [Synthroid] 125 mcg PO DAILY 05/15/22 01/09/23 History Metoprolol Succinate (ER) [Toprol 100 mg PO DAILY 05/15/22 01/09/23 History XL] tiZANidine [Zanaflex] 4 mg PO HS 05/15/22 01/09/23 History Aspirin EC [Ecotrin Low Dose] 81 mg PO DAILY #30 tab 01/03/23 01/09/23 Rx QUEtiapine [SEROquel] 25 mg PO HS #3 tab 01/03/23 01/09/23 Rx fentaNYL 75MCG/HR PATCH [Duragesic 1 patch TRANSDERM Q72H #1 patch 01/03/23 01/09/23 Rx 75MCG/HR] oxyCODONE-APAP 10-325MG [Percocet 1 tab PO Q6HR@00,06,12,18 01/09/23 01/09/23 History 10-325 mg] Allergies Allergy/AdvReac Type Severity Reaction Status Date / Time cat dander Allergy Rash/Hives Verified 01/09/23 07:22 latex Allergy Rash/Hives, Verified 01/09/23 07:22 Swelling Sulfa (Sulfonamide Allergy Nausea, Verified 01/09/23 07:22 Antibiotics) Chills nortriptyline [From Pamelor] AdvReac irritated, Verified 01/09/23 07:22 nervous Physical Exam Vitals: Vital Signs Temp Pulse Pulse Resp BP BP BP 01/10/23 14:39 98.1 F 100 16 107/66 01/10/23 12:25 92 16 99/57 01/10/23 08:46 96 100/62 01/10/23 08:04 102/67 01/10/23 07:20 98.0 F 97 16 96/62 01/10/23 06:45 86/54 01/10/23 05:53 100 71/40 84/53 01/10/23 02:35 99.3 F 102 H 18 90/57 01/09/23 21:38 99 F 104 H 20 132/67 BP Pulse Ox 01/10/23 14:39 01/10/23 12:25 99 01/10/23 08:46 96 01/10/23 08:04 01/10/23 07:20 96 01/10/23 06:45 01/10/23 05:53 93/55 95 01/10/23 02:35 94 L 01/09/23 21:38 96 Intake and Output 01/09/23 01/10/23 01/10/23 22:59 06:59 14:59 Intake Total 0 Output Total 400 200 Balance -400 -200 0 Intake: Blood Product 0 Unit 0 Output: Urine 400 200 GENERAL EXAM: Alert, pale 82-year-old female, on room air, fairly comfortable in no apparent distress. HEAD: Normocephalic. EYES: Normal reaction of pupils, equal size. NOSE: Clear with pink turbinates. THROAT: No erythema or exudates. NECK: No masses, no JVD. CHEST: No chest wall deformity. LUNGS: Equal air entry with no crackles, wheeze, rhonchi or dullness. CVS: S1 and S2 normal with no audible murmur, regular rhythm. ABDOMEN: Surgical dressing dry and intact. Incision had been clean dry well approximated. Every other staple has been removed. No hepatosplenomegaly, normal bowel sounds, no guarding or rigidity. SPINE: No scoliosis or deformity SKIN: No rashes CENTRAL NERVOUS SYSTEM: No focal deficits, tone is normal in all 4 extremities. EXTREMITIES: There is no peripheral edema. No clubbing, no cyanosis. Peripheral pulses are intact. Results - Laboratory Findings CBC and BMP: 01/10/23 08:42 01/10/23 08:42 PT/INR, D-dimer D-Dimer 3.99 mg/L FEU (<0.60) H 01/10/23 08:42 Abnormal lab findings: Abnormal Labs 01/09/23 01/09/23 01/09/23 02:48 02:48 10:56 WBC 11.33 H RBC 3.05 L 2.87 L Hgb 8.9 L D 8.2 L Hct 26.5 L 26.0 L MCHC 31.5 L Plt Count 513 H 633 H MPV 9.3 L Immature Gran # 0.11 H Neutrophils # 7.9 H 8.59 H Eosinophils # 0.39 H D-Dimer Sodium 131 L Potassium Chloride Carbon Dioxide BUN Creatinine Glucose 101 H Plasma Lactic Acid Jonny Calcium 7.3 L Total Bilirubin 1.8 H AST 45 H ALT 51 H Alkaline Phosphatase 35 L Total Protein 4.8 L Albumin 2.3 L Urine Appearance Urine Protein Urine Blood Urine Nitrite Ur Leukocyte Esterase Urine WBC Urine Bacteria Crossmatch 01/10/23 01/10/23 01/10/23 02:30 08:42 08:42 WBC RBC 2.39 L Hgb 7.0 L D Hct 21.6 L MCHC Plt Count 546 H MPV Immature Gran # Neutrophils # Eosinophils # D-Dimer 3.99 H Sodium Potassium Chloride Carbon Dioxide BUN Creatinine Glucose Plasma Lactic Acid Jonny Calcium Total Bilirubin AST ALT Alkaline Phosphatase Total Protein Albumin Urine Appearance Turbid H Urine Protein Trace H Urine Blood Trace H Urine Nitrite Positive H Ur Leukocyte Esterase Large H Urine WBC 21 H Urine Bacteria Occasional H Crossmatch 01/10/23 01/10/23 01/10/23 08:42 08:42 10:32 WBC RBC Hgb Hct MCHC Plt Count MPV Immature Gran # Neutrophils # Eosinophils # D-Dimer Sodium Potassium 2.5 L* Chloride 115 H Carbon Dioxide 18 L BUN 5 L Creatinine 0.46 L Glucose Plasma Lactic Acid Jonny 0.6 L Calcium 5.1 L* Total Bilirubin AST ALT Alkaline Phosphatase 24 L Total Protein 3.7 L Albumin 1.5 L Urine Appearance Urine Protein Urine Blood Urine Nitrite Ur Leukocyte Esterase Urine WBC Urine Bacteria Crossmatch See Detail Assessment and Plan Assessment: Rectal bleeding with nausea and vomiting Hypotension secondary to above requiring 1 unit of packed red blood cells and fluid resuscitation Anemia secondary to above. Requiring 1 unit of packed red blood cells. Current hemoglobin 7.0. 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 status post sigmoid resection lower anterior resection so found to have bilateral ovarian cysts status post bilateral ovarian cystectomy performed on 12/26/2022 History of hypertension Hyperlipidemia Hypothyroidism Chronic back pain with multiple back surgeries Plan: The patient was seen and evaluated Abdominal ultrasound, labs and medications reviewed Receive fluid resuscitation and 1 unit of blood Blood pressure has stabilized No need to transfer to the intensive care unit currently Continue saline at 100 ML's per hour Continue to monitor hemoglobin Electrolyte replacement Continue Zosyn We will continue to follow and make further recommendations based on her clinical status I have personally seen and examined the patient, performed the documentation and the assessment and plan as written. Number of minutes spent on the visit: 20.
--- NOTE | 2023-01-10 16:56 | CA ---
Transthoracic Echo Report Name: Kiana Styles Age: 82 Gender: F : 1940 Exam Date: 01/10/2023 10:59 Exam Location: [facility] Ht (in): 68 Wt (lb): 166 Ordering Physician: Cassie Hollins Attending/Referring Phys: [id number], Gunjan Senior Telecommunications Specialist Alfonzo Matta RDCS Procedure CPT: Indications: LVF Cardiac Hx: Technical Quality: Fair Contrast 1: Total Dose (mL): Contrast 2: Total Dose (mL): MEASUREMENTS (Male / Female) Normal Values 2D ECHO LV Diastolic Volume MOD 4C 52.0 cm??? LV Systolic Volume MOD 4C 22.5 cm??? LV Ejection Fraction MOD 4C 56.8 % LV Diastolic Length 4C 7.5 cm LV Systolic Length 4C 6.0 cm FINDINGS Left Ventricle Left ventricular cavity size normal. Left ventricular wall thickness normal. Left ventricular ejection fraction is estimated at 55-60 %. Right Ventricle Right Atrium Left Atrium Mitral Valve Aortic Valve Tricuspid Valve Pulmonic Valve Pericardium Aorta CONCLUSIONS Normal LV systolic Function. Previewed by: Dr. Rocky Coyle MD (Electronically Signed) Final Date: 10 January 2023 16:56
[2023-01-10] MEDS: tiZANidine 4 MG TAB PO SCH (20:21)
[2023-01-10] MEDS: QUEtiapine 25 MG TAB PO SCH (20:22)
[2023-01-10 21:54] LABS: ALT 43 U/L (4-34); AST 58 U/L (14-36); African American GFR (CKD) >90 (>60 ml/min/1.73 sqM); Albumin/Globulin Ratio 0.8; Alkaline Phosphatase 29 U/L (38-126); Anion Gap 3 mmol/L; Blood Urea Nitrogen 7 mg/dL (7-17); Calcium 7.7 mg/dL (8.4-10.2); Carbon Dioxide 23 mmol/L (22-30); Chloride 106 mmol/L (98-107); Globulin 2.5 g/dL; Glucose 95 mg/dL (74-99); Non-African American GFR(CKD) 86 (>60 ml/min/1.73 sqM); Potassium 5.5 mmol/L (3.5-5.1); Sodium 132 mmol/L (137-145); Total Bilirubin 1.8 mg/dL (0.2-1.3); Total Protein 4.5 g/dL (6.3-8.2)
--- NOTE | 2023-01-10 22:16 | CONS ---
CONSULTATION HISTORY OF PRESENT ILLNESS: This 82-year-old white female comes in today for GI bleeding, status post vesicular colorectal fistula repair. The patient became hypotensive, started on fluid boluses. CAT scan of the abdomen on admission showed abscess or hematoma. Due to hypotension, we are going to give her fluids and get multiple consults, status post fistula repair. Hemoglobin is down from admission 8.3, now 7. Weakness, fatigue, chronic shortness of breath, chronic degenerative disk disease with severe pain and numbness in the cervical lumbar spine, numbness in arms and legs. PHYSICAL EXAMINATION: GENERAL: She is pale. VITAL SIGNS: Blood pressure is low 90 to 110 systolically over 60s to 50s. CARDIOVASCULAR: S1, S2. LUNGS: Clear. GI: Soft. SKIN: Dry mucous membranes. Poor skin turgor. ABDOMEN: Incision was clean, dry, intact. Midline incision with dale. PSYCH: Fair mood and affect EXTREMITIES: 2+ edema. ASSESSMENT: Gastrointestinal bleed, status post complicated colovesicular fistula repair for which she had to go to the ICU for some bleeding. Will monitor bleeding, check CBCs daily. We gave her 1 unit of blood. Prognosis is guarded. Please see further orders. Home medications have been reordered. Fluid boluses were given overnight. PROGNOSIS: Extremely guarded. MMODL / IJN: [id number] /
--- NOTE | 2023-01-10 22:55 | PN ---
PROGRESS NOTE SUBJECTIVE: This is an 82-year-old white female, remains on Zosyn for possible sepsis. Home medications have been reordered. Her hemoglobin dropped down to 7. She has some blood in her stool at which time a unit of blood was transfused. Her blood pressure has been 90s to low 100s after fluid boluses, fluid has been increased, her oxygen level is 99. OBJECTIVE: CARDIOVASCULAR: S1, S2. LUNGS: Clear. GI: Soft. HEMATOLOGY: Negative for Homans. PSYCH: Fair mood and affect. PLAN: Transfuse 2 units of blood. Check hemoglobin in the morning. Incision is clean. D- dimer is high, will possibly have to rule out a blood clot in her lungs. Her potassium is low at 2.5. Potassium replacement is ordered. Calcium is 5.1, calcium gluconate has been given. Low albumin with increased dietary intake, procalcitonin, so I will continue on broad-spectrum IV antibiotics. Prognosis guarded. MMODL / IJN: [id number] /
[2023-01-11] MEDS: SODIUM CHLORIDE 0.9% 1,000 ML IV SCH ×3 (00:02→23:27)
[2023-01-11] MEDS: oxyCODONE-APAP 10-325MG 1 EACH TAB PO SCH ×4 (05:59→20:32)
[2023-01-11] MEDS: LEVOTHYROXINE 125 MCG TAB PO SCH (06:17)
[2023-01-11] MEDS: PIPERACILLIN-TAZOBACTAM 3.375 GM in SODIUM CHLORIDE 0.9% 100 ML IVPB SCH ×3 (09:15→23:25)
[2023-01-11] MEDS: METOPROLOL TARTRATE 25 MG TAB PO SCH ×2 (09:17→20:32)
[2023-01-11] MEDS: ASPIRIN 81 MG PO SCH (09:17)
--- NOTE | 2023-01-11 09:56 | P.PN ---
Subjective Progress Note Date: 01/11/23 (.) History of present illness: This is an 82 year old female patient of Dr. CHARLOTTE Coyle with past medical history of hypertension, chronic pain, orthostatic hypertension, pulmonary embolism, family history of coronary artery disease at less than 60 years of age. We have been asked to evaluate the patient for hypotension. Patient was recently hospitalized and discharged on 01/03 for diverticulitis status post sigmoid resection and lower anterior resection, bilateral ovarian cysts status post bilateral ovarian cystectomy, bleeding at the site of anastomosis resolved, postop hypotension resolved, postop ileus, elevated LFTs. Patient presented to [facility] and was transferred to [facility]. She had presented to [facility] due to rectal bleeding, nausea and vomiting. CAT s can done at [facility] showed bilobed fluid collection in the pelvis may be abscess or hematoma. There was also free fluid within the abdominal and pelvic cavity. She presented with leukocytosis at 15.7 and hemoglobin of 9.4. She was started on Zosyn pain medicine and transferred to our facility. In the emergency center, her blood pressure was 138/62 and heart rate 81. This morning around 5 AM blood pressure dropped to 71/40 and heart rate was 104. Patient status post IV fluid bolus followed by 150 mL per hour and blood pressure is currently 102/67. EKG Abdominal ultrasound revealed an echoic area in the area of incision felt to represent a seroma. No peripheral color flow to suggest abscess. Hemoglobin 7, WBC 7.8, platelet count 546. D-dimer 3.9. Potassium 2.5, sodium 143 chloride 115, CO2 18, BUN 5 and creatinine 0.46. Lactic acid 0.6. Calcium 5.1. Alkaline phosphatase 24. Troponin negative 1. Home cardiac medications: Aspirin 81 mg daily, Toprol-XL 100 mg daily, l evothyroxine 125 g daily Lexiscan stress test 09/2021 revealed EF of 60% with no ischemia Echocardiogram 09/2021 good LV function with EF of 55-60%, mild to moderate MR, mild to moderate TR 01/11 Patient is seen today in follow-up. Her blood pressure is still on the low side despite IV fluid resuscitation. Heart rate is in the 70s. Echocardiogram reveals EF of 55-60%. Repeat hemoglobin is pending at the time of this dictation. She has not had any further rectal bleeding. Sodium is 132, pot assium 5.5. Lactic acid remains elevated at 7.7. Total bilirubin 1.8, AST 58, ALT 43, alkaline phosphatase 29. Cortisol level XIV. Physical examination: Gen: This is an 82-year-old female. She is sitting up in bed, she appears to be unwell. VS: reviewed HEENT: Head is atraumatic, normocephalic. Pupils equal, round. Sclerae is anicteric. NECK: Supple. No JVD. No carotid bruit. LUNGS: Clear to auscultation. No wheezes or rhonchi. No intercostal retractions. HEART: Regular rate and rhythm. No murmur. ABDOMEN: Soft No tenderness. EXTREMITIES: No pedal edema. NEUROLOGICAL: Patient is awake, alert and oriented x3. Assessment: Hypotension status post IV fluid bolus Hypokalemia UTI Lactic acidosis Hypertension History of orthostatic hypotension History of pulmonary embolism Plan: Patient is status post IV fluid bolus and currently in the 150 mL per hour, continue IV fluids to 100 mL per hour Continued decreased dose of fentanyl patch 75 g down to 25 g Discontinue Toprol-XL as patient is on 2 beta blockers Further recommendations to follow based upon clinical course Thank you kindly for this consultation. Nurse practitioner note has been reviewed, I agree with documented findings and plan of care. Patient was seen and examined. Objective - Vital Signs Vital signs: Vital Signs Temp 97.9 F 01/11/23 06:53 Pulse 76 01/11/23 06:53 Resp 16 01/11/23 06:53 BP 107/63 01/11/23 06:53 Pulse Ox 95 01/11/23 06:53 FiO2 Intake & Output 01/10/23 01/11/23 01/11/23 18:59 06:59 18:59 Intake Total 410 Output Total 300 Balance 410 -300 Intake: Intake, IV Titration 100 Amount Calcium Gluconate in NaCl 100 2 gm In Saline 1 100ml. bag @ 100 mls/hr IVPB ONCE ONE Rx#:[id number] Blood Product 310 Rc As-1 Unit 310 [id number] Output: Urine 300 Other: Voiding Method Incontinent External Catheter External Catheter - Labs CBC & Chem 7: 01/10/23 08:42 01/10/23 20:56 Labs: Abnormal Lab Results - Last 24 Hours (Table) 01/10/23 01/10/23 01/10/23 Range/Units 08:42 08:42 10:32 Sodium (137-145) mmol/L Potassium 2.5 L* (3.5-5.1) mmol/L Chloride 115 H (98-107) mmol/L Carbon Dioxide 18 L (22-30) mmol/L BUN 5 L (7-17) mg/dL Creatinine 0.46 L (0.52-1.04) mg/dL Calcium 5.1 L* (8.4-10.2) mg/dL Total Bilirubin (0.2-1.3) mg/dL AST (14-36) U/L ALT (4-34) U/L Alkaline Phosphatase 24 L (38-126) U/L Total Protein 3.7 L (6.3-8.2) g/dL Albumin 1.5 L (3.5-5.0) g/dL Procalcitonin 0.12 H (0.02-0.09) ng/mL Crossmatch See Detail 01/10/23 Range/Units 20:56 Sodium 132 L (137-145) mmol/L Potassium 5.5 H (3.5-5.1) mmol/L Chloride (98-107) mmol/L Carbon Dioxide (22-30) mmol/L BUN (7-17) mg/dL Creatinine (0.52-1.04) mg/dL Calcium 7.7 L (8.4-10.2) mg/dL Total Bilirubin 1.8 H (0.2-1.3) mg/dL AST 58 H (14-36) U/L ALT 43 H (4-34) U/L Alkaline Phosphatase 29 L (38-126) U/L Total Protein 4.5 L (6.3-8.2) g/dL Albumin 2.0 L (3.5-5.0) g/dL Procalcitonin (0.02-0.09) ng/mL Crossmatch Microbiology - Last 24 Hours (Table) 01/10/23 02:30 Urine Culture - Preliminary Urine,Voided
[2023-01-11 11:24] LABS: Basophils # (A) 0.06 X 10*3/uL (0.00-0.10); Basophils % (A) 0.6 %; Eosinophils # (A) 0.63 X 10*3/uL (0.04-0.35); Eosinophils % (A) 6.6 %; HCT 27.5 % (37.2-46.3); HGB 8.7 g/dL (12.0-15.0); Immature Grans, Automated 0.8 %; Lymphocytes # (A) 1.57 X 10*3/uL (0.90-5.00); Lymphocytes % (A) 16.5 %; MCH 28.4 pg (27.0-32.0); MCHC 31.6 g/dL (32.0-37.0); MCV 89.9 fL (80.0-97.0); Mean Platelet Volume 8.7 fL (9.5-12.2); Monocytes # (A) 0.54 X 10*3/uL (0.20-1.00); Monocytes % (A) 5.7 %; NRBC Per 100 WBC 0 /100 WBCS (0.0-0.0); Neutrophils # (A) 6.61 X 10*3/uL (1.80-7.70); Neutrophils % (A) 69.8 %; Platelet Count 530 X 10*3/uL (140-440); RBC 3.06 X 10*6/uL (4.10-5.20); RDW 15.3 % (11.5-14.5); WBC 9.49 X 10*3/uL (4.50-10.00)
[2023-01-11 11:28] LABS: African American GFR (CKD) 95.9 (60.0-200.0); Albumin/Globulin Ratio 0.96 (1.60-3.17); Anion Gap 8.8 mmol/L (10.00-18.00); BUN/Creat Ratio 10.33 Ratio (12.00-20.00); Calcium 7.8 mg/dL (8.7-10.3); Carbon Dioxide 20.9 mmol/L (20.0-27.5); Globulin 2.1 g/dL (1.6-3.3); Non-African American GFR(CKD) 82.8 (60.0-200.0); Potassium 5.1 mmol/L (3.5-5.5); Total Bilirubin 1.1 mg/dL (0.30-1.20)
--- NOTE | 2023-01-11 12:17 | P.PN ---
Progress Note - Text Progress Note Date: 01/11/23 The patient remains stable. She has minimal complaints of abdominal pain. She states her back chronic back pain is much worse than any abdominal pain. She is tolerating clears. She's not had any further rectal bleeding. On exam vital signs appear stable. Her blood pressure is systolic in the 110 range. Her hemoglobin is 8.7. White count is normal. Abdomen is soft there is minimal incisional tenderness. Status post low anterior section with subsequent lower GI bleed. Patient will b e continued to be observed. We will follow her closely.
--- NOTE | 2023-01-11 13:07 | P.PN ---
Subjective Progress Note Date: 01/11/23 This is a very pleasant 82-year-old female patient with a known history of hyperlipidemia, pulmonary embolism, chronic back pain with multiple surgeries, colovesical fistula and had undergone an elective surgery on 12/26/2022 here for sigmoid resection with low anterior resection along with findings of bilateral ovarian cyst and bilateral ovarian cystectomy. During that hospitalization she had developed hypotension and required intensive care unit monitoring was subsequently discharged. Yesterday 01/09/2023 she had noted some bright red bleeding and developed nausea and vomiting and was taken from her home to [facility] where she was seen and evaluated in the emergency room. She was transferred back here to be near her surgeon. Ultrasound of the abdomen revealed an echo with an area in the area of incision felt to represent a seroma. No peripheral color flow to suggest abscess. We are consulted to take his patient was having issues with hypotension and being considered for transfer to the ICU. She is currently stable. Awake and alert in no acute distress. She denies any dizziness or lightheadedness. She did have a drop in hemoglobin to 7.0. She received 1 unit packed blood cells this morning. She received some fluid resuscitation. She stabilized and her blood pressure this afternoon has been greater than 100 systolic. With a mean of 79-83. Her beta ivonne dose as been adjusted. She is currently on antibiotics in the form of Zosyn. Urine culture pending. White count 7.8. Sodium 143. Potassium 2.5. Chloride 1:15. Bicarb 18. BUN 5. Creatinine 0.56. Lactic acid 0.6. The patient is seen today 01/11/2023 in follow-up on the regular medical floor. She is currently sitting up in the bed bedside planning to ambulate with assistance from physical therapy. She remains awake and alert. Maintaining good O2 saturations in the mid 90s on room air. She's been afebrile. Hemodynamically stable. Not requiring any or blood after yesterday's unit was given. Her current hemoglobin is 8.7. White count 9.4. Platelets 5:30. Sodium 137. Potassium 5.1. BUN 7. Creatinine 0.7. Pro-calcitonin 0.12. Urine with positive nitrites, large leukocytes and high WBCs. Culture revealing gram-negative bacilli. She is continued on Zosyn. Objective - Vital Signs Vital signs: Vital Signs Temp 97.9 F 01/11/23 06:53 Pulse 76 01/11/23 06:53 Resp 16 01/11/23 06:53 BP 107/63 01/11/23 06:53 Pulse Ox 95 01/11/23 06:53 FiO2 Intake & Output 01/10/23 01/11/23 01/11/23 18:59 06:59 18:59 Intake Total 410 Output Total 300 Balance 410 -300 Intake: Intake, IV Titration 100 Amount Calcium Gluconate in NaCl 100 2 gm In Saline 1 100ml. bag @ 100 mls/hr IVPB ONCE ONE Rx#:[id number] Blood Product 310 Rc As-1 Unit 310 [id number] Output: Urine 300 Other: Voiding Method Incontinent External Catheter External Catheter - Exam GENERAL EXAM: Alert, 82-year-old female, on room air, comfortable in no apparent distress. HEAD: Normocephalic. EYES: Normal reaction of pupils, equal size. NOSE: Clear with pink turbinates. THROAT: No erythema or exudates. NECK: No masses, no JVD. CHEST: No chest wall deformity. LUNGS: Equal air entry with no crackles, wheeze, rhonchi or dullness. CVS: S1 and S2 normal with no audible murmur, regular rhythm. ABDOMEN: Surgical dressing dry and intact. Incision had been clean dry well approximated. Every other staple has been removed. No hepatosplenomegaly, normal bowel sounds, no guarding or rigidity. SPINE: No scoliosis or deformity SKIN: No rashes CENTRAL NERVOUS SYSTEM: No focal deficits, tone is normal in all 4 extremities. EXTREMITIES: There is no peripheral edema. No clubbing, no cyanosis. Peripheral pulses are intact. - Labs CBC & Chem 7: 01/11/23 06:10 01/11/23 06:10 Labs: Abnormal Lab Results - Last 24 Hours (Table) 01/10/23 01/10/23 01/10/23 Range/Units 08:42 10:32 20:56 RBC (4.10-5.20) X 10*6/uL Hgb (12.0-15.0) g/dL Hct (37.2-46.3) % MCHC (32.0-37.0) g/dL RDW (11.5-14.5) % Plt Count (140-440) X 10*3/uL MPV (9.5-12.2) fL Immature Gran # (0.00-0.04) X 10*3/uL Eosinophils # (0.04-0.35) X 10*3/uL Sodium 132 L (137-145) mmol/L Potassium 5.5 H (3.5-5.1) mmol/L Anion Gap (10.00-18.00) mmol/L BUN (9.0-27.0) mg/dL BUN/Creatinine Ratio (12.00-20.00) Ratio Calcium 7.7 L (8.4-10.2) mg/dL Total Bilirubin 1.8 H (0.2-1.3) mg/dL AST 58 H (14-36) U/L ALT 43 H (4-34) U/L Alkaline Phosphatase 29 L (38-126) U/L Total Protein 4.5 L (6.3-8.2) g/dL Albumin 2.0 L (3.5-5.0) g/dL Albumin/Globulin Ratio (1.60-3.17) g/dL Procalcitonin 0.12 H (0.02-0.09) ng/mL Crossmatch See Detail 01/11/23 01/11/23 Range/Units 06:10 06:10 RBC 3.06 L (4.10-5.20) X 10*6/uL Hgb 8.7 L (12.0-15.0) g/dL Hct 27.5 L (37.2-46.3) % MCHC 31.6 L (32.0-37.0) g/dL RDW 15.3 H (11.5-14.5) % Plt Count 530 H (140-440) X 10*3/uL MPV 8.7 L (9.5-12.2) fL Immature Gran # 0.08 H (0.00-0.04) X 10*3/uL Eosinophils # 0.63 H (0.04-0.35) X 10*3/uL Sodium (137-145) mmol/L Potassium (3.5-5.1) mmol/L Anion Gap 8.80 L (10.00-18.00) mmol/L BUN 7.0 L (9.0-27.0) mg/dL BUN/Creatinine Ratio 10.33 L (12.00-20.00) Ratio Calcium 7.8 L (8.4-10.2) mg/dL Total Bilirubin (0.2-1.3) mg/dL AST 50 H (14-36) U/L ALT (4-34) U/L Alkaline Phosphatase 33 L (38-126) U/L Total Protein 4.0 L (6.3-8.2) g/dL Albumin 2.0 L (3.5-5.0) g/dL Albumin/Globulin Ratio 0.96 L (1.60-3.17) g/dL Procalcitonin (0.02-0.09) ng/mL Crossmatch Microbiology - Last 24 Hours (Table) 01/10/23 02:30 Urine Culture - Preliminary Urine,Voided Gram Neg Bacilli Assessment and Plan Assessment: Rectal bleeding with nausea and vomiting. Resolved Hypotension secondary to above requiring 1 unit of packed red blood cells and fluid resuscitation. Stable Anemia secondary to above. Requiring 1 unit of packed red blood cells. Current hemoglobin 8.7. 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 status post sigmoid resection lower anterior resection so found to have bilateral ovarian cysts status post bilateral ovarian cystectomy performed on 12/26/2022 History of hypertension Hyperlipidemia Hypothyroidism Chronic back pain with multiple back surgeries Plan: The patient was seen and evaluated Labs and medications reviewed Received fluid resuscitation and 1 unit of blood Current hemoglobin 8.7 Blood pressure has stabilized Continue saline at 100 ML's per hour Continue to monitor hemoglobin Continue Zosyn for UTI We will see as needed I have personally seen and examined the patient, performed the documentation and the assessment and plan as written. Number of minutes spent on the visit: 10.
--- NOTE | 2023-01-11 13:16 | PN ---
PROGRESS NOTE SUBJECTIVE: This 82-year-old white female admitted with multiple complications due to colovesicular surgery. Monitoring her hemoglobin as it dropped from 8.9 to 7, waiting today's level. We will transfuse for hemoglobin less than 7. Prognosis is guarded. Continue to monitor for bleeding. PHYSICAL EXAMINATION: GENERAL: She is feeling a little bit better. VITAL SIGNS: Temperature 97.9, blood pressure 107/63, 95 on room air, and pulse 77. CARDIOVASCULAR: S1, S2. LUNGS: Clear. GI: Soft. HEMATOLOGY: Negative for Homans. PSYCH: Fair mood and affect. INTEGUMENT: She is pale. ASSESSMENT: 1. Acute on chronic anemia due to acute GI blood loss, status post blood transfusion x1. 2. Hypothyroidism. 3. Chronic pain syndrome. 4. Electrolyte abnormalities. 5. Cervical lumbar disk disease. 6. Chronic obstructive pulmonary disease. Prognosis guarded. Please see further orders. MMODL / IJN: [id number] /
[2023-01-11] MEDS: MORPHINE SULFATE 4 MG/ML SYRINGE IV PRN (14:28)
[2023-01-11] MEDS: QUEtiapine 25 MG TAB PO SCH (20:36)
[2023-01-11] MEDS: tiZANidine 4 MG TAB PO SCH (20:38)
[2023-01-12] MEDS: oxyCODONE-APAP 10-325MG 1 EACH TAB PO SCH ×3 (05:56→17:01)
[2023-01-12] MEDS: LEVOTHYROXINE 125 MCG TAB PO SCH (05:56)
[2023-01-12] MEDS: PIPERACILLIN-TAZOBACTAM 3.375 GM in SODIUM CHLORIDE 0.9% 100 ML IVPB SCH ×2 (08:54→17:01)
[2023-01-12] MEDS: ASPIRIN 81 MG PO SCH (08:55)
[2023-01-12] MEDS: METOPROLOL TARTRATE 25 MG TAB PO SCH ×2 (08:55→21:52)
[2023-01-12] MEDS: MORPHINE SULFATE 4 MG/ML SYRINGE IV PRN ×2 (09:32→21:57)
--- NOTE | 2023-01-12 09:59 | P.PN ---
Subjective Progress Note Date: 01/12/23 Principal diagnosis: Rectal bleeding Patient doing well today. Denies any abdominal pain. T-max 99.2. Tolerating clears. No nausea or vomiting. She says she is hungry for more liquids. Objective - Vital Signs Vital signs: Vital Signs Temp 98.1 F 01/12/23 07:41 Pulse 79 01/12/23 07:41 Resp 19 01/12/23 07:41 BP 102/60 01/12/23 07:41 Pulse Ox 96 01/12/23 07:41 FiO2 Intake & Output 01/11/23 01/12/23 01/12/23 18:59 06:59 18:59 Output Total 950 300 Balance -950 -300 Output: Urine 950 300 Other: Voiding Method External Catheter External Catheter # Voids 4 - Exam Abdomen: Soft, nondistended, no appreciable tenderness, incision clean and dry - Labs CBC & Chem 7: 01/11/23 06:10 01/11/23 06:10 Labs: Abnormal Lab Results - Last 24 Hours (Table) 01/11/23 01/11/23 Range/Units 06:10 06:10 RBC 3.06 L (4.10-5.20) X 10*6/uL Hgb 8.7 L (12.0-15.0) g/dL Hct 27.5 L (37.2-46.3) % MCHC 31.6 L (32.0-37.0) g/dL RDW 15.3 H (11.5-14.5) % Plt Count 530 H (140-440) X 10*3/uL MPV 8.7 L (9.5-12.2) fL Immature Gran # 0.08 H (0.00-0.04) X 10*3/uL Eosinophils # 0.63 H (0.04-0.35) X 10*3/uL Anion Gap 8.80 L (10.00-18.00) mmol/L BUN 7.0 L (9.0-27.0) mg/dL BUN/Creatinine Ratio 10.33 L (12.00-20.00) Ratio Calcium 7.8 L (8.7-10.3) mg/dL AST 50 H (13-35) U/L Alkaline Phosphatase 33 L (41-126) U/L Total Protein 4.0 L (6.2-8.2) g/dL Albumin 2.0 L (3.8-4.9) g/dL Albumin/Globulin Ratio 0.96 L (1.60-3.17) g/dL Microbiology - Last 24 Hours (Table) 01/10/23 02:30 Urine Culture - Preliminary Urine,Voided Gram Neg Bacilli Assessment and Plan (1) GI bleeding Narrative/Plan: Patient seems to be doing better at this time. She would like more to eat. We'll advance to full liquids. Continue increasing activity. Monitor bowel output. Current Visit: Yes Status: Acute Code(s): K92.2 - GASTROINTESTINAL HEMORRHAGE, UNSPECIFIED SNOMED Code(s): 23590720
[2023-01-12 10:11] LABS: Basophils # (A) 0.07 X 10*3/uL (0.00-0.10); Basophils % (A) 0.7 %; Eosinophils # (A) 0.54 X 10*3/uL (0.04-0.35); Eosinophils % (A) 5.3 %; HCT 29.1 % (37.2-46.3); HGB 9.3 g/dL (12.0-15.0); Immature Grans, Automated 0.8 %; Lymphocytes # (A) 1.87 X 10*3/uL (0.90-5.00); Lymphocytes % (A) 18.4 %; MCH 28.7 pg (27.0-32.0); MCV 89.8 fL (80.0-97.0); Mean Platelet Volume 8.7 fL (9.5-12.2); Monocytes # (A) 0.55 X 10*3/uL (0.20-1.00); Monocytes % (A) 5.4 %; NRBC Per 100 WBC 0 /100 WBCS (0.0-0.0); Neutrophils # (A) 7.08 X 10*3/uL (1.80-7.70); Neutrophils % (A) 69.4 %; Platelet Count 545 X 10*3/uL (140-440); RBC 3.24 X 10*6/uL (4.10-5.20); RDW 14.8 % (11.5-14.5); WBC 10.19 X 10*3/uL (4.50-10.00)
--- NOTE | 2023-01-12 11:41 | P.PN ---
Subjective Progress Note Date: 01/12/23 She was seen resting comfortably today in bed in no signs of acute distress. Blood pressure remains soft. She continues on IV fluid resuscitation. Patient has had no further episodes of rectal bleeding. Hemoglobin today is 9.3. She remains sinus rhythm on the monitor with a heart rate 70s. Objective - Vital Signs Vital signs: Vital Signs Temp 98.1 F 01/12/23 07:41 Pulse 79 01/12/23 07:41 Resp 19 01/12/23 07:41 BP 102/60 01/12/23 07:41 Pulse Ox 96 01/12/23 07:41 FiO2 Intake & Output 01/11/23 01/12/23 01/12/23 18:59 06:59 18:59 Output Total 950 300 Balance -950 -300 Output: Urine 950 300 Other: Voiding Method External Catheter External Catheter External Catheter # Voids 4 - Exam Gen: This is an 82-year-old female. She is sitting up in bed, she appears to be unwell. VS: reviewed HEENT: Head is atraumatic, normocephalic. Pupils equal, round. Sclerae is anicteric. NECK: Supple. No JVD. No carotid bruit. LUNGS: Clear to auscultation. No wheezes or rhonchi. No intercostal retractions. HEART: Regular rate and rhythm. No murmur. ABDOMEN: Soft No tenderness. EXTREMITIES: No pedal edema. NEUROLOGICAL: Patient is awake, alert and oriented x3. - Labs CBC & Chem 7: 01/12/23 05:38 01/11/23 06:10 Labs: Abnormal Lab Results - Last 24 Hours (Table) 01/12/23 Range/Units 05:38 WBC 10.19 H (4.50-10.00) X 10*3/uL RBC 3.24 L (4.10-5.20) X 10*6/uL Hgb 9.3 L (12.0-15.0) g/dL Hct 29.1 L (37.2-46.3) % RDW 14.8 H (11.5-14.5) % Plt Count 545 H (140-440) X 10*3/uL MPV 8.7 L (9.5-12.2) fL Immature Gran # 0.08 H (0.00-0.04) X 10*3/uL Eosinophils # 0.54 H (0.04-0.35) X 10*3/uL Microbiology - Last 24 Hours (Table) 01/10/23 02:30 Urine Culture - Preliminary Urine,Voided Gram Neg Bacilli Assessment and Plan Assessment: Hypotension status post IV fluid bolus Hypokalemia UTI Lactic acidosis Hypertension History of orthostatic hypotension History of pulmonary embolism Plan: continue IV fluids to 100 mL per hour Continued with decreased dose of fentanyl patch 75 g down to 25 g Continue with current cardiac medications Continue telemetry monitoring Further recommendations to follow based upon clinical course Thank you kindly for this consultation. Nurse practitioner note has been reviewed, I agree with documented findings and plan of care. Patient was seen and examined.
[2023-01-12] MEDS: ONDANSETRON 4 MG/2 ML VIAL IVP PRN (17:07)
[2023-01-12] MEDS: tiZANidine 4 MG TAB PO SCH (21:52)
[2023-01-12] MEDS: QUEtiapine 25 MG TAB PO SCH (21:52)
[2023-01-12] MEDS: SODIUM CHLORIDE 0.9% 1,000 ML IV SCH ×2 (21:59)
[2023-01-13] MEDS: PIPERACILLIN-TAZOBACTAM 3.375 GM in SODIUM CHLORIDE 0.9% 100 ML IVPB SCH ×4 (01:18→23:51)
[2023-01-13] MEDS: oxyCODONE-APAP 10-325MG 1 EACH TAB PO SCH ×5 (01:19→23:51)
[2023-01-13] MEDS: SODIUM CHLORIDE 0.9% 1,000 ML IV ONE ×2 (04:00→04:26)
[2023-01-13] MEDS: SODIUM CHLORIDE 0.9% 1,000 ML IV SCH ×3 (05:08→17:05)
--- NOTE | 2023-01-13 06:03 | PN ---
PROGRESS NOTE SUBJECTIVE: This is an 82-year-old white female. Her hemoglobin is up to 9.3 postop. She wants her diet advanced. She may be able to go home in next couple of days. She remains on her Seroquel at night, Zanaflex at night, IV Zosyn, oxycodone for pain control, metoprolol for hypertension, Synthroid for hypothyroidism, aspirin, Duragesic patch. OBJECTIVE: CARDIOVASCULAR: S1, S2. LUNGS: Clear. GI: Soft. HEMATOLOGY: Negative Homans. PSYCH: Fair mood and affect. GI: Wound looks intact. LABORATORY DATA: White count is 10, hemoglobin is 9.3. BUN is 7, creatinine 0.7, calcium is 7.8. ASSESSMENT: Status post repair, COPD, cervical lumbar disk disease, hypothyroidism, neuropathy. Prognosis guarded. Continue current treatments. Advance diet. Possibly go home in next couple of days. MMODL / IJN: [id number] /
[2023-01-13] MEDS: LEVOTHYROXINE 125 MCG TAB PO SCH (06:17)
[2023-01-13 09:18] LABS: Glucose,Whole Blood 123 mg/dL (70-110)
--- NOTE | 2023-01-13 09:46 | P.PN ---
Subjective Progress Note Date: 01/13/23 Principal diagnosis: Rectal bleeding Patient was transferred to the ICU this morning because of hypotension. She did have a small bowel movement this morning that was soft but formed and had some maroonish color to it. Describes some mild crampy discomfort but says that is not new. Vital signs currently stable. Morning labs are pending. Yesterday's hemoglobin 9.3. Tolerating full liquids. Objective - Vital Signs Vital signs: Vital Signs Temp 97.5 F L 01/13/23 09:20 Pulse 82 01/13/23 09:20 Resp 18 01/13/23 09:20 BP 92/59 01/13/23 09:20 Pulse Ox 95 01/13/23 09:20 FiO2 Intake & Output 01/12/23 01/13/23 01/13/23 18:59 06:59 18:59 Output Total 300 850 Balance -300 -850 Output: Urine 300 850 Other: Voiding Method External Catheter External Catheter External Catheter # Voids 1 # Bowel Movements 1 - Exam Abdomen: Soft, nondistended, no appreciable tenderness, incision clean and dry - Labs CBC & Chem 7: 01/12/23 05:38 01/11/23 06:10 Labs: Abnormal Lab Results - Last 24 Hours (Table) 01/10/23 01/12/23 01/13/23 Range/Units 10:32 05:38 09:17 WBC 10.19 H (4.50-10.00) X 10*3/uL RBC 3.24 L (4.10-5.20) X 10*6/uL Hgb 9.3 L (12.0-15.0) g/dL Hct 29.1 L (37.2-46.3) % RDW 14.8 H (11.5-14.5) % Plt Count 545 H (140-440) X 10*3/uL MPV 8.7 L (9.5-12.2) fL Immature Gran # 0.08 H (0.00-0.04) X 10*3/uL Eosinophils # 0.54 H (0.04-0.35) X 10*3/uL POC Glucose (mg/dL) 123 H (70-110) mg/dL Crossmatch See Detail Microbiology - Last 24 Hours (Table) 01/10/23 02:30 Urine Culture - Final Urine,Voided Klebsiella pneumoniae Assessment and Plan (1) GI bleeding Narrative/Plan: 82-year-old female status post sigmoid colectomy. Patient did have a small amount of blood within her solid stool this morning. I do not think that GI bleed as the source for the patient's hypotension. Discussed the case with critical care team. They believe some of her hypotension is related to increased narcotic use. Continue full liquids. Monitor in ICU today. Await morning labs. Current Visit: Yes Status: Acute Code(s): K92.2 - GASTROINTESTINAL HEMORRHAGE, UNSPECIFIED SNOMED Code(s): 33491242
[2023-01-13 10:17] LABS: INR 1.3 (<1.2); Partial Thromboplastin Time 29.1 sec (22.0-30.0); Prothrombin Time 13.6 sec (9.0-12.0)
[2023-01-13 10:40] LABS: Basophils # (A) 0.08 X 10*3/uL (0.00-0.10); Basophils % (A) 0.8 %; Eosinophils # (A) 0.45 X 10*3/uL (0.04-0.35); Eosinophils % (A) 4.7 %; HCT 28.3 % (37.2-46.3); HGB 9.1 g/dL (12.0-15.0); Immature Grans, Automated 0.6 %; Lymphocytes # (A) 1.65 X 10*3/uL (0.90-5.00); Lymphocytes % (A) 17.1 %; MCH 29.2 pg (27.0-32.0); MCHC 32.2 g/dL (32.0-37.0); MCV 90.7 fL (80.0-97.0); Mean Platelet Volume 8.5 fL (9.5-12.2); Monocytes # (A) 0.57 X 10*3/uL (0.20-1.00); Monocytes % (A) 5.9 %; NRBC Per 100 WBC 0 /100 WBCS (0.0-0.0); Neutrophils # (A) 6.86 X 10*3/uL (1.80-7.70); Neutrophils % (A) 70.9 %; Platelet Count 476 X 10*3/uL (140-440); RBC 3.12 X 10*6/uL (4.10-5.20); RDW 14.6 % (11.5-14.5); WBC 9.67 X 10*3/uL (4.50-10.00)
[2023-01-13 10:48] LABS: Potassium 3.6 mmol/L (3.5-5.1)
[2023-01-13 10:51] LABS: ALT 32 U/L (4-34); AST 32 U/L (14-36); African American GFR (CKD) >90 (>60 ml/min/1.73 sqM); Albumin 1.9 g/dL (3.5-5.0); Albumin/Globulin Ratio 0.8; Alkaline Phosphatase 35 U/L (38-126); Anion Gap 4 mmol/L; Blood Urea Nitrogen 6 mg/dL (7-17); Calcium 6.9 mg/dL (8.4-10.2); Carbon Dioxide 23 mmol/L (22-30); Chloride 107 mmol/L (98-107); Globulin 2.4 g/dL; Glucose 107 mg/dL (74-99); Non-African American GFR(CKD) 86 (>60 ml/min/1.73 sqM); Sodium 134 mmol/L (137-145); Total Bilirubin 0.9 mg/dL (0.2-1.3); Total Protein 4.3 g/dL (6.3-8.2)
--- NOTE | 2023-01-13 10:51 | P.PN ---
Subjective Progress Note Date: 01/13/23 Principal diagnosis: Lower GI bleeding This is a very pleasant 82-year-old female patient with a known history of hyperlipidemia, pulmonary embolism, chronic back pain with multiple surgeries, colovesical fistula and had undergone an elective surgery on 12/26/2022 here for sigmoid resection with low anterior resection along with findings of bilateral ovarian cyst and bilateral ovarian cystectomy. During that hospitalization she had developed hypotension and required intensive care unit monitoring was subsequently discharged. Yesterday 01/09/2023 she had noted some bright red bleeding and developed nausea and vomiting and was taken from her home to [facility] where she was seen and evaluated in the emergency room. She was transferred back here to be near her surgeon. Ultrasound of the abdomen revealed an echo with an area in the area of incision felt to represent a seroma. No peripheral color flow to suggest abscess. We are consulted to take his patient was having issues with hypotension and being considered for transfer to the ICU. She is currently stable. Awake and alert in no acute distress. She denies any dizziness or lightheadedness. She did have a drop in hemoglobin to 7.0. She received 1 unit packed blood cells this morning. She received some fluid resuscitation. She stabilized and her blood pressure this afternoon has been greater than 100 systolic. With a mean of 79-83. Her beta ivonne dose as been adjusted. She is currently on antibiotics in the form of Zosyn. Urine culture pending. White count 7.8. Sodium 143. Potassium 2.5. Chloride 1:15. Bicarb 18. BUN 5. Creatinine 0.56. Lactic acid 0.6. The patient is seen today 01/11/2023 in follow-up on the regular medical floor. She is currently sitting up in the bed bedside planning to ambulate with assistance from physical therapy. She remains awake and alert. Maintaining good O2 saturations in the mid 90s on room air. She's been afebrile. Hemodynamically stable. Not requiring any or blood after yesterday's unit was given. Her current hemoglobin is 8.7. White count 9.4. Platelets 5:30. Sodium 137. Potassium 5.1. BUN 7. Creatinine 0.7. Pro-calcitonin 0.12. Urine with positive nitrites, large leukocytes and high WBCs. Culture revealing gram-negative bacilli. She is continued on Zosyn. Patient was reevaluated today on 01/23/2023, mostly because apparently the patient has been developing low blood pressure overnight, and has been receiving fluid boluses, however there was no active bleeding that I was made aware of. Her hemoglobin this morning is stable, actually hemoglobin is 9.1, and it was 9.3 yesterday, 8.7 the day before patient had a small bowel movement today, it was slightly maroonish in color, patient has some vague minimal abdominal discomfort, but looking at the patient's medications, she is receiving significant amount of pain medicines. She is also receiving beta blockers and she is also on morphine sulfate, oxycodone, and fentanyl patch. Went ahead and discontinued all her pain medications for now except oxycodone. I discontinued her metoprolol, and I have recommended observation in the ICU for now. Chest sh e does not require blood transfusion she does not require pressors I believe the patient will do well if we hold all the medications she is presently on and I did. Clinically the patient does not seem to be septic nonetheless she is maintained on Zosyn as per the surgeon on the case. Labs today are basically unremarkable including CBC, and basic metabolic profile, renal profile are all normal. Pro-calcitonin level on admission was 0.12 and cortisol level was 14 Objective - Vital Signs Vital signs: Vital Signs Temp 97.5 F L 01/13/23 09:20 Pulse 101 H 01/13/23 10:00 Resp 14 01/13/23 10:00 BP 92/59 01/13/23 10:00 Pulse Ox 92 L 01/13/23 10:00 FiO2 Intake & Output 01/12/23 01/13/23 01/13/23 18:59 06:59 18:59 Output Total 300 850 Balance -300 -850 Output: Urine 300 850 Other: Voiding Method External Catheter External Catheter External Catheter # Voids 1 # Bowel Movements 1 - Exam Physical Exam: Revealed an 82-year-old female in no distress, on room air, O2 saturation is 92%. Blood pressure is 92/59 was 74/43 earlier this morning. Head: Atraumatic normocephalic. HEENT:[Neck is supple.] [No neck masses.] [No thyromegaly.] [No JVD.], Slightly pale. Chest: [Clear throughout, no crackles, no rhonchi, no wheezes.] Cardiac Exam: [Normal S1 and S2, no S3 gallop, no murmur.] Abdomen: [Soft, nontender, no megaly, no rebound, no guarding, normal bowel sounds.] Extremities: [No clubbing, no edema, no cyanosis.] Neurological Exam: [No focal neurologic deficit.] Alert and oriented 3 Psychiatric: Normal mood affect and normal mental status examination Skin: No rashes - Labs CBC & Chem 7: 01/13/23 06:28 01/11/23 06:10 Labs: Abnormal Lab Results - Last 24 Hours (Table) 01/10/23 01/13/23 01/13/23 Range/Units 10:32 06:28 09:17 RBC 3.12 L (4.10-5.20) X 10*6/uL Hgb 9.1 L (12.0-15.0) g/dL Hct 28.3 L (37.2-46.3) % RDW 14.6 H (11.5-14.5) % Plt Count 476 H (140-440) X 10*3/uL MPV 8.5 L (9.5-12.2) fL Immature Gran # 0.06 H (0.00-0.04) X 10*3/uL Eosinophils # 0.45 H (0.04-0.35) X 10*3/uL PT (9.0-12.0) sec INR (<1.2) POC Glucose (mg/dL) 123 H (70-110) mg/dL Crossmatch See Detail 01/13/23 Range/Units 09:48 RBC (4.10-5.20) X 10*6/uL Hgb (12.0-15.0) g/dL Hct (37.2-46.3) % RDW (11.5-14.5) % Plt Count (140-440) X 10*3/uL MPV (9.5-12.2) fL Immature Gran # (0.00-0.04) X 10*3/uL Eosinophils # (0.04-0.35) X 10*3/uL PT 13.6 H (9.0-12.0) sec INR 1.3 H (<1.2) POC Glucose (mg/dL) (70-110) mg/dL Crossmatch Microbiology - Last 24 Hours (Table) 01/10/23 02:30 Urine Culture - Final Urine,Voided Klebsiella pneumoniae Assessment and Plan Assessment: Impression: Hypotension/low blood pressure mostly multifactorial related to blood pressure medication that the patient is receiving plus significant amount of narcotics and pain medications plus underlying blood loss anemia. Chronic postoperative rectal bleeding patient had previous sigmoid resection and lower anterior resection and she also had bilateral ovarian cystectomy performed on 12/26/22 History of hypertension Hypothyroidism Chronic low back pain and multiple back surgeries Acute blood loss anemia Acute urinary tract infection secondary to Klebsiella pneumoniae, sensitive to Zosyn, patient is presently on Zosyn Recommendation Continue to hold most of the pain medications Noticed a blood transfusion at this point Hold metoprolol Continue IV fluids Will monitor the patient in the ICU for the next 24 hours Continue Zosyn for now. Check blood cultures although clinically this is not a presentation of sepsis We'll continue to follow discussed her condition with Dr. porter on the case Time with Patient: Less than 30
--- NOTE | 2023-01-13 11:02 | P.PN ---
Subjective Progress Note Date: 01/13/23 Patient was transferred to ICU examination due to hypotension. According to the [facility] nurse blood pressure was 70s over 30s despite IV fluids and was transferred to ICU. Episodic examination patient is seen resting comfortably in bed in no signs of acute distress. Blood pressure has improved to 92/59. She received a liter bolus and had fluids running at 130 mL/hr. patient remains asymptomatic.denies any increased shortness of breath or chest pain. Patient's pain meds have been adjusted by primary believing this has been the cause of the hypotension. Objective - Vital Signs Vital signs: Vital Signs Temp 97.5 F L 01/13/23 09:20 Pulse 101 H 01/13/23 10:00 Resp 14 01/13/23 10:00 BP 92/59 01/13/23 10:00 Pulse Ox 92 L 01/13/23 10:00 FiO2 Intake & Output 01/12/23 01/13/23 01/13/23 18:59 06:59 18:59 Intake Total 1150 Output Total 300 850 0 Balance -300 -850 1150 Intake: IV 1150 Sodium Chloride 0.9% 1, 150 000 ml @ 150 mls/hr IV . Q6H40M [facility] Rx#:[id number] Sodium Chloride 0.9% 1, 1000 000 ml @ 999 mls/hr IV . Q1H1M [facility] Rx#:[id number] Output: Urine 300 850 0 Other: Voiding Method External Catheter External Catheter External Catheter # Voids 1 # Bowel Movements 1 - Exam Gen: This is an 82-year-old female. She is sitting up in bed, she appears to be unwell. VS: reviewed HEENT: Head is atraumatic, normocephalic. Pupils equal, round. Sclerae is anicteric. NECK: Supple. No JVD. No carotid bruit. LUNGS: Clear to auscultation. No wheezes or rhonchi. No intercostal retractions. HEART: Regular rate and rhythm. No murmur. ABDOMEN: Soft No tenderness. EXTREMITIES: No pedal edema. NEUROLOGICAL: Patient is awake, alert and oriented x3. - Labs CBC & Chem 7: 01/13/23 06:28 01/13/23 09:48 Labs: Abnormal Lab Results - Last 24 Hours (Table) 01/10/23 01/13/23 01/13/23 Range/Units 10:32 06:28 09:17 RBC 3.12 L (4.10-5.20) X 10*6/uL Hgb 9.1 L (12.0-15.0) g/dL Hct 28.3 L (37.2-46.3) % RDW 14.6 H (11.5-14.5) % Plt Count 476 H (140-440) X 10*3/uL MPV 8.5 L (9.5-12.2) fL Immature Gran # 0.06 H (0.00-0.04) X 10*3/uL Eosinophils # 0.45 H (0.04-0.35) X 10*3/uL PT (9.0-12.0) sec INR (<1.2) Sodium (137-145) mmol/L BUN (7-17) mg/dL Glucose (74-99) mg/dL POC Glucose (mg/dL) 123 H (70-110) mg/dL Calcium (8.4-10.2) mg/dL Alkaline Phosphatase (38-126) U/L Total Protein (6.3-8.2) g/dL Albumin (3.5-5.0) g/dL Crossmatch See Detail 01/13/23 01/13/23 Range/Units 09:48 09:48 RBC (4.10-5.20) X 10*6/uL Hgb (12.0-15.0) g/dL Hct (37.2-46.3) % RDW (11.5-14.5) % Plt Count (140-440) X 10*3/uL MPV (9.5-12.2) fL Immature Gran # (0.00-0.04) X 10*3/uL Eosinophils # (0.04-0.35) X 10*3/uL PT 13.6 H (9.0-12.0) sec INR 1.3 H (<1.2) Sodium 134 L (137-145) mmol/L BUN 6 L (7-17) mg/dL Glucose 107 H (74-99) mg/dL POC Glucose (mg/dL) (70-110) mg/dL Calcium 6.9 L (8.4-10.2) mg/dL Alkaline Phosphatase 35 L (38-126) U/L Total Protein 4.3 L (6.3-8.2) g/dL Albumin 1.9 L (3.5-5.0) g/dL Crossmatch Microbiology - Last 24 Hours (Table) 01/10/23 02:30 Urine Culture - Final Urine,Voided Klebsiella pneumoniae Assessment and Plan Assessment: Hypotension status post IV fluid bolus Hypokalemia UTI Lactic acidosis Hypertension History of orthostatic hypotension History of pulmonary embolism Plan: continue IV fluids to 130 mL per hour Continue with current cardiac medications Continue telemetry monitoring Further recommendations to follow based upon clinical course Thank you kindly for this consultation. Nurse practitioner note has been reviewed, I agree with documented findings and plan of care. Patient was seen and examined.
[2023-01-13 11:17] LABS: African American GFR (CKD) 96.2 (60.0-200.0); Albumin 1.9 g/dL (3.8-4.9); Albumin/Globulin Ratio 0.96 (1.60-3.17); Anion Gap 7.4 mmol/L (10.00-18.00); BUN/Creat Ratio 7.79 Ratio (12.00-20.00); Blood Urea Nitrogen 5.2 mg/dL (9.0-27.0); Calcium 7.3 mg/dL (8.7-10.3); Carbon Dioxide 22.4 mmol/L (20.0-27.5); Potassium 3.9 mmol/L (3.5-5.5); Total Bilirubin 0.7 mg/dL (0.30-1.20); Total Protein 3.9 g/dL (6.2-8.2)
[2023-01-13] MEDS: ASPIRIN 81 MG PO SCH (12:33)
[2023-01-13] MEDS: tiZANidine 4 MG TAB PO SCH (20:40)
[2023-01-13] MEDS: QUEtiapine 25 MG TAB PO SCH (20:40)
[2023-01-14 02:23] LABS: Glucose,Whole Blood 103 mg/dL (70-110)
[2023-01-14] MEDS: METOPROLOL TARTRATE 12.5 MG TAB PO SCH ×3 (02:48→21:11)
[2023-01-14] MEDS: oxyCODONE-APAP 10-325MG 1 EACH TAB PO SCH ×3 (05:35→18:07)
[2023-01-14 06:09] LABS: African American GFR (CKD) >90 (>60 ml/min/1.73 sqM); Anion Gap 5 mmol/L; Blood Urea Nitrogen 5 mg/dL (7-17); Calcium 6.8 mg/dL (8.4-10.2); Carbon Dioxide 21 mmol/L (22-30); Chloride 109 mmol/L (98-107); Glucose 106 mg/dL (74-99); Non-African American GFR(CKD) 84 (>60 ml/min/1.73 sqM); Potassium 3.2 mmol/L (3.5-5.1); Sodium 135 mmol/L (137-145)
[2023-01-14] MEDS ORDERED: Potassium Replacement Protocol 1 EACH MISC MISCELLANE PRN (06:10)
[2023-01-14 06:25] LABS: Basophils % (A) 0 %; Eosinophils % (A) 1 %; HCT 29.8 % (34.0-46.0); Hypochromasia Slight; Lymphocytes # (A) 0.3 k/uL (1.0-4.8); Lymphocytes % (A) 7 %; MCHC 32.4 g/dL (31.0-37.0); MCV 89.4 fL (80.0-100.0); Mean Platelet Volume 7.3; Monocytes # (A) 0.3 k/uL (0-1.0); Monocytes % (A) 5 %; Neutrophils # (A) 4.3 k/uL (1.3-7.7); Neutrophils % (A) 87 %; Platelet Count 467 k/uL (150-450); RBC 3.34 m/uL (3.80-5.40); RDW 14.2 % (11.5-15.5); WBC 4.9 k/uL (3.8-10.6)
[2023-01-14 06:27] LABS: HGB 9.7 gm/dL (11.4-16.0)
[2023-01-14] MEDS: SODIUM CHLORIDE 0.9% 1,000 ML IV SCH ×4 (06:34→18:12)
[2023-01-14] MEDS: LEVOTHYROXINE 125 MCG TAB PO SCH (06:34)
[2023-01-14] MEDS: PANTOPRAZOLE 40 MG TABLET PO SCH (06:34)
[2023-01-14] MEDS: POTASSIUM BICARBONATE/CIT AC 20 MEQ TABLET.EFF NG-TUBE SCH ×2 (06:34→09:02)
[2023-01-14] MEDS: ASPIRIN 81 MG PO SCH (08:52)
[2023-01-14] MEDS: PIPERACILLIN-TAZOBACTAM 3.375 GM in SODIUM CHLORIDE 0.9% 100 ML IVPB SCH ×3 (09:02→23:43)
--- NOTE | 2023-01-14 10:28 | P.PN ---
Subjective Progress Note Date: 01/14/23 This is a very pleasant 82-year-old female patient with a known history of hyperlipidemia, pulmonary embolism, chronic back pain with multiple surgeries, colovesical fistula and had undergone an elective surgery on 12/26/2022 here for sigmoid resection with low anterior resection along with findings of bilateral ovarian cyst and bilateral ovarian cystectomy. During that hospitalization she had developed hypotension and required intensive care unit monitoring was subsequently discharged. Yesterday 01/09/2023 she had noted some bright red bleeding and developed nausea and vomiting and was taken from her home to [facility] where she was seen and evaluated in the emergency room. She was transferred back here to be near her surgeon. Ultrasound of the abdomen revealed an echo with an area in the area of incision felt to represent a seroma. No peripheral color flow to suggest abscess. We are consulted to take his patient was having issues with hypotension and being considered for transfer to the ICU. She is currently stable. Awake and alert in no acute distress. She denies any dizziness or lightheadedness. She did have a drop in hemoglobin to 7.0. She received 1 unit packed blood cells this morning. She received some fluid resuscitation. She stabilized and her blood pressure this afternoon has been greater than 100 systolic. With a mean of 79-83. Her beta ivonne dose as been adjusted. She is currently on antibiotics in the form of Zosyn. Urine culture pending. White count 7.8. Sodium 143. Potassium 2.5. Chloride 1:15. Bicarb 18. BUN 5. Creatinine 0.56. Lactic acid 0.6. The patient is seen today 01/11/2023 in follow-up on the regular medical floor. She is currently sitting up in the bed bedside planning to ambulate with assistance from physical therapy. She remains awake and alert. Maintaining good O2 saturations in the mid 90s on room air. She's been afebrile. Hemodynamically stable. Not requiring any or blood after yesterday's unit was given. Her current hemoglobin is 8.7. White count 9.4. Platelets 5:30. Sodium 137. Potassium 5.1. BUN 7. Creatinine 0.7. Pro-calcitonin 0.12. Urine with positive nitrites, large leukocytes and high WBCs. Culture revealing gram-negative bacilli. She is continued on Zosyn. The patient is seen today 01/14/2023 in follow-up on the intensive care unit. She was transferred here yesterday after developing recurrent episodes of hypotension. She had received fluid bolus boluses and most of her pain medication had been discontinued as well as her beta blockers. She is seen today in follow-up in the intensive care unit. Sitting up in bed. Awake and alert in no acute distress. Maintaining O2 saturations in the 90s on 2 L/m per nasal cannula. Currently receiving 0.9% normal saline at 150 ML's per hour. No acute GI bleeding noted overnight. She was found to have Klebsiella pneumoniae in her urine. She is currently on Zosyn. White count 4.9. Hemoglobin 9.7. Platelets 463. Sodium 135. Potassium 3.2. Bicarb 21. BUN 5. Creatinine 0.65. Leukocytosis 106. Objective - Vital Signs Vital signs: Vital Signs Temp 98.3 F 01/14/23 04:00 Pulse 112 H 01/14/23 08:00 Resp 28 H 01/14/23 08:00 BP 105/50 01/14/23 08:00 Pulse Ox 93 L 01/14/23 08:00 FiO2 Intake & Output 01/13/23 01/14/23 01/14/23 18:59 06:59 18:59 Intake Total 2740 1650 300 Output Total 2 0 700 Balance 2738 1650 -400 Intake: IV 2500 1650 300 Sodium Chloride 0.9% 1, 1500 1650 300 000 ml @ 150 mls/hr IV . Q6H40M [facility] Rx#:[id number] Sodium Chloride 0.9% 1, 1000 000 ml @ 999 mls/hr IV . Q1H1M [facility] Rx#:[id number] Oral 240 Output: Urine 1 0 700 Stool 1 Other: Voiding Method External Catheter External Catheter # Voids 1 1 # Bowel Movements 1 - Exam GENERAL EXAM: Alert, 82-year-old female, on 2 L nasal cannula, comfortable in no apparent distress. HEAD: Normocephalic. EYES: Normal reaction of pupils, equal size. NOSE: Clear with pink turbinates. THROAT: No erythema or exudates. NECK: No masses, no JVD. CHEST: No chest wall deformity. LUNGS: Equal air entry with no crackles, wheeze, rhonchi or dullness. CVS: S1 and S2 normal with no audible murmur, regular rhythm. ABDOMEN: Surgical dressing dry and intact. Incision had been clean dry well approximated. Every other staple has been removed. No hepatosplenomegaly, normal bowel sounds, no guarding or rigidity. SPINE: No scoliosis or deformity SKIN: No rashes CENTRAL NERVOUS SYSTEM: No focal deficits, tone is normal in all 4 extremities. EXTREMITIES: There is no peripheral edema. No clubbing, no cyanosis. Peripheral pulses are intact. - Labs CBC & Chem 7: 01/14/23 05:25 01/14/23 05:25 Labs: Abnormal Lab Results - Last 24 Hours (Table) 01/13/23 01/13/23 01/13/23 Range/Units 06:28 06:28 09:48 RBC 3.12 L (4.10-5.20) X 10*6/uL Hgb 9.1 L (12.0-15.0) g/dL Hct 28.3 L (37.2-46.3) % RDW 14.6 H (11.5-14.5) % Plt Count 476 H (140-440) X 10*3/uL MPV 8.5 L (9.5-12.2) fL Immature Gran # 0.06 H (0.00-0.04) X 10*3/uL Lymphocytes # (1.0-4.8) k/uL Eosinophils # 0.45 H (0.04-0.35) X 10*3/uL Sodium 134 L (137-145) mmol/L Potassium (3.5-5.1) mmol/L Chloride (98-107) mmol/L Carbon Dioxide (22-30) mmol/L Anion Gap 7.40 L (10.00-18.00) mmol/L BUN 5.2 L 6 L (9.0-27.0) mg/dL BUN/Creatinine Ratio 7.79 L (12.00-20.00) Ratio Glucose 107 H (74-99) mg/dL Calcium 7.3 L 6.9 L (8.7-10.3) mg/dL Alkaline Phosphatase 33 L 35 L (41-126) U/L Total Protein 3.9 L 4.3 L (6.2-8.2) g/dL Albumin 1.9 L 1.9 L (3.8-4.9) g/dL Albumin/Globulin Ratio 0.96 L (1.60-3.17) g/dL 01/14/23 01/14/23 Range/Units 05:25 05:25 RBC 3.34 L (4.10-5.20) X 10*6/uL Hgb 9.7 L D (12.0-15.0) g/dL Hct 29.8 L (37.2-46.3) % RDW (11.5-14.5) % Plt Count 467 H (140-440) X 10*3/uL MPV (9.5-12.2) fL Immature Gran # (0.00-0.04) X 10*3/uL Lymphocytes # 0.3 L (1.0-4.8) k/uL Eosinophils # (0.04-0.35) X 10*3/uL Sodium 135 L (137-145) mmol/L Potassium 3.2 L (3.5-5.1) mmol/L Chloride 109 H (98-107) mmol/L Carbon Dioxide 21 L (22-30) mmol/L Anion Gap (10.00-18.00) mmol/L BUN 5 L (9.0-27.0) mg/dL BUN/Creatinine Ratio (12.00-20.00) Ratio Glucose 106 H (74-99) mg/dL Calcium 6.8 L (8.7-10.3) mg/dL Alkaline Phosphatase (41-126) U/L Total Protein (6.2-8.2) g/dL Albumin (3.8-4.9) g/dL Albumin/Globulin Ratio (1.60-3.17) g/dL Assessment and Plan Assessment: Rectal bleeding with nausea and vomiting. Resolved Hypotension secondary to above requiring 1 unit of packed red blood cells and fluid resuscitation. She was also receiving multiple pain medications including morphine, oxycodone and fentanyl patch. She was also on beta blockers. She did have ongoing issues with hypotension and was transferred into the intensive care unit on 01/13/2023. Did not require pressors. Currently receiving normal saline at 150 mL per hour. Blood pressure improves. Anemia secondary to above. Requiring 1 unit of packed red blood cells. Current hemoglobin 9.7. Hypokalemia, being replaced Urinary tract infection, culture revealing Klebsiella pneumonia. Currently on Zosyn Diverticulitis with suspected colovesicular fistula status post sigmoid resection lower anterior resection so found to have bilateral ovarian cysts status post bilateral ovarian cystectomy performed on 12/26/2022 History of hypertension Hyperlipidemia Hypothyroidism Chronic back pain with multiple back surgeries Plan: The patient was seen and evaluated Labs and medications reviewed Blood pressure has stabilized Continue saline at 150 ML's per hour Continue to monitor hemoglobin Continue Zosyn for UTI We will continue to observe for another day in the ICU We will continue to follow I have personally seen and examined the patient, performed the documentation and the assessment and plan as written. Number of minutes spent on the visit: 10.
--- NOTE | 2023-01-14 11:15 | PN ---
PROGRESS NOTE SUBJECTIVE: Ms. Styles, who had a sigmoid resection a few weeks ago, came back into the hospital with hypotension and had some fluid collection on the CAT scan at [facility] and was transferred here. She then had a drop in the hemoglobin. There was concern about GI bleeding. She received a unit of blood. Hemoglobin is 9.7. She had tachycardia yesterday with fever and also chills. I am concerned about bacteremia and the fluid collection in the pelvis. Possibility of this being the source of infection should be considered. I am recommending 2 sets of blood cultures if they are not already done and to request Dr. Aparicio to evaluate the patient regarding the fluid collection and possibility of this being an abscess. OBJECTIVE: VITAL SIGNS: Stable. Blood pressure is about 104/60. Pulse rate is about 100 per minute. HEENT: Unremarkable. Fundus was not examined by me. NECK: Supple. There is no JVD. I do not hear a carotid bruit. HEART: Reveals S1 and S2 with a short systolic murmur at left sternal border. LUNGS: Clear. ABDOMEN: Soft. EXTREMITIES: Lower extremities reveal diminished pulses. CENTRAL NERVOUS SYSTEM: Grossly, no focal deficits. RECOMMENDATIONS: I am requesting evaluation by surgeon and also 2 sets of blood cultures if they have not been done already yesterday. No other intervention from a cardiac standpoint. She had sinus tachycardia which has resolved. We will continue metoprolol tartrate 12.5 mg t.i.d. MMODL / IJN: [id number] /
[2023-01-14] MEDS: IOPAMIDOL CONTRAST (ORAL USE) VIAL PO PRN ×2 (13:16→14:27)
--- NOTE | 2023-01-14 15:55 | P.PN ---
Progress Note - Text Progress Note Date: 01/14/23 the patient was transferred to the ICU for hypotension yesterday. Her white count is 4.7. Her hemoglobin is 9.7. Patientpatient has minimal complaints of abdominal pain.her systolic blood pressures in the 110 range today. On exam vital signs appear stable. Abdomen soft. Incision is clean dry intact. Patient undergo computed tomography scan of the abdomen pelvis to evaluate . She will be closely observed.
--- NOTE | 2023-01-14 19:37 | CT ---
EXAMINATION TYPE: CT abdomen pelvis w con DATE OF EXAM: 01/14/2023 COMPARISON: 12/29/2022 HISTORY: Recent colon sx, GI bleed, longer prep time for oral contrast per Dr. Randle to reach rect um. The CT DLP: 1708.4 mGycm CONTRAST: CT scan of the abdomen and pelvis is performed with Oral Contrast and with IV Contrast, patient injec crys with 100 mL of Isovue 300. FINDINGS: LUNG BASES-: Small bilateral pleural effusions and compressive atelectasis. LIVER/GB: The gallbladder surgically absent. No space occupying hepatic lesion. Biliary tree is of normal caliber. Small amount of ascites about the liver and spleen. PANCREAS: No inflammation. No distinct mass. SPLEEN: No splenic enlargement. No lesion seen. ADRENALS: No nodule. No thickening. KIDNEYS/BLADDER: No hydronephrosis. No nephrolithiasis. No distinct renal mass. Urinary bladder g rossly unremarkable. BOWEL: Persistent free air noted. There is evidence of sigmoidectomy with anastomosis seen. There is fluid collection with internal air to the right of the anastomosis measuring 4.3 x 3.7 cm which may r eflect small leak or abscess. On the left there is another fluid collection seen with internal foci o f air measuring 5 x 3.8 cm which may reflect fluid and air within the left ovary and ovarian abscess is not excluded. GENITAL ORGANS: Hysterectomy changes seen. See above with regards to left ovary. LYMPH NODES: No greater than 1cm abdominal or pelvic lymph nodes are appreciated. AORTA: No significant abnormality. OSSEOUS STRUCTURES: No significant abnormality is seen. OTHER: Small amount of ascites about the liver and spleen. Small amount of pelvic free fluid noted a s well. IMPRESSION: 1. Persistent free air in a patient who is status post sigmoidectomy on 12/29/2022. As noted there is fluid collection adjacent the anastomotic site suspicious for leak and possible abscess. 2. In addition there is fluid and air within the left ovary or adjacent to the left ovary suggesting an additional abscess with possible involvement of the left ovary.
[2023-01-14] MEDS: HEPARIN SODIUM,PORCINE/PF 5,000 UNIT/0.5 ML SYRINGE SQ SCH (21:11)
[2023-01-14] MEDS: QUEtiapine 25 MG TAB PO SCH (21:11)
[2023-01-14] MEDS: tiZANidine 4 MG TAB PO SCH (21:11)
[2023-01-14] MEDS ORDERED: SODIUM CHLORIDE 0.9% 1,000 ML IV ONE (23:35)
--- NOTE | 2023-01-15 00:09 | PN ---
PROGRESS NOTE SUBJECTIVE: She remains in the ICU for hypotension. Overnight temperature is 97.5, blood pressure is low 100s, 93 to 99 with a high of 107/53 to 56. Her beta blockers and half her pain medicine was stopped yesterday. She is 99 on 2 L. Hemoglobin is down to 9.7, white count is 4.9. Her potassium is low at 3.2, has been replaced up to 3 9. Suspect she is dehydrated. She was given multiple boluses of fluid. Calcium is low at 6.8. Cortisol level is 18. Surgery saw her, ordered CAT scan of the abdomen pelvis to evaluate. We will have to see what the report of that is. She is seen by a general house worker in ICU today. She had 2 L oxygen, saturating in the 90s. She is on IV fluids, Klebsiella pneumonia in her urine. She is on Zosyn. Potassium is replaced little bit low. OBJECTIVE: CARDIAC: S1, S2. LUNGS: Clear. GI: Soft. INTEGUMENT: Dry, pale looking skin. PSYCH: Fair mood and affect. LABORATORY DATA: Albumin is extremely low at 1.9, which would cause hypotension due to severely low albumin levels, hypokalemia, status post rectal bleeding. She had 1 unit of blood, blood pressure is slowly improving. We need to get her protein levels up to prevent hypotension. Also, hypothyroidism, dyslipidemia, normal cortisol levels. Rule out adrenal insufficiency. Continue with IV antibiotics. Monitor hemoglobin and Zosyn. Continue normal saline keep going in ICU. Prognosis guarded. MMODL / IJN: [id number] /
[2023-01-15] MEDS ORDERED: NOREPINEPHRINE 4 MG in SODIUM CHLORIDE 0.9% 250 ML IV SCH (01:15)
[2023-01-15] MEDS: oxyCODONE-APAP 10-325MG 1 EACH TAB PO SCH ×5 (03:51→23:46)
[2023-01-15 06:13] LABS: Basophils % (A) 0 %; Eosinophils # (A) 0.2 k/uL (0-0.7); Eosinophils % (A) 3 %; HGB 8.8 gm/dL (11.4-16.0); Hypochromasia Slight; Lymphocytes # (A) 1.2 k/uL (1.0-4.8); Lymphocytes % (A) 13 %; MCHC 32.4 g/dL (31.0-37.0); MCV 89.4 fL (80.0-100.0); Mean Platelet Volume 7.5; Monocytes # (A) 0.4 k/uL (0-1.0); Monocytes % (A) 4 %; Neutrophils # (A) 7.3 k/uL (1.3-7.7); Neutrophils % (A) 79 %; Platelet Count 493 k/uL (150-450); RBC 3.02 m/uL (3.80-5.40); RDW 14.4 % (11.5-15.5); WBC 9.3 k/uL (3.8-10.6)
[2023-01-15 06:21] LABS: African American GFR (CKD) >90 (>60 ml/min/1.73 sqM); Anion Gap 4 mmol/L; Blood Urea Nitrogen 6 mg/dL (7-17); Calcium 6.8 mg/dL (8.4-10.2); Carbon Dioxide 23 mmol/L (22-30); Chloride 108 mmol/L (98-107); Glucose 113 mg/dL (74-99); Non-African American GFR(CKD) 88 (>60 ml/min/1.73 sqM); Potassium 3.3 mmol/L (3.5-5.1); Sodium 135 mmol/L (137-145)
[2023-01-15] MEDS ORDERED: Potassium Replacement Protocol 1 EACH MISC MISCELLANE PRN (06:33)
[2023-01-15] MEDS: LEVOTHYROXINE 125 MCG TAB PO SCH (06:42)
[2023-01-15] MEDS: POTASSIUM CHLORIDE ER 20 MEQ TAB.ER PO SCH ×4 (06:43→15:37)
[2023-01-15] MEDS: PANTOPRAZOLE 40 MG TABLET PO SCH (06:43)
[2023-01-15] MEDS: SODIUM CHLORIDE 0.9% 1,000 ML IV SCH ×3 (07:52→21:01)
[2023-01-15] MEDS: METOPROLOL TARTRATE 12.5 MG TAB PO SCH ×2 (08:51→21:00)
[2023-01-15] MEDS: HEPARIN SODIUM,PORCINE/PF 5,000 UNIT/0.5 ML SYRINGE SQ SCH ×2 (08:51→21:00)
[2023-01-15] MEDS: PIPERACILLIN-TAZOBACTAM 3.375 GM in SODIUM CHLORIDE 0.9% 100 ML IVPB SCH ×3 (08:51→23:47)
--- NOTE | 2023-01-15 10:49 | P.PN ---
Subjective Progress Note Date: 01/15/23 This is a very pleasant 82-year-old female patient with a known history of hyperlipidemia, pulmonary embolism, chronic back pain with multiple surgeries, colovesical fistula and had undergone an elective surgery on 12/26/2022 here for sigmoid resection with low anterior resection along with findings of bilateral ovarian cyst and bilateral ovarian cystectomy. During that hospitalization she had developed hypotension and required intensive care unit monitoring was subsequently discharged. Yesterday 01/09/2023 she had noted some bright red bleeding and developed nausea and vomiting and was taken from her home to [facility] where she was seen and evaluated in the emergency room. She was transferred back here to be near her surgeon. Ultrasound of the abdomen revealed an echo with an area in the area of incision felt to represent a seroma. No peripheral color flow to suggest abscess. We are consulted to take his patient was having issues with hypotension and being considered for transfer to the ICU. She is currently stable. Awake and alert in no acute distress. She denies any dizziness or lightheadedness. She did have a drop in hemoglobin to 7.0. She received 1 unit packed blood cells this morning. She received some fluid resuscitation. She stabilized and her blood pressure this afternoon has been greater than 100 systolic. With a mean of 79-83. Her beta ivonne dose as been adjusted. She is currently on antibiotics in the form of Zosyn. Urine culture pending. White count 7.8. Sodium 143. Potassium 2.5. Chloride 1:15. Bicarb 18. BUN 5. Creatinine 0.56. Lactic acid 0.6. The patient is seen today 01/11/2023 in follow-up on the regular medical floor. She is currently sitting up in the bed bedside planning to ambulate with assistance from physical therapy. She remains awake and alert. Maintaining good O2 saturations in the mid 90s on room air. She's been afebrile. Hemodynamically stable. Not requiring any or blood after yesterday's unit was given. Her current hemoglobin is 8.7. White count 9.4. Platelets 5:30. Sodium 137. Potassium 5.1. BUN 7. Creatinine 0.7. Pro-calcitonin 0.12. Urine with positive nitrites, large leukocytes and high WBCs. Culture revealing gram-negative bacilli. She is continued on Zosyn. The patient is seen today 01/14/2023 in follow-up on the intensive care unit. She was transferred here yesterday after developing recurrent episodes of hypotension. She had received fluid bolus boluses and most of her pain medication had been discontinued as well as her beta blockers. She is seen today in follow-up in the intensive care unit. Sitting up in bed. Awake and alert in no acute distress. Maintaining O2 saturations in the 90s on 2 L/m per nasal cannula. Currently receiving 0.9% normal saline at 150 ML's per hour. No acute GI bleeding noted overnight. She was found to have Klebsiella pneumoniae in her urine. She is currently on Zosyn. White count 4.9. Hemoglobin 9.7. Platelets 463. Sodium 135. Potassium 3.2. Bicarb 21. BUN 5. Creatinine 0.65. Leukocytosis 106. The patient is seen today 01/15/2023 in follow-up in the intensive care unit. She is currently awake and alert in no acute distress. Maintaining O2 saturations up to 100% on 2 L/m per nasal cannula. Afebrile. Currently hemodynamically stable. She did require some pressor support through the night. Currently norepinephrine is on hold. She has normal saline at 150 mL per hour. She is maintaining O2 saturation 90s on 2 L/m per nasal cannula. Repeat computed tomography scan of the abdomen reveals persistent free air post sigmoidectomy on 12/29/2022. There is fluid collection adjacent to the anastomotic site suspicious for leak and possible abscess. There is additional fluid and air within the left ovary for adjacent to the left ovary suggesting additional abscess with possible involvement in the left ovary. She is status post 1 unit packed red blood cells this admission. Current hemoglobin 8.8. P latelets 493. White count 9.3. Sodium 135. Potassium 3.3. Bicarb 23. BUN 6. Creatinine 0.58. Urine culture positive for Klebsiella pneumoniae. Blood cultures revealing no growth. She remains on Zosyn. Heparin for DVT prophylaxis. Objective - Vital Signs Vital signs: Vital Signs Temp 97.7 F 01/15/23 08:00 Pulse 74 01/15/23 10:00 Resp 21 01/15/23 09:00 BP 113/56 01/15/23 10:00 Pulse Ox 99 01/15/23 09:00 FiO2 Intake & Output 01/14/23 01/15/23 01/15/23 18:59 06:59 18:59 Intake Total 2744 2654.16 717.357 Output Total 1100 400 Balance 1644 2254.16 717.357 Weight 75.296 kg 97.8 kg Intake: IV 1800 2650 700 Piperacillin-Tazobactam 3 100 .375 gm In Sodium Chloride 0.9% 100 ml @ 25 mls/hr IVPB Q8HR [facility] Rx# :[id number] Sodium Chloride 0.9% 1, 1800 2650 600 000 ml @ 150 mls/hr IV . Q6H40M [facility] Rx#:[id number] Intake, IV Titration 100 4.16 17.357 Amount Norepinephrine 4 mg In 4.16 17.357 Sodium Chloride 0.9% 250 ml @ 0.03 MCG/KG/MIN 8. 606 mls/hr IV .Q24H [facility] Rx#:[id number] Piperacillin-Tazobactam 3 100 .375 gm In Sodium Chloride 0.9% 100 ml @ 25 mls/hr IVPB Q8HR [facility] Rx# :[id number] Oral 844 Output: Urine 1100 400 Other: Voiding Method External Catheter External Catheter External Catheter # Voids 1 1 0 # Bowel Movements 1 1 1 - Exam GENERAL EXAM: Alert, 82-year-old female, on 2 L nasal cannula, comfortable in no apparent distress. HEAD: Normocephalic. EYES: Normal reaction of pupils, equal size. NOSE: Clear with pink turbinates. THROAT: No erythema or exudates. NECK: No masses, no JVD. CHEST: No chest wall deformity. LUNGS: Equal air entry with no crackles, wheeze, rhonchi or dullness. CVS: S1 and S2 normal with no audible murmur, regular rhythm. ABDOMEN: Surgical dressing dry and intact. Incision had been clean dry well approximated. Every other staple has been removed. No hepatosplenomegaly, normal bowel sounds, no guarding or rigidity. SPINE: No scoliosis or deformity SKIN: No rashes CENTRAL NERVOUS SYSTEM: No focal deficits, tone is normal in all 4 extremities. EXTREMITIES: There is no peripheral edema. No clubbing, no cyanosis. Peripheral pulses are intact. - Labs CBC & Chem 7: 01/15/23 05:34 01/15/23 05:34 Labs: Abnormal Lab Results - Last 24 Hours (Table) 01/10/23 01/15/23 01/15/23 Range/Units 10:32 05:34 05:34 RBC 3.02 L (3.80-5.40) m/uL Hgb 8.8 L (11.4-16.0) gm/dL Hct 27.0 L (34.0-46.0) % Plt Count 493 H (150-450) k/uL Sodium 135 L (137-145) mmol/L Potassium 3.3 L (3.5-5.1) mmol/L Chloride 108 H (98-107) mmol/L BUN 6 L (7-17) mg/dL Glucose 113 H (74-99) mg/dL Calcium 6.8 L (8.4-10.2) mg/dL Crossmatch See Detail Microbiology - Last 24 Hours (Table) 01/13/23 14:40 Blood Culture - Preliminary Blood No Growth after 24 hours 01/13/23 14:47 Blood Culture - Preliminary Blood No Growth after 24 hours Assessment and Plan Assessment: Rectal bleeding with nausea and vomiting. Resolved Hypotension secondary to above requiring 1 unit of packed red blood cells and f luid resuscitation. She was also receiving multiple pain medications including morphine, oxycodone and fentanyl patch. She was also on beta blockers. She did have ongoing issues with hypotension and was transferred into the intensive care unit on 01/13/2023. Currently receiving normal saline at 150 mL per hour. Did require norepinephrine in the evening of 01/14 and into 01/15/2023. Currently p aused and blood pressure stable. Anemia secondary to above. Requiring 1 unit of packed red blood cells. Current hemoglobin 8.8. Hypokalemia, being replaced Urinary tract infection, culture revealing Klebsiella pneumonia. 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 Computed tomography scan of the abdomen from 01/14/2023 revealing persistent free air and noted a fluid collection adjacent to the anastomotic site suspicious for leak and possible abscess. There is an additional fluid and air within the left ovary are adjacent to the left ovary suggesting additional abscess with possible involvement of the left ovary. History of hypertension Hyperlipidemia Hypothyroidism Chronic back pain with multiple back surgeries Plan: The patient was seen and evaluated Computed tomography scan, labs and medications reviewed Blood pressure has stabilized Norepinephrine currently paused Continue saline at 150 ML's per hour Continue to monitor hemoglobin Continue Zosyn for UTI May transfer out of the ICU later today if she remains off pressors We will continue to follow I have personally seen and examined the patient, performed the documentation and the assessment and plan as written. Number of minutes spent on the visit: 10.
--- NOTE | 2023-01-15 12:40 | P.PN ---
Subjective Progress Note Date: 01/15/23 CHIEF COMPLAINT: Rectal bleeding HISTORY OF PRESENT ILLNESS: Patient in the ICU due to hypotension. She is currently off of Levophed. She has been having diarrhea. No further blood noted in the stools. Patient had a computed tomography scan abdomen and pelvis had shown persistent free air and a patient who is status post sigmoidectomy on 12/29/2022. As noted there is fluid collection adjacent to the anastomotic site suspicious for a leak and possible abscess. In addition there is fluid and air within the left ovary or adjacent to the left ovary suggesting an additional abscess with possible involvement of the left ovary. Afebrile. BP 113/56 , WBC 9.3 Hgb down from 9.7 to 8.8 platelets 493 sodium is 135 potassium 3.3 creatinine 0.58 patient complains more of back pain and abdominal pain. Patient seen and examined by Dr. Aparicio PHYSICAL EXAM: VITAL SIGNS: Reviewed. GENERAL: Well-developed in no acute distress. HEENT: No sclera icterus. Extraocular movements grossly intact. Moist buccal mucosa. Head is atraumatic, normocephalic. ABDOMEN: Soft. Nondistended. Nontender. Incision clean dry and intact NEUROLOGIC: Alert and oriented. Cranial nerves II through XII grossly intact. ASSESSMENT: 1. Acute GI bleed with bright red blood per rectum 2. Fluid collection adjacent to the anastomotic site suspicious for a leak or possible abscess 3. Recent sigmoid resection with lower anterior resection and bilateral ovarian cystectomy on 12/26/2022 for diverticulitis and bilateral enlarged ovarian cysts 3. Hypotension currently stable and off of Levophed PLAN: -Consult interventional radiology for possible drainage of abscess -Continue IV antibiotics -Continue full liquid diet -Continue supportive care Physician Cannery Tender Engineer note has been reviewed by physician. Signing provider agrees with the documented findings, assessment, and plan of care. Objective - Vital Signs Vital signs: Vital Signs Temp 97.7 F 01/15/23 08:00 Pulse 74 01/15/23 10:00 Resp 21 01/15/23 09:00 BP 113/56 01/15/23 10:00 Pulse Ox 99 01/15/23 09:00 FiO2 Intake & Output 01/14/23 01/15/23 01/15/23 18:59 06:59 18:59 Intake Total 2744 2654.16 717.357 Output Total 1100 400 Balance 1644 2254.16 717.357 Weight 75.296 kg 97.8 kg Intake: IV 1800 2650 700 Piperacillin-Tazobactam 3 100 .375 gm In Sodium Chloride 0.9% 100 ml @ 25 mls/hr IVPB Q8HR [facility] Rx# :[id number] Sodium Chloride 0.9% 1, 1800 2650 600 000 ml @ 150 mls/hr IV . Q6H40M [facility] Rx#:[id number] Intake, IV Titration 100 4.16 17.357 Amount Norepinephrine 4 mg In 4.16 17.357 Sodium Chloride 0.9% 250 ml @ 0.03 MCG/KG/MIN 8. 606 mls/hr IV .Q24H [facility] Rx#:[id number] Piperacillin-Tazobactam 3 100 .375 gm In Sodium Chloride 0.9% 100 ml @ 25 mls/hr IVPB Q8HR [facility] Rx# :[id number] Oral 844 Output: Urine 1100 400 Other: Voiding Method External Catheter External Catheter External Catheter # Voids 1 1 0 # Bowel Movements 1 1 1 - Labs CBC & Chem 7: 01/15/23 05:34 01/15/23 05:34 Labs: Abnormal Lab Results - Last 24 Hours (Table) 01/10/23 01/15/23 01/15/23 Range/Units 10:32 05:34 05:34 RBC 3.02 L (3.80-5.40) m/uL Hgb 8.8 L (11.4-16.0) gm/dL Hct 27.0 L (34.0-46.0) % Plt Count 493 H (150-450) k/uL Sodium 135 L (137-145) mmol/L Potassium 3.3 L (3.5-5.1) mmol/L Chloride 108 H (98-107) mmol/L BUN 6 L (7-17) mg/dL Glucose 113 H (74-99) mg/dL Calcium 6.8 L (8.4-10.2) mg/dL Crossmatch See Detail Microbiology - Last 24 Hours (Table) 01/13/23 14:40 Blood Culture - Preliminary Blood No Growth after 24 hours 01/13/23 14:47 Blood Culture - Preliminary Blood No Growth after 24 hours
--- NOTE | 2023-01-15 13:01 | P.CON ---
Consult Note - . Consult date: 01/15/23 Assessment/Plan:: reviewed case with Dr. Aparicio Fluid collection smaller than previous. Difficult access. No safe percutaneous access. consult on hold
[2023-01-15] MEDS: tiZANidine 4 MG TAB PO SCH (21:00)
[2023-01-15] MEDS: QUEtiapine 25 MG TAB PO SCH (21:00)
[2023-01-15 21:13] LABS: Magnesium 1.6 mg/dL (1.6-2.3); Potassium 3.9 mmol/L (3.5-5.1)
[2023-01-15] MEDS ORDERED: Magnesium Replacement Protocol 1 EACH MISC MISCELLANE PRN (22:00)
[2023-01-15] MEDS: MAGNESIUM SULFATE-D5W PMX 1 GM in DEXTROSE/WATER 1 100ML.BAG IVPB SCH (23:48)
[2023-01-16] MEDS: MAGNESIUM SULFATE-D5W PMX 1 GM in DEXTROSE/WATER 1 100ML.BAG IVPB SCH (01:32)
--- NOTE | 2023-01-16 01:35 | PN ---
PROGRESS NOTE SUBJECTIVE: Ms. Styles had a CT scan and the study suggests some fluid collection. Possibility of abscess is being considered. Dr. Aparicio has suggested and requested a tube placement by Interventional Radiology. We will see what they feel. If the fluid collection is an abscess, she has no fever at this time, although she had 1 day of chills. Blood cultures so far are negative. I will await further input from Interventional Radiology, but cardiac-parr, she is stable. No chest pain or shortness of breath. Blood pressure has also improved. OBJECTIVE: VITAL SIGNS: Stable. CARDIAC: S1, S2 heard normally. No significant short systolic murmur. LUNGS: Reveal bilateral decent air entry. ABDOMEN: Soft, nontender. EXTREMITIES: Lower extremities reveal diminished pulses. CENTRAL NERVOUS SYSTEM: Grossly no focal deficits. PLAN: Plan is to continue antibiotics. Supportive care. Await input from Interventional Radiology if it is possible to place a drainage tube into that pelvic fluid collection. MMODL / IJN: [id number] /
[2023-01-16] MEDS: SODIUM CHLORIDE 0.9% 1,000 ML IV SCH ×3 (05:41→09:31)
[2023-01-16] MEDS: oxyCODONE-APAP 10-325MG 1 EACH TAB PO SCH ×3 (05:46→18:51)
[2023-01-16] MEDS: LEVOTHYROXINE 125 MCG TAB PO SCH (05:46)
[2023-01-16] MEDS: PANTOPRAZOLE 40 MG TABLET PO SCH (07:03)
[2023-01-16 07:25] LABS: Basophils % (A) 0 %; Eosinophils # (A) 0.4 k/uL (0-0.7); Eosinophils % (A) 6 %; HCT 26.1 % (34.0-46.0); HGB 8.6 gm/dL (11.4-16.0); Hypochromasia Slight; Lymphocytes # (A) 1.2 k/uL (1.0-4.8); Lymphocytes % (A) 16 %; MCH 29.1 pg (25.0-35.0); MCHC 32.8 g/dL (31.0-37.0); MCV 88.7 fL (80.0-100.0); Mean Platelet Volume 8.4; Monocytes # (A) 0.2 k/uL (0-1.0); Monocytes % (A) 3 %; Neutrophils # (A) 5.4 k/uL (1.3-7.7); Neutrophils % (A) 73 %; Platelet Count 465 k/uL (150-450); Poikilocytosis Slight; RBC 2.94 m/uL (3.80-5.40); RDW 14.6 % (11.5-15.5); WBC 7.4 k/uL (3.8-10.6)
[2023-01-16 08:56] LABS: INR 1.3 (<1.2); Prothrombin Time 13.3 sec (9.0-12.0)
[2023-01-16] MEDS ORDERED: LIDOCAINE 1% INJ 10MG/ML (5 ML VIAL-PF) SQ ONE (09:00)
[2023-01-16 09:06] LABS: African American GFR (CKD) >90 (>60 ml/min/1.73 sqM); Anion Gap 1 mmol/L; Blood Urea Nitrogen 6 mg/dL (7-17); Calcium 7.2 mg/dL (8.4-10.2); Carbon Dioxide 23 mmol/L (22-30); Chloride 110 mmol/L (98-107); Glucose 115 mg/dL (74-99); Non-African American GFR(CKD) >90 (>60 ml/min/1.73 sqM); Potassium 3.9 mmol/L (3.5-5.1); Sodium 134 mmol/L (137-145)
[2023-01-16] MEDS: PIPERACILLIN-TAZOBACTAM 3.375 GM in SODIUM CHLORIDE 0.9% 100 ML IVPB SCH ×2 (09:30→15:14)
[2023-01-16] MEDS: METOPROLOL TARTRATE 12.5 MG TAB PO SCH ×2 (09:30→20:38)
[2023-01-16] MEDS: HEPARIN SODIUM,PORCINE/PF 5,000 UNIT/0.5 ML SYRINGE SQ SCH ×2 (09:30→20:39)
--- NOTE | 2023-01-16 10:04 | IR ---
PICC LINE PLACEMENT: HISTORY: Infection requiring long-term antibiotic therapy PROCEDURE: Ultrasound and fluoroscopic guidance of PICC line placement. COMPLICATIONS: None ANESTHESIA: 1. 1% Lidocaine locally. FINDINGS/TECHNIQUE: The procedure was explained to the patient. The risks, complications, benefits and alternatives were discussed and any questions were answered. Informed consent was obtained. The patient was placed supine on the fluoroscopic table and prepped and draped in the usual sterile fash ion. Utilizing a 21 gauge needle and sonographic and fluoroscopic guidance, access in the left basi lic vein was achieved and there is placement of a 0.018 guidewire. The vein is patent. A 4-F sheath was placed over the guidewire. The guidewire and dilator were removed and a 4-F. PICC line was plac ed through the sheath with the tip at the level of the SVC. The sheath was removed, the catheter was flushed and sutured into position. The patient was stable throughout the procedure and remained sta ble upon discharge from the Department of Radiology. The vein puncture was patent under ultrasound. A lazar scale image was obtained to document patency of the vein punctured. All elements of the maximal barrier technique were utilized. FLUOROSCOPY TIME: DAP 0.128Gy cm2 IMPRESSION: Successful PICC line placement under ultrasound and fluoroscopic guidance.
--- NOTE | 2023-01-16 10:15 | P.PN ---
Subjective Progress Note Date: 01/16/23 This is a very pleasant 82-year-old female patient with a known history of hyperlipidemia, pulmonary embolism, chronic back pain with multiple surgeries, colovesical fistula and had undergone an elective surgery on 12/26/2022 here for sigmoid resection with low anterior resection along with findings of bilateral ovarian cyst and bilateral ovarian cystectomy. During that hospitalization she had developed hypotension and required intensive care unit monitoring was subsequently discharged. Yesterday 01/09/2023 she had noted some bright red bleeding and developed nausea and vomiting and was taken from her home to [facility] where she was seen and evaluated in the emergency room. She was transferred back here to be near her surgeon. Ultrasound of the abdomen revealed an echo with an area in the area of incision felt to represent a seroma. No peripheral color flow to suggest abscess. We are consulted to take his patient was having issues with hypotension and being considered for transfer to the ICU. She is currently stable. Awake and alert in no acute distress. She denies any dizziness or lightheadedness. She did have a drop in hemoglobin to 7.0. She received 1 unit packed blood cells this morning. She received some fluid resuscitation. She stabilized and her blood pressure this afternoon has been greater than 100 systolic. With a mean of 79-83. Her beta ivonne dose as been adjusted. She is currently on antibiotics in the form of Zosyn. Urine culture pending. White count 7.8. Sodium 143. Potassium 2.5. Chloride 1:15. Bicarb 18. BUN 5. Creatinine 0.56. Lactic acid 0.6. The patient is seen today 01/11/2023 in follow-up on the regular medical floor. She is currently sitting up in the bed bedside planning to ambulate with assistance from physical therapy. She remains awake and alert. Maintaining good O2 saturations in the mid 90s on room air. She's been afebrile. Hemodynamically stable. Not requiring any or blood after yesterday's unit was given. Her current hemoglobin is 8.7. White count 9.4. Platelets 5:30. Sodium 137. Potassium 5.1. BUN 7. Creatinine 0.7. Pro-calcitonin 0.12. Urine with positive nitrites, large leukocytes and high WBCs. Culture revealing gram-negative bacilli. She is continued on Zosyn. The patient is seen today 01/14/2023 in follow-up on the intensive care unit. She was transferred here yesterday after developing recurrent episodes of hypotension. She had received fluid bolus boluses and most of her pain medication had been discontinued as well as her beta blockers. She is seen today in follow-up in the intensive care unit. Sitting up in bed. Awake and alert in no acute distress. Maintaining O2 saturations in the 90s on 2 L/m per nasal cannula. Currently receiving 0.9% normal saline at 150 ML's per hour. No acute GI bleeding noted overnight. She was found to have Klebsiella pneumoniae in her urine. She is currently on Zosyn. White count 4.9. Hemoglobin 9.7. Platelets 463. Sodium 135. Potassium 3.2. Bicarb 21. BUN 5. Creatinine 0.65. Leukocytosis 106. The patient is seen today 01/15/2023 in follow-up in the intensive care unit. She is currently awake and alert in no acute distress. Maintaining O2 saturations up to 100% on 2 L/m per nasal cannula. Afebrile. Currently hemodynamically stable. She did require some pressor support through the night. Currently norepinephrine is on hold. She has normal saline at 150 mL per hour. She is maintaining O2 saturation 90s on 2 L/m per nasal cannula. Repeat computed tomography scan of the abdomen reveals persistent free air post sigmoidectomy on 12/29/2022. There is fluid collection adjacent to the anastomotic site suspicious for leak and possible abscess. There is additional fluid and air within the left ovary for adjacent to the left ovary suggesting additional abscess with possible involvement in the left ovary. She is status post 1 unit packed red blood cells this admission. Current hemoglobin 8.8. P latelets 493. White count 9.3. Sodium 135. Potassium 3.3. Bicarb 23. BUN 6. Creatinine 0.58. Urine culture positive for Klebsiella pneumoniae. Blood cultures revealing no growth. She remains on Zosyn. Heparin for DVT prophylaxis. The patient is seen today 01/16/2023 in follow-up in the intensive care unit. She is currently resting comfortably in bed. Awake and alert in no acute distre ss. Maintaining O2 saturation in the 90s on room air. She has normal saline at 150 ML's per hour. Current hemoglobin 8.6. White count 7.4. Platelets 465. INR 1.3. Sodium 134. Potassium 3.9. Bicarb 23. BUN 6. Creatinine 0.52. His received 1 unit of packed red blood cells this admission. Blood cultures reveal no growth. Urine cultures positive for Klebsiella pneumoniae. She is continued on Zosyn. Heparin for DVT prophylaxis. Remains on Protonix. No further GI bleeding. Plan is for PICC line placement today. Objective - Vital Signs Vital signs: Vital Signs Temp 97.9 F 01/16/23 02:00 Pulse 69 01/16/23 06:00 Resp 20 01/16/23 02:00 BP 99/51 01/16/23 06:00 Pulse Ox 100 01/16/23 07:42 FiO2 Intake & Output 01/15/23 01/16/23 01/16/23 18:59 06:59 18:59 Intake Total 2017.357 1800 497 Output Total 425 500 Balance 4044.565 5410 497 Intake: IV 2000 1800 20 Invasive Line 4 20 Piperacillin-Tazobactam 3 200 .375 gm In Sodium Chloride 0.9% 100 ml @ 25 mls/hr IVPB Q8HR [facility] Rx# :[id number] Sodium Chloride 0.9% 1, 1800 1800 000 ml @ 150 mls/hr IV . Q6H40M [facility] Rx#:[id number] Intake, IV Titration 17.357 Amount Norepinephrine 4 mg In 17.357 Sodium Chloride 0.9% 250 ml @ 0.03 MCG/KG/MIN 8. 606 mls/hr IV .Q24H [facility] Rx#:[id number] Oral 477 Output: Urine 425 500 Other: Voiding Method External Catheter Indwelling Catheter # Voids 0 # Bowel Movements 1 - Exam GENERAL EXAM: Alert, pale, weak 82-year-old female, on room air, comfortable in no apparent distress. HEAD: Normocephalic. EYES: Normal reaction of pupils, equal size. NOSE: Clear with pink turbinates. THROAT: No erythema or exudates. NECK: No masses, no JVD. CHEST: No chest wall deformity. LUNGS: Equal air entry with no crackles, wheeze, rhonchi or dullness. CVS: S1 and S2 normal with no audible murmur, regular rhythm. ABDOMEN: Surgical dressing dry and intact. Incision had been clean dry well approximated. No hepatosplenomegaly, normal bowel sounds, no guarding or rigidity. SPINE: No scoliosis or deformity SKIN: No rashes CENTRAL NERVOUS SYSTEM: No focal deficits, tone is normal in all 4 extremities. EXTREMITIES: There is no peripheral edema. No clubbing, no cyanosis. Peripheral pulses are intact. - Labs CBC & Chem 7: 01/16/23 06:10 01/16/23 08:28 Labs: Abnormal Lab Results - Last 24 Hours (Table) 01/15/23 01/16/23 01/16/23 Range/Units 12:17 06:10 08:28 RBC 2.94 L (3.80-5.40) m/uL Hgb 8.6 L (11.4-16.0) gm/dL Hct 26.1 L (34.0-46.0) % Plt Count 465 H (150-450) k/uL PT (9.0-12.0) sec INR (<1.2) Sodium 134 L (137-145) mmol/L Potassium 3.3 L (3.5-5.1) mmol/L Chloride 110 H (98-107) mmol/L BUN 6 L (7-17) mg/dL Glucose 115 H (74-99) mg/dL Calcium 7.2 L (8.4-10.2) mg/dL 01/16/23 Range/Units 08:28 RBC (3.80-5.40) m/uL Hgb (11.4-16.0) gm/dL Hct (34.0-46.0) % Plt Count (150-450) k/uL PT 13.3 H (9.0-12.0) sec INR 1.3 H (<1.2) Sodium (137-145) mmol/L Potassium (3.5-5.1) mmol/L Chloride (98-107) mmol/L BUN (7-17) mg/dL Glucose (74-99) mg/dL Calcium (8.4-10.2) mg/dL Microbiology - Last 24 Hours (Table) 01/13/23 14:40 Blood Culture - Preliminary Blood No Growth after 48 hours 01/13/23 14:47 Blood Culture - Preliminary Blood No Growth after 48 hours Assessment and Plan Assessment: Rectal bleeding with nausea and vomiting. Resolved Hypotension secondary to above requiring 1 unit of packed red blood cells and fluid resuscitation. She was also receiving multiple pain medications including morphine, oxycodone and fentanyl patch. She was also on beta blockers. She did have ongoing issues with hypotension and was transferred into the intensive care unit on 01/13/2023. Currently receiving normal saline at 150 mL per hour. Did require norepinephrine in the evening of 01/14 and into 01/15/2023. Currently paused and blood pressure stable. Anemia secondary to above. Requiring 1 unit of packed red blood cells. Current hemoglobin 8.6. Hypokalemia, improved Urinary tract infection, culture revealing Klebsiella pneumonia. 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 Computed tomography scan of the abdomen from 01/14/2023 revealing persistent free air and noted a fluid collection adjacent to the anastomotic site suspicious for leak and possible abscess. There is an additional fluid and air within the left ovary are adjacent to the left ovary suggesting additional abscess with possible involvement of the left ovary. History of hypertension Hyperlipidemia Hypothyroidism Chronic back pain with multiple back surgeries Plan: The patient was seen and evaluated Labs and medications reviewed Decrease saline to 50 ML's per hour Continue to monitor hemoglobin Continue Zosyn for UTI PICC line being placed May transfer out of the ICU today We will continue to follow I have personally seen and examined the patient, performed the documentation and the assessment and plan as written. Number of minutes spent on the visit: 10.
[2023-01-16] MEDS ORDERED: POTASSIUM CHLORIDE ER 20 MEQ TAB.ER PO SCH (11:00)
--- NOTE | 2023-01-16 15:22 | PN ---
PROGRESS NOTE SUBJECTIVE: Ms. Styles is status post sigmoid resection. She has some fluid collection on the CT scan, but apparently it is less, and Dr. Hendrix did not feel it was necessary to do any drainage. She is clinically doing better. Blood pressure is good. Plan is to continue current medications and increase activity, and she now has a PICC line. The patient can be discharged whenever okay by Dr. Aparicio and other admitting doctors. Cardiac-parr, she is stable. We will continue to see her p.r.n. OBJECTIVE: VITAL SIGNS: Stable. Blood pressure 130/70. NECK: No JVD. HEART: S1 and S2 heard normally. Short systolic murmur. LUNGS: Clear. ABDOMEN: Soft. EXTREMITIES: Lower extremities reveal diminished pulses. CENTRAL NERVOUS SYSTEM: Normal. MMODL / IJN: [id number] /
--- NOTE | 2023-01-16 15:30 | P.PN ---
Subjective Progress Note Date: 01/16/23 CHIEF COMPLAINT: Rectal bleeding HISTORY OF PRESENT ILLNESS: Patient in the ICU due to hypotension. Patient remains off of Levophed. Blood pressure has improved. The fluid collection at the anastomotic site has shown improvement and decrease in size. No drainage was needed per interventional radiology. Patient's white count was normal at 7.4 hemoglobin is remaining stable at 8.6 she is afebrile. She's had no blood in her stools. Abdominal pain is improving. Denies any nausea or vomiting. Tolerating full liquids. Patient did receive PICC line today Patient seen and examined by Dr. Aparicio PHYSICAL EXAM: VITAL SIGNS: Reviewed. GENERAL: Well-developed in no acute distress. HEENT: No sclera icterus. Extraocular movements grossly intact. Moist buccal mucosa. Head is atraumatic, normocephalic. ABDOMEN: Soft. Nondistended. Nontender. Incision clean dry and intact NEUROLOGIC: Alert and oriented. Cranial nerves II through XII grossly intact. ASSESSMENT: 1. Possible infected hematoma at anastomotic site. Showing improvement. No drainage needed. 2. Acute GI bleed with bright red blood per rectum 3. Recent sigmoid resection with lower anterior resection and bilateral ovarian cystectomy on 12/26/2022 for diverticulitis and bilateral enlarged ovarian cysts PLAN: -Continue full liquid diet -Continue ensure -Continue IV antibiotics -Continue supportive care -Plan to remove the rest of incisional dale tomorrow Physician Tin Roofer note has been reviewed by physician. Signing provider agrees with the documented findings, assessment, and plan of care. Objective - Vital Signs Vital signs: Vital Signs Temp 97.8 F 01/16/23 08:00 Pulse 105 H 01/16/23 14:00 Resp 22 01/16/23 14:00 BP 97/81 01/16/23 15:00 Pulse Ox 89 L 01/16/23 14:00 FiO2 Intake & Output 01/15/23 01/16/23 01/16/23 18:59 06:59 18:59 Intake Total 2017.357 1800 1877 Output Total 425 500 550 Balance 9696.659 7824 1327 Intake: IV 2000 1800 320 Invasive Line 4 20 Piperacillin-Tazobactam 3 200 200 .375 gm In Sodium Chloride 0.9% 100 ml @ 25 mls/hr IVPB Q8HR [facility] Rx# :[id number] Sodium Chloride 0.9% 1, 1800 1800 000 ml @ 50 mls/hr IV . Q20H [facility] Rx#:[id number] Sodium Chloride 0.9% 1, 100 000 ml @ 50 mls/hr IV . Q20H [facility] Rx#:[id number] Intake, IV Titration 17.357 Amount Norepinephrine 4 mg In 17.357 Sodium Chloride 0.9% 250 ml @ 0.03 MCG/KG/MIN 8. 606 mls/hr IV .Q24H [facility] Rx#:[id number] Oral 1557 Output: Urine 425 500 550 Stool 0 Other: Voiding Method External Catheter Indwelling Catheter Indwelling Catheter # Voids 0 # Bowel Movements 1 - Labs CBC & Chem 7: 01/16/23 06:10 01/16/23 08:28 Labs: Abnormal Lab Results - Last 24 Hours (Table) 01/16/23 01/16/23 01/16/23 Range/Units 06:10 08:28 08:28 RBC 2.94 L (3.80-5.40) m/uL Hgb 8.6 L (11.4-16.0) gm/dL Hct 26.1 L (34.0-46.0) % Plt Count 465 H (150-450) k/uL PT 13.3 H (9.0-12.0) sec INR 1.3 H (<1.2) Sodium 134 L (137-145) mmol/L Chloride 110 H (98-107) mmol/L BUN 6 L (7-17) mg/dL Glucose 115 H (74-99) mg/dL Calcium 7.2 L (8.4-10.2) mg/dL Microbiology - Last 24 Hours (Table) 01/13/23 14:40 Blood Culture - Preliminary Blood No Growth after 48 hours 01/13/23 14:47 Blood Culture - Preliminary Blood No Growth after 48 hours
[2023-01-16] MEDS: QUEtiapine 25 MG TAB PO SCH (20:38)
[2023-01-16] MEDS: tiZANidine 4 MG TAB PO SCH (20:38)
--- NOTE | 2023-01-16 20:58 | PN ---
PROGRESS NOTE DATE OF SERVICE: 01/15/2023 White female remains in ICU for hypotension. She is on Percocet for pain. She is on IV antibiotics. Her CAT scan shows like a 3 cm seroma versus an abscess. Discussed case with Dr. Aparicio, who did say that he does not want to operate. Continue current treatments. Prognosis is guarded. MMODL / IJN: [id number] /
[2023-01-17] MEDS: oxyCODONE-APAP 10-325MG 1 EACH TAB PO SCH ×5 (00:01→23:35)
[2023-01-17] MEDS: PIPERACILLIN-TAZOBACTAM 3.375 GM in SODIUM CHLORIDE 0.9% 100 ML IVPB SCH ×4 (00:01→23:35)
[2023-01-17] MEDS: SODIUM CHLORIDE 0.9% 1,000 ML IV SCH ×2 (04:58→23:36)
[2023-01-17] MEDS: LEVOTHYROXINE 125 MCG TAB PO SCH (06:12)
[2023-01-17] MEDS: PANTOPRAZOLE 40 MG TABLET PO SCH (06:12)
[2023-01-17] MEDS: HEPARIN SODIUM,PORCINE/PF 5,000 UNIT/0.5 ML SYRINGE SQ SCH ×2 (07:20→21:17)
[2023-01-17] MEDS: METOPROLOL TARTRATE 12.5 MG TAB PO SCH ×2 (07:20→21:17)
--- NOTE | 2023-01-17 09:35 | P.PN ---
Subjective Progress Note Date: 01/17/23 CHIEF COMPLAINT: Rectal bleeding HISTORY OF PRESENT ILLNESS: Patient currently on a regular medical floor. She reports her abdominal pain is controlled. She denies any nausea or vomiting. She did have a small bowel movement yesterday with no evidence of bleeding. Appetite is diminished. Afebrile. Hemoglobin 8.6 yesterday. Incisional dale removed by nursing staff yesterday. PHYSICAL EXAM: VITAL SIGNS: Reviewed. GENERAL: Well-developed in no acute distress. HEENT: No sclera icterus. Extraocular movements grossly intact. Moist buccal mucosa. Head is atraumatic, normocephalic. ABDOMEN: Soft. Nondistended. Nontender. Incision clean dry and intact NEUROLOGIC: Alert and oriented. Cranial nerves II through XII grossly intact. ASSESSMENT: 1. Possible infected hematoma at anastomotic site. Showing improvement. No drainage needed per IR. 2. Acute GI bleed with bright red blood per rectum 3. Recent sigmoid resection with lower anterior resection and bilateral ovarian cystectomy on 12/26/2022 for diverticulitis and bilateral enlarged ovarian cysts PLAN: -Continue full liquid diet -Continue ensure -Continue IV antibiotics -Continue supportive care Physician Sheet Sewer note has been reviewed by physician. Signing provider agrees with the documented findings, assessment, and plan of care. CHIEF COMPLAINT: Rectal bleeding HISTORY OF PRESENT ILLNESS: The patient is a 82-year-old female status post colectomy with readmission for questionable intraperitoneal hematoma versus pelvic abscess. Patient having intermittent bloody stools. Denies moderate abdominal pain. She had a bowel movement. ROS: No reports of nausea and vomiting. No fevers or chills. No new chest pain. No productive sputum PHYSICAL EXAM: VITAL SIGNS: Reviewed CONSTITUTIONAL: Well developed and in no acute distress. Nontoxic in appearance. EYES: Conjuctivae without sclera icterus. Extraocular movements grossly intact. HEAD, EARS, NOSE, THROAT: Moist buccal mucosa. Head is atraumatic, normocephalic. Hears conversational speech. No nasal drainage. RESPIRATORY: Non-labored respirations and equal bilateral excursions. CARDIOVASCULAR: Palpable 2+ radial pulses. ABDOMEN: No peritonitis. MUSCULOSKELETAL: No gross deformity of the lower extremities noted. No clubbing. No cyanosis. SKIN: Good skin turgor. Well perfused. NEUROLOGIC: Cranial nerves II through XII grossly intact. No focal or lateralizing signs. PSYCH: Appropriate affect. Alert and oriented to person, place and time. CLINICAL LABS: Reviewed. WBC normal. Platelets trending down from 600 now 400, thrombocytosis STUDIES: CT of the abdomen and pelvis recently reviewed demonstrates a collection within the pelvis without air bubbles. No acute finding of intra- abdominal abscess. This is my independent interpretation. ASSESSMENT: 1. Intra-abdominal/pelvic abscess 2. Rectal bleeding 3. Thrombocytosis PLAN: 1. Continue IV antibiotics. Recommend infectious disease consultation for anti biotic management 2. Continue PICC line. 3. Diet as tolerated Objective - Vital Signs Vital signs: Vital Signs Temp 97.7 F 01/17/23 07:09 Pulse 77 01/17/23 07:09 Resp 15 01/17/23 07:09 BP 119/65 01/17/23 07:09 Pulse Ox 94 L 01/17/23 07:09 FiO2 Intake & Output 01/16/23 01/17/23 01/17/23 18:59 06:59 18:59 Intake Total 2617 910 Output Total 600 550 Balance 2016 360 Intake: IV 820 470 Invasive Line 4 20 20 Piperacillin-Tazobactam 3 200 .375 gm In Sodium Chloride 0.9% 100 ml @ 25 mls/hr IVPB Q8HR [facility] Rx# :[id number] Sodium Chloride 0.9% 1, 600 450 000 ml @ 50 mls/hr IV . Q20H [facility] Rx#:[id number] Oral 1797 440 Output: Urine 600 550 Stool 0 Other: Voiding Method Indwelling Catheter Indwelling Catheter - Labs CBC & Chem 7: 01/16/23 06:10 01/16/23 08:28 Labs: Microbiology - Last 24 Hours (Table) 01/13/23 14:40 Blood Culture - Preliminary Blood No Growth after 72 hours 01/13/23 14:47 Blood Culture - Preliminary Blood No Growth after 72 hours
--- NOTE | 2023-01-17 10:29 | P.PN ---
Subjective Progress Note Date: 01/17/23 Principal diagnosis: Abdominal pain. The patient is seen today 01/14/2023 in follow-up on the intensive care unit. She was transferred here yesterday after developing recurrent episodes of hypotension. She had received fluid bolus boluses and most of her pain medication had been discontinued as well as her beta blockers. She is seen today in follow-up in the intensive care unit. Sitting up in bed. Awake and alert in no acute distress. Maintaining O2 saturations in the 90s on 2 L/m per nasal cannula. Currently receiving 0.9% normal saline at 150 ML's per hour. No acute GI bleeding noted overnight. She was found to have Klebsiella pneumoniae in her urine. She is currently on Zosyn. White count 4.9. Hemoglobin 9.7. Platelets 463. Sodium 135. Potassium 3.2. Bicarb 21. BUN 5. Creatinine 0.65. Leukocytosis 106. The patient is seen today 01/15/2023 in follow-up in the intensive care unit. She is currently awake and alert in no acute distress. Maintaining O2 saturations up to 100% on 2 L/m per nasal cannula. Afebrile. Currently hemodynamically stable. She did require some pressor support through the night. Currently norepinephrine is on hold. She has normal saline at 150 mL per hour. She is maintaining O2 saturation 90s on 2 L/m per nasal cannula. Repeat computed tomography scan of the abdomen reveals persistent free air post sigmoidectomy on 12/29/2022. There is fluid collection adjacent to the anastomotic site suspicious for leak and possible abscess. There is additional fluid and air within the left ovary for adjacent to the left ovary suggesting additional abscess with possible involvement in the left ovary. She is status p ost 1 unit packed red blood cells this admission. Current hemoglobin 8.8. Platelets 493. White count 9.3. Sodium 135. Potassium 3.3. Bicarb 23. BUN 6. Creatinine 0.58. Urine culture positive for Klebsiella pneumoniae. Blood cultures revealing no growth. She remains on Zosyn. Heparin for DVT prophylaxis. The patient is seen today 01/16/2023 in follow-up in the intensive care unit. She is currently resting comfortably in bed. Awake and alert in no acute distress. Maintaining O2 saturation in the 90s on room air. She has normal saline at 150 ML's per hour. Current hemoglobin 8.6. White count 7.4. Platelets 465. INR 1.3. Sodium 134. Potassium 3.9. Bicarb 23. BUN 6. Crea tinine 0.52. His received 1 unit of packed red blood cells this admission. Blood cultures reveal no growth. Urine cultures positive for Klebsiella pneumoniae. She is continued on Zosyn. Heparin for DVT prophylaxis. Remains on Protonix. No further GI bleeding. Plan is for PICC line placement today. Progress note dated 01/17/2023. The patient was transferred out of the intensive care unit yesterday. She was seen today on the general medical floor, room 452. Currently, she is on room ai r. She's receiving saline at 50 mL an hour. She didn't develop a Klebsiella urinary tract infection, and for that she is on Zosyn. She looks very stable, without any complaints. She apparently had an uneventful night. PT was 13.3 with an INR 1.3. Sodium 134, potassium 3.9, chlorides 110, CO2 23, BUN 6, creatinine 0.52. Objective - Vital Signs Vital signs: Vital Signs Temp 97.7 F 01/17/23 07:09 Pulse 77 01/17/23 08:46 Resp 15 01/17/23 08:46 BP 119/65 01/17/23 07:09 Pulse Ox 94 L 01/17/23 07:09 FiO2 Intake & Output 01/16/23 01/17/23 01/17/23 18:59 06:59 18:59 Intake Total 2617 910 Output Total 600 550 Balance 2016 360 Intake: IV 820 470 Invasive Line 4 20 20 Piperacillin-Tazobactam 3 200 .375 gm In Sodium Chloride 0.9% 100 ml @ 25 mls/hr IVPB Q8HR [facility] Rx# :[id number] Sodium Chloride 0.9% 1, 600 450 000 ml @ 50 mls/hr IV . Q20H [facility] Rx#:[id number] Oral 1797 440 Output: Urine 600 550 Stool 0 Other: Voiding Method Indwelling Catheter Indwelling Catheter Indwelling Catheter - Exam No acute distress, oriented 3. No respiratory distress. Currently on room air. HEENT examination is grossly unremarkable. Neck supple. Full range of motion. No adenopathy thyromegaly or neck vein distention. Cardiovascular examination reveals regular rhythm rate. S1-S2 normal. No S3 or S4. No discernible murmur noted. Heart rate is 77 bpm. Lungs reveal clear breath sounds. Breath sounds are equal bilaterally. No adventitious lung sounds including wheezes rhonchi or crackles. Abdomen soft bowel sounds are heard. No masses or tenderness. Extremities are intact. No cyanosis clubbing or edema. Skin is without rash or lesion. Neurologic examination is brief but nonfocal. - Labs CBC & Chem 7: 01/16/23 06:10 01/16/23 08:28 Labs: Microbiology - Last 24 Hours (Table) 01/13/23 14:40 Blood Culture - Preliminary Blood No Growth after 72 hours 01/13/23 14:47 Blood Culture - Preliminary Blood No Growth after 72 hours Assessment and Plan Assessment: Rectal bleeding with nausea and vomiting, resolved. Hypotension secondary to above requiring 1 unit of packed red blood cells and fluid resuscitation. She was also receiving multiple pain medications including morphine, oxycodone and fentanyl patch. She was also on beta blockers. She did have ongoing issues with hypotension and was transferred into the intensive care unit on 01/13/2023. Currently receiving normal saline at 150 mL per hour. Did require norepinephrine in the evening of 01/14 and into 01/15/2023. Currently paused and blood pressure stable. Anemia secondary to above. Requiring 1 unit of packed red blood cells. Hypokalemia, improved. Urinary tract infection, culture revealing Klebsiella pneumonia. 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 Computed tomography scan of the abdomen from 01/14/2023 revealing persistent free air and noted a fluid collection adjacent to the anastomotic site suspicious for leak and possible abscess. There is an additional fluid and air within the left ovary are adjacent to the left ovary suggesting additional abscess with possible involvement of the left ovary. History of hypertension. Hyperlipidemia. Hypothyroidism. Chronic back pain with multiple back surgeries. Plan: Plan dated 01/17/2023. The patient appears to be doing well. She continues on saline at 50 mL an hour. She's on room air. Labs, x-rays, medications are reviewed. For Klebsiella urinary tract infection, she continues on Zosyn. We will continue to follow the patient and make recommendations along the way. Prognosis is guarded. Time with Patient: Less than 30
[2023-01-17 11:56] VITALS: BMI 32.8
--- NOTE | 2023-01-17 15:02 | CDI ---
Documentation Clarification Form Date: 01/17/2023 2:59:56 PM From: Kaylin Martins Phone: [phone] Admit Date: 01/09/2023 2:25:00 AM Patient Name: Kiana Styles Visit Number: [id number] Discharge Date: ATTENTION: The Clinical Documentation Specialists (CDI) and [facility] Coding Staff appreciate your assistance in clarifying documentation. Please respond to the clarification below the line at the bottom and electronically sign. The CDI & [facility] Coding staff will review the response and follow-up if needed. Please note: Queries are made part of the Legal Health Record. If you have any questions, please contact the author of this message via ITS. Dr. Maynor Martínez Your patient has ongoing issues with hypotension and was transferred into the intensive care unit on 01/13. Pulmonary note, 01/15. Based on this information and the findings below, is there an additional diagnosis that is clinically appropriate for this patient? Patient history/risk factors: 82-year-old female presented with concerns of bleed bright red blood per rectum after discharge from [facility] post Sigmoid resection with low anterior resection and bilateral ovarian cystectomy. Medical History: Low BP with orthostatic issues at times, HLD and chronic low back pain. 01/09, H&P. Clinical Indicators: Hgb: 01/09 8.9; 01/10 7.0; 01/13 9.1; 01/15 8.8 VSS: 01/13 07:28 B/P 73/34, HR 102 , 97.9 F Oral, RR 19, SpO2 95% room air 01/13 08:15 B/P 74/43 01/13 12:00 B/P 99/62, HR 86, RR 11; SpO2 95% room air 01/13 15:00 B/P 95/48, HR 78, RR 18, SpO2 93% room air 01/14 02:00 B/P 88/48 HR 111, RR 33, SpO2 99% room air 01/14 05:00 B/P 99/45 HR 112, RR 31, SpO2 93% room air 01/15 00:00 B/P 78/39, HR 72, RR 21, SpO2 85% 2L nasal cannula 01/15 11:00 B/P 85/62, HR 64, RR 17, SpO2 100% 2L nasal cannula 01/14, Pulmonary note: Hypotension secondary to rectal bleeding, nausea and vomiting., requiring 1 unit of packed red blood cells and fluid resuscitation. She was also receiving multiple pain medications including morphine oxycodone and fentanyl patch. She was also on Beta blockers. Treatment: 01/13 01/17 ICU monitoring, 01/10 One unit PRBC, 01/09 0.9NS 500cc IV bolus, 01/09 -01/10 0.9NS 500cc IV bolus, 01/09 01/10 0.9NS 75cc/hr, 01/09 0.91L IV bolus, 01/10 0.9NS 1L IV bolus, 01/10 01/13 0.9NS IV 100cc/hr, 01/13 0.9NS 1L IV bolus, 01/13 01/16 0.9NS IV 50cc/hr, 01/14 0.9ns 1L IV bolus, 01/16 -01/17 0.9NS IV 50cc/hr, 01/15 01/15 Norepinephrine IV Please clarify the type of shock, if known: [x ] Hypovolemic Shock [ ] Other, please specify [ ] Unable to determine (Template Last Revised: December 2020) MTDD
[2023-01-17] MEDS: QUEtiapine 25 MG TAB PO SCH (21:17)
[2023-01-17] MEDS: tiZANidine 4 MG TAB PO SCH (21:17)
--- NOTE | 2023-01-17 21:19 | P.CONS ---
History of Present Illness - Reason for Consult Consult date: 01/17/23 Infected hematoma Requesting physician: Veronica Dee - Chief Complaint Abdominal pain and bleeding per rectum x few days - History of Present Illness Patient is a 82-year-old female with a past medical history significant for hypertension osteoarthritis PE patient did have a recent sigmoid resection along with bilateral ovarian cystectomy by on 12/26/2022 for diverticulitis and bilateral enlarged ovarian cyst patient started having bright red blood per rectum while the patient was initially evaluated at [facility] patient did have a CT of abdominal pelvis at that facility fluid left in the pelvis may be abscess or hematoma patient was subsequently transferred to this facility for further management and the patient has been the hospital for more than a week now with admission on 01/09/2023 since admission to the hospital the patient did not have any fever patient did have a mild elevated white count of on 01/09/2023 however the white count has been normal since then patient hemoglobin has been relatively stable around 8.6-9.7 kidney function has been normal did have elevated liver enzymes on admission subsequently have normalized urine was negative though urine culture did grew Klebsiella pneumonia I patient did have a CT abdominal pelvis completed on 01/14/2023 persistent free air in the patient status post sigmoidectomy fluid adjacent to anastomotic site suspicious for leak and possible abscess IR was consulted they were not able to drain the fluid collection infectious disease was consulted today after the patient had in the hospital for 8 days concern for infected hematoma patient has been empirically treated with Zosyn patient currently denies having any fever or any chills patient denies having any chest pain or shortness of breath or cough no abdominal pain patient midline incision is currently healed no drainage was noticed and denies any further bleeding per rectum Review of Systems Positive point and negatives has been mentioned in the HPI, complete review of systems was performed and all other systems are negative Past Medical History Past Medical History: Hyperlipidemia, Osteoarthritis (OA), Pulmonary Embolus (PE), Thyroid Disorder Additional Past Medical History / Comment(s): hx 5 back surgeries with chronic back pain, low bp with orthostatic issues at times, left shoulder pain and stiffness- receives cortisone. , possible PE (2019)., states uti for the last year., rectal fistula, uses cane & walker. History of Any Multi-Drug Resistant Organisms: None Reported Past Surgical History: Back Surgery, Cholecystectomy, Heart Catheterization, Hysterectomy, Joint Replacement, Orthopedic Surgery Additional Past Surgical History / Comment(s): 5 back surgeries, right & left total knees, total right shoulder replacement and 2 previous surgeries on right shoulder, , lumpectomy right breast. 12/26 Dr. Aparicio fix bowel/ bladder fistula Past Anesthesia/Blood Transfusion Reactions: No Reported Reaction, Family History of Problems w/ Anesthesia Additional Past Anesthesia/Blood Transfusion Reaction / Comm: blood transfusions with child no issues. daughter has ponv Past Psychological History: No Psychological Hx Reported Smoking Status: Never smoker Past Alcohol Use History: Rare Past Drug Use History: None Reported - Past Family History Father Family Medical History: Diabetes Mellitus Mother Family Medical History: Hypertension Daughter(s) Family Medical History: Diabetes Mellitus Medications and Allergies Home Medications Medication Instructions Recorded Confirmed Type Levothyroxine Sodium [Synthroid] 125 mcg PO DAILY 05/15/22 01/09/23 History tiZANidine [Zanaflex] 4 mg PO HS 05/15/22 01/09/23 History Aspirin EC [Ecotrin Low Dose] 81 mg PO DAILY #30 tab 01/03/23 01/09/23 Rx QUEtiapine [SEROquel] 25 mg PO HS #3 tab 01/03/23 01/09/23 Rx oxyCODONE-APAP 10-325MG [Percocet 1 tab PO Q6HR@00,06,12,18 01/09/23 01/09/23 History 10-325 mg] Amoxic-Pot Clav 875-125Mg 1 tab PO Q12HR 14 Days #28 tab 01/21/23 Rx [Augmentin 875-125] Budesonide-Formot 160-4.5 Mcg 2 puff INHALATION RT-BID each 01/22/23 Rx [Symbicort 160-4.5 Mcg Inhaler] Ipratropium Nebulized [Atrovent 0.5 mg INHALATION RT-QID ml 01/22/23 Rx Nebulized 0.2 MG/ML] Metoprolol Tartrate [Lopressor] 12.5 mg PO BID tab 01/22/23 Rx Pantoprazole [Protonix] 40 mg PO AC-BRKFST tab 01/22/23 Rx Potassium Chloride ER [K-Dur 20] 20 meq PO DAILY tab 01/22/23 Rx Acetaminophen Tab [Tylenol] 650 mg PO Q6HR PRN tab 01/24/23 Rx Midodrine [ProAmatine] 2.5 mg PO AC-TID 30 Days #90 tab 01/24/23 Rx Allergies Allergy/AdvReac Type Severity Reaction Status Date / Time cat dander Allergy Rash/Hives Verified 01/09/23 07:22 latex Allergy Rash/Hives, Verified 01/09/23 07:22 Swelling Sulfa (Sulfonamide Allergy Nausea, Verified 01/09/23 07:22 Antibiotics) Chills nortriptyline [From Pamelor] AdvReac irritated, Verified 01/09/23 07:22 nervous Physical Exam Vitals: Vital Signs Temp Pulse Pulse Resp BP BP Pulse Ox 01/17/23 08:46 77 15 01/17/23 07:09 97.7 F 77 15 119/65 94 L 01/17/23 01:24 97.6 F 70 18 104/61 96 01/16/23 20:00 98.0 F 19 139/82 97 01/16/23 15:00 97/81 01/16/23 14:00 97.2 F L 105 H 22 120/66 96 Intake and Output 01/16/23 01/17/23 01/17/23 22:59 06:59 14:59 Intake Total 1510 890 Output Total 550 300 Balance 960 590 Intake: IV 670 450 Invasive Line 4 20 Piperacillin-Tazobactam 3 100 .375 gm In Sodium Chloride 0.9% 100 ml @ 25 mls/hr IVPB Q8HR [facility] Rx# :[id number] Sodium Chloride 0.9% 1, 550 450 000 ml @ 50 mls/hr IV . Q20H [facility] Rx#:[id number] Oral 840 440 Output: Urine 550 300 Other: Voiding Method Indwelling Catheter Indwelling Catheter Weight 97.8 kg GENERAL DESCRIPTION: Mitchel female up in the chair bed, no distress. No tachypnea or accessory muscle of respiration use. HEENT: Shows Pallor , no scleral icterus. Oral mucous membrane is dry. NECK: Trachea central, no thyromegaly. LUNGS: Unlabored breathing. Clear to auscultation anteriorly. No wheeze or crackle. HEART: S1, S2, regular rate and rhythm. No loud murmur ABDOMEN: Soft, no tenderness , midline incision is intact no drainage EXTREMITIES: No edema of feet. SKIN: No rash, no masses palpable. Significant bruising of the left upper extremity NEUROLOGICAL: The patient is awake, alert, oriented x3, mood and affect normal. Results CBC & Chem 7: 01/24/23 05:45 01/23/23 13:51 Labs: Microbiology - Last 24 Hours (Table) 01/13/23 14:40 Blood Culture - Preliminary Blood No Growth after 72 hours 01/13/23 14:47 Blood Culture - Preliminary Blood No Growth after 72 hours Assessment and Plan (1) Infected hematoma following procedure Current Visit: No Status: Acute Code(s): FYJ8135 - SNOMED Code(s): 170203280 Plan: 1patient with a recent history of sigmoid resection along with bilateral ovarian cystectomy on 12/26/2022 subsequently presented to hospital with bleeding per rectum noticed to have a fluid collection around anastomosis site with a repeat CAT scan on 01/14/2023 did show decrease in size of the fluid and could not be drained via CT-guided per IR patient has been afebrile during this hospital stay and did have a normal white count concerning for possible hematoma infected hematoma or abscess noted at excluded however keeping in mind decrease in size with antibiotics recommend to continue patient on IV Zosyn at this point 2patient already has a PICC line plan will be for 2-week course of antibiotic therapy and repeat CAT scan to make sure that fluid collection has resolved however the patient has any worsening symptoms of abdominal pain no fever or elevated white count may need to repeat the CT earlier We will follow on clinical condition and cultures to further adjust medication if needed Thank you for this consultation we will follow the patient along with you Time with Patient: Greater than 30
--- NOTE | 2023-01-18 02:44 | PN ---
PROGRESS NOTE DATE OF SERVICE: 01/17/2023 SUBJECTIVE: The patient was transferred out of the ICU care yesterday, on general medical floor, currently on room air. She has Klebsiella UTI. She is on Zosyn, very stable. Sodium 134, potassium 3.9, BUN 6, creatinine 0.54. OBJECTIVE: VITAL SIGNS: Pulse ox 94, blood pressure is 119/65, temp 97, pulse 77, and respiratory rate 16 to 18. PSYCH: Fair mood and affect. CARDIOVASCULAR: Given appropriate answers. LUNGS: Transmitted upper sounds. HEMATOLOGY: Negative for Homans. ABDOMEN: Soft. SKIN: Warm, dry, and intact. Blood cultures no growth for 72 hours, acute diverticulitis with suspected colovesicular fistula, status post sigmoid resection, anterior resection, bilateral renal cysts. She had ovarian cystectomy. CT abdomen on 01/14/2023 revealed persistent free air, noted a fluid collection adjacent to slightly suspicious for an abscess, additional fluid air in the left ovary, possible abscess there, hypertension, dyslipidemia, hypothyroidism, chronic back pain, status post transfusion. Hypertension. Continue on her beta blockers which were discontinued due to hypotension and fluid boluses were given. She remains in ICU. She is on norepinephrine. She has been weaned off norepinephrine. Continue on low-dose IV fluids, IV antibiotics. Diet tolerated per surgery. Prognosis guarded. Condition remains guarded. MMODL / IJN: [id number] /
[2023-01-18] MEDS: oxyCODONE-APAP 10-325MG 1 EACH TAB PO SCH ×3 (06:13→17:44)
[2023-01-18] MEDS: LEVOTHYROXINE 125 MCG TAB PO SCH (06:13)
[2023-01-18] MEDS: PANTOPRAZOLE 40 MG TABLET PO SCH (06:13)
[2023-01-18 08:58] LABS: Basophils # (A) 0.07 X 10*3/uL (0.00-0.10); Basophils % (A) 0.9 %; Eosinophils % (A) 6.7 %; HCT 24.6 % (37.2-46.3); HGB 7.9 g/dL (12.0-15.0); Immature Grans, Automated 0.9 %; Lymphocytes # (A) 1.72 X 10*3/uL (0.90-5.00); Lymphocytes % (A) 23.1 %; MCH 28.3 pg (27.0-32.0); MCHC 32.1 g/dL (32.0-37.0); MCV 88.2 fL (80.0-97.0); Mean Platelet Volume 8.8 fL (9.5-12.2); Monocytes % (A) 5.4 %; NRBC Per 100 WBC 0 /100 WBCS (0.0-0.0); Neutrophils # (A) 4.67 X 10*3/uL (1.80-7.70); Platelet Count 463 X 10*3/uL (140-440); RBC 2.79 X 10*6/uL (4.10-5.20); WBC 7.43 X 10*3/uL (4.50-10.00)
[2023-01-18 09:08] LABS: African American GFR (CKD) 106.1 (60.0-200.0); Albumin 1.7 g/dL (3.8-4.9); Albumin/Globulin Ratio 0.85 (1.60-3.17); Anion Gap 5.6 mmol/L (10.00-18.00); BUN/Creat Ratio 7.91 Ratio (12.00-20.00); Blood Urea Nitrogen 3.9 mg/dL (9.0-27.0); Calcium 7.1 mg/dL (8.7-10.3); Carbon Dioxide 22.2 mmol/L (20.0-27.5); Non-African American GFR(CKD) 91.5 (60.0-200.0); Potassium 3.6 mmol/L (3.5-5.5); Total Bilirubin 0.4 mg/dL (0.30-1.20); Total Protein 3.7 g/dL (6.2-8.2)
[2023-01-18] MEDS: PIPERACILLIN-TAZOBACTAM 3.375 GM in SODIUM CHLORIDE 0.9% 100 ML IVPB SCH ×2 (09:59→16:43)
[2023-01-18] MEDS: METOPROLOL TARTRATE 12.5 MG TAB PO SCH ×2 (10:00→20:57)
[2023-01-18] MEDS: HEPARIN SODIUM,PORCINE/PF 5,000 UNIT/0.5 ML SYRINGE SQ SCH ×2 (10:00→20:57)
--- NOTE | 2023-01-18 13:26 | P.PN ---
Subjective Progress Note Date: 01/18/23 Principal diagnosis: Possible infected hematoma/abscess Patient is a 82-year-old female with a past medical history significant for hypertension osteoarthritis PE patient did have a recent sigmoid resection along with bilateral ovarian cystectomy by on 12/26/2022 for diverticulitis and bilateral enlarged ovarian cyst patient started having bright red blood per rectum , for the patient did have CT of abdominal pelvis concerning for fluid adjacent to anastomotic site with concern for possible hematoma versus abscess patient has been treated medically with antibiotics with repeat CAT scan did shows decrease in size of the fluid collection. On today's evaluation that is 01/18/2023, the patient denies having any fever or any chills, the patient denies having any chest pain or shortness of breath or cough no abdominal pain denies any nausea no vomiting infectious have some blood in his stool yesterday but none today Objective - Vital Signs Vital signs: Vital Signs Temp 97.6 F 01/18/23 07:01 Pulse 78 01/18/23 10:35 Resp 16 01/18/23 09:45 BP 125/70 01/18/23 07:01 Pulse Ox 94 L 01/18/23 07:01 FiO2 Intake & Output 01/17/23 01/18/23 01/18/23 18:59 06:59 18:59 Intake Total 100 1150 Output Total 800 800 0 Balance -700 350 0 Weight 97.8 kg Intake: IV 100 550 Piperacillin-Tazobactam 3 100 100 .375 gm In Sodium Chloride 0.9% 100 ml @ 25 mls/hr IVPB Q8HR [facility] Rx# :[id number] Sodium Chloride 0.9% 1, 450 000 ml @ 50 mls/hr IV . Q20H [facility] Rx#:[id number] Oral 600 Output: Urine 800 800 Stool 0 Other: Voiding Method Indwelling Catheter Indwelling Catheter Indwelling Catheter # Bowel Movements 1 - Exam GENERAL DESCRIPTION: An elderly female lying in bed in no distress RESPIRATORY SYSTEM: Unlabored breathing , decreased breath sounds at bases HEART: S1 S2 regular rate and rhythm , ABDOMEN: Soft , midline incision is healed no redness no drainage and no tenderness EXTREMITIES: No edema feet - Labs CBC & Chem 7: 01/18/23 06:20 01/18/23 06:20 Labs: Abnormal Lab Results - Last 24 Hours (Table) 01/18/23 01/18/23 Range/Units 06:20 06:20 RBC 2.79 L (4.10-5.20) X 10*6/uL Hgb 7.9 L (12.0-15.0) g/dL Hct 24.6 L (37.2-46.3) % RDW 15.0 H (11.5-14.5) % Plt Count 463 H (140-440) X 10*3/uL MPV 8.8 L (9.5-12.2) fL Immature Gran # 0.07 H (0.00-0.04) X 10*3/uL Eosinophils # 0.50 H (0.04-0.35) X 10*3/uL Chloride 110 H (96-109) mmol/L Anion Gap 5.60 L (10.00-18.00) mmol/L BUN 3.9 L (9.0-27.0) mg/dL Creatinine 0.5 L (0.6-1.5) mg/dL BUN/Creatinine Ratio 7.91 L (12.00-20.00) Ratio Calcium 7.1 L (8.7-10.3) mg/dL Alkaline Phosphatase 26 L (41-126) U/L Total Protein 3.7 L (6.2-8.2) g/dL Albumin 1.7 L (3.8-4.9) g/dL Albumin/Globulin Ratio 0.85 L (1.60-3.17) g/dL Microbiology - Last 24 Hours (Table) 01/13/23 14:40 Blood Culture - Preliminary Blood No Growth after 96 hours 01/13/23 14:47 Blood Culture - Preliminary Blood No Growth after 96 hours Assessment and Plan (1) Infected hematoma following procedure Current Visit: Yes Status: Acute Code(s): [id number] - SNOMED Code(s): 048151704 Plan: 1patient with a recent history of sigmoid resection along with bilateral ovarian cystectomy on 12/26/2022 subsequently presented to hospital with bleeding per rectum noticed to have a fluid collection around anastomosis site with a repeat CAT scan on 01/14/2023 did show decrease in size of the fluid and could not be drained via CT-guided per IR patient has been afebrile during this hospital stay and did have a normal white count concerning for possible hematoma infected hematoma or abscess noted at excluded however keeping in mind decrease in size 2-patient to continue with the Zosyn and will monitor her clinical course closely Time with Patient: Less than 30
--- NOTE | 2023-01-18 13:44 | P.PN ---
Subjective Progress Note Date: 01/18/23 This is a very pleasant 82-year-old female patient with a known history of hyperlipidemia, pulmonary embolism, chronic back pain with multiple surgeries, colovesical fistula and had undergone an elective surgery on 12/26/2022 here for sigmoid resection with low anterior resection along with findings of bilateral ovarian cyst and bilateral ovarian cystectomy. During that hospitalization she had developed hypotension and required intensive care unit monitoring was subsequently discharged. Yesterday 01/09/2023 she had noted some bright red bleeding and developed nausea and vomiting and was taken from her home to [facility] where she was seen and evaluated in the emergency room. She was transferred back here to be near her surgeon. Ultrasound of the abdomen revealed an echo with an area in the area of incision felt to represent a seroma. No peripheral color flow to suggest abscess. We are consulted to take his patient was having issues with hypotension and being considered for transfer to the ICU. She is currently stable. Awake and alert in no acute distress. She denies any dizziness or lightheadedness. She did have a drop in hemoglobin to 7.0. She received 1 unit packed blood cells this morning. She received some fluid resuscitation. She stabilized and her blood pressure this afternoon has been greater than 100 systolic. With a mean of 79-83. Her beta ivonne dose as been adjusted. She is currently on antibiotics in the form of Zosyn. Urine culture pending. White count 7.8. Sodium 143. Potassium 2.5. Chloride 1:15. Bicarb 18. BUN 5. Creatinine 0.56. Lactic acid 0.6. The patient is seen today 01/11/2023 in follow-up on the regular medical floor. She is currently sitting up in the bed bedside planning to ambulate with assistance from physical therapy. She remains awake and alert. Maintaining good O2 saturations in the mid 90s on room air. She's been afebrile. Hemodynamically stable. Not requiring any or blood after yesterday's unit was given. Her current hemoglobin is 8.7. White count 9.4. Platelets 5:30. Sodium 137. Potassium 5.1. BUN 7. Creatinine 0.7. Pro-calcitonin 0.12. Urine with positive nitrites, large leukocytes and high WBCs. Culture revealing gram-negative bacilli. She is continued on Zosyn. The patient is seen today 01/14/2023 in follow-up on the intensive care unit. She was transferred here yesterday after developing recurrent episodes of hypotension. She had received fluid bolus boluses and most of her pain medication had been discontinued as well as her beta blockers. She is seen today in follow-up in the intensive care unit. Sitting up in bed. Awake and alert in no acute distress. Maintaining O2 saturations in the 90s on 2 L/m per nasal cannula. Currently receiving 0.9% normal saline at 150 ML's per hour. No acute GI bleeding noted overnight. She was found to have Klebsiella pneumoniae in her urine. She is currently on Zosyn. White count 4.9. Hemoglobin 9.7. Platelets 463. Sodium 135. Potassium 3.2. Bicarb 21. BUN 5. Creatinine 0.65. Leukocytosis 106. The patient is seen today 01/15/2023 in follow-up in the intensive care unit. She is currently awake and alert in no acute distress. Maintaining O2 saturations up to 100% on 2 L/m per nasal cannula. Afebrile. Currently hemodynamically stable. She did require some pressor support through the night. Currently norepinephrine is on hold. She has normal saline at 150 mL per hour. She is maintaining O2 saturation 90s on 2 L/m per nasal cannula. Repeat computed tomography scan of the abdomen reveals persistent free air post sigmoidectomy on 12/29/2022. There is fluid collection adjacent to the anastomotic site suspicious for leak and possible abscess. There is additional fluid and air within the left ovary for adjacent to the left ovary suggesting additional abscess with possible involvement in the left ovary. She is status post 1 unit packed red blood cells this admission. Current hemoglobin 8.8. P latelets 493. White count 9.3. Sodium 135. Potassium 3.3. Bicarb 23. BUN 6. Creatinine 0.58. Urine culture positive for Klebsiella pneumoniae. Blood cultures revealing no growth. She remains on Zosyn. Heparin for DVT prophylaxis. The patient is seen today 01/16/2023 in follow-up in the intensive care unit. She is currently resting comfortably in bed. Awake and alert in no acute distre ss. Maintaining O2 saturation in the 90s on room air. She has normal saline at 150 ML's per hour. Current hemoglobin 8.6. White count 7.4. Platelets 465. INR 1.3. Sodium 134. Potassium 3.9. Bicarb 23. BUN 6. Creatinine 0.52. His received 1 unit of packed red blood cells this admission. Blood cultures reveal no growth. Urine cultures positive for Klebsiella pneumoniae. She is continued on Zosyn. Heparin for DVT prophylaxis. Remains on Protonix. No further GI bleeding. Plan is for PICC line placement today. The patient is seen today 01/18/2023 in follow-up on the regular medical floor. She is resting comfortably in bed. Maintaining good O2 saturations in the 90s on room air. She has normal saline at 50 MLS per hour. Her blood pressure has remained stable. White count 7.4. Hemoglobin 7.9. Platelets 463. Sodium 138. Potassium 3.6. Bicarb 22. BUN 4. Creatinine 0.5. Blood cultures reveal no growth. Urine cultures positive for Klebsiella pneumoniae. She is continued on Zosyn. Heparin for DVT prophylaxis. Remains on Protonix. Objective - Vital Signs Vital signs: Vital Signs Temp 97.6 F 01/18/23 07:01 Pulse 78 01/18/23 10:35 Resp 16 01/18/23 09:45 BP 125/70 01/18/23 07:01 Pulse Ox 94 L 01/18/23 07:01 FiO2 Intake & Output 01/17/23 01/18/23 01/18/23 18:59 06:59 18:59 Intake Total 100 1150 200 Output Total 800 800 0 Balance -700 350 200 Weight 97.8 kg Intake: IV 100 550 Piperacillin-Tazobactam 3 100 100 .375 gm In Sodium Chloride 0.9% 100 ml @ 25 mls/hr IVPB Q8HR NIA Rx# :[id number] Sodium Chloride 0.9% 1, 450 000 ml @ 50 mls/hr IV . Q20H NIA Rx#:[id number] Oral 600 200 Output: Urine 800 800 Stool 0 Other: Voiding Method Indwelling Catheter Indwelling Catheter Indwelling Catheter # Bowel Movements 1 - Exam GENERAL EXAM: Alert, pale, 82-year-old female, on room air, comfortable in no ap parent distress. HEAD: Normocephalic. EYES: Normal reaction of pupils, equal size. NOSE: Clear with pink turbinates. THROAT: No erythema or exudates. NECK: No masses, no JVD. CHEST: No chest wall deformity. LUNGS: Equal air entry with no crackles, wheeze, rhonchi or dullness. CVS: S1 and S2 normal with no audible murmur, regular rhythm. ABDOMEN: Surgical dressing dry and intact. Incision had been clean dry well approximated. No hepatosplenomegaly, normal bowel sounds, no guarding or rigidity. SPINE: No scoliosis or deformity SKIN: No rashes CENTRAL NERVOUS SYSTEM: No focal deficits, tone is normal in all 4 extremities. EXTREMITIES: There is no peripheral edema. No clubbing, no cyanosis. P eripheral pulses are intact. - Labs CBC & Chem 7: 01/18/23 06:20 01/18/23 06:20 Labs: Abnormal Lab Results - Last 24 Hours (Table) 01/18/23 01/18/23 Range/Units 06:20 06:20 RBC 2.79 L (4.10-5.20) X 10*6/uL Hgb 7.9 L (12.0-15.0) g/dL Hct 24.6 L (37.2-46.3) % RDW 15.0 H (11.5-14.5) % Plt Count 463 H (140-440) X 10*3/uL MPV 8.8 L (9.5-12.2) fL Immature Gran # 0.07 H (0.00-0.04) X 10*3/uL Eosinophils # 0.50 H (0.04-0.35) X 10*3/uL Chloride 110 H (96-109) mmol/L Anion Gap 5.60 L (10.00-18.00) mmol/L BUN 3.9 L (9.0-27.0) mg/dL Creatinine 0.5 L (0.6-1.5) mg/dL BUN/Creatinine Ratio 7.91 L (12.00-20.00) Ratio Calcium 7.1 L (8.7-10.3) mg/dL Alkaline Phosphatase 26 L (41-126) U/L Total Protein 3.7 L (6.2-8.2) g/dL Albumin 1.7 L (3.8-4.9) g/dL Albumin/Globulin Ratio 0.85 L (1.60-3.17) g/dL Microbiology - Last 24 Hours (Table) 01/13/23 14:40 Blood Culture - Preliminary Blood No Growth after 96 hours 01/13/23 14:47 Blood Culture - Preliminary Blood No Growth after 96 hours Assessment and Plan Assessment: Rectal bleeding with nausea and vomiting. Resolved Hypotension secondary to above requiring 1 unit of packed red blood cells and fluid resuscitation. She was also receiving multiple pain medications including morphine, oxycodone and fentanyl patch. She was also on beta blockers. She did have ongoing issues with hypotension and was transferred into the intensive care unit on 01/13/2023. Currently receiving normal saline at 50 mL per hour. Did require norepinephrine in the evening of 01/14 and into 01/15/2023. Stabilize and Transferred Out Of the ICU on 01/16/2023. Anemia secondary to above. Requiring 1 unit of packed red blood cells. Current hemoglobin 7.9. Hypokalemia, improved Urinary tract infection, culture revealing Klebsiella pneumonia. 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 Computed tomography scan of the abdomen from 01/14/2023 revealing persistent free air and noted a fluid collection adjacent to the anastomotic site suspicious for leak and possible abscess. There is an additional fluid and air within the left ovary are adjacent to the left ovary suggesting additional abscess with possible involvement of the left ovary. History of hypertension Hyperlipidemia Hypothyroidism Chronic back pain with multiple back surgeries Plan: The patient was seen and evaluated Labs and medications reviewed Stable from the critical care standpoint We will see as needed I have personally seen and examined the patient, performed the documentation and the assessment and plan as written. Number of minutes spent on the visit: 10.
--- NOTE | 2023-01-18 14:50 | P.PN ---
Subjective Progress Note Date: 01/18/23 CHIEF COMPLAINT: Rectal bleeding HISTORY OF PRESENT ILLNESS: Patient currently on a regular medical floor. Patient denies any abdominal pain. Denies any nausea or vomiting. Reports no further rectal bleeding. Afebrile. WBC is 7.43 Hgb 7.9 platelets 463 na 138potassium 3.6 creatinine 0.5 PHYSICAL EXAM: VITAL SIGNS: Reviewed. GENERAL: Well-developed in no acute distress. HEENT: No sclera icterus. Extraocular movements grossly intact. Moist buccal mucosa. Head is atraumatic, normocephalic. ABDOMEN: Soft. Nondistended. Nontender. Incision clean dry and intact NEUROLOGIC: Alert and oriented. Cranial nerves II through XII grossly intact. ASSESSMENT: 1. Possible infected hematoma at anastomotic site. Showing improvement. No drainage needed per IR. 2. Acute GI bleed with bright red blood per rectum 3. Recent sigmoid resection with lower anterior resection and bilateral ovarian cystectomy on 12/26/2022 for diverticulitis and bilateral enlarged ovarian cysts PLAN: -Continue full liquid diet -Continue ensure -Add Jean Pierre to help promote healing -Continue IV antibiotics -Continue supportive care -Repeat CBC in a.m. Physician Credit Representative note has been reviewed by physician. Signing provider agrees with the documented findings, assessment, and plan of care. CHIEF COMPLAINT: Rectal bleeding HISTORY OF PRESENT ILLNESS: The patient is a 82-year-old female status post harry ctomy with readmission for questionable anastomotic hematoma versus pelvic abscess. No further large bowel movements. No abdominal pain. She is tolerating full liquid diet. She is looking to have additional food. ROS: No reports of nausea and vomiting. No fevers or chills. No new chest pain. No productive sputum PHYSICAL EXAM: VITAL SIGNS: Reviewed CONSTITUTIONAL: Well developed and in no acute distress. Nontoxic in appearance. EYES: Conjuctivae without sclera icterus. Extraocular movements grossly intact. HEAD, EARS, NOSE, THROAT: Moist buccal mucosa. Head is atraumatic, normoce phalic. Hears conversational speech. No nasal drainage. RESPIRATORY: Non-labored respirations and equal bilateral excursions. CARDIOVASCULAR: Palpable 2+ radial pulses. ABDOMEN: No peritonitis. MUSCULOSKELETAL: No gross deformity of the lower extremities noted. No clubbing. No cyanosis. SKIN: Good skin turgor. Well perfused. NEUROLOGIC: Cranial nerves II through XII grossly intact. No focal or lateralizing signs. PSYCH: Appropriate affect. Alert and oriented to person, place and time. CLINICAL LABS: Reviewed. WBC normal. Hemoglobin 8.6-7.9, anemia ASSESSMENT: 1. Intra-abdominal/pelvic abscess 2. Rectal bleeding 3. Thrombocytosis 4. Anemia PLAN: 1. Advance diet as tolerated 2. Recheck hemoglobin for anemia 3. Continue antibiotics and PICC line Objective - Vital Signs Vital signs: Vital Signs Temp 97.3 F L 01/18/23 14:43 Pulse 83 01/18/23 14:43 Resp 16 01/18/23 14:43 BP 104/57 01/18/23 14:43 Pulse Ox 95 01/18/23 14:43 FiO2 Intake & Output 01/17/23 01/18/23 01/18/23 18:59 06:59 18:59 Intake Total 100 1150 200 Output Total 800 800 0 Balance -700 350 200 Weight 97.8 kg Intake: IV 100 550 Piperacillin-Tazobactam 3 100 100 .375 gm In Sodium Chloride 0.9% 100 ml @ 25 mls/hr IVPB Q8HR NIA Rx# :[id number] Sodium Chloride 0.9% 1, 450 000 ml @ 50 mls/hr IV . Q20H NIA Rx#:[id number] Oral 600 200 Output: Urine 800 800 Stool 0 Other: Voiding Method Indwelling Catheter Indwelling Catheter Indwelling Catheter # Bowel Movements 1 - Labs CBC & Chem 7: 01/18/23 06:20 01/18/23 06:20 Labs: Abnormal Lab Results - Last 24 Hours (Table) 01/18/23 01/18/23 Range/Units 06:20 06:20 RBC 2.79 L (4.10-5.20) X 10*6/uL Hgb 7.9 L (12.0-15.0) g/dL Hct 24.6 L (37.2-46.3) % RDW 15.0 H (11.5-14.5) % Plt Count 463 H (140-440) X 10*3/uL MPV 8.8 L (9.5-12.2) fL Immature Gran # 0.07 H (0.00-0.04) X 10*3/uL Eosinophils # 0.50 H (0.04-0.35) X 10*3/uL Chloride 110 H (96-109) mmol/L Anion Gap 5.60 L (10.00-18.00) mmol/L BUN 3.9 L (9.0-27.0) mg/dL Creatinine 0.5 L (0.6-1.5) mg/dL BUN/Creatinine Ratio 7.91 L (12.00-20.00) Ratio Calcium 7.1 L (8.7-10.3) mg/dL Alkaline Phosphatase 26 L (41-126) U/L Total Protein 3.7 L (6.2-8.2) g/dL Albumin 1.7 L (3.8-4.9) g/dL Albumin/Globulin Ratio 0.85 L (1.60-3.17) g/dL Microbiology - Last 24 Hours (Table) 01/13/23 14:40 Blood Culture - Preliminary Blood No Growth after 96 hours 01/13/23 14:47 Blood Culture - Preliminary Blood No Growth after 96 hours
[2023-01-18] MEDS: SODIUM CHLORIDE 0.9% 1,000 ML IV SCH (20:55)
[2023-01-18] MEDS: tiZANidine 4 MG TAB PO SCH (20:57)
[2023-01-18] MEDS: QUEtiapine 25 MG TAB PO SCH (20:57)
[2023-01-19] MEDS: PIPERACILLIN-TAZOBACTAM 3.375 GM in SODIUM CHLORIDE 0.9% 100 ML IVPB SCH ×3 (00:23→16:51)
[2023-01-19] MEDS: oxyCODONE-APAP 10-325MG 1 EACH TAB PO SCH ×4 (00:23→18:39)
--- NOTE | 2023-01-19 02:19 | P.PN ---
Subjective Cover Dr. Degroot for today only 01/18/2023 This is a pleasant 82 years old female with past medical history of hyperlipidemia, osteoarthritis, pulmonary embolism and hypothyroidism and chronic back pain. Patient status post recent sigmoid resection and bilateral ovarian cystectomy with anterior lower resection on 12/26. The patient was transferred from [facility] for bleeding per rectum on 01/09. Patient had computed tomography scan of the abdomen suspicious for infected hematoma and patient currently shown clinical improvement while she's been treated with Zosyn and normal saline 50 mL Patient has been followed by several consultants included surgery primary team, pulmonary team and infectious disease team, she shown clinical improvement, patient is telling me she is able to walk to the bathroom with a walker. She has poor appetite still but no abdominal pain and yesterday she had a bowel movement. Also complaining of from her chronic back pain. She is hemodynamically stable Hemoglobin 7.9. Objective - Vital Signs Vital signs: Vital Signs Temp 97.6 F 01/18/23 07:01 Pulse 78 01/18/23 10:35 Resp 16 01/18/23 09:45 BP 125/70 01/18/23 07:01 Pulse Ox 94 L 01/18/23 07:01 FiO2 Intake & Output 01/17/23 01/18/23 01/18/23 18:59 06:59 18:59 Intake Total 100 1150 200 Output Total 800 800 0 Balance -700 350 200 Weight 97.8 kg Intake: IV 100 550 Piperacillin-Tazobactam 3 100 100 .375 gm In Sodium Chloride 0.9% 100 ml @ 25 mls/hr IVPB Q8HR NIA Rx# :[id number] Sodium Chloride 0.9% 1, 450 000 ml @ 50 mls/hr IV . Q20H NIA Rx#:[id number] Oral 600 200 Output: Urine 800 800 Stool 0 Other: Voiding Method Indwelling Catheter Indwelling Catheter Indwelling Catheter # Bowel Movements 1 - Exam GENERAL: The patient is alert and oriented x3, not in any acute distress. Well developed, well nourished. HEENT: Pupils are round and equally reacting to light. EOMI. No scleral icterus. No conjunctival pallor. Normocephalic, atraumatic. No pharyngeal erythema. No thyromegaly. CARDIOVASCULAR: S1 and S2 present. No murmurs, rubs, or gallops. PULMONARY: Chest is clear to auscultation, no wheezing or crackles. ABDOMEN: Soft, nontender, nondistended, normoactive bowel sounds. No palpable organomegaly. MUSCULOSKELETAL: No joint swelling or deformity. EXTREMITIES: No cyanosis, clubbing, or pedal edema. NEUROLOGICAL: Gross neurological examination did not reveal any focal deficits. SKIN: No rashes. no petechiae. - Labs CBC & Chem 7: 01/18/23 06:20 01/18/23 06:20 Labs: Abnormal Lab Results - Last 24 Hours (Table) 01/18/23 01/18/23 Range/Units 06:20 06:20 RBC 2.79 L (4.10-5.20) X 10*6/uL Hgb 7.9 L (12.0-15.0) g/dL Hct 24.6 L (37.2-46.3) % RDW 15.0 H (11.5-14.5) % Plt Count 463 H (140-440) X 10*3/uL MPV 8.8 L (9.5-12.2) fL Immature Gran # 0.07 H (0.00-0.04) X 10*3/uL Eosinophils # 0.50 H (0.04-0.35) X 10*3/uL Chloride 110 H (96-109) mmol/L Anion Gap 5.60 L (10.00-18.00) mmol/L BUN 3.9 L (9.0-27.0) mg/dL Creatinine 0.5 L (0.6-1.5) mg/dL BUN/Creatinine Ratio 7.91 L (12.00-20.00) Ratio Calcium 7.1 L (8.7-10.3) mg/dL Alkaline Phosphatase 26 L (41-126) U/L Total Protein 3.7 L (6.2-8.2) g/dL Albumin 1.7 L (3.8-4.9) g/dL Albumin/Globulin Ratio 0.85 L (1.60-3.17) g/dL Microbiology - Last 24 Hours (Table) 01/13/23 14:40 Blood Culture - Preliminary Blood No Growth after 96 hours 01/13/23 14:47 Blood Culture - Preliminary Blood No Growth after 96 hours Assessment and Plan Assessment: -Possible infected hematoma -recent diverticulitis status post sigmoid resection and low anterior resection also bilateral ovarian cystectomy for bilateral ovarian cyst -Hyperlipidemia -Hypothyroidism -Osteoarthritis -History of pulmonary embolism Plan: Continue with Zosyn Continue with normal saline 50 mL per hour Several consultants of the case including surgery primary team, ID and pulmonary Labs and medication were reviewed.. Continue same treatment. Continue with symptomatic treatment. Resume home medication. Monitor labs and vitals. DVT and GI prophylaxis. Further recommendations as per clinical course of the patient DVT prophylaxis: no Subcutaneous heparin in view of recent GI bleed and hematoma GI Prophylaxis: Pepcid Prognosis is guarded
[2023-01-19] MEDS: PANTOPRAZOLE 40 MG TABLET PO SCH (05:57)
[2023-01-19] MEDS: LEVOTHYROXINE 125 MCG TAB PO SCH (05:57)
[2023-01-19] MEDS: HEPARIN SODIUM,PORCINE/PF 5,000 UNIT/0.5 ML SYRINGE SQ SCH ×2 (08:25→21:16)
[2023-01-19] MEDS: METOPROLOL TARTRATE 12.5 MG TAB PO SCH ×2 (08:25→21:16)
[2023-01-19 09:48] LABS: HCT 29.2 % (34.0-46.0); HGB 9.6 gm/dL (11.4-16.0); Hypochromasia Slight; MCH 29.2 pg (25.0-35.0); MCHC 32.9 g/dL (31.0-37.0); MCV 88.7 fL (80.0-100.0); Platelet Count 504 k/uL (150-450); RBC 3.29 m/uL (3.80-5.40); RDW 14.9 % (11.5-15.5); WBC 6.1 k/uL (3.8-10.6)
--- NOTE | 2023-01-19 13:15 | P.PN ---
Subjective Progress Note Date: 01/19/23 CHIEF COMPLAINT: Rectal bleeding HISTORY OF PRESENT ILLNESS: The patient is a 82-year-old female status post colectomy with readmission for anastomotic hematoma. She denies abdominal pain. No diarrhea. No constipation. She has small amount of bleeding. Tolerating full liquid diet ROS: No reports of nausea and vomiting. No fevers or chills. No new chest pain. No productive sputum PHYSICAL EXAM: VITAL SIGNS: Reviewed CONSTITUTIONAL: Well developed and in no acute distress. Nontoxic in raul earance. EYES: Conjuctivae without sclera icterus. Extraocular movements grossly intact. HEAD, EARS, NOSE, THROAT: Moist buccal mucosa. Head is atraumatic, normocephalic. Hears conversational speech. No nasal drainage. RESPIRATORY: Non-labored respirations and equal bilateral excursions. CARDIOVASCULAR: Palpable 2+ radial pulses. ABDOMEN: No peritonitis. MUSCULOSKELETAL: No gross deformity of the lower extremities noted. No clubbing. No cyanosis. SKIN: Good skin turgor. Well perfused. NEUROLOGIC: Cranial nerves II through XII grossly intact. No focal or lateralizing signs. PSYCH: Appropriate affect. Alert and oriented to person, place and time. CLINICAL LABS: Reviewed. WBC normal. Hemoglobin 7.9-9.6, anemia ASSESSMENT: 1. Intra-abdominal/pelvic abscess 2. Rectal bleeding 3. Thrombocytosis 4. Anemia 5. Hematoma along anastomosis PLAN: 1. Continue liquid diet until resolved blood in stools 2. Continue antibiotics Objective - Vital Signs Vital signs: Vital Signs Temp 98.7 F 01/19/23 06:59 Pulse 78 01/19/23 06:59 Resp 17 01/19/23 06:59 BP 125/76 01/19/23 06:59 Pulse Ox 93 L 01/19/23 06:59 FiO2 Intake & Output 01/18/23 01/19/23 01/19/23 18:59 06:59 18:59 Intake Total 200 Output Total 1600 1400 Balance -1400 -1400 Intake: Oral 200 Output: Urine 1600 1400 Stool 0 Other: Voiding Method Indwelling Catheter Indwelling Catheter Indwelling Catheter # Bowel Movements 1 - Labs CBC & Chem 7: 01/19/23 09:16 01/18/23 06:20 Labs: Abnormal Lab Results - Last 24 Hours (Table) 01/19/23 Range/Units 09:16 RBC 3.29 L (3.80-5.40) m/uL Hgb 9.6 L (11.4-16.0) gm/dL Hct 29.2 L (34.0-46.0) % Plt Count 504 H (150-450) k/uL Microbiology - Last 24 Hours (Table) 01/13/23 14:47 Blood Culture - Preliminary Blood No Growth after 120 hours 01/13/23 14:40 Blood Culture - Preliminary Blood No Growth after 120 hours
[2023-01-19] MEDS: SODIUM CHLORIDE 0.9% 1,000 ML IV SCH (20:48)
[2023-01-19] MEDS: QUEtiapine 25 MG TAB PO SCH (21:16)
[2023-01-19] MEDS: tiZANidine 4 MG TAB PO SCH (21:16)
--- NOTE | 2023-01-19 22:18 | PN ---
PROGRESS NOTE SUBJECTIVE: An 82-year-old white female, who is up on the regular medical floor, is on a clear liquid diet. Remains on IV Zosyn. Blood cultures negative for 120 hours on the last 2 blood cultures. Prior have been positive for Klebsiella pneumonia. Hemoglobin is up to 9.6 from 7.9, white count 6.1. Her creatinine is 0.5 and BUN is 3.9. She is status post surgical repair of colovesicular fistula with secondary surgery afterwards. She continues to feel better. OBJECTIVE: CARDIOVASCULAR: S1, S2. LUNGS: Clear. GI: Soft. HEMATOLOGY: Negative Homans. PSYCH: Fair mood and affect. HEENT: Within normal limits. VITAL SIGNS: Blood pressure 120s/70s, temp 98.7, pulse 70s, respiratory rate 16 to 18, O2 of 93% on room air. She has had a had hematoma along the anastomosis, status post colovesicular surgery with intraabdominal pelvic abscess, rectal bleeding, thrombocytopenia, anemia. Continue the current treatment with IV antibiotics. Advance diet per surgery. Monitor her electrolytes, etc. Prognosis guarded. MMODL / IJN: [id number] /
[2023-01-20] MEDS: oxyCODONE-APAP 10-325MG 1 EACH TAB PO SCH ×4 (00:31→17:14)
[2023-01-20] MEDS: PIPERACILLIN-TAZOBACTAM 3.375 GM in SODIUM CHLORIDE 0.9% 100 ML IVPB SCH ×3 (00:32→17:15)
[2023-01-20] MEDS: LEVOTHYROXINE 125 MCG TAB PO SCH (06:08)
[2023-01-20] MEDS: PANTOPRAZOLE 40 MG TABLET PO SCH (06:08)
[2023-01-20] MEDS: HEPARIN SODIUM,PORCINE/PF 5,000 UNIT/0.5 ML SYRINGE SQ SCH ×2 (08:16→19:59)
[2023-01-20] MEDS: METOPROLOL TARTRATE 12.5 MG TAB PO SCH ×2 (08:16→20:00)
[2023-01-20] MEDS: ONDANSETRON 4 MG/2 ML VIAL IVP PRN (10:34)
--- NOTE | 2023-01-20 10:49 | P.PN ---
Subjective Progress Note Date: 01/19/23 Principal diagnosis: Possible infected hematoma/abscess Patient is a 82-year-old female with a past medical history significant for hypertension osteoarthritis PE patient did have a recent sigmoid resection along with bilateral ovarian cystectomy by on 12/26/2022 for diverticulitis and bilateral enlarged ovarian cyst patient started having bright red blood per rectum , for the patient did have CT of abdominal pelvis concerning for fluid adjacent to anastomotic site with concern for possible hematoma versus abscess patient has been treated medically with antibiotics with repeat CAT scan did shows decrease in size of the fluid collection. On today's evaluation that is 01/19/2023, the patient remains to be afebrile, the patient denies chest pain or shortness of breath or cough , the patient denies nausea no vomiting no abdominal pain and no diarrhea has been reported Objective - Vital Signs Vital signs: Vital Signs Temp 98.7 F 01/19/23 06:59 Pulse 78 01/19/23 06:59 Resp 17 01/19/23 06:59 BP 125/76 01/19/23 06:59 Pulse Ox 93 L 01/19/23 06:59 FiO2 Intake & Output 01/18/23 01/19/23 01/19/23 18:59 06:59 18:59 Intake Total 200 Output Total 1600 1400 Balance -1400 -1400 Intake: Oral 200 Output: Urine 1600 1400 Stool 0 Other: Voiding Method Indwelling Catheter Indwelling Catheter Indwelling Catheter # Bowel Movements 1 - Exam GENERAL DESCRIPTION: An elderly female lying in bed in no distress RESPIRATORY SYSTEM: Unlabored breathing , decreased breath sounds at bases HEART: S1 S2 regular rate and rhythm , ABDOMEN: Soft , midline incision is healed no redness no drainage and no tenderness EXTREMITIES: No edema feet - Labs CBC & Chem 7: 01/19/23 09:16 01/18/23 06:20 Labs: Abnormal Lab Results - Last 24 Hours (Table) 01/19/23 Range/Units 09:16 RBC 3.29 L (3.80-5.40) m/uL Hgb 9.6 L (11.4-16.0) gm/dL Hct 29.2 L (34.0-46.0) % Plt Count 504 H (150-450) k/uL Microbiology - Last 24 Hours (Table) 01/13/23 14:47 Blood Culture - Preliminary Blood No Growth after 120 hours 01/13/23 14:40 Blood Culture - Preliminary Blood No Growth after 120 hours Assessment and Plan (1) Infected hematoma following procedure Current Visit: Yes Status: Acute Code(s): [id number] - SNOMED Code(s): 314397047 Plan: 1patient with a recent history of sigmoid resection along with bilateral ovarian cystectomy on 12/26/2022 subsequently presented to hospital with bleeding per rectum noticed to have a fluid collection around anastomosis site with a repeat CAT scan on 01/14/2023 did show decrease in size of the fluid and could not be drained via CT-guided per IR patient has been afebrile during this hospital stay and did have a normal white count concerning for possible hematoma infected hematoma or abscess noted at excluded however keeping in mind decrease in size 2-patient slowly clinically improving the patient white count is normal, patient to continue with the Zosyn and will monitor her clinical course closely Time with Patient: Less than 30
--- NOTE | 2023-01-20 14:05 | PN ---
PROGRESS NOTE SUBJECTIVE: This is an 82-year-old white female, status post colovesicular fistula repair with possible perforation with second surgery done. Hemoglobin is 9.6, used to be 7.9 prior to the Zeng. She must advance her diet. OBJECTIVE: VITAL SIGNS: Her temp 97.8, pulse 76, respiratory rate 14 to 16, blood pressure is 140s over 70s, and O2 97 on room air. CARDIOVASCULAR: S1, S2. LUNGS: Transverses upper sounds. PSYCH: Fair mood and affect. NEUROLOGIC: Alert and oriented x3. HEMATOLOGY: Negative for Homans. For hypotension appears improved she has infra abdominal pelvic abscess, rectal bleeding, status post repair of the colon fascicular fistula, thrombocytosis, anemia, hematoma, cervical lumbar disk disease, severe osteoarthritis. They are going to give her clear liquids until the stool in blood resolves. Continue with broad-spectrum antibiotics for abscess. Prognosis guarded. Advance diet when they feel appropriate. MMODL / IJN: [id number] /
[2023-01-20 14:34] LABS: Basophils % (A) 0 %; Eosinophils # (A) 0.5 k/uL (0-0.7); Eosinophils % (A) 6 %; HGB 10.1 gm/dL (11.4-16.0); Hypochromasia Slight; Lymphocytes # (A) 1.5 k/uL (1.0-4.8); Lymphocytes % (A) 20 %; MCH 28.1 pg (25.0-35.0); MCHC 31.6 g/dL (31.0-37.0); MCV 88.9 fL (80.0-100.0); Mean Platelet Volume 6.9; Monocytes # (A) 0.3 k/uL (0-1.0); Monocytes % (A) 4 %; Neutrophils # (A) 5.2 k/uL (1.3-7.7); Neutrophils % (A) 69 %; Platelet Count 555 k/uL (150-450); RDW 15.4 % (11.5-15.5); WBC 7.5 k/uL (3.8-10.6)
[2023-01-20 14:49] LABS: ALT 20 U/L (4-34); AST 35 U/L (14-36); African American GFR (CKD) >90 (>60 ml/min/1.73 sqM); Albumin/Globulin Ratio 0.8; Alkaline Phosphatase 35 U/L (38-126); Anion Gap 4 mmol/L; Blood Urea Nitrogen 4 mg/dL (7-17); Calcium 7.3 mg/dL (8.4-10.2); Carbon Dioxide 24 mmol/L (22-30); Chloride 105 mmol/L (98-107); Globulin 2.6 g/dL; Glucose 91 mg/dL (74-99); Non-African American GFR(CKD) >90 (>60 ml/min/1.73 sqM); Sodium 133 mmol/L (137-145); Total Bilirubin 0.6 mg/dL (0.2-1.3); Total Protein 4.6 g/dL (6.3-8.2)
--- NOTE | 2023-01-20 16:39 | P.PN ---
Subjective Progress Note Date: 01/20/23 Principal diagnosis: Possible infected hematoma/abscess Patient is a 82-year-old female with a past medical history significant for hypertension osteoarthritis PE patient did have a recent sigmoid resection along with bilateral ovarian cystectomy by on 12/26/2022 for diverticulitis and bilateral enlarged ovarian cyst patient started having bright red blood per rectum , for the patient did have CT of abdominal pelvis concerning for fluid adjacent to anastomotic site with concern for possible hematoma versus abscess patient has been treated medically with antibiotics with repeat CAT scan did shows decrease in size of the fluid collection. On today's evaluation that is 01/20/2023, the patient continues to be afebrile, the patient denies chest pain or shortness of breath or cough , the patient denies nausea no vomiting no abdominal pain and denies any further blood in the stool asking for if that can be advanced Objective - Vital Signs Vital signs: Vital Signs Temp 99.2 F 01/20/23 14:30 Pulse 94 01/20/23 14:30 Resp 18 01/20/23 14:30 BP 119/71 01/20/23 14:30 Pulse Ox 96 01/20/23 14:30 FiO2 Intake & Output 01/19/23 01/20/23 01/20/23 18:59 06:59 18:59 Output Total 2200 1090 Balance -2200 -1090 Output: Urine 2200 1090 Other: Voiding Method Indwelling Catheter Indwelling Catheter Indwelling Catheter # Bowel Movements 1 1 1 - Exam GENERAL DESCRIPTION: An elderly female lying in bed in no distress RESPIRATORY SYSTEM: Unlabored breathing , decreased breath sounds at bases HEART: S1 S2 regular rate and rhythm , ABDOMEN: Soft , midline incision is healed no redness no drainage and no tenderness EXTREMITIES: No edema feet - Labs CBC & Chem 7: 01/20/23 14:19 01/20/23 14:19 Labs: Abnormal Lab Results - Last 24 Hours (Table) 01/20/23 01/20/23 Range/Units 14:19 14:19 RBC 3.60 L (3.80-5.40) m/uL Hgb 10.1 L (11.4-16.0) gm/dL Hct 32.0 L (34.0-46.0) % Plt Count 555 H (150-450) k/uL Sodium 133 L (137-145) mmol/L Potassium 3.0 L (3.5-5.1) mmol/L BUN 4 L (7-17) mg/dL Creatinine 0.50 L (0.52-1.04) mg/dL Calcium 7.3 L (8.4-10.2) mg/dL Alkaline Phosphatase 35 L (38-126) U/L Total Protein 4.6 L (6.3-8.2) g/dL Albumin 2.0 L (3.5-5.0) g/dL Microbiology - Last 24 Hours (Table) 01/13/23 14:40 Blood Culture - Final Blood No Growth after 144 hours 01/13/23 14:47 Blood Culture - Final Blood No Growth after 144 hours Assessment and Plan (1) Infected hematoma following procedure Current Visit: Yes Status: Acute Code(s): [id number] - SNOMED Code(s): 526250324 Plan: 1patient with a recent history of sigmoid resection along with bilateral ovarian cystectomy on 12/26/2022 subsequently presented to hospital with bleeding per rectum noticed to have a fluid collection around anastomosis site with a repeat CAT scan on 01/14/2023 did show decrease in size of the fluid and could not be drained via CT-guided per IR patient has been afebrile during this hospital stay and did have a normal white count concerning for possible hematoma infected hematoma or abscess noted at excluded however keeping in mind decrease in size 2-patient seemed to have her clinical improvement the patient white count is normal, patient to continue with the Zosyn and will continue monitor her clinical course closely Time with Patient: Less than 30
[2023-01-20] MEDS: SODIUM CHLORIDE 0.9% 1,000 ML IV SCH (19:40)
[2023-01-20] MEDS: tiZANidine 4 MG TAB PO SCH (20:00)
[2023-01-20] MEDS: QUEtiapine 25 MG TAB PO SCH (20:00)
--- NOTE | 2023-01-20 20:50 | P.PN ---
Subjective Progress Note Date: 01/20/23 CHIEF COMPLAINT: Rectal bleeding HISTORY OF PRESENT ILLNESS: The patient is a 82-year-old female status post colectomy with readmission for anastomotic hematoma. She reports no further blood in stools. She is tolerating a full liquid diet. She is requesting food to eat. ROS: No reports of nausea and vomiting. No fevers or chills. No new chest pain. No productive sputum PHYSICAL EXAM: VITAL SIGNS: Reviewed CONSTITUTIONAL: Well developed and in no acute distress. Nontoxic in appearance. EYES: Conjuctivae without sclera icterus. Extraocular movements grossly intact. HEAD, EARS, NOSE, THROAT: Moist buccal mucosa. Head is atraumatic, normocephalic. Hears conversational speech. No nasal drainage. RESPIRATORY: Non-labored respirations and equal bilateral excursions. CARDIOVASCULAR: Palpable 2+ radial pulses. ABDOMEN: No peritonitis. Nontender. MUSCULOSKELETAL: No gross deformity of the lower extremities noted. No clubbing. No cyanosis. SKIN: Good skin turgor. Well perfused. NEUROLOGIC: Cranial nerves II through XII grossly intact. No focal or lateralizing signs. PSYCH: Appropriate affect. Alert and oriented to person, place and time. CLINICAL LABS: Reviewed. WBC normal. Hemoglobin of 9.6 to 10.1. ASSESSMENT: 1. Intra-abdominal/pelvic abscess 2. Rectal bleeding 3. Thrombocytosis 4. Anemia 5. Hematoma along anastomosis PLAN: 1. Advance to low fiber diet 2. Continue antibiotics Objective - Vital Signs Vital signs: Vital Signs Temp 98.8 F 01/20/23 20:00 Pulse 94 01/20/23 20:00 Resp 17 01/20/23 20:00 BP 139/73 01/20/23 20:00 Pulse Ox 99 01/20/23 20:00 FiO2 Intake & Output 01/20/23 01/20/23 01/21/23 06:59 18:59 06:59 Output Total 1090 1000 Balance -1090 -1000 Output: Urine 1090 1000 Other: Voiding Method Indwelling Catheter Indwelling Catheter # Bowel Movements 1 1 - Labs CBC & Chem 7: 01/20/23 14:19 01/20/23 14:19 Labs: Abnormal Lab Results - Last 24 Hours (Table) 01/20/23 01/20/23 Range/Units 14:19 14:19 RBC 3.60 L (3.80-5.40) m/uL Hgb 10.1 L (11.4-16.0) gm/dL Hct 32.0 L (34.0-46.0) % Plt Count 555 H (150-450) k/uL Sodium 133 L (137-145) mmol/L Potassium 3.0 L (3.5-5.1) mmol/L BUN 4 L (7-17) mg/dL Creatinine 0.50 L (0.52-1.04) mg/dL Calcium 7.3 L (8.4-10.2) mg/dL Alkaline Phosphatase 35 L (38-126) U/L Total Protein 4.6 L (6.3-8.2) g/dL Albumin 2.0 L (3.5-5.0) g/dL Microbiology - Last 24 Hours (Table) 01/13/23 14:40 Blood Culture - Final Blood No Growth after 144 hours 01/13/23 14:47 Blood Culture - Final Blood No Growth after 144 hours
[2023-01-21] MEDS: oxyCODONE-APAP 10-325MG 1 EACH TAB PO SCH ×5 (00:07→23:51)
[2023-01-21] MEDS: PIPERACILLIN-TAZOBACTAM 3.375 GM in SODIUM CHLORIDE 0.9% 100 ML IVPB SCH ×4 (00:08→23:51)
[2023-01-21] MEDS: PANTOPRAZOLE 40 MG TABLET PO SCH (06:12)
[2023-01-21] MEDS: LEVOTHYROXINE 125 MCG TAB PO SCH (06:12)
[2023-01-21] MEDS: HEPARIN SODIUM,PORCINE/PF 5,000 UNIT/0.5 ML SYRINGE SQ SCH ×2 (07:35→20:49)
[2023-01-21] MEDS: METOPROLOL TARTRATE 12.5 MG TAB PO SCH ×2 (07:36→20:49)
[2023-01-21] MEDS: SODIUM CHLORIDE 0.9% 1,000 ML IV SCH (07:51)
[2023-01-21 08:57] LABS: Basophils # (A) 0.06 X 10*3/uL (0.00-0.10); Basophils % (A) 0.9 %; Eosinophils # (A) 0.76 X 10*3/uL (0.04-0.35); HCT 27.5 % (37.2-46.3); HGB 8.8 g/dL (12.0-15.0); Immature Grans, Automated 1.3 %; Lymphocytes # (A) 1.88 X 10*3/uL (0.90-5.00); Lymphocytes % (A) 27.2 %; MCH 28.2 pg (27.0-32.0); MCV 88.1 fL (80.0-97.0); Mean Platelet Volume 8.7 fL (9.5-12.2); Monocytes # (A) 0.46 X 10*3/uL (0.20-1.00); Monocytes % (A) 6.6 %; NRBC Per 100 WBC 0 /100 WBCS (0.0-0.0); Neutrophils # (A) 3.67 X 10*3/uL (1.80-7.70); Platelet Count 453 X 10*3/uL (140-440); RBC 3.12 X 10*6/uL (4.10-5.20); RDW 15.9 % (11.5-14.5); WBC 6.92 X 10*3/uL (4.50-10.00)
[2023-01-21 09:07] LABS: African American GFR (CKD) 105.9 (60.0-200.0); Albumin 1.8 g/dL (3.8-4.9); Albumin/Globulin Ratio 0.82 (1.60-3.17); Anion Gap 7.3 mmol/L (10.00-18.00); Blood Urea Nitrogen 3.5 mg/dL (9.0-27.0); Calcium 7.5 mg/dL (8.7-10.3); Carbon Dioxide 25.7 mmol/L (20.0-27.5); Globulin 2.2 g/dL (1.6-3.3); Non-African American GFR(CKD) 91.4 (60.0-200.0); Potassium 2.9 mmol/L (3.5-5.5); Total Bilirubin 0.3 mg/dL (0.30-1.20)
--- NOTE | 2023-01-21 13:26 | P.PN ---
Subjective Progress Note Date: 01/21/23 CHIEF COMPLAINT: Rectal bleeding HISTORY OF PRESENT ILLNESS: Patient reports very minimal abdominal pain. Denies any nausea vomiting. She is having bowel movements. No blood in her stools. Afebrile. Initially anticipated discharge today however potassium is low at 2.9 and being replaced. WBC 6.9 to Hgb 8.8 platelets 453. Magnesium level pending. PHYSICAL EXAM: VITAL SIGNS: Reviewed. GENERAL: Well-developed in no acute distress. HEENT: No sclera icterus. Extraocular movements grossly intact. Moist buccal mucosa. Head is atraumatic, normocephalic. ABDOMEN: Soft. Nondistended. Nontender. Incision clean dry and intact NEUROLOGIC: Alert and oriented. Cranial nerves II through XII grossly intact. ASSESSMENT: 1. Possible infected hematoma at anastomotic site. Showing improvement. No drainage needed per IR. 2. Acute GI bleed with bright red blood per rectum 3. Recent sigmoid resection with lower anterior resection and bilateral ovarian cystectomy on 12/26/2022 for diverticulitis and bilateral enlarged ovarian cysts PLAN: -Replace potassium. Check magnesium level -Continue low fiber diet -Discussed case with infectious disease. Patient will be discharged home with A ugmentin for 2 weeks -Anticipate discharge tomorrow Physician [employer] Professor note has been reviewed by physician. Signing provider agrees with the documented findings, assessment, and plan of care. Objective - Vital Signs Vital signs: Vital Signs Temp 97.8 F 01/21/23 07:20 Pulse 79 01/21/23 08:00 Resp 18 01/21/23 08:00 BP 122/65 01/21/23 07:20 Pulse Ox 95 01/21/23 07:20 FiO2 Intake & Output 01/20/23 01/21/23 01/21/23 18:59 06:59 18:59 Intake Total 400 Output Total 1000 900 Balance -1000 -900 400 Intake: Oral 400 Output: Urine 1000 900 Other: Voiding Method Indwelling Catheter Indwelling Catheter Indwelling Catheter # Bowel Movements 1 1 - Labs CBC & Chem 7: 01/21/23 05:41 01/21/23 05:41 Labs: Abnormal Lab Results - Last 24 Hours (Table) 01/20/23 01/20/23 01/21/23 Range/Units 14:19 14:19 05:41 RBC 3.60 L 3.12 L (3.80-5.40) m/uL Hgb 10.1 L 8.8 L (11.4-16.0) gm/dL Hct 32.0 L 27.5 L (34.0-46.0) % RDW 15.9 H (11.5-14.5) % Plt Count 555 H 453 H (150-450) k/uL MPV 8.7 L (9.5-12.2) fL Immature Gran # 0.09 H (0.00-0.04) X 10*3/uL Eosinophils # 0.76 H (0.04-0.35) X 10*3/uL Sodium 133 L (137-145) mmol/L Potassium 3.0 L (3.5-5.1) mmol/L Anion Gap (10.00-18.00) mmol/L BUN 4 L (7-17) mg/dL Creatinine 0.50 L (0.52-1.04) mg/dL BUN/Creatinine Ratio (12.00-20.00) Ratio Calcium 7.3 L (8.4-10.2) mg/dL Alkaline Phosphatase 35 L (38-126) U/L Total Protein 4.6 L (6.3-8.2) g/dL Albumin 2.0 L (3.5-5.0) g/dL Albumin/Globulin Ratio (1.60-3.17) g/dL 01/21/23 Range/Units 05:41 RBC (3.80-5.40) m/uL Hgb (11.4-16.0) gm/dL Hct (34.0-46.0) % RDW (11.5-14.5) % Plt Count (150-450) k/uL MPV (9.5-12.2) fL Immature Gran # (0.00-0.04) X 10*3/uL Eosinophils # (0.04-0.35) X 10*3/uL Sodium (137-145) mmol/L Potassium 2.9 L (3.5-5.1) mmol/L Anion Gap 7.30 L (10.00-18.00) mmol/L BUN 3.5 L (7-17) mg/dL Creatinine 0.5 L (0.52-1.04) mg/dL BUN/Creatinine Ratio 7.00 L (12.00-20.00) Ratio Calcium 7.5 L (8.4-10.2) mg/dL Alkaline Phosphatase 30 L (38-126) U/L Total Protein 4.0 L (6.3-8.2) g/dL Albumin 1.8 L (3.5-5.0) g/dL Albumin/Globulin Ratio 0.82 L (1.60-3.17) g/dL
[2023-01-21] MEDS: POTASSIUM CHLORIDE ER 20 MEQ TAB.ER PO SCH ×3 (14:08→17:43)
[2023-01-21] MEDS: tiZANidine 4 MG TAB PO SCH (20:49)
[2023-01-21] MEDS: QUEtiapine 25 MG TAB PO SCH (20:49)
--- NOTE | 2023-01-21 21:36 | P.PN ---
Subjective Progress Note Date: 01/21/23 Principal diagnosis: Possible infected hematoma/abscess Patient is a 82-year-old female with a past medical history significant for hypertension osteoarthritis PE patient did have a recent sigmoid resection along with bilateral ovarian cystectomy by on 12/26/2022 for diverticulitis and bilateral enlarged ovarian cyst patient started having bright red blood per rectum , for the patient did have CT of abdominal pelvis concerning for fluid adjacent to anastomotic site with concern for possible hematoma versus abscess patient has been treated medically with antibiotics with repeat CAT scan did shows decrease in size of the fluid collection. On today's evaluation that is 01/21/2023, the patient remains to be afebrile, the patient is breathing comfortably on her Coumadin as any chest pain shortness of cough no abdominal pain or diarrhea no blood in the stool Objective - Vital Signs Vital signs: Vital Signs Temp 98.3 F 01/21/23 13:55 Pulse 87 01/21/23 13:55 Resp 18 01/21/23 13:55 BP 133/93 01/21/23 13:55 Pulse Ox 93 L 01/21/23 13:55 FiO2 Intake & Output 01/20/23 01/21/23 01/21/23 18:59 06:59 18:59 Intake Total 400 Output Total 1000 900 Balance -1000 -900 400 Intake: Oral 400 Output: Urine 1000 900 Other: Voiding Method Indwelling Catheter Indwelling Catheter Indwelling Catheter # Bowel Movements 1 1 - Exam GENERAL DESCRIPTION: An elderly female lying in bed in no distress RESPIRATORY SYSTEM: Unlabored breathing , decreased breath sounds at bases HEART: S1 S2 regular rate and rhythm , ABDOMEN: Soft , midline incision is healed no redness no drainage and no tenderness EXTREMITIES: No edema feet - Labs CBC & Chem 7: 01/21/23 05:41 01/21/23 05:41 Labs: Abnormal Lab Results - Last 24 Hours (Table) 01/20/23 01/20/23 01/21/23 Range/Units 14:19 14:19 05:41 RBC 3.60 L 3.12 L (3.80-5.40) m/uL Hgb 10.1 L 8.8 L (11.4-16.0) gm/dL Hct 32.0 L 27.5 L (34.0-46.0) % RDW 15.9 H (11.5-14.5) % Plt Count 555 H 453 H (150-450) k/uL MPV 8.7 L (9.5-12.2) fL Immature Gran # 0.09 H (0.00-0.04) X 10*3/uL Eosinophils # 0.76 H (0.04-0.35) X 10*3/uL Sodium 133 L (137-145) mmol/L Potassium 3.0 L (3.5-5.1) mmol/L Anion Gap (10.00-18.00) mmol/L BUN 4 L (7-17) mg/dL Creatinine 0.50 L (0.52-1.04) mg/dL BUN/Creatinine Ratio (12.00-20.00) Ratio Calcium 7.3 L (8.4-10.2) mg/dL Alkaline Phosphatase 35 L (38-126) U/L Total Protein 4.6 L (6.3-8.2) g/dL Albumin 2.0 L (3.5-5.0) g/dL Albumin/Globulin Ratio (1.60-3.17) g/dL 01/21/23 Range/Units 05:41 RBC (3.80-5.40) m/uL Hgb (11.4-16.0) gm/dL Hct (34.0-46.0) % RDW (11.5-14.5) % Plt Count (150-450) k/uL MPV (9.5-12.2) fL Immature Gran # (0.00-0.04) X 10*3/uL Eosinophils # (0.04-0.35) X 10*3/uL Sodium (137-145) mmol/L Potassium 2.9 L (3.5-5.1) mmol/L Anion Gap 7.30 L (10.00-18.00) mmol/L BUN 3.5 L (7-17) mg/dL Creatinine 0.5 L (0.52-1.04) mg/dL BUN/Creatinine Ratio 7.00 L (12.00-20.00) Ratio Calcium 7.5 L (8.4-10.2) mg/dL Alkaline Phosphatase 30 L (38-126) U/L Total Protein 4.0 L (6.3-8.2) g/dL Albumin 1.8 L (3.5-5.0) g/dL Albumin/Globulin Ratio 0.82 L (1.60-3.17) g/dL Assessment and Plan (1) Infected hematoma following procedure Current Visit: Yes Status: Acute Code(s): [id number] - SNOMED Code(s): 061011119 Plan: 1patient with a recent history of sigmoid resection along with bilateral ovarian cystectomy on 12/26/2022 subsequently presented to hospital with bleeding per rectum noticed to have a fluid collection around anastomosis site with a repeat CAT scan on 01/14/2023 did show decrease in size of the fluid and could not be drained via CT-guided per IR patient has been afebrile during this hospital stay and did have a normal white count concerning for possible hematoma infected hematoma or abscess noted at excluded however keeping in mind decrease in size 2-patient that have clinical improvement the patient white count is normal, patient to continue with the Zosyn, plan to finish therapy with oral Augmentin with a repeat CAT scan in 2 weeks to make sure resolution of that infected hematoma/abscess Time with Patient: Less than 30
[2023-01-22] MEDS: oxyCODONE-APAP 10-325MG 1 EACH TAB PO SCH ×4 (05:33→23:37)
[2023-01-22] MEDS: SODIUM CHLORIDE 0.9% 1,000 ML IV SCH (05:34)
[2023-01-22] MEDS: LEVOTHYROXINE 125 MCG TAB PO SCH (05:34)
[2023-01-22 06:52] LABS: Basophils % (A) 0 %; Eosinophils # (A) 0.6 k/uL (0-0.7); Eosinophils % (A) 10 %; HCT 29.1 % (34.0-46.0); HGB 9.4 gm/dL (11.4-16.0); Hypochromasia Slight; Lymphocytes # (A) 1.8 k/uL (1.0-4.8); Lymphocytes % (A) 30 %; MCH 28.6 pg (25.0-35.0); MCHC 32.2 g/dL (31.0-37.0); MCV 88.9 fL (80.0-100.0); Mean Platelet Volume 7.3; Monocytes # (A) 0.3 k/uL (0-1.0); Monocytes % (A) 5 %; Neutrophils # (A) 3.1 k/uL (1.3-7.7); Neutrophils % (A) 53 %; Platelet Count 457 k/uL (150-450); RBC 3.27 m/uL (3.80-5.40); RDW 15.7 % (11.5-15.5); WBC 5.8 k/uL (3.8-10.6)
[2023-01-22 07:00] LABS: ALT 19 U/L (4-34); AST 32 U/L (14-36); African American GFR (CKD) >90 (>60 ml/min/1.73 sqM); Albumin 1.7 g/dL (3.5-5.0); Albumin/Globulin Ratio 0.7; Alkaline Phosphatase 31 U/L (38-126); Anion Gap 1 mmol/L; Blood Urea Nitrogen 3 mg/dL (7-17); Calcium 7.1 mg/dL (8.4-10.2); Carbon Dioxide 28 mmol/L (22-30); Chloride 107 mmol/L (98-107); Globulin 2.4 g/dL; Glucose 85 mg/dL (74-99); Non-African American GFR(CKD) 88 (>60 ml/min/1.73 sqM); Potassium 3.3 mmol/L (3.5-5.1); Sodium 136 mmol/L (137-145); Total Bilirubin 0.4 mg/dL (0.2-1.3); Total Protein 4.1 g/dL (6.3-8.2)
[2023-01-22] MEDS ORDERED: POTASSIUM CHLORIDE ER 20 MEQ TAB.ER PO STA ×2 (08:15→08:17)
[2023-01-22] MEDS: HEPARIN SODIUM,PORCINE/PF 5,000 UNIT/0.5 ML SYRINGE SQ SCH ×2 (08:28→21:45)
[2023-01-22] MEDS: POTASSIUM CHLORIDE ER 20 MEQ TAB.ER PO SCH (08:28)
[2023-01-22] MEDS: PIPERACILLIN-TAZOBACTAM 3.375 GM in SODIUM CHLORIDE 0.9% 100 ML IVPB SCH ×3 (08:28→23:37)
[2023-01-22] MEDS: PANTOPRAZOLE 40 MG TABLET PO SCH (08:28)
[2023-01-22] MEDS: METOPROLOL TARTRATE 12.5 MG TAB PO SCH ×2 (09:37→21:45)
--- NOTE | 2023-01-22 11:07 | PN ---
PROGRESS NOTE SUBJECTIVE: An 82-year-old white female with history of hypertension, status post bilateral ovarian cystectomy, and diverticulitis with a vesicorectal fistula repair electrolytes as mentioned above. OBJECTIVE: PSYCH: She appears normal. CARDIOVASCULAR: S1, S2. LUNGS: Clear. GI: Soft. ASSESSMENT AND PLAN: She says she home tomorrow. Hemoglobin dropped down as mentioned above. with a possible CAT scan in 2 weeks to make sure the hematoma versus abscess Hematology on her anemia prior to going home. MMODL / IJN: [id number] /
--- NOTE | 2023-01-22 13:33 | P.DS ---
Providers Date of admission: 01/09/23 02:25 Expected date of discharge: 01/22/23 Attending physician: Mino Salmon Consults: 01/09/23 02:23 Consult Physician Urgent Consulting Provider: Juan Jose Degroot Consult Reason/Comments: medicial management Do you want consulting provider notified?: Yes, Notify in am 01/10/23 07:23 Consult Physician Stat Consulting Provider: Audrey Sr Consult Reason/Comments: hypotensioin/icu Do you want consulting provider notified?: Yes 01/17/23 09:54 Consult Physician Routine Consulting Provider: Eva El Consult Reason/Comments: infected hematoma Do you want consulting provider notified?: Yes 01/21/23 17:54 Consult Physician Routine Consulting Provider: Quinn Betts Consult Reason/Comments: anemia Do you want consulting provider notified?: Yes Primary care physician: Juan Jose Degroot [facility] Course: Discharge diagnosis 1. Possible infected hematoma at anastomotic site. 2. Acute GI bleed with bright red blood per rectum 3. Recent sigmoid resection with lower anterior resection and bilateral ovarian cystectomy on 12/26/2022 for diverticulitis and bilateral enlarged ovarian cysts Hospital course This is a 82-year-old female who was a transfer from [facility]. Patient had sigmoid resection with lower anterior resection and bilateral ovarian cystectomy with Dr. salmon on 12/26/2022 for diverticulitis and bilateral enlarged ovarian cysts. Patient did have postoperative bleeding and hypotension likely at the anastomotic site during her admission. Patient patient did have bright red blood per rectum starting Saturday morning. She's had 4 episodes of bleeding. She denies any blood clots. She does pass blood without stool. Her hemoglobin on discharge was 7.9. Patient did have a computed tomography scan done at [facility] that showed biliary O bed fluid collection in the pelvis may be abscess or hematoma. There are concerns that there is a possible infected hematoma at the anastomotic site. Patient was placed on IV antibiotics and seen by infectious disease. She was evaluated by our service but there was not a drainable fluid. Patient has had no further bleeding per rectum. Her wh ite count has normalized. She's afebrile. She denies any abdominal pain. She is tolerating diet. Potassium is getting replaced again prior to discharge. Patient is stable for discharge. Please refer to chart for any further details. Physician [employer] Principal note has been reviewed by physician. Signing provider agrees with the documented findings, assessment, and plan of care. Patient Condition at Discharge: Stable Plan - Discharge Summary New Discharge Prescriptions: New Amoxic-Pot Clav 875-125Mg [Augmentin 875-125] 1 tab PO Q12HR 14 Days #28 tab Continue oxyCODONE-APAP 10-325MG [Percocet 10-325 mg] 1 tab PO Q6HR@00,06,12,18 No Action Solifenacin Succinate [Vesicare] 10 mg PO DAILY tiZANidine [Zanaflex] 4 mg PO HS Metoprolol Succinate (ER) [Toprol XL] 100 mg PO DAILY Aspirin EC [Ecotrin Low Dose] 81 mg PO DAILY #30 tab Levothyroxine Sodium [Synthroid] 125 mcg PO DAILY QUEtiapine [SEROquel] 25 mg PO HS #3 tab fentaNYL 75MCG/HR PATCH [Duragesic 75MCG/HR] 1 patch TRANSDERM Q72H #1 patch Discharge Medication List Solifenacin Succinate [Vesicare] 10 mg PO DAILY 11/23/19 [History] Levothyroxine Sodium [Synthroid] 125 mcg PO DAILY 05/15/22 [History] Metoprolol Succinate (ER) [Toprol XL] 100 mg PO DAILY 05/15/22 [History] tiZANidine [Zanaflex] 4 mg PO HS 05/15/22 [History] Aspirin EC [Ecotrin Low Dose] 81 mg PO DAILY #30 tab 01/03/23 [Rx] QUEtiapine [SEROquel] 25 mg PO HS #3 tab 01/03/23 [Rx] fentaNYL 75MCG/HR PATCH [Duragesic 75MCG/HR] 1 patch TRANSDERM Q72H #1 patch 01/03/23 [Rx] oxyCODONE-APAP 10-325MG [Percocet 10-325 mg] 1 tab PO Q6HR@00,06,12,18 01/09/23 [History] Amoxic-Pot Clav 875-125Mg [Augmentin 875-125] 1 tab PO Q12HR 14 Days #28 tab 01/21/23 [Rx] Follow up Appointment(s)/Referral(s): Juan Jose Degroot MD [Primary Care Provider] - 1-2 days [facility], [NON-STAFF] - 1-2 Days Mino Salmon MD [STAFF PHYSICIAN] - 1 Week Activity/Diet/Wound Care/Special Instructions: Patient requires a wheelchair to complete her ADLS which cannot be done with a cane or walker due to generalized weakness, post op complications, prolonged hospitalization, and osteoarthritis. Patient is able to self proper. Patient requires a bedside commode because she is room confined due to generalized weakness, post op complications, prolonged hospitalization, and osteoarthritis. Discharge Disposition: HOME WITH HOME HEALTH SERVICES
--- NOTE | 2023-01-22 16:44 | P.CONS ---
History of Present Illness - Reason for Consult Consult date: 01/22/23 anemia Requesting physician: Juan Jose Degroot - Chief Complaint post-op complications - History of Present Illness Patient is an 82-year-old female who recently had a sigmoidectomy and bilateral ovarian cystectomy on 12/29/[address] Aparicio. Pathology was negative for m alignancy. Patient presented to [facility] for rectal bleeding and also had an episode of nausea and vomiting s/p surgery. CT abdomen [facility] showed bilobed fluid collection in the pelvis, may be abscess or hematoma. There was also free fluid within the abdominal and pelvic cavity. She was then transferred to [facility] to establish care with her surgeon. Repeat CT AP on 01/14 revealed persistent free air, with fluid collection adjacent to the anastonotic site suspicious for leak and possible abscess. In addition there is fluid and air within the left ovary or adjacent to the left ovary suggesting an additional abscess with possible involvement of the left ovary. Pt continues on zosyn. We were consulted for anemia. During this admission hemoglobin has ranged from 7.010.1. She received 1 unit of PRBCs on 01/10. Patient reports blood in the stool has resolved. She denies abdominal pain, nausea, vomiting, and diarrhea. Denies fever and chills. Patient reports having a history of anemia during , but has not received iron infusions in the past. . Review of Systems 10 point ROS is negative except as stated in the HPI Past Medical History Past Medical History: Hyperlipidemia, Osteoarthritis (OA), Pulmonary Embolus (PE), Thyroid Disorder Additional Past Medical History / Comment(s): hx 5 back surgeries with chronic back pain, low bp with orthostatic issues at times, left shoulder pain and stiffness- receives cortisone. , possible PE (2019)., states uti for the last year., rectal fistula, uses cane & walker. History of Any Multi-Drug Resistant Organisms: None Reported Past Surgical History: Back Surgery, Cholecystectomy, Heart Catheterization, Hysterectomy, Joint Replacement, Orthopedic Surgery Additional Past Surgical History / Comment(s): 5 back surgeries, right & left total knees, total right shoulder replacement and 2 previous surgeries on right shoulder, , lumpectomy right breast. 12/26 Dr. Aparicio fix bowel/ bladder fistula Past Anesthesia/Blood Transfusion Reactions: No Reported Reaction, Family History of Problems w/ Anesthesia Additional Past Anesthesia/Blood Transfusion Reaction / Comm: blood transfusions with child no issues. daughter has ponv Past Psychological History: No Psychological Hx Reported Smoking Status: Never smoker Past Alcohol Use History: Rare Past Drug Use History: None Reported - Past Family History Father Family Medical History: Diabetes Mellitus Mother Family Medical History: Hypertension Daughter(s) Family Medical History: Diabetes Mellitus Medications and Allergies Home Medications Medication Instructions Recorded Confirmed Type Solifenacin Succinate [Vesicare] 10 mg PO DAILY 11/23/19 01/09/23 History Levothyroxine Sodium [Synthroid] 125 mcg PO DAILY 05/15/22 01/09/23 History Metoprolol Succinate (ER) [Toprol 100 mg PO DAILY 05/15/22 01/09/23 History XL] tiZANidine [Zanaflex] 4 mg PO HS 05/15/22 01/09/23 History Aspirin EC [Ecotrin Low Dose] 81 mg PO DAILY #30 tab 01/03/23 01/09/23 Rx QUEtiapine [SEROquel] 25 mg PO HS #3 tab 01/03/23 01/09/23 Rx fentaNYL 75MCG/HR PATCH [Duragesic 1 patch TRANSDERM Q72H #1 patch 01/03/23 01/09/23 Rx 75MCG/HR] oxyCODONE-APAP 10-325MG [Percocet 1 tab PO Q6HR@00,06,12,18 01/09/23 01/09/23 History 10-325 mg] Amoxic-Pot Clav 875-125Mg 1 tab PO Q12HR 14 Days #28 tab 01/21/23 Rx [Augmentin 875-125] Allergies Allergy/AdvReac Type Severity Reaction Status Date / Time cat dander Allergy Rash/Hives Verified 01/09/23 07:22 latex Allergy Rash/Hives, Verified 01/09/23 07:22 Swelling Sulfa (Sulfonamide Allergy Nausea, Verified 01/09/23 07:22 Antibiotics) Chills nortriptyline [From Pamelor] AdvReac irritated, Verified 01/09/23 07:22 nervous Physical Exam Vitals: Vital Signs Temp Pulse Resp BP Pulse Ox 01/22/23 12:50 99.1 F 73 18 114/70 91 L 01/22/23 08:50 80 01/22/23 08:30 16 01/22/23 06:35 98.0 F 78 16 98/54 98 01/22/23 02:00 97.5 F L 85 17 99/62 96 01/21/23 20:00 98.5 F 100 16 150/71 94 L Intake and Output 01/22/23 01/22/23 01/22/23 06:59 14:59 22:59 Intake Total 240 Output Total 600 200 Balance -600 40 Intake: Oral 240 Output: Urine 600 200 Stool 0 Other: Voiding Method Diaper - Constitutional General appearance: average body habitus, no acute distress - EENT Eyes: anicteric sclerae, EOMI ENT: hearing grossly normal - Respiratory Respiratory: bilateral: CTA - Cardiovascular Rhythm: regular Heart sounds: normal: S1, S2 Abnormal Heart Sounds: no systolic murmur, no diastolic murmur, no rub, no S3 Gallop, no S4 Gallop, no click, no other - Gastrointestinal General gastrointestinal: soft, no tenderness - Integumentary Integumentary: pale - Neurologic Grossly intact - Psychiatric Psychiatric: A&O x's 3, appropriate affect, intact judgment & insight Results CBC & Chem 7: 01/22/23 05:26 01/22/23 05:26 Labs: Abnormal Lab Results - Last 24 Hours (Table) 01/22/23 01/22/23 Range/Units 05:26 05:26 RBC 3.27 L (3.80-5.40) m/uL Hgb 9.4 L (11.4-16.0) gm/dL Hct 29.1 L (34.0-46.0) % RDW 15.7 H (11.5-15.5) % Plt Count 457 H (150-450) k/uL Sodium 136 L (137-145) mmol/L Potassium 3.3 L (3.5-5.1) mmol/L BUN 3 L (7-17) mg/dL Calcium 7.1 L (8.4-10.2) mg/dL Alkaline Phosphatase 31 L (38-126) U/L Total Protein 4.1 L (6.3-8.2) g/dL Albumin 1.7 L (3.5-5.0) g/dL CT scan - abdomen: report reviewed CT scan - pelvis: report reviewed Assessment and Plan (1) Anemia Current Visit: Yes Status: Acute Priority: Medium Code(s): D64.9 - ANEMIA, UNSPECIFIED SNOMED Code(s): 254442834 Plan: Anemia: -During this admission hemoglobin has ranged from 7.010.1. She received 1 unit of PRBCs on 01/10. Patient reports blood in the stool has resolved. -Anemia workup ordered -Will schedule f/u in clinic in 2 weeks to further review labs, and for possible iron infusions pending workup -Will continue to monitor counts. Please transfuse for hemoglobin less than 7 or symptomatic attests: I performed H&P and developed impression and plan of care for patient, discussed with dictator. I with dictated note, documented as a scribe
--- NOTE | 2023-01-22 19:44 | P.PN ---
Subjective Progress Note Date: 01/22/23 Principal diagnosis: Possible infected hematoma/abscess Patient is a 82-year-old female with a past medical history significant for hypertension osteoarthritis PE patient did have a recent sigmoid resection along with bilateral ovarian cystectomy by on 12/26/2022 for diverticulitis and bilateral enlarged ovarian cyst patient started having bright red blood per rectum , for the patient did have CT of abdominal pelvis concerning for fluid adjacent to anastomotic site with concern for possible hematoma versus abscess patient has been treated medically with antibiotics with repeat CAT scan did shows decrease in size of the fluid collection. On today's evaluation that is 01/22/2023, the patient continues to be afebrile, the patient is breathing comfortably on room air, the patient denies any chest pain shortness of cough no abdominal pain or diarrhea no blood in the stool Objective - Vital Signs Vital signs: Vital Signs Temp 99.1 F 01/22/23 12:50 Pulse 73 01/22/23 12:50 Resp 18 01/22/23 12:50 BP 114/70 01/22/23 12:50 Pulse Ox 91 L 01/22/23 12:50 FiO2 Intake & Output 01/21/23 01/22/23 01/22/23 18:59 06:59 18:59 Intake Total 650 240 Output Total 600 600 200 Balance 50 -600 40 Weight 97.8 kg Intake: Oral 650 240 Output: Urine 600 600 200 Stool 0 Other: Voiding Method Indwelling Catheter Indwelling Catheter Diaper # Bowel Movements 1 - Exam GENERAL DESCRIPTION: An elderly female lying in bed in no distress RESPIRATORY SYSTEM: Unlabored breathing , decreased breath sounds at bases HEART: S1 S2 regular rate and rhythm , ABDOMEN: Soft , midline incision is healed no redness no drainage and no tenderness EXTREMITIES: No edema feet - Labs CBC & Chem 7: 01/22/23 05:26 01/22/23 05:26 Labs: Abnormal Lab Results - Last 24 Hours (Table) 01/22/23 01/22/23 Range/Units 05:26 05:26 RBC 3.27 L (3.80-5.40) m/uL Hgb 9.4 L (11.4-16.0) gm/dL Hct 29.1 L (34.0-46.0) % RDW 15.7 H (11.5-15.5) % Plt Count 457 H (150-450) k/uL Sodium 136 L (137-145) mmol/L Potassium 3.3 L (3.5-5.1) mmol/L BUN 3 L (7-17) mg/dL Calcium 7.1 L (8.4-10.2) mg/dL Alkaline Phosphatase 31 L (38-126) U/L Total Protein 4.1 L (6.3-8.2) g/dL Albumin 1.7 L (3.5-5.0) g/dL Assessment and Plan (1) Infected hematoma following procedure Current Visit: Yes Status: Acute Code(s): CUC7650 - SNOMED Code(s): 323882077 Plan: 1patient with a recent history of sigmoid resection along with bilateral ovarian cystectomy on 12/26/2022 subsequently presented to hospital with bleeding per rectum noticed to have a fluid collection around anastomosis site with a repeat CAT scan on 01/14/2023 did show decrease in size of the fluid and could not be drained via CT-guided per IR patient has been afebrile during this hospital stay and did have a normal white count concerning for possible hematoma infected hematoma or abscess noted at excluded however keeping in mind decrease in size 2-patient that have clinical improvement the patient white count is normal, patient to continue with the Zosyn while inpatient zonia plan to finish therapy with oral Augmentin 2 weeks on discharge and close outpatient follow-up Time with Patient: Less than 30
[2023-01-22] MEDS: tiZANidine 4 MG TAB PO SCH (21:45)
[2023-01-22] MEDS: QUEtiapine 25 MG TAB PO SCH (21:45)
[2023-01-22] MEDS ORDERED: RX INFO: IV CONTRAST WAS GIVEN 1 EACH MISC MISCELLANE PRN (22:20)
--- NOTE | 2023-01-22 22:58 | PN ---
PROGRESS NOTE SUBJECTIVE: Remains on Synthroid for hypothyroidism, heparin subcu, Lopressor for hypertension, Percocet every 6 hours, Protonix 40 b.i.d., IV Zosyn for abdominal abscess. Potassium chloride was started on 20 mEq daily due to hypokalemia, Seroquel for mood disorder, insomnia. Zanaflex p.r.n. for muscle relaxer. Her hemoglobin went down today from 10.1 to 8.8, Hematology will see her, she was not bleeding predominantly. White count remains normal. Potassium 2.9 for the radiology. Sodium is 139, BUN is 3.5, creatinine 0.5, albumin 1.8. Advance her diet to include more protein in it. Continue broad-spectrum antibiotics per Infectious Disease Surgery. OBJECTIVE: VITAL SIGNS: Temperature 98.3, pulse 87, respiratory rate 18, and blood pressure 133/93. CARDIOVASCULAR: S1, S2. LUNGS: Decreased breath sounds. INTEGUMENT: She looks pale, cachectic. HEMATOLOGY: Negative for Homans. PLAN: Continue current treatment. Monitor breathing. She is 93 on room air. Continue broad- spectrum antibiotics, updraft treatments. Replace electrolytes for hypokalemia. Monitor hemoglobin as tolerated. Prognosis guarded. MMODL / IJN: [id number] /
--- NOTE | 2023-01-23 05:28 | PN ---
PROGRESS NOTE An 82-year-old white female came in with vesicular colon fistula repair with abscess formation and recurrent bleeding postop. The patient was taken back for surgery per Dr. Aparicio. She had abscess formation. She was on broad-spectrum antibiotics for multiple days, switched to Augmentin on discharge. Diet was slowly advanced. She had anemia on bleeding. Hemoglobin stabilized at 9.6 on discharge. She was hypoxemic and hypotensive for most of her stay. We had to cut most of her pain medicine down, most of her blood pressure medicine down, her breathing dropped down. She wears 2 L oxygen at night. She was low 90s on 2 L, especially at nighttime. She needs over 2 L of oxygen at all times and when she is napping, she needs to take updraft treatments with DuoNeb and Symbicort inhaler 160/4.5 two puffs b.i.d. and Atrovent nebulizer q.i.d. Protonix 40 mg before meals b.i.d. Augmentin 875 one q.12 hours for 14 days. Potassium chloride 20 mEq daily, Lopressor 12.5 b.i.d., tizanidine 4 mg at night, aspirin 81 mg daily, Synthroid 125 mcg daily, Seroquel 25 at bedtime, oxycodone/APAP 10/325 one q.6 hours. She will need to be monitored for orthostatic hypotension. Main thing if she wears oxygen at night does her breathing inhaler and breathing treatments during the day. Otherwise, if she want to do well, she needs to be checked for orthostatic hypotension and for any recurrent bleeding, continue antibiotics with Augmentin for 14 days. Follow up with Dr. Juan Jose Degroot at the half-way. Diet will be as tolerated. Ambulate with PT, OT. Condition stable. Prognosis guarded. She has severe degenerative disk disease in her cervical and lumbar spine, osteoarthritis of her joints, hypothyroidism, depression, insomnia, COPD, nocturnal hypoxemia, GERD, orthostatic hypotension. Prognosis extremely guarded. Please see further orders. MMODL / IJN: [id number] /
[2023-01-23] MEDS: LEVOTHYROXINE 125 MCG TAB PO SCH (05:45)
[2023-01-23] MEDS: oxyCODONE-APAP 10-325MG 1 EACH TAB PO SCH ×4 (05:45→23:54)
[2023-01-23] MEDS: SODIUM CHLORIDE 0.9% 1,000 ML IV SCH (05:46)
--- NOTE | 2023-01-23 06:14 | PN ---
PROGRESS NOTE An 82-year-old white female, who was cleared by Dr. El for discharge on oral antibiotics, Augmentin. Her hemoglobin increased today up to 9 4. Possibly go to rehab center due to extreme weakness. Temperature is 99.1, blood pressure 114/70, saturation 91% on room air, pulse is 73, respiratory rate 16 to 18. She would need to go home on 2 L of oxygen at nighttime at the long-term. She will have to take updraft treatments during the day and Augmentin. Possibly a Symbicort inhaler for her breathing to get her breathing improved and Spiriva inhaler 1 puff a day up at the long-term. She is to stay on this to help her breathing and wear oxygen at night. She will continue to treat antibiotics for status post colovesicular fistula with infection with abscess. Prognosis guarded. Continue current treatments. Discharge to long-term tomorrow for PT, OT as she is generally weak and dizzy, we would have to check orthostatic blood pressures before she goes. MMODL / IJN: [id number] /
--- NOTE | 2023-01-23 08:05 | CT ---
EXAMINATION TYPE: CT chest w con CT DLP: 548.6 mGycm, Automated exposure control for dose reduction was used. DATE OF EXAM: 01/23/2023 7:42 AM COMPARISON: Small bilateral pleural effusions with associated atelectasis. CLINICAL INDICATION:Female, 82 years old with history of hypoxia; TECHNIQUE: Multiple axial images were obtained through the chest. Sagittal and coronal reformats were created for review. Contrast used:100 mL of Isovue 300 with IV Contrast Oral contrast used: none. FINDINGS: LUNGS/ PLEURA: Small bilateral pleural effusions with associated atelectasis. Right upper lobe latera l interstitial thinking peripherally AIRWAY: Patent and unremarkable. HEART: The heart is prominent in size. There is coronary artery calcifications. MEDIASTINUM: No gross evidence of adenopathy. VASCULATURE: No aortic aneurysm. Left PICC with tip terminating in the brachycephalic vein near midl ine. MUSCULOSKELETAL: No acute osseous abnormalities, right shoulder arthroplasty changes hardware intact. Multilevel disc degeneration changes throughout the spine. Partially visualized fixation hardware in the spine. Partially visualized fixation hardware of the lower cervical spine. SOFT TISSUES/LYMPH NODES: Unremarkable. LOWER NECK: No significant findings. UPPER ABDOMEN: Small ascites in the abdomen. Subtle nodular contour to liver may be present. Retained lobulation of the kidneys bilaterally. The gallbladder surgically absent. Small splenule is pr esent. Extrarenal pelves bilaterally. IMPRESSION: 1. Small bilateral pleural effusions with associated atelectasis, correlate with serum BNP for heart failure. 2. Hepatic subtle nodular contour with small ascites correlate for cirrhosis. 3. Left PICC with tip in the brachiocephalic vein near midline
[2023-01-23] MEDS: IPRATROPIUM 0.5 MG/2.5 ML NEBU INHALATION SCH ×4 (08:15→21:23)
[2023-01-23] MEDS: SYMBICORT 160-4.5 MCG INHALER INHALATION SCH ×2 (08:15→21:23)
[2023-01-23] MEDS: METOPROLOL TARTRATE 12.5 MG TAB PO SCH ×2 (09:08→20:15)
[2023-01-23] MEDS: PANTOPRAZOLE 40 MG TABLET PO SCH (09:09)
[2023-01-23] MEDS: HEPARIN SODIUM,PORCINE/PF 5,000 UNIT/0.5 ML SYRINGE SQ SCH ×2 (09:09→20:15)
[2023-01-23] MEDS: POTASSIUM CHLORIDE ER 20 MEQ TAB.ER PO SCH (09:09)
[2023-01-23] MEDS: PIPERACILLIN-TAZOBACTAM 3.375 GM in SODIUM CHLORIDE 0.9% 100 ML IVPB SCH ×3 (09:10→23:55)
--- NOTE | 2023-01-23 12:59 | P.PN ---
Subjective Progress Note Date: 01/23/23 CHIEF COMPLAINT: Rectal bleeding HISTORY OF PRESENT ILLNESS: Patient denies any abdominal pain. She did have a bowel movement yesterday. She is tolerating diet. Patient's blood pressure has been on the lower side. She has stopped blood pressure on the 80s this morning. She's followed by medicine service. Discharge held the yesterday. Patient has changed her mind to proceed with ECF placement. Awaiting insurance authorization. Patient failed voiding trial and had Zeng catheter reinserted. Computed tomography scan of the chest ordered by medicine service due to hypoxia show small bilateral pleural effusions with associated atelectasis. Hepatic subtle nodular contour a small ascites correlate for cirrhosis. Labs for today pending. Patient seen by hematology regarding anemia. Hemoglobin yesterday 9.4. Magnesium 1.9 PHYSICAL EXAM: VITAL SIGNS: Reviewed. GENERAL: Well-developed in no acute distress. HEENT: No sclera icterus. Extraocular movements grossly intact. Moist buccal mucosa. Head is atraumatic, normocephalic. ABDOMEN: Soft. Nondistended. Nontender. Incision clean dry and intact NEUROLOGIC: Alert and oriented. Cranial nerves II through XII grossly intact. ASSESSMENT: 1. Possible infected hematoma at anastomotic site. Showing improvement. No drainage needed per IR. 2. Acute GI bleed with bright red blood per rectum 3. Recent sigmoid resection with lower anterior resection and bilateral ovarian cystectomy on 12/26/2022 for diverticulitis and bilateral enlarged ovarian cysts 4. Hypokalemia PLAN: -Recommend no discharge at this time due to patient having episodes of hypotension -Continue supportive care -Continue antibiotics Physician Heat Engineering Teacher note has been reviewed by physician. Signing provider agrees with the documented findings, assessment, and plan of care. Objective - Vital Signs Vital signs: Vital Signs Temp 97.6 F 01/23/23 11:56 Pulse 79 01/23/23 11:56 Resp 18 01/23/23 11:56 BP 131/67 01/23/23 11:56 Pulse Ox 92 L 01/23/23 11:56 FiO2 Intake & Output 01/22/23 01/23/23 01/23/23 18:59 06:59 18:59 Intake Total 240 Output Total 200 600 Balance 40 -600 Weight 97.8 kg Intake: Oral 240 Output: Urine 200 600 Stool 0 Other: Voiding Method Diaper Indwelling Catheter Indwelling Catheter # Voids 0 - Labs CBC & Chem 7: 01/22/23 05:26 01/22/23 05:26
--- NOTE | 2023-01-23 14:45 | P.PN ---
Subjective Progress Note Date: 01/23/23 Principal diagnosis: Possible infected hematoma/abscess Patient is a 82-year-old female with a past medical history significant for hypertension osteoarthritis PE patient did have a recent sigmoid resection along with bilateral ovarian cystectomy by on 12/26/2022 for diverticulitis and bilateral enlarged ovarian cyst patient started having bright red blood per rectum , for the patient did have CT of abdominal pelvis concerning for fluid adjacent to anastomotic site with concern for possible hematoma versus abscess patient has been treated medically with antibiotics with repeat CAT scan did shows decrease in size of the fluid collection. On today's evaluation that is 01/23/2023, the patient remains to be afebrile, the patient is breathing comfortably on room air, the patient denies any chest pain shortness of breath and no significant cough no abdominal pain or diarrhea no blood in the stool, patient did have episode of hypotension discharge has been put on hold CT of the chest with no pneumonia Objective - Vital Signs Vital signs: Vital Signs Temp 97.6 F 01/23/23 11:56 Pulse 79 01/23/23 11:56 Resp 18 01/23/23 11:56 BP 131/67 01/23/23 11:56 Pulse Ox 92 L 01/23/23 11:56 FiO2 Intake & Output 01/22/23 01/23/23 01/23/23 18:59 06:59 18:59 Intake Total 240 500 Output Total 200 600 Balance 40 -600 500 Weight 97.8 kg Intake: IV 500 Piperacillin-Tazobactam 3 100 .375 gm In Sodium Chloride 0.9% 100 ml @ 25 mls/hr IVPB Q8HR NIA Rx# :[id number] Sodium Chloride 0.9% 1, 400 000 ml @ 50 mls/hr IV . Q20H NIA Rx#:[id number] Oral 240 Output: Urine 200 600 Stool 0 Other: Voiding Method Diaper Indwelling Catheter Indwelling Catheter # Voids 0 - Exam GENERAL DESCRIPTION: An elderly female lying in bed in no distress RESPIRATORY SYSTEM: Unlabored breathing , decreased breath sounds at bases HEART: S1 S2 regular rate and rhythm , ABDOMEN: Soft , midline incision is healed no redness no drainage and no tenderness EXTREMITIES: No edema feet - Labs CBC & Chem 7: 01/22/23 05:26 01/22/23 05:26 Assessment and Plan (1) Infected hematoma following procedure Current Visit: Yes Status: Acute Code(s): [id number] - SNOMED Code(s): 754863025 Plan: 1patient with a recent history of sigmoid resection along with bilateral ovarian cystectomy on 12/26/2022 subsequently presented to hospital with bleeding per rectum noticed to have a fluid collection around anastomosis site with a repeat CAT scan on 01/14/2023 did show decrease in size of the fluid and could not be drained via CT-guided per IR patient has been afebrile during this hospital stay and did have a normal white count concerning for possible hematoma infected hematoma or abscess noted at excluded however keeping in mind decrease in size 2-patient continued to show some clinical improvement the patient white count is normal, patient to continue with the Zosyn while inpatient and may benefit from repeat CAT scan of abdominal pelvis Time with Patient: Less than 30
[2023-01-23 14:48] LABS: ALT 22 U/L (4-34); AST 42 U/L (14-36); African American GFR (CKD) >90 (>60 ml/min/1.73 sqM); Albumin 1.9 g/dL (3.5-5.0); Albumin/Globulin Ratio 0.7; Alkaline Phosphatase 40 U/L (38-126); Anion Gap 4 mmol/L; Blood Urea Nitrogen 3 mg/dL (7-17); Calcium 7.5 mg/dL (8.4-10.2); Carbon Dioxide 27 mmol/L (22-30); Chloride 104 mmol/L (98-107); Globulin 2.6 g/dL; Glucose 83 mg/dL (74-99); Non-African American GFR(CKD) 88 (>60 ml/min/1.73 sqM); Potassium 3.6 mmol/L (3.5-5.1); Sodium 135 mmol/L (137-145); Total Bilirubin 0.6 mg/dL (0.2-1.3); Total Protein 4.5 g/dL (6.3-8.2)
[2023-01-23] MEDS: MIDODRINE 5 MG TAB PO SCH (17:35)
[2023-01-23] MEDS ORDERED: ACETAMINOPHEN TAB 325 MG TAB PO PRN (19:52)
[2023-01-23] MEDS: QUEtiapine 25 MG TAB PO SCH (20:15)
[2023-01-23] MEDS: tiZANidine 4 MG TAB PO SCH (20:15)
--- NOTE | 2023-01-23 22:37 | PN ---
PROGRESS NOTE An 82-year-old white female who is going to go to the [facility]. We cut down on her blood pressure medicines. She remains hypotensive. Otherwise, she is to go to the [facility] on oral Augmentin. Temperature 97.6, respiratory rate 18, pulse 60s to 70s, blood pressure currently is 131/67, she has orthostatic drop down in the low 80s. She may need some midodrine. She is 92 on room air. She needs to take her inhalers for her breathing, wear nocturnal oxygen as mentioned above, 2-[address], bilateral pleural effusions, possible heart failure, possible cirrhosis. Left PICC line with a tip. Follow her closely in the [facility]. Hemoglobin is up to 9.4. Sodium 135, potassium is 3.6, calcium 7.5, protein level is 1.9, possibly be ordered to be discharged today or tomorrow to the [facility]. Medications mentioned above. Her blood pressure is improved. She will be able to go to the [facility]. We will get PT, OT. As mentioned, I cut down her medications for hypertension. She remains on her thyroid medication, Percocet for pain, Protonix for GERD, potassium replacement protocol, Seroquel at night, rehydrating overnight. Her blood pressure appears to be improving. Possibly we will have to give some midodrine. Prognosis guarded. Please see further orders. MMODL / IJN: [id number] /
[2023-01-24] MEDS: oxyCODONE-APAP 10-325MG 1 EACH TAB PO SCH ×2 (06:11→11:57)
[2023-01-24] MEDS: LEVOTHYROXINE 125 MCG TAB PO SCH (06:12)
[2023-01-24] MEDS: SODIUM CHLORIDE 0.9% 1,000 ML IV SCH (06:30)
[2023-01-24] MEDS: METOPROLOL TARTRATE 12.5 MG TAB PO SCH (07:48)
[2023-01-24] MEDS: HEPARIN SODIUM,PORCINE/PF 5,000 UNIT/0.5 ML SYRINGE SQ SCH (07:51)
[2023-01-24] MEDS: PIPERACILLIN-TAZOBACTAM 3.375 GM in SODIUM CHLORIDE 0.9% 100 ML IVPB SCH (07:51)
[2023-01-24] MEDS: PANTOPRAZOLE 40 MG TABLET PO SCH (07:51)
[2023-01-24] MEDS: MIDODRINE 5 MG TAB PO SCH ×2 (07:51→11:59)
[2023-01-24] MEDS: POTASSIUM CHLORIDE ER 20 MEQ TAB.ER PO SCH (07:51)
[2023-01-24] MEDS: IPRATROPIUM 0.5 MG/2.5 ML NEBU INHALATION SCH ×2 (08:21→11:49)
[2023-01-24] MEDS: SYMBICORT 160-4.5 MCG INHALER INHALATION SCH (08:21)
[2023-01-24 09:30] LABS: Basophils # (A) 0.09 X 10*3/uL (0.00-0.10); Basophils % (A) 1.2 %; Eosinophils # (A) 0.59 X 10*3/uL (0.04-0.35); HCT 30.2 % (37.2-46.3); HGB 9.2 g/dL (12.0-15.0); Immature Grans, Automated 0.8 %; Lymphocytes % (A) 28.5 %; MCHC 30.5 g/dL (32.0-37.0); MCV 92.1 fL (80.0-97.0); Mean Platelet Volume 9.4 fL (9.5-12.2); Monocytes # (A) 0.43 X 10*3/uL (0.20-1.00); Monocytes % (A) 5.8 %; NRBC Per 100 WBC 0 /100 WBCS (0.0-0.0); Neutrophils # (A) 4.09 X 10*3/uL (1.80-7.70); Neutrophils % (A) 55.7 %; Platelet Count 427 X 10*3/uL (140-440); RBC 3.28 X 10*6/uL (4.10-5.20); WBC 7.36 X 10*3/uL (4.50-10.00)
--- NOTE | 2023-01-24 12:49 | P.DS ---
Providers Date of admission: 01/09/23 02:25 Expected date of discharge: 01/24/23 Attending physician: Mino Salmon Consults: 01/09/23 02:23 Consult Physician Urgent Consulting Provider: Juan Jose Degroot Consult Reason/Comments: medicial management Do you want consulting provider notified?: Yes, Notify in am 01/10/23 07:23 Consult Physician Stat Consulting Provider: Audrey Sr Consult Reason/Comments: hypotensioin/icu Do you want consulting provider notified?: Yes 01/17/23 09:54 Consult Physician Routine Consulting Provider: Eva El Consult Reason/Comments: infected hematoma Do you want consulting provider notified?: Yes 01/21/23 17:54 Consult Physician Routine Consulting Provider: Quinn Betts Consult Reason/Comments: anemia Do you want consulting provider notified?: Yes Primary care physician: Juan Jose Degroot [facility] Course: Discharge diagnosis 1. Possible infected hematoma at anastomotic site. 2. Acute GI bleed with bright red blood per rectum 3. Recent sigmoid resection with lower anterior resection and bilateral ovarian cystectomy on 12/26/2022 for diverticulitis and bilateral enlarged ovarian cysts Hospital course This is a 82-year-old female who was a transfer from [facility]. Patient had sigmoid resection with lower anterior resection and bilateral ovarian cystectomy with Dr. salmon on 12/26/2022 for diverticulitis and bilateral enlarged ovarian cysts. Patient did have postoperative bleeding and hypotension likely at the anastomotic site during her admission. Patient patient did have bright red blood per rectum starting Saturday morning. She's had 4 episodes of bleeding. She denies any blood clots. She does pass blood without stool. Her hemoglobin on discharge was 7.9. Patient did have a computed tomography scan done at [facility] that showed biliary O bed fluid collection in the pelvis may be abscess or hematoma. There are concerns that there is a possible infected hematoma at the anastomotic site. Patient was placed on IV antibiotics and seen by infectious disease. She was evaluated by our service but there was not a drainable fluid. Patient has had no further bleeding per rectum. Her wh ite count has normalized. She's afebrile. She denies any abdominal pain. She is tolerating diet. Patient has had issues with hypotension. Medicine service has adjust blood pressure medication and has added midodrine. Patient is stable for discharge. Please refer to chart for any further details. Patient is stable for discharge today. However, awaiting bed availability at [facility]. Physician Cst note has been reviewed by physician. Signing provider agrees with the documented findings, assessment, and plan of care. Patient Condition at Discharge: Stable Plan - Discharge Summary New Discharge Prescriptions: New Ipratropium Nebulized [Atrovent Nebulized 0.2 MG/ML] 0.5 mg INHALATION RT-QID ml Pantoprazole [Protonix] 40 mg PO AC-BRKFST tab Budesonide-Formot 160-4.5 Mcg [Symbicort 160-4.5 Mcg Inhaler] 2 puff INHALATION RT-BID each Midodrine [ProAmatine] 2.5 mg PO AC-TID 30 Days #90 tab Acetaminophen Tab [Tylenol] 650 mg PO Q6HR PRN tab PRN Reason: Fever And/ Or Pain Amoxic-Pot Clav 875-125Mg [Augmentin 875-125] 1 tab PO Q12HR 14 Days #28 tab Potassium Chloride ER [K-Dur 20] 20 meq PO DAILY tab Metoprolol Tartrate [Lopressor] 12.5 mg PO BID tab Continue tiZANidine [Zanaflex] 4 mg PO HS Aspirin EC [Ecotrin Low Dose] 81 mg PO DAILY #30 tab Levothyroxine Sodium [Synthroid] 125 mcg PO DAILY QUEtiapine [SEROquel] 25 mg PO HS #3 tab oxyCODONE-APAP 10-325MG [Percocet 10-325 mg] 1 tab PO Q6HR@00,06,12,18 Discontinued Solifenacin Succinate [Vesicare] 10 mg PO DAILY Metoprolol Succinate (ER) [Toprol XL] 100 mg PO DAILY fentaNYL 75MCG/HR PATCH [Duragesic 75MCG/HR] 1 patch TRANSDERM Q72H #1 patch Discharge Medication List Levothyroxine Sodium [Synthroid] 125 mcg PO DAILY 05/15/22 [History] tiZANidine [Zanaflex] 4 mg PO HS 05/15/22 [History] Aspirin EC [Ecotrin Low Dose] 81 mg PO DAILY #30 tab 01/03/23 [Rx] QUEtiapine [SEROquel] 25 mg PO HS #3 tab 01/03/23 [Rx] oxyCODONE-APAP 10-325MG [Percocet 10-325 mg] 1 tab PO Q6HR@00,06,12,18 01/09/23 [History] Amoxic-Pot Clav 875-125Mg [Augmentin 875-125] 1 tab PO Q12HR 14 Days #28 tab 01/21/23 [Rx] Budesonide-Formot 160-4.5 Mcg [Symbicort 160-4.5 Mcg Inhaler] 2 puff INHALATION RT-BID each 01/22/23 [Rx] Ipratropium Nebulized [Atrovent Nebulized 0.2 MG/ML] 0.5 mg INHALATION RT-QID ml 01/22/23 [Rx] Metoprolol Tartrate [Lopressor] 12.5 mg PO BID tab 01/22/23 [Rx] Pantoprazole [Protonix] 40 mg PO AC-BRKFST tab 01/22/23 [Rx] Potassium Chloride ER [K-Dur 20] 20 meq PO DAILY tab 01/22/23 [Rx] Acetaminophen Tab [Tylenol] 650 mg PO Q6HR PRN tab 01/24/23 [Rx] Midodrine [ProAmatine] 2.5 mg PO AC-TID 30 Days #90 tab 01/24/23 [Rx] Follow up Appointment(s)/Referral(s): Quinn Betts MD [STAFF PHYSICIAN] - 02/07/23 9:00 am Juan Jose Degroot MD [Primary Care Provider] - 1-2 days (Please call for appointmen julianna) [facility], [NON-STAFF] - 1-2 Days Mino Salmon MD [STAFF PHYSICIAN] - 01/31/23 3:15 pm Patient Instructions/Handouts: Low Fiber Diet (DC), PICC (Peripherally Inserted Central Catheter) (DC) Activity/Diet/Wound Care/Special Instructions: Medicine service to complete discharge med rec Patient requires a wheelchair to complete her ADLS which cannot be done with a cane or walker due to generalized weakness, post op complications, prolonged hospitalization, and osteoarthritis. Patient is able to self proper. Patient requires a bedside commode because she is room confined due to generalized weakness, post op complications, prolonged hospitalization, and osteoarthritis. Discharge Disposition: HOME SELF-CARE
[2023-01-24 15:22] VITALS: BP 121/80; PULSE 88; RESP 19; TEMP 97.5
--- NOTE | 2023-01-24 15:25 | P.PN ---
Subjective Progress Note Date: 01/24/23 Principal diagnosis: Possible infected hematoma/abscess Patient is a 82-year-old female with a past medical history significant for hypertension osteoarthritis PE patient did have a recent sigmoid resection along with bilateral ovarian cystectomy by on 12/26/2022 for diverticulitis and bilateral enlarged ovarian cyst patient started having bright red blood per rectum , for the patient did have CT of abdominal pelvis concerning for fluid adjacent to anastomotic site with concern for possible hematoma versus abscess patient has been treated medically with antibiotics with repeat CAT scan did shows decrease in size of the fluid collection. On today's evaluation that is 01/24/2023, the patient continues to be afebrile, the patient is breathing comfortably on room air, the patient denies any chest pain shortness of breath and no cough no abdominal pain or diarrhea no blood in the stool, patient denies any new symptoms Objective - Vital Signs Vital signs: Vital Signs Temp 98.1 F 01/24/23 07:53 Pulse 75 01/24/23 07:53 Resp 18 01/24/23 00:11 BP 94/53 01/24/23 07:53 Pulse Ox 94 L 01/24/23 07:53 FiO2 Intake & Output 01/23/23 01/24/23 01/24/23 18:59 06:59 18:59 Intake Total 500 Output Total 425 Balance 500 -425 Weight 97.8 kg Intake: IV 500 Piperacillin-Tazobactam 3 100 .375 gm In Sodium Chloride 0.9% 100 ml @ 25 mls/hr IVPB Q8HR NIA Rx# :[id number] Sodium Chloride 0.9% 1, 400 000 ml @ 50 mls/hr IV . Q20H NIA Rx#:[id number] Output: Urine 425 Other: Voiding Method Indwelling Catheter Indwelling Catheter - Exam GENERAL DESCRIPTION: An elderly female lying in bed in no distress RESPIRATORY SYSTEM: Unlabored breathing , decreased breath sounds at bases HEART: S1 S2 regular rate and rhythm , ABDOMEN: Soft , midline incision is healed no redness no drainage and no tenderness EXTREMITIES: No edema feet - Labs CBC & Chem 7: 01/24/23 05:45 01/23/23 13:51 Labs: Abnormal Lab Results - Last 24 Hours (Table) 01/23/23 01/24/23 Range/Units 13:51 05:45 RBC 3.28 L (4.10-5.20) X 10*6/uL Hgb 9.2 L (12.0-15.0) g/dL Hct 30.2 L (37.2-46.3) % MCHC 30.5 L (32.0-37.0) g/dL RDW 17.0 H (11.5-14.5) % MPV 9.4 L (9.5-12.2) fL Immature Gran # 0.06 H (0.00-0.04) X 10*3/uL Eosinophils # 0.59 H (0.04-0.35) X 10*3/uL Sodium 135 L (137-145) mmol/L BUN 3 L (7-17) mg/dL Calcium 7.5 L (8.4-10.2) mg/dL AST 42 H (14-36) U/L Total Protein 4.5 L (6.3-8.2) g/dL Albumin 1.9 L (3.5-5.0) g/dL Assessment and Plan (1) Infected hematoma following procedure Current Visit: Yes Status: Acute Code(s): [id number] - SNOMED Code(s): 036897733 Plan: 1patient with a recent history of sigmoid resection along with bilateral ovarian cystectomy on 12/26/2022 subsequently presented to hospital with bleeding per rectum noticed to have a fluid collection around anastomosis site with a repeat CAT scan on 01/14/2023 did show decrease in size of the fluid and could not be drained via CT-guided per IR patient has been afebrile during this hospital stay and did have a normal white count concerning for possible hematoma infected hematoma or abscess noted at excluded however keeping in mind decrease in size 2-patient continued to show some clinical improvement the patient white count is normal, plan is to finish therapy with oral Augmentin and repeat CAT scan in 2 weeks and close outpatient follow-up Time with Patient: Less than 30
[2023-01-24 17:01] LABS: % Iron Saturation 30.13 (12.00-45.00); African American GFR (CKD) 99.8 (60.0-200.0); Anion Gap 10.1 mmol/L (10.00-18.00); Blood Urea Nitrogen 3.6 mg/dL (9.0-27.0); Calcium 7.5 mg/dL (8.7-10.3); Carbon Dioxide 22.9 mmol/L (20.0-27.5); Non-African American GFR(CKD) 86.1 (60.0-200.0); Potassium 3.5 mmol/L (3.5-5.5)
[2023-01-29 08:01] LABS: Methylmalonic Acid 0.42 umol/L (<0.40)
== END 2023-01-24 15:23 | DRG 862 ==
LOC: EC 01:22 → 4SSUR 02:25 → 2SICU 01-13 09:03 → 4SSUR 01-16 22:37
PROVIDERS: ADMIT Surgery; ATTEND Surgery
PROC: 30233N1 Transfusion of Nonautologous Red Blood Cells into Peripheral Vein, Percutaneous Approach (ICD-10-PCS; 2023-01-10)
PROC: 3E033XZ Introduction of Vasopressor into Peripheral Vein, Percutaneous Approach (ICD-10-PCS; 2023-01-14)
PROC: 02HV33Z Insertion of Infusion Device into Superior Vena Cava, Percutaneous Approach (ICD-10-PCS; principal; 2023-01-16 10:50)
DX: T81.43XA Infection following a procedure, organ and space surgical site, initial encounter (principal); R57.1 Hypovolemic shock; R64 Cachexia; J90 Pleural effusion, not elsewhere classified; E87.20 Acidosis, unspecified; R18.8 Other ascites; L02.211 Cutaneous abscess of abdominal wall; D62 Acute posthemorrhagic anemia; K56.7 Ileus, unspecified; K91.840 Postprocedural hemorrhage of a digestive system organ or structure following a digestive system procedure; K91.870 Postprocedural hematoma of a digestive system organ or structure following a digestive system procedure; K92.1 Melena; N39.0 Urinary tract infection, site not specified; Z16.24 Resistance to multiple antibiotics; K68.11 Postprocedural retroperitoneal abscess; I50.9 Heart failure, unspecified; K74.60 Unspecified cirrhosis of liver; I11.0 Hypertensive heart disease with heart failure; E03.9 Hypothyroidism, unspecified; F32.A Depression, unspecified; J44.9 Chronic obstructive pulmonary disease, unspecified; E78.5 Hyperlipidemia, unspecified; G89.4 Chronic pain syndrome; M54.50 Low back pain, unspecified; B96.1 Klebsiella pneumoniae [K. pneumoniae] as the cause of diseases classified elsewhere; E87.6 Hypokalemia; I95.1 Orthostatic hypotension; G47.00 Insomnia, unspecified; D75.839 Thrombocytosis, unspecified; K21.9 Gastro-esophageal reflux disease without esophagitis; M50.30 Other cervical disc degeneration, unspecified cervical region; M51.9 Unspecified thoracic, thoracolumbar and lumbosacral intervertebral disc disorder; R09.02 Hypoxemia; M15.9 Polyosteoarthritis, unspecified; G62.9 Polyneuropathy, unspecified; R00.0 Tachycardia, unspecified; R63.0 Anorexia; Y83.2 Surgical operation with anastomosis, bypass or graft as the cause of abnormal reaction of the patient, or of later complication, without mention of misadventure at the time of the procedure; Z96.611 Presence of right artificial shoulder joint; Z96.653 Presence of artificial knee joint, bilateral; Z75.1 Person awaiting admission to adequate facility elsewhere; Z68.32 Body mass index [BMI] 32.0-32.9, adult; Z90.49 Acquired absence of other specified parts of digestive tract; Z79.899 Other long term (current) drug therapy; Z88.2 Allergy status to sulfonamides; Z86.711 Personal history of pulmonary embolism; Z88.8 Allergy status to other drugs, medicaments and biological substances; Z91.040 Latex allergy status; Z91.048 Other nonmedicinal substance allergy status; Z79.82 Long term (current) use of aspirin; Z79.891 Long term (current) use of opiate analgesic; Z79.890 Hormone replacement therapy; Z87.19 Personal history of other diseases of the digestive system; Z28.310 Unvaccinated for COVID-19; Z87.42 Personal history of other diseases of the female genital tract; Z79.51 Long term (current) use of inhaled steroids
CPT/HCPCS: 36415; 36573; 71260; 74177; 76705; 80048; 80053; 81001; 82525; 82533; 82607; 82728; 82746; 83540; 83550; 83605; 83735; 83921; 84132; 84145; 84484; 85025; 85027; 85379; 85610; 85730; 86850; 86900; 86901; 86920; 87040; 87077; 87086; 87186; 93005; 93308; 94760; 96361; 96374; 96376; 99285

== ENCOUNTER 2023-04-01 17:22 | Emergency (ER) | payer OTHER, MEDICARE ==
[2023-04-01 17:28] VITALS: RESP 18
--- NOTE | 2023-04-01 18:43 | XR ---
Is EXAMINATION TYPE: XR shoulder complete LT, XR clavicle LT DATE OF EXAM: 04/01/2023 CLINICAL HISTORY: This COMPARISON: NONE TECHNIQUE: Three views of the left shoulder are obtained. 2 views of the left clavicle are also subm itted. FINDINGS: There is complete fracture of the left mid clavicle with overriding of the fracture compone nt seen. AC joint is intact. No evidence for humeral or glenoid fracture. Severe degenerative narrowi ng glenohumeral joint space with extensive bony spur formation of the humeral head. IMPRESSION: 1. There is complete fracture of the left mid clavicle with overriding of the fracture component seen . ICD 10 NO FRACTURE, INITIAL EVALUATION
--- NOTE | 2023-04-01 19:08 | ED ---
General Adult HPI - General Chief complaint: Extremity Injury, Upper Stated complaint: Fall-no blood thinners Time Seen by Provider: 04/01/23 17:35 Source: patient, RN notes reviewed, old records reviewed Mode of arrival: wheelchair - History of Present Illness Initial comments: This is an 82-year-old female presents emergency department stating that she lost her balance and fell and landed on her left shoulder. Patient states the shoulder is quite painful with any movement. Patient denies hitting her head or neck. Patient denies any chest or back pain. Patient denies any lower extremity pain. Patient denies any abdominal pain. - Related Data Home Medications Medication Instructions Recorded Confirmed Levothyroxine Sodium [Synthroid] 125 mcg PO DAILY 05/15/22 01/09/23 tiZANidine [Zanaflex] 4 mg PO HS 05/15/22 01/09/23 oxyCODONE-APAP 10-325MG [Percocet 1 tab PO Q6HR@00,06,12,18 01/09/23 01/09/23 10-325 mg] Previous Rx's Medication Instructions Recorded Aspirin EC [Ecotrin Low Dose] 81 mg PO DAILY #30 tab 01/03/23 QUEtiapine [SEROquel] 25 mg PO HS #3 tab 01/03/23 Amoxic-Pot Clav 875-125Mg 1 tab PO Q12HR 14 Days #28 tab 01/21/23 [Augmentin 875-125] Budesonide-Formot 160-4.5 Mcg 2 puff INHALATION RT-BID each 01/22/23 [Symbicort 160-4.5 Mcg Inhaler] Ipratropium Nebulized [Atrovent 0.5 mg INHALATION RT-QID ml 01/22/23 Nebulized 0.2 MG/ML] Metoprolol Tartrate [Lopressor] 12.5 mg PO BID tab 01/22/23 Pantoprazole [Protonix] 40 mg PO AC-BRKFST tab 01/22/23 Potassium Chloride ER [K-Dur 20] 20 meq PO DAILY tab 01/22/23 Acetaminophen Tab [Tylenol] 650 mg PO Q6HR PRN tab 01/24/23 Midodrine [ProAmatine] 2.5 mg PO AC-TID 30 Days #90 tab 01/24/23 Allergies Allergy/AdvReac Type Severity Reaction Status Date / Time cat dander Allergy Rash/Hives Verified 04/01/23 17:28 latex Allergy Rash/Hives, Verified 04/01/23 17:28 Swelling Sulfa (Sulfonamide Allergy Nausea, Verified 04/01/23 17:28 Antibiotics) Chills nortriptyline [From Pamelor] AdvReac irritated, Verified 04/01/23 17:28 nervous Review of Systems ROS Statement: Those systems with pertinent positive or pertinent negative responses have been documented in the HPI. ROS Other: All systems not noted in ROS Statement are negative. Past Medical History Past Medical History: Hyperlipidemia, Osteoarthritis (OA), Pulmonary Embolus (PE), Thyroid Disorder Additional Past Medical History / Comment(s): hx 5 back surgeries with chronic back pain, low bp with orthostatic issues at times, left shoulder pain and stiffness- receives cortisone. , possible PE (2019)., states uti for the last year., rectal fistula, uses cane & walker. History of Any Multi-Drug Resistant Organisms: None Reported Past Surgical History: Back Surgery, Cholecystectomy, Heart Catheterization, Hysterectomy, Joint Replacement, Orthopedic Surgery Additional Past Surgical History / Comment(s): 5 back surgeries, right & left total knees, total right shoulder replacement and 2 previous surgeries on right shoulder, , lumpectomy right breast. 12/26 Dr. Aparicio fix bowel/ bladder fistula Past Anesthesia/Blood Transfusion Reactions: No Reported Reaction, Family History of Problems w/ Anesthesia Additional Past Anesthesia/Blood Transfusion Reaction / Comment(s): blood transfusions with child no issues. daughter has ponv Past Psychological History: No Psychological Hx Reported Smoking Status: Never smoker Past Alcohol Use History: Rare Past Drug Use History: None Reported - Past Family History Father Family Medical History: Diabetes Mellitus Mother Family Medical History: Hypertension Daughter(s) Family Medical History: Diabetes Mellitus General Exam - General Exam Comments Initial Comments: GENERAL Patient is well-developed and well-nourished. Patient is in mild distress. EYES Patient's pupils are equal and round. Extraocular motion is intact SKIN Unremarkable NEURO The patient is alert and oriented 3 PYSCH Patient has normal interpersonal interactions. MUSCULOSKELETAL On palpating the left clavicle crepitus could be felt. Patient does have some mild tenderness in the anterior left shoulder. Patient has normal sensation of the finger tips and good cap refill Course Vital Signs 04/01/23 17:23 Temperature 97.9 F Pulse Rate 100 Respiratory 18 Rate Blood Pressure 94/53 O2 Sat by Pulse 96 Oximetry Medical Decision Making - Medical Decision Making Was pt. sent in by a medical professional or institution (SANDEEP Oliva, YIELD ANALYST, urgent care, hospital, or detention...) When possible be specific @ -No Did you speak to anyone other than the patient for history (EMS, parent, family, police, friend...)? What history was obtained from this source @ -No Did you review nursing and triage notes (agree or disagree)? Why? @ -I reviewed and agree with nursing and triage notes Were old charts reviewed (outside hosp., previous admission, EMS record, old EKG, old radiological studies, urgent care reports/EKG's, detention records)? Report findings @ -No old charts were reviewed Differential Diagnosis (chest pain, altered mental status, abdominal pain women, abdominal pain men, vaginal bleeding, weakness, fever, dyspnea, syncope, headache, dizziness, GI bleed, back pain, seizure, CVA, palpatations, mental health, musculoskeletal)? @ -Differential Musculoskeletal Muscular strain, contusion, ligament sprain, fracture, arthritis, septic arthritis, bursitis, cellulitis, muscle spasm, nerve compression, DVT, arterial occlusion, herpes zoster, electrolyte abnormality, tumor.... This is not meant to be in all inclusive list EKG interpreted by me (3pts min.). @ -As above X-rays interpreted by me (1pt min.). @ -X-ray of the left clavicle and shoulder shoulder shows no abnormality. However the left clavicle is fractured mid clavicle 100% displacement CT interpreted by me (1pt min.). @ -None done U/S interpreted by me (1pt. min.). @ -None done What testing was considered but not performed or refused? (CT, X-rays, U/S, labs)? Why? @ -None What meds were considered but not given or refused? Why? @ -None Did you discuss the management of the patient with other professionals (professionals i.e. SANDEEP Oliva, YIELD ANALYST, lab, RT, psych nurse, professor of social work, video photographer, teacher, food safety officer, caseworker)? Give summary @ -No Was smoking cessation discussed for >3mins.? @ -No Was critical care preformed (if so, how long)? @ -No Were there social determinants of health that impacted care today? How? (Homele ssness, low income, unemployed, alcoholism, drug addiction, transportation, low edu. Level, literacy, decrease access to med. care, fci, rehab)? @ -No Was there de-escalation of care discussed even if they declined (Discuss DNR or withdrawal of care, Hospice)? DNR status @ -No What co-morbidities impacted this encounter? (DM, HTN, Smoking, COPD, CAD, Cancer, CVA, ARF, Chemo, Hep., AIDS, mental health diagnosis, sleep apnea, morbid obesity)? @ -None Was patient admitted / discharged? Hospital course, mention meds given and route, prescriptions, significant lab abnormalities, going to OR and other pertinent info. @ -Patient did not want any pain medication she stated she took a Percocet prior to arrival. Patient had an x-ray showed a mid clavicle fracture with 100% is placement. Patient is going to be placed in a sling and will be following up with orthopedics Undiagnosed new problem with uncertain prognosis? @ -No Drug Therapy requiring intensive monitoring for toxicity (Heparin, Nitro, Insuli n, Cardizem)? @ -No Were any procedures done? @ -No Diagnosis/symptom? @ -Left clavicle fracture Acute, or Chronic, or Acute on Chronic? @ -Acute Uncomplicated (without systemic symptoms) or Complicated (systemic symptoms)? @ -Uncomplicated Side effects of treatment? @ -No Exacerbation, Progression, or Severe Exacerbation? @ -No Poses a threat to life or bodily function? How? (Chest pain, [place], [place], pneumonia, PE, COPD, DKA, ARF, appy, cholecystitis, CVA, Diverticulitis, Homicidal, Suicidal, threat to staff... and all critical care pts) @ -No Disposition Clinical Impression: Closed left clavicular fracture Disposition: HOME SELF-CARE Instructions (If sedation given, give patient instructions): Clavicle Fracture (ED) Additional Instructions: Patient can continue taking her Percocet for pain. Patient should wear the shoulder immobilizer until follow-up. Is patient prescribed a controlled substance at d/c from ED?: No Referrals: Giancarlo Linares MD [Medical Doctor] - 1-2 days Time of Disposition: 19:07
[2023-04-01 19:43] VITALS: BP 108/75; PULSE 60; TEMP 98.2
== END 2023-04-01 19:43 | disposition home or self-care (01) ==
LOC: EC 17:22
DX: S42.022A Displaced fracture of shaft of left clavicle, initial encounter for closed fracture (principal); E78.5 Hyperlipidemia, unspecified; M19.90 Unspecified osteoarthritis, unspecified site; E07.9 Disorder of thyroid, unspecified; Z88.2 Allergy status to sulfonamides; Z91.040 Latex allergy status; Z91.048 Other nonmedicinal substance allergy status; Z88.8 Allergy status to other drugs, medicaments and biological substances; Z79.890 Hormone replacement therapy; Z79.899 Other long term (current) drug therapy; W18.30XA Fall on same level, unspecified, initial encounter
CPT/HCPCS: 99284